=== PATIENT | female | born 1950 | race Caucasian/White ===

== ENCOUNTER 2019-10-14 01:35 | Day surgery (SDC) | payer MEDICARE, OTHER, SELFPAY ==
[2019-10-05 15:39] VITALS: BMI 33.8
[2019-10-14 06:58] VITALS: BP 158/75; PULSE 72; RESP 18; TEMP 36.3; O2SAT 99
[2019-10-14] MEDS: LACTATED RINGERS 1,000 ML 150 ML IV CONT (06:59)
--- NOTE | 2019-10-14 07:34 | WPDANESEPPF ---
Anes - Initial Pre Proc Eval Procedure: Operation Date: 10/14/19 08:00 Proposed Procedures p Screening Colonoscopy - Wilmer Fletcher MD Date/Time: 10/14/19 07:34 Surgeon: Wilmer Fletcher MD Pre Op Diagnosis: Personal Hx Colon Polyps Patient Data Age: 69 Gender: F Height: 1.57 m Weight: 82.9 kg Last Vital Signs Temp 36.3 C L 10/14/19 06:58 Pulse 72 10/14/19 06:58 Resp 18 10/14/19 06:58 BP 158/75 H 10/14/19 06:58 Pulse Ox 99 10/14/19 06:58 Allergies Allergy/AdvReac Type Severity Reaction Status Date / Time No Known Allergies Allergy Verified 10/14/19 06:37 Home Medications Medication Instructions Recorded Confirmed Type aripiprazole 5 mg PO HS 10/05/19 10/05/19 History atorvastatin 10 mg PO 3XW 10/05/19 10/05/19 History clonazepam 0.5 mg PO QID 10/05/19 10/05/19 History escitalopram oxalate 10 mg PO HS 10/05/19 10/05/19 History losartan 10 mg PO HS 10/05/19 10/05/19 History Patient hx anesthesia problems: none Family hx anesthesia problems: none PMFSH Past Medical History Medical History (Updated 10/14/19 @ 07:35 by Dima Gibson MD) HTN (hypertension) Hypercholesterolemia Melanoma Obesity Family History Family History (Updated 04/11/16 @ 23:19 by DOCTOR UNKNOWN) Father Family history of malignant neoplasm Mother Family history of diabetes mellitus in first degree relative Family history of coronary artery disease Social History Social History Smoking status: Smoker, status unknown Alcohol intake: current Anes - Eval Final PreProcedure Day of Procedure 10/14/19 07:34 Patient weight: obese Heart: regular rate and rhythm Lungs: clear to auscultation and normal air movement Airway: Mallampati scale class II Neurological: alert and oriented Last oral intake: >/= 8 hours ASA classification: III Emergent: no Anesthetic plan: proceed Anesthesia type and monitoring: general GIVS Informed Consent: The patient's anesthetic plan and its attendant risks and benefits were discussed with the patient/family/POA. Questions were solicited and answers provided to the satisfaction of the patient/family/POA.
--- NOTE | 2019-10-14 07:48 | P.HP_ITS ---
History of Present Illness History of Present Illness Consent: Risks, benefits, and alternatives have been discussed and questions answered. Patient agrees to proceed with procedure. Chief complaint: Personal Hx Colon Polyps Narrative: Albania Silva is a 69 year old female for screening colonoscopy. She has history of adenomatous polyps for which she had a partial colectomy several years ago [facility] Past Medical History Medical History HTN (hypertension) Hypercholesterolemia Melanoma Obesity Family History Family History Father Family history of malignant neoplasm Mother Family history of diabetes mellitus in first degree relative Family history of coronary artery disease Social History Social History Smoking status: Smoker, status unknown Alcohol intake: current Meds Home Medications and Allergies Home Medications Medication Instructions Recorded Confirmed Type aripiprazole 5 mg PO HS 10/05/19 10/05/19 History atorvastatin 10 mg PO 3XW 10/05/19 10/05/19 History clonazepam 0.5 mg PO QID 10/05/19 10/05/19 History escitalopram oxalate 10 mg PO HS 10/05/19 10/05/19 History losartan 10 mg PO HS 10/05/19 10/05/19 History Allergies Allergy/AdvReac Type Severity Reaction Status Date / Time No Known Allergies Allergy Verified 10/14/19 06:37 Vital Signs Vital Signs - 24 hr 10/14/19 06:58 Temperature 36.3 C L Pulse Rate 72 Respiratory Rate 18 Blood Pressure 158/75 H Pulse Oximetry 99 Exam Resp: Auscultation: clear to auscultation bilaterally Cardio: Rate: regular rate Rhythm: regular rhythm GI: GI Palp: Yes Soft to palpation and No Tenderness to palpation present (GI) Assessment and Plan Assessment and plan (1) Family history of colonic polyps: Code(s): Z83.71 - Family history of colonic polyps Status: Acute Assessment and Plan: Colonoscopy with possible biopsy or polypectomy or cautery or injection of substances.
[2019-10-14] MEDS: SIMETHICONE ORAL SUSPENSION 20 MG/0.3 ML 30 ML BOTTLE 0.6 ML IRRIGATION (08:04)
[2019-10-14 08:12] VITALS: BP 119/66; PULSE 73; RESP 19; O2SAT 98
[2019-10-14 08:22] VITALS: BP 125/70; PULSE 74; RESP 19; O2SAT 98
[2019-10-14 08:32] VITALS: BP 147/71; PULSE 78; RESP 19; O2SAT 98
== END 2019-10-14 08:47 | disposition home or self-care (01) ==
PROVIDERS: Visit Provider Internal Medicine Gastroenterology
PROC: 0DJD8ZZ Inspection of Lower Intestinal Tract, Via Natural or Artificial Opening Endoscopic (ICD-10-PCS; CPT 45378; principal; 2019-10-14 08:00)
DX: Z12.11 Encounter for screening for malignant neoplasm of colon (principal); Z86.010 Personal history of colon polyps; Z98.0 Intestinal bypass and anastomosis status; Z90.49 Acquired absence of other specified parts of digestive tract; I10 Essential (primary) hypertension; E78.00 Pure hypercholesterolemia, unspecified; E66.9 Obesity, unspecified; Z68.33 Body mass index [BMI] 33.0-33.9, adult
CPT/HCPCS: G0121; J7120

== ENCOUNTER 2021-12-20 09:01 | Outpatient (CLI) | payer MEDICARE, OTHER, SELFPAY ==
--- NOTE | ~2021-12-20 | MR_ITS ---
EXAMINATION: MR IAC wo/w con DATE: 12/20/2021 10:03 INDICATION: Dizziness. TECHNIQUE: Magnetic resonance imaging (MRI) of the brain, brainstem, and internal auditory canals was performed without and with 13 mL MultiHance intravenous contrast. Sequences included sagittal and ax ial T1-weighted FSE, axial diffusion-weighted FS EPI, axial T2*-weighted GRE, axial T2-weighted FLAIR Propeller, axial T2-weighted Propeller, small hvrql-sk-dvae coronal FIESTA, small wbeuc-kw-bbwc lizz nal T1-weighted FSE, and small ljkab-nh-rpxj axial T1-weighted SPGR. Postcontrast sequences included axial T1-weighted FSE, small cktoz-pn-vtal coronal T1-weighted FSE, and small zznjw-qs-atpw axial T1- weighted SPGR. Apparent diffusion coefficient (ADC) maps were created. COMPARISON: Brain MRI 06/12/2016 FINDINGS: There are scattered areas of nonspecific increased T2-weighted signal intensity in the cere bral white matter and robert. There is no intracranial hemorrhage, acute infarction, or abnormal intrac ranial mass lesion. The ventricles are normal in size. Again seen are small bilateral mastoid effusio ns. The orbits are normal. The paranasal sinuses are clear. IMPRESSION: 1. Worsened moderate nonspecific cerebral white matter disease and pontine disease which likely repr esents chronic small vessel ischemic disease. Reviewed, dictated and finalized at location A. IMPRESSION: 1. Worsened moderate nonspecific cerebral white matter disease and pontine dise ase which likely represents chronic small vessel ischemic disease.
[2021-12-20 09:26] LABS: Estimated Glomerular Filt Rate > 60
== END 2021-12-20 09:02 | disposition home or self-care (01) ==
LOC: ANHIMG 09:04
DX: R42 Dizziness and giddiness (principal); R93.0 Abnormal findings on diagnostic imaging of skull and head, not elsewhere classified
CPT/HCPCS: 70553; A9577

== ENCOUNTER 2025-01-29 13:51 | Inpatient (IN) | payer MEDICARE, OTHER, SELFPAY ==
[2025-01-29] VITALS (20 sets, daily range): BP systolic 145–184; BP diastolic 71–84; PULSE 87–106; RESP 14–22; TEMP 36.5–36.6; O2SAT 94–100; BMI 26.7
--- NOTE | ~2025-01-29 | CT_ITS ---
History: Fall PROCEDURE: CT cervical spine without intravenous contrast. COMPARISON: None TECHNIQUE: Multiple contiguous axial images of the cervical spine were performed without the administration of i ntravenous contrast. DLP: 283 mGy-cm FINDINGS: Straightening and slight reversal of the normal curvature of the cervical spine is identified, likely muscular in origin. No acute fractures are present. The bilateral lung apices are unremarkable. No soft tissue abnormality is present. The airway is patent. Impression: Straightening and slight reversal of the normal curvature of the cervical spine, likely muscular in o rigin. No acute fracture. Reviewed, dictated and finalized at location A. Impression: Straightening and slight reversal of the normal curvature of the cervical spine , likely muscular in origin. No acute fracture.
--- NOTE | ~2025-01-29 | XR_ITS ---
HISTORY: Fall COMPARISON: None TECHNIQUE: 2 views of the left foot were performed FINDINGS: Comminuted fracture of the distal margin of the proximal phalanx of the fifth toe. No additional fracture deformities are appreciated. Ossification of the insertion of the Achilles tendon is present. The base of the fifth metatarsal is intact. No calcaneal spur is noted. Mild soft tissue swelling of the forefoot is present. IMPRESSION: Comminuted fracture of the distal margin of the proximal phalanx, as detailed above. Reviewed, dictated and finalized at location A.
--- NOTE | ~2025-01-29 | CT_ITS ---
History: Fall PROCEDURE: CT head without contrast. COMPARISON: Reference is made to MRI examinations of the brain dated 06/12/2016 and dating back to TECHNIQUE: Axial imaging of the head performed from the skull base to the vertex without IV contrast. Sagittal a nd coronal reformations obtained. DLP: 605 mGy-cm FINDINGS: The ventricles are normal in size, shape and position. There is no mass, mass effect or midline shift. There is no abnormal extra-axial fluid collection or intracranial hemorrhage. Visualized paranasal sinuses are clear. The mastoid air cells are well aerated. No acute displaced fractures within the overlying cranium. Impression: No acute intracranial hemorrhage or suspicious mass effect. Reviewed, dictated and finalized at location A. Impression: No acute intracranial hemorrhage or suspicious mass effect.
--- NOTE | ~2025-01-29 | XR_ITS ---
CHEST RADIOGRAPH CLINICAL HISTORY: generalized weakness . COMPARISON: 06/23/2016 TECHNIQUE: Single portable view of the chest. FINDINGS The cardiomediastinal silhouette is unremarkable. Low lung volumes detected bilaterally secondary to incomplete inhalation. The lungs are otherwise clear. IMPRESSION: No focal infiltrate or effusion. Reviewed, dictated and finalized at location A.
--- NOTE | ~2025-01-29 | XR_ITS ---
Exam: Abdomen 1V HISTORY: Nausea, vomiting, abdominal pain COMPARISON: reference is made to a CT examination of the chest abdomen and pelvis dated 01/29/2025 TECHNIQUE: Supine images of the abdomen FINDINGS: Air is now identified within the rectum, an interval change from the recent CT examination. Multiple loops of distended small bowel are identified within the mid abdomen with mural thickening. Air opacified colon is also identified. There is no free air or deep sulci. No pathologic calcifications are seen. Lung bases are unremarkable. IMPRESSION: Distended small bowel within the mid abdomen with mural thickening. Air within the rectum, an interval change from recent CT examination. Reviewed, dictated and finalized at location A.
--- NOTE | ~2025-01-29 | CT_ITS ---
EXAMINATION: CTA chest PE abdomen pel DATE: 01/29/2025 17:24 CDT INDICATION: Weakness with positive d-dimer, leukocytosis and diarrhea. COMPARISON: 05/22/2016 TECHNIQUE: Computed tomographic angiography (CTA) of the chest was performed, along with multiple con tiguous axial images of the abdomen and pelvis with 100 mL Omnipaque-350 intravenous contrast. The do se-length product was 882.16 mGy-cm. Maximum intensity projection 3D-reconstructions of the aorta and other arteries were constructed by the technologist on a separate workstation. FINDINGS/OBSERVATIONS: PULMONARY ARTERIES: No filling defect is identified within the main or proximal pulmonary artery. The main pulmonary artery is not enlarged. THORACIC AORTA: No aneurysmal dilatation or dissection is present. The great vessels are intact LUNGS: The lungs are clear. MEDIASTINUM: No morphologically suspicious or pathologically enlarged lymph nodes are identified with in the mediastinum or bilateral axilla. Calcified lymph nodes are present consistent with prior granu lomatous disease. BONES OF THE CHEST: No acute fracture. No significant degenerative disease. No lytic or blastic lesions. HEART: The heart is of normal size, without pericardial effusion. LIVER: The liver enhances homogeneously and is of decreased attenuation consistent with fatty infiltration. The liver is not enlarged. GALLBLADDER AND BILIARY SYSTEM: The gallbladder is surgically absent. PANCREAS: The pancreas enhances homogeneously without ductal dilatation. SPLEEN: The spleen enhances homogeneously and is not enlarged. KIDNEYS: Rounded focus of fluid attenuation within the upper pole of the right kidney, likely a simpl e cyst. The remainder of the bilateral kidneys enhance symmetrically without hydronephrosis or renal calculi. ADRENAL GLANDS: Unremarkable. GASTROINTESTINAL TRACT: Colonic diverticulosis without surrounding inflammatory change. Postoperative change within the right mid abdomen. Fecal stasis distending the rectum. APPENDIX: The appendix is not definitively visualized. However, no pericecal inflammatory change is identified suggest the presence of acute appendicitis. VASCULATURE: Calcified atherosclerotic disease. LYMPH NODES: No pathologically enlarged or morphologically suspicious lymph nodes within the retroperitoneum or at the root of the mesentery. PELVIC STRUCTURES: The bladder is only minimally distended, and otherwise unremarkable. The uterus is either surgically absent or markedly atrophic. BODY WALL AND MUSCULOSKELETAL: Small fat-containing umbilical hernia. Age-appropriate degenerative disease within the thoracic and lumbosacral spine. IMPRESSION: No pulmonary embolus. No aortic dissection. The lungs are clear. Fecal stasis distending the rectum. Reviewed, dictated and finalized at location A.
--- OUTSIDE RECORDS SUMMARY | 2025-01-29 13:53 | XMS_ITS | Encounter Summary ---
Author Organization [facility] Address 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
--- OUTSIDE RECORDS SUMMARY | 2025-01-29 13:53 | XMS_ITS | Encounter Summary ---
Author Organization [facility] Address 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 Gender Identity Not on file Sexual Orientation Not on file documented as of this encounter Plan of Treatment Not on file documented as of this encounter Procedures Procedure Name Priority Date/Time Associated Diagnosis Comments MAMMO SCREENING BILAT Routine 06/30/2008 5:15 PM CDT documented in this encounter Results * MAMMO SCREENING BILAT (06/30/2008 5:15 PM CDT) Anatomical Region Laterality Modality Breast Bilateral Other 06/30/2008 5:15 PM CDT Narrative 07/03/2008 2:51 PM CDT [facility] [address], [place] [address] Admit Date: 06/30/2008 BEVERLEY ARGUELLO Sex: F Admit Prov: DOCTOR, NOT O Date: 1950 Primary Care Prov: CMRN: [id number] Room: [facility] SSN: [address] [place] [address] IMAGING SERVICES Ordering Prov: DOCTOR, NOT O Accession Number: [id number] Interpretation BILATERAL SCREENING MAMMOGRAM 06/30/08 Reason for this examination: Annual screening study. Findings: The parenchyma is predominantly fatty bilaterally. There is no mass, malignant calcification, lymphadenopathy or other sign of malignancy. No change since 06/2006. Summary: No mammographic evidence of malignancy. Overall assessment: BIRADS category 1 - Negative Assessment BIRADS: 1-Negative Recommendation: Normal interval follow-up Dictated by: WILBUR MEADE Electronically signed by: WILBUR MEADE 07/03/2008 14:50 Transcribed: 07/03/2008 14:41 AMK Procedure Note Wilbur Meade MD - 07/03/2008 [facility] [address], [place] [address] Admit Date: 06/30/2008 BEVERLEY ARGUELLO Sex: F Admit Prov: DOCTOR, NOT O Date: 1950 Primary Care Prov: CMRN: [id number] Room: [facility]: [address] [place] [address] IMAGING SERVICES Ordering Prov: DOCTOR, NOT O Interpretation BILATERAL SCREENING MAMMOGRAM 06/30/08 Reason for this examination: Annual screening study. Findings: The parenchyma is predominantly fatty bilaterally. Thereis no mass, malignant calcification, lymphadenopathy or other sign ofmalignancy. No change since 06/2006. Summary: No mammographic evidence of malignancy. Overall assessment: BIRADS category 1 - Negative Assessment BIRADS: 1-Negative Recommendation: Normal interval follow-up Dictated by: WILBUR MEADE Electronically signed by: WILBUR MEADE 07/03/2008 14:50 Transcribed: 07/03/2008 14:41 AMK us History Conversion MAMMO ORDERABLES Final Result documented in this encounter Visit Diagnoses Diagnosis Other screening mammogram documented in this encounter
--- OUTSIDE RECORDS SUMMARY | 2025-01-29 13:53 | XMS_ITS | Encounter Summary ---
Author Organization [facility] Address 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
--- OUTSIDE RECORDS SUMMARY | 2025-01-29 13:53 | XMS_ITS | Patient Health Record ---
Author Organization [employer] Address [address] [facility] [address] [place] [address] Care Team Providers Care Lasting Floorworker Name Role Phone Jud Londono MD Primary Care Provider Joe Gonzalez Unavailable [phone] Reason For Referral No Information Medications Medication SIG (Take, Route, Fr equency, Duration) Notes Start Date End Date Status Loperamide HCl 2 MG TAKE 1 CAPSULE BY [facility] TWICE DAILY NEEDED for 10 Active Suflave 178.7 GM ML Orally twice a da y for 1 days 11/12/2023 Active clonazePAM Active Atorvastatin Calcium Active Immunizations Vaccine Route Administration Date Status Comme nts Influenza Vaccination Unknown 06/14/2018 Administered Social History Tobacco Use: Social History Observation Description Date Details (start date - stop date) Current Smoker NA - NA Tobacco Use/Smoking Question Answer Notes Are you a current smoker Problems Problem Type SNOMED Code ICD Code Onset Dates Problem Status W/U Status Risk Notes Problem 292984114 Gastro-esophag eal reflux disease with esophagitis (K21.0) Active confirmed Problem 966264547 Esophageal obstruction (K22.2) Active confirmed Problem 344893398 Chronic diarrhea (K52.9) Active confirmed She has chronic diarrhea. She typically has up to 15 bowel movements per day that are semi-formed or watery. Her stools come on urgently and she sometimes will have nocturnal symptoms. She denies having any blood in the stool. It is of note that she has had previous hemicolectomy and cholecystectomy . She also notes that certain fruits such as apples and pears worsen her symptoms. Suspect symptoms are related to a combination of previous surgeries and food intolerance. Problem 215869222 History of colon polyps (Z86.010) Active confirmed Her last colonoscopy was in 2014. She has a history of polyps and was instructed to follow up in 5 years. Problem 59326148 Dysphagia (R13.10) Active confirmed Problem 142820063 S/P neno (Z90.49) Active confirmed Plan Of Treatment Pending Test Test Name Order Date Initiate Fructose 12/09/2018 Initiate Lactose 12/09/2018 Insurance Providers Payer Name Payer Address Payer Phone Subscriber Number Group Number Insured Name Patient Relationship to Insured Coverage Start Date Coverage End Date Medicare E2 [address] [address] [place] [address] [id number] Albania Silva Self - patient is the insured [employer] E2 [address] [place] [address] [phone] [id number] Albania Silva Self - patient is the insured 7 Medical (General) History Medical History History ICD Code GERD Hypertension Bipolar disorder Melanoma in-situ Depression/anxiety Colon polyps IBS Surgical History Surgery Date(Month/Year) EGD 04/2017 Hemicolectomy Cholecystectomy Hysterectomy Melanoma excision Tonsillectomy Colon / Bowel Surgery
--- OUTSIDE RECORDS SUMMARY | 2025-01-29 13:53 | XMS_ITS | Encounter Summary ---
Author Organization [facility] Address [address] [place] [address] Care Team Providers Care Supervisor Leaf Spring Repair Name Role Phone Marlen Frazier MD Primary Care Provider [phone] Encounter Details Date Type Department Care Team (Late st Contact Info) Description 08/13/2023 Lab Requisition [facility] - DermPath Lab [address] [place] [id number] Floridalma Caban MD [address] [place] [id number] Neoplasm of uncertain behavior of skin Social History Tobacco Use Types Packs/Day Years Used Date Smoking Tobacco: Every Day Cigarettes Smokeless Tobacco: Never Alcohol Use Standard Drinks/Week Comments No 0 (1 standard drink = 0.6 oz pur e alcohol) Comments Unknown Sex and Gender Information Value Date Recorded Sex Assigned at Not on file Legal Sex Female 5:45 PM HEAD OF CONSERVATION Gender Identity Not on file Sexual Orientation Not on file documented as of this encounter Plan of Treatment Not on file documented as of this encounter Procedures Procedure Name Priority Date/Time Associated Diagnosis Comments DERMATOPATHOLOGY Routine 08/13/2023 3:33 AM HEAD OF CONSERVATION Neoplasm of uncertain behavior of skin documented in this encounter Results * DERMATOPATHOLOGY (08/13/2023 3:33 AM HEAD OF CONSERVATION) Case Report Dermatopathology Report Case: [id number] Authorizing Provider: Floridalma Caban MD Collected: 08/13/2023 03:33 AM Ordering Location: [facility] DermPath Lab Received: 08/14/2023 08:36 AM Pathologist: Hannah Quiroz MD Specimen: Skin, superior thoracic spine 3 12:58 PM [facility] DERMATOPATHOLOGY LABORATORY Final Diagnosis Specimen A. SKIN, superior thoracic spine: BASAL CELL CARCINOMA, FIBROEPITHELIOMA TYPE (C44.519) 3 12:58 PM [facility] DERMATOPATHOLOGY LABORATORY Clinical History Rule-Out Basal Cell Carcinoma 3 12:58 PM [facility] DERMATOPATHOLOGY LABORATORY Gross Description Specimen A: Received is one formalin filled container labeled with the patient's name and designated superior thoracic spine. The specimen consists of a shave biopsy measuring 8x5x2 mm. Jar 0. 3 12:58 PM [facility] DERMATOPATHOLOGY LABORATORY Microscopic Description Specimen A. SKIN, superior thoracic spine: Embedded in a fibrous cellular stroma there are numerous anastomosing narrow strands of basaloid cells. In areas, the collections of basaloid cells show peripheral palisading. 3 12:58 PM [facility] DERMATOPATHOLOGY LABORATORY Disclaimer An external and internal positive and negative controls are appropriate for the histochemical, immunohistochemical and immunofluorescence stain(s) in this case (if any), except where stated explicitly. The performance characteristics of the stain(s) cited in this report were developed and its performance characteristic determined by the Dermatopathology Laboratory at [facility], directed by Dr. Melecio Zambrano. These tests need not be, and therefore are not, approved by the [place] Food and Drug Administration. The tests are used for clinical purposes. Billing Codes Specimen Charges Stain Charges 63081 1 3 12:58 PM [facility] DERMATOPATHOLOGY LABORATORY Embedded Images 3 12:58 PM [facility] DERMATOPATHOLOGY LABORATORY Pathology/Cytolo gy TISSUE SPECIMEN FROM SKIN / Unknown 08/13/2023 3:33 AM HEAD OF CONSERVATION 08/14/2023 8:36 AM HEAD OF CONSERVATION Floridalma Caban MD LAB - PATHOLOGY/CYTOLOGY ORDERAB LES Final Result DERMATOPATHOLOGY LABORATORY [facility] - Department of Dermatology [address], [address] [phone] documented in this encounter Visit Diagnoses Diagnosis Neoplasm of uncertain behavior of skin documented in this encounter Care Teams Supervisor Leaf Spring Repair Relationship Specialty Start Date End Date Marlen Frazier MD PCP - General 07/25/16 documented as of this encounter
--- OUTSIDE RECORDS SUMMARY | 2025-01-29 13:53 | XMS_ITS | Continuity of Care Document ---
Author Organization [facility] Address [address] [place] [address] Phone Care Team Providers Care Resident Medical Officer Name Role Phone Freda Thapa Unavailable Unavailable Advance Directives Directive Yes / No Effective Date File Name No Information Encounters Encounter Description Practice Location Reason(s) For Visit Diagnoses Date Provider Providers Copied on Encounter [facility], [address], [place], [place], [id number], [place] tel:[phone] [facility] No Information 0-200 6 Alanis Barba. [address] , [address], [place], [address], [place]. tel:[phone] Family History Family Member Type Diagnosis Age At Onset No Information Payers Payer name Insurance type Covered alliance party ID Authoriza tipanda(s) [facility] CI [id number] Social History Type Description Quantity Date Captured Comments Sex Female Smoking Status No Information Chief Complaint And Reason For Visit No Information Reason For Referral Reason For Referral No Information History Of Present Illness Encounter Date Complaint History Of Prese nt Illness No Information Functional Status Date Functional Assessmen t No Information Instructions Date Instruction Additional Infor mation No Information Assessments Type Assessment Date No Information Patient Care Teams Name Effective Dates (start - stop) Status Members No Information
--- OUTSIDE RECORDS SUMMARY | 2025-01-29 13:53 | XMS_ITS | Encounter Summary ---
Author Organization [facility] Address 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
--- OUTSIDE RECORDS SUMMARY | 2025-01-29 13:53 | XMS_ITS | Clinical Summary ---
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 [place] Gender Identity Not on file Sexual Orientation Not on file Plan of Treatment Health Maintenance Due Date Last Done Comments DTAP/TDAP/TD VACCINES (1 - Tdap) 1971 COLORECTAL SCREENING 1997 Colorectal Cancer Screening 1997 FIT-DNA Q 3 years 1997 FIT/FOBT Q 1 year 1997 Flex Sig/CT Colonography Q 5 years 1997 PNEUMOCOCCAL VACCINE 50+ YEARS (1 of 1 - PCV) 05/24/20 02 ZOSTER VACCINE (1 of 2) 2002 BREAST CANCER SCREENING 06/30/2009 06/30/2008 OSTEOPOROSIS SCREENING 2017 INFLUENZA VACCINE (#1) 2024 RSV VACCINE (60+ or ) (1 - 1-dose 75+ series) 2027 Procedures Procedure Name Priority Date/Time Associated Diagnosis Comments MAMMO SCREENING BILAT Routine 06/30/2008 5:15 PM CDT from Last 3 Months or Most Recently Relevant to Health Maintenance Results * MAMMO SCREENING BILAT (06/30/2008 5:15 PM CDT) Anatomical Region Laterality Modality Breast Bilateral Other 06/30/2008 5:15 PM CDT Narrative 07/03/2008 2:51 PM CDT [address] [address] Admit Date: 06/30/2008 BEVERLEY ARGUELLO Sex: F Admit Prov: DOCTOR, NOT O Date: 1950 [id number] [address] [place] [address] IMAGING SERVICES Ordering Prov: DOCTOR, NOT O Accession Number: [id number] Interpretation BILATERAL SCREENING MAMMOGRAM 06/30/08 Reason for [...] Procedure Note Wilbur Meade MD - 07/03/[address] [address] Admit Date: 06/30/2008 BEVERLEY ARGUELLO Sex: F Admit Prov: DOCTOR, NOT O Date: 1950 [facility] [id number] [facility] [id number] IM[facility] SERVICES Ordering Prov: DOCTOR, NOT O [...] us History Conversion MAMMO ORDERABLES Final Result from Last 3 Months or Most Recently Relevant to Health Maintenance
--- OUTSIDE RECORDS SUMMARY | 2025-01-29 13:53 | XMS_ITS | Clinical Summary ---
Author Organization [facility] Address [address], [place] [address] Phone Care Team Providers Care Marble Carver Name Role Phone Unavailable Primary Care Provider Unavailabl e Medications metoprolol tartrate (LOPRESSOR) 50 MG tablet 1 bid 0 07/11/2016 Active fluticasone (FLONASE ALLERGY RELIEF) 50 MCG/ACT nasal spray as needed 0 07/11/2016 Active clonazePAM (KlonoPIN) 0.5 MG tablet prn 0 07/11/2016 Active ARIPiprazole (ABILIFY) 5 MG tablet 1 tablet (5 mg) orally daily 0 07/14/2016 Active losartan (COZAAR) 100 MG tablet 1 daily 0 07/11/2016 Active Active Problems Problem Noted Date Diagnosed Date Hypo-osmolality and hyponatremia 07/14/2016 Essential (primary) hypertension 07/14/2016 Melanoma in situ 07/14/2016 Nonscarring hair loss 07/14/2016 Abnormal weight loss 07/14/2016 Parageusia 07/14/2016 Family History Medical History Relation Comments Hypertensive disorder Father Malignant neoplastic disease Father Hypertensive disorder Mother Hypertensive disorder Sibling Kidney disease Neg Hx Kidney stone Neg Hx Relation Status Comments Father Mother Sibling Social History Tobacco Use Types Packs/Day Years Used Date Smoking Tobacco: Light Smoker Alcohol Use Standard Drinks/Week Comments No 0 (1 standard drink = 0.6 oz pur e alcohol) Comments Unknown Sex and Gender Information Value Date Recorded Sex Assigned at Not on file Legal Sex Female 9:31 AM MST Gender Identity Not on file Sexual Orientation Not on file Last Filed Vital Signs Vital Sign Reading Time Taken Comments Blood Pressure 128/70 10/06/2016 12:01 AM COMMUNITY AMBASSADOR Pulse 72 07/14/2016 12:01 AM CDT Temperature 37.3 C (99.1 F) 07/14/2016 12:01 AM CDT Respiratory Rate - - Oxygen Saturation - - Inhaled Oxygen Concentration - - Weight 79.4 kg (175 lb) 10/06/2016 12:01 AM COMMUNITY AMBASSADOR Height 157.5 cm (5' 2) 10/06/2016 12:01 AM COMMUNITY AMBASSADOR Body Mass Index 32.01 10/06/2016 12:01 AM COMMUNITY AMBASSADOR Plan of Treatment Not on file
--- OUTSIDE RECORDS SUMMARY | 2025-01-29 13:53 | XMS_ITS ---
Author Organization [facility], [facility] Address [address] [place] [address] [address] [place] [address] Care Team Providers Care Attendance Officer Name Role Phone Jud Londono MD Primary Care Provider Joe Gonzalez [facility] [phone] REASON FOR VISIT Path results Encounters Encounter Location Date Provider Diagnosis [facility], [facility] [address] [facility] [address] [place] [address] 01/06/2024 Joe Carvajal Plan Of Treatment No Information Progress Notes * [place] ARGUELLO KDOB:1950 ( 73 yo F)Acc No.[id number]:01/06/2024 Patient: Albania Mcclendon :1950 A ge:73 Y S ex:Female Address:[address] [place] [address], [address] * true * Date: Generated for Printi ng/Falolisg/eTransmitting on: 0 01/29/2025 01:53 PM CDT
--- OUTSIDE RECORDS SUMMARY | 2025-01-29 13:53 | XMS_ITS | Encounter Summary ---
Author Organization [facility] Address [address] [place] [address] Care Team Providers Care Secure Software Assessor Name Role Phone Marlen Frazier MD Primary Care Provider [phone]- [phone] Encounter Details Date Type Department Care Team (Late st Contact Info) Description 05/22/2022 Lab Requisition [facility] [address] [place] [id number] Floridalma Caban MD [address] [place] [address] Social History Tobacco Use Types Packs/Day Years Used Date Smoking Tobacco: Every Day Cigarettes Smokeless Tobacco: Never Alcohol Use Standard Drinks/Week Comments No 0 (1 standard drink = 0.6 oz pur e alcohol) Comments Unknown Sex and Gender Information Value Date Recorded Sex Assigned at Not on file 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 Gender Identity Not on file Sexual Orientation Not on file documented as of this encounter Plan of Treatment Not on file documented as of this encounter Procedures Procedure Name Priority Date/Time Associated Diagnosis Comments DERMATOPATHOLOGY Routine 05/20/2022 12:0 0 AM CDT documented in this encounter Results * DERMATOPATHOLOGY (05/20/2022 12:00 AM CDT) Case Report Dermatopathology Report Case: [id number] Authorizing Provider: Floridalma Caban MD Collected: 05/20/2022 12:00 AM Ordering Location: [facility] Received: 05/22/2022 08:47 AM Pathologist: Kaleigh Alfred MD Specimen: Skin, middle sternum 2 5:31 PM CDT DERMATOPATHOLOGY LABORATORY Final Diagnosis Specimen A. SKIN, middle sternum: BENIGN VERRUCOUS KERATOSIS, INFLAMED (L82.1) 2 5:31 PM CDT DERMATOPATHOLOGY LABORATORY Clinical History R/O squamous cell carcinoma 2 5:31 PM CDT DERMATOPATHOLOGY LABORATORY Gross Description Specimen A: Received is one formalin filled container labeled with the patient's name and designated middle sternum. The specimen consists of a shave biopsy measuring 7x5x2 mm. Jar 0. 2 5:31 PM T DERMATOPATHOLOGY LABORATORY Microscopic Description Specimen A. SKIN, middle sternum: Sections show hyperkeratosis, papillomatosis, hypergranulosis, and acanthosis. Inflammatory cells are present within the dermis. These histological findings can be seen in a verruca vulgaris or a seborrheic keratosis. 2 5:31 PM CDT DERMATOPATHOLOGY LABORATORY Disclaimer An external and internal positive and negative controls are appropriate for the histochemical, immunohistochemical and immunofluorescence stain(s) in this case (if any), except where stated explicitly. The performance characteristics of the stain(s) cited in this report were developed and its performance characteristic determined by the Dermatopathology Laboratory at [facility], directed by Dr. Melecio Zambrano. These tests need not be, and therefore are not, approved by the [place] Food and Drug Administration. The tests are used for clinical purposes. Billing Codes Specimen Charges Stain Charges 10305 1 2 5:31 PM CDT DERMATOPATHOLOGY LABORATORY Embedded Images 2 5:31 PM CDT DERMATOPATHOLOGY LABORATORY Pathology/Cytolog y TISSUE SPECIMEN FROM SKIN / Unknown 05/20/2022 05/22/2022 8:47 AM CDT Floridalma Caban MD LAB - PATHOLOGY/CYTOLOGY ORDERAB LES Final Result DERMATOPATHOLOGY LABORATORY [facility] - Department of Dermatology [address], [address] [phone] documented in this encounter Visit Diagnoses Not on filedocumented in this encounter Care Teams Secure Software Assessor Relationship Specialty Start Date End Date Marlen Frazier MD PCP - General 07/25/16 documented as of this encounter
--- OUTSIDE RECORDS SUMMARY | 2025-01-29 13:53 | XMS_ITS ---
Author Organization [facility] Address [address] [place] [address] [address] [place] [address] Care Team Providers Care Candle Making Supervisor Name Role Phone Jud Londono MD Primary Care Provider Joe Gonzalez [phone] REASON FOR VISIT Loperamide refill Encounters Encounter Location Date Provider Diagnosis [facility] [address] [place] [address] 01/06/2024 Joe Carvajal Plan Of Treatment No Information Progress Notes * Albania ARGUELLO KDOB:1950 ( 73 yo F)Acc No.[id number]:01/06/2024 Patient: [place]ia Mcclendon :1950 A ge:73 Y S ex:Female Address:[address] [place] [address], [address] * true * Date: Generated for Printi ng/Faxing/eTransmitting on: 0 01/29/2025 01:53 PM CDT
--- OUTSIDE RECORDS SUMMARY | 2025-01-29 13:53 | XMS_ITS | Clinical Summary ---
Author Organization [facility] Address [address] [address] Care Team Providers Care Imaging Manager Name Role Phone Marlen Frazier MD Primary Care Provider +1- [phone] Source Comments [facility],non-owned Affiliates and Associated Physician Practices is amultiple site organization consisting of ambulatory clinics and hospital sitesin [place], [place], [place] and [place]. This disclosure is being madepursuant to the Care Everywhere program and may not contain all information available regarding this patient. Last updated 18.[facility] Medications * Be aware that medications may not be up to date on this document. Alwaysverify current medications with the patient. ARIPiprazole (ABILIFY) 2 MG tablet Take by mouth. 08/11/2016 Active clonazePAM (KLONOPIN) 0.5 MG tablet Take 0.25 mg by mouth. 01/10/2016 Active losartan (COZAAR) 100 MG tablet 01/28/2016 Active metoprolol succinate XL 24hr (TOPROL XL) 50 MG tablet Take 25 mg by mouth DAILY. 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 Family History Medical History Relation Name Comments Alcohol abuse Father Anxiety Disorder Father Cancer Father Heart Disease Father Hypertension Father Alcohol abuse Mother Diabetes Mother Hearing Loss Mother Heart Disease Mother Hypertension Mother CVA Neg Hx Glaucoma Neg Hx Macular Degeneration Neg Hx Relation Name Status Comments Father Mother Social History Tobacco Use Types Packs/Day Years Used Date Smoking Tobacco: Every Day Cigarettes Smokeless Tobacco: Never Alcohol Use Standard Drinks/Week Comments No 0 (1 standard drink = 0.6 oz pur e alcohol) Comments Unknown Sex and Gender Information Value Date Recorded Sex Assigned at Not on file 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 Gender Identity Not on file Sexual Orientation Not on file Last Filed Vital Signs Vital Sign Reading Time Taken Comments Blood Pressure - - Pulse - - Temperature - - Respiratory Rate 14 08/11/2016 1:57 PM SHEET METAL SUPERINTENDENT Oxygen Saturation - - Inhaled Oxygen Concentration - - Weight 74.8 kg (165 lb) 08/11/2016 1:57 PM SHEET METAL SUPERINTENDENT Height 157.5 cm (5' 2) 08/11/2016 1:57 PM SHEET METAL SUPERINTENDENT Body Mass Index 30.18 08/11/2016 1:57 PM SHEET METAL SUPERINTENDENT Plan of Treatment Health Maintenance Due Date Last Done Comments BONE DENSITY TESTING 1950 COLOGUARD (AGES 45-75) - COL ON CA SCREENING 1950 COLON MONITORING 1950 COLONOSCOPY - COLON CA SCREENING 1950 CT COLONOGRAPHY - COLON CA SCREENING 1950 Colorectal Cancer Screening 1950 FIT - COLON CA SCREENING 1950 FLEX SIG - COLON CA SCREENING 1950 LIPID TESTING 1950 MAMMOGRAM 1950 MEDICARE AWV 12 MONTHS 1950 HEPATITIS C SCREENING 05/20/1970 DTAP/TDAP/TD VACCINES (1 - Tdap) 1971 PNEUMOCOCCAL VACCINE 50+ (1 of 2 - PCV) 1971 ZOSTER VACCINE (1 of 2) 2002 COVID-19 VACCINE ( - 2023-2 5 season) 2024 DEPRESSION SCREENING 09/14/2024 INFLUENZA VACCINE (Season Ended) 2025 Respiratory Syncytial Virus (RSV) Vaccine Pt: or over 60 yrs (1 - 1-dose 75+ series) 2027 HEPATITIS B VACCINE Aged Out No longe r eligible based on patient's age to complete this topic HIB VACCINE Aged Out No longer eligi ble based on patient's age to complete this topic HPV VACCINE Aged Out No longer eligi ble based on patient's age to complete this topic MENINGOCOCCAL (Group B) VACC INE SHARED DECISION-MAKING Aged Out No longer eligibl e based on patient's age to complete this topic MENINGOCOCCAL GROUPS A/C/Y/W VACCINE Aged Out No longer eligible b ased on patient's age to complete this topic [address] MED[address]ARE [facility] Care Teams Imaging Manager Relationship Specialty Start Date End Date Marlen Frazier MD PCP - General 07/25/16
--- OUTSIDE RECORDS SUMMARY | 2025-01-29 13:54 | XMS_ITS ---
Author Organization [facility] Address [address] [place] [address] [address] [place] [address] Care Team Providers Care Enterprise Software Engineer Name Role Phone Jud Londono MD Primary Care Provider Joe Gonzalez [phone] REASON FOR VISIT VM: pathology results Encounters Encounter Location Date Provider Diagnosis [facility] [address] [place] [address] 01/08/2024 Joe Carvajal Plan Of Treatment No Information Progress Notes * Albania ARGUELLO KDOB:1950 ( 73 yo F)Acc No.[id number]:01/08/2024 Patient: lAbania Mcclendon :1950 A ge:73 Y S ex:Female Address:[address] [place] [address], [address] * true * Date: Generated for Printi ng/Faxing/eTransmitting on: 0 01/29/2025 01:53 PM CDT
--- NOTE | 2025-01-29 15:13 | ED.FALL ---
HPI - Fall General Chief Complaint: Fall Stated Complaint: WEAKNESS,FELL OUT OF BED Time Seen by Provider: 01/29/25 15:11 Source: RN notes reviewed Mode of arrival: EMS History of Present Illness HPI Narrative: Patient presents after a fall from bed approximately 1 hour CHURN OPERATOR MARGARINE. She has been weak. No myalgias. Decreased PO intake. Decreased appetite. Knees reportedly gave out. No sick contacts. Did not hit head. Denies pain. Initially denied paresthesias but then states occasional tingling. No sick contacts. No loss of conciousness. Not on anticoagulation. No nausea or vomiting. No chest pain or abdominal pain. No shortness of breath. Uses walker. No cough. No travel or antibiotics. Has had frequent falls. Chronic diarrhea according to her due to issues related to prolapsed polyp with Dr Fletcher. Patient couldn't get off the ground. concerned her bilateral legs have atrophied. No weight loss. Had previously had bilateral lower extremity edema and been on furosemide, since discontinued. PCP Nancy Fan Denies history of DM. Related Data Home Medications ?Medication ?Instructions ?Recorded ?Confirmed ?Last Taken ?Type atorvastatin 10 mg tablet 10 mg PO 3XW 10/05/19 01/29/25 10/13/19 History clonazepam 0.5 mg tablet 0.5 mg PO QID 10/05/19 01/29/25 10/13/19 History citalopram 40 mg tablet 40 mg PO DAILY 01/29/25 01/29/25 Unknown History meclizine 25 mg tablet 25 mg PO TID PRN dizziness 01/29/25 01/29/25 Unknown History memantine 10 mg tablet 10 mg PO BID 01/29/25 01/29/25 Unknown History trazodone 100 mg tablet 100 mg PO HS 01/29/25 01/29/25 Unknown History potassium chloride 20 mEq 20 meq PO BID 01/30/25 01/30/25 Unknown History tablet,extended release Allergies Allergy/AdvReac Type Severity Reaction Status Date / Time No Known Allergies Allergy Verified 01/29/25 13:52 [facility] Past Medical History Medical History (Updated 02/01/25 @ 17:14 by Татьяна Hancock MD) Melanoma of upper limb Fracture of toe of left foot Obesity Melanoma HTN (hypertension) Hypercholesterolemia Family History Family History Father Family history of malignant neoplasm Mother Family history of diabetes mellitus in first degree relative Family history of coronary artery disease Social History Social History Smoking packs per day: 1 Smoking cigarettes per day: 20.0 Smoking status: Current every day smoker Tobacco type: cigarettes Alcohol intake: never Substance use: never Do You Feel Safe in your Home?: No Lack of Transportation: No Lack of Food: Sometimes True Current Housing: I Have Housing Concerned About Future Housing: No Difficulty Paying Gas/Electric Bills: No Difficulty Paying for Meds: No Currently Unemployed: No Education: Associate Degree Difficulty w/ Childcare or Family Care: No Spiritual care concerns: No Exam Narrative: GENERAL: Chronically illl-appearing, but in no acute distress. HEAD: Normocephalic, atraumatic. EYES: Non injected, non icteric ENT: Nares clear, no rhinorrhea or epistaxis. Dry/tacky mucous membranes. NECK: Supple. CHEST: Speaking in full sentences. No respiratory distress. Lungs clear to auscultation bilaterally without appreciable crackles wheezes. HEART: Tachycardic rate and rhythm. . ABDOMEN: Soft, nondistended. EXTREMITIES: Normal range of motion. No bilateral lower extremity edema. Compartments soft. Patient is able to demonstrate nearly full bilateral movements in the arms without motor drift. Patient able to bend her legs at the bilateral knees. SKIN: Warm, dry. Ecchymosis bilateral feet. NEURO: No focal deficits. Alert and oriented x3. PSYCH: Normal mood and affect. Course Vital Signs Vital signs: Vital Signs Temperature 98 F 01/29/25 13:58 Pulse Rate 104 H 01/29/25 13:58 Respiratory Rate 16 01/29/25 13:58 Blood Pressure 145/71 H 01/29/25 13:58 Pulse Oximetry 100 01/29/25 13:58 Oxygen Delivery Room Air 01/29/25 13:58 Temperature 98.4 F 02/01/25 16:00 Pulse Rate 95 02/01/25 16:00 Respiratory Rate 20 02/01/25 16:00 Blood Pressure 149/77 H 02/01/25 16:00 Pulse Oximetry 100 02/01/25 16:00 Oxygen Delivery Room Air 02/01/25 08:00 MDM - Fall MDM Narrative Medical decision making narrative: Patient presents after a fall out of bed. Has had frequent falls and generally been weak, couldn't get off the ground. In the emergency department she is afebrile with vital signs notable for mild tachycardia as well as acceptable blood pressure although technically mild hypertension. Patient has an unexplained leukocytosis. Will proceed with CT imaging but exact protocol to be determined based on rest of work up. She has hyponatremia with No prior for comparison; not marked to a degree to suspect this is the primary cause of her symptoms. Hypo magnesemia. Repletion ordered. Potassium normal as is renal function. Mildly elevated AST and alkaline phosphatase. Surprisingly, patient has a normal albumin. BNP only mildly elevated. Not to a degree to suggest acute heart failure based on reference range of the assay for patient's age patient does not appear volume overloaded on physical exam or chest x-ray. In fact, she appears quite dry. Urinalysis with mild ketones and elevated bilirubin but otherwise without signs of infection. Nurse attempted to road test patient but patient failed immediately. She was too weak to even transfer off of the bed, essentially weight and unable to significantly help/participate. Patient therefore remains a very big fall risk. Patient is reassessed at approximately 6:20 p.m.. She states she is feeling much better. She has to use the bathroom. However even when attempting this she remains a high fall risk as she can not participate in transferring herself. Discussed the need for admission for PT/OT evaluation/assessment and that patient may require physical therapy he both in the hospital, potentially at home, potentially home health services, but also potentially short-term placement at assisted/rehabilitation facility. Patient her verifies understanding and are in agreement. We discussed code status patient does confirm full code (attempt chest compressions and intubation/mechanical ventilation) in the event of cardiopulmonary arrest. Lab Data Attestation: I reviewed the patient's lab results. Lab results narrative: Normal troponin. TSH normal 02/01/25 06:02 02/01/25 09:40 Labs: Lab Results 01/29/25 01/29/25 01/30/25 Range/Units 16:09 16:19 05:03 WBC 15.2 H (4.5-10.0) K/mm3 RBC 3.78 L (4.2-5.4) M/mm3 Hgb 12.9 (12.0-15.0) g/dL Hct 36.5 L (37.0-47.0) % MCV 96.6 (80-100) fl MCH 34.1 H (26-34) pg MCHC 35.3 (32-36) g/dl RDW 13.2 (11.5-14.5) % Plt Count 316 (150-375) k/mm3 MPV 8.8 (7.4-10.4) fl Immature Gran % (Auto) 0.7 H (0-0.5) % Neut % (Auto) 82.1 H (45.5-73.1) % Lymph % (Auto) 10.8 L (18.3-44.2) % Rowan % (Auto) 6.0 (2.6-8.5) % Eos % (Auto) 0.1 (0-4.4) % Baso % (Auto) 0.3 (0.2-1.2) % Lymph # (Auto) 1.64 (0.9-3.2) K/mm3 Rowan # (Auto) 0.9 H (0.1-0.6) K/mm3 Eos # (Auto) 0.0 (0-0.3) K/mm3 Baso # (Auto) 0.0 (0.0-0.1) K/mm3 Abs Immat Gran (auto) 0.11 H (0.00-0.031) K/mm3 Absolute Neuts (auto) 12.5 H (1.3-6.7) K/mm3 Absolute Nucleated RBC 0.000 (0.0-0.012) K/mm3 Nucleated RBC % 0.0 (0.0-0.2) % D-Dimer 2.79 H (<0.48) ug/mL Sodium 130 L (137-145) mmol/L Potassium 3.6 (3.4-5.0) mmol/L Chloride 100 (98-107) mmol/L Carbon Dioxide 24 (22-30) mmol/L Anion Gap 6 (4-12) mmol/L BUN 14 (7-17) mg/dL Creatinine 0.48 L (0.7-1.0) mg/dL Estim Creat Clear Calc Not Reportable Estimated GFR > 60 (59 - ) Glucose 127 H (65-110) mg/dL Calcium 8.8 (8.4-10.2) mg/dL Magnesium 1.3 L 1.7 (1.6-2.3) mg/dL Total Bilirubin 1.3 (0.2-1.3) mg/dL AST 43 H (14-36) U/L ALT 35 (6-35) U/L Alkaline Phosphatase 133 H (38-126) U/L Total Creatine Kinase 134 (30-135) U/L Troponin I < 0.012 (0.000-0.034) ng/mL NT-Pro-B Natriuret Pep 523 H (19.9-100) pg/mL Total Protein 7.0 (6.3-8.2) g/dL Albumin 3.7 (3.5-5.1) g/dL TSH 1.300 (0.465-4.680) uIU/mL Urine Color Dark yellow (Yellow) Urine Appearance Clear (Clear) Urine pH 5.5 (5.0-9.0) Ur Specific [place] 1.023 (1.001-1.035) Urine Protein Trace (Negative) mg/dL Urine Glucose (UA) Trace H (Negative) mg/dL Urine Ketones 1+ H (Negative) mg/dL Ur Blood (Man) Negative (Negative) Urine Nitrate Negative (Negative) Urine Bilirubin 2+ H (Negative) Urine Urobilinogen 1.0 (<2.0) mg/dL Add Ur Microanalysis Reviewed Leukocyte Esterase Rfl Negative (Negative) STEPHIE/UL Urine RBC 0-2 (0-2) /hpf Urine WBC 0-5 (0-3) /hpf Ur Squamous Epith Cells None seen (Few) /hpf Urine Bacteria None seen /hpf Urine Casts 0-2 Influenza A (RT-PCR) Negative (Negative) Influenza B (RT-PCR) Negative (Negative) RSV (RT-PCR) Negative (Negative) SARS-CoV-2 RNA (RT-PCR) Negative (Negative) Imaging Data Radiologist's impression: IMPRESSION: No focal infiltrate or effusion. Impression: No acute intracranial hemorrhage or suspicious mass effect Impression: Straightening and slight reversal of the normal curvature of the cervical spine, likely muscular in origin. No acute fracture. IMPRESSION: No pulmonary embolus. No aortic dissection. The lungs are clear. Fecal stasis distending the rectum. ECG Data EKG #1: Attestation: I personally reviewed and interpreted this ECG as follows: ECG completion date: 01/29/25 ECG completion time: 16:46 Interpretation: Normal sinus rhythm at a rate of 93 beats per minute. DC interval 128. QRS 88. QT/QTC 368/419. T-wave inversion versus flattening in lead 3. Flat in AVF but otherwise upright in contiguous inferior lead 2. No other T-wave inversions. Discharge Plan Discharge Clinical Impression: Generalized weakness, Hyponatremia, Hypomagnesemia, Elevated AST (SGOT), Alkaline phosphatase raised Fall from bed Qualifiers: Encounter type: initial encounter Qualified Code(s): W06.XXXA - Fall from bed, initial encounter Patient Disposition: Still a Patient Condition: Stable
--- NOTE | 2025-01-29 15:27 | ECG_ITS ---
Test Date: 2025-01-29 16:46:35 Measurements Intervals [place] Rate: 93 P: 54 NV: 128 QRS: -12 QRSD: 88 T: 11 QT: 368 QTc: 459 Interpretive Statements SINUS RHYTHM WITH OCCASIONAL SUPRAVENTRICULAR PREMATURE COMPLEXES NONSPECIFIC T-WAVE ABNORMALITY No previous ECG available for comparison Electronically Signed On 01-30-2025 10:42:21 CDT by Dean Zamudio M.D.
--- OUTSIDE RECORDS SUMMARY | 2025-01-29 15:32 | XMS_ITS | Encounter Summary ---
Author Organization [facility] Address 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
--- OUTSIDE RECORDS SUMMARY | 2025-01-29 15:32 | XMS_ITS | Encounter Summary ---
Author Organization [facility] Address 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
--- OUTSIDE RECORDS SUMMARY | 2025-01-29 15:32 | XMS_ITS | Encounter Summary ---
Author Organization [facility] Address 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
--- OUTSIDE RECORDS SUMMARY | 2025-01-29 15:32 | XMS_ITS | Encounter Summary ---
Author Organization [facility] Address 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, [place] [address] Admit Date: 06/30/2008 BEVERLEY ARGUELLO Sex: F Admit Prov: DOCTOR, NOT O Date: 1950 Primary Care Prov: CMRN: [id number] Room: [facility]: [address] [place] [address] IMAGING SERVICES Ordering Prov: DOCTOR, NOT O [...]
--- OUTSIDE RECORDS SUMMARY | 2025-01-29 15:32 | XMS_ITS | Encounter Summary ---
Author Organization [facility] Address [address] [place] [address] Care Team Providers Care Cupola Operator Insulation Name Role Phone Marlen Frazier MD Primary Care Provider [phone]- [phone] Encounter Details Date Type Department Care Team (Late st Contact Info) Description 05/22/2022 Lab Requisition [facility] [address] [facility] [address] [place] [id number] Floridalma Caban MD [address] [place] [address] Social History Tobacco Use Types Packs/Day Years Used Date Smoking Tobacco: Every Day Cigarettes Smokeless Tobacco: Never Alcohol Use Standard Drinks/Week Comments No 0 (1 standard drink = 0.6 oz pur e alcohol) Comments Unknown Sex and Gender Information Value Date Recorded Sex Assigned at Not on file Legal Sex Female 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 Gender Identity Not on file Sexual Orientation Not on file documented as of this encounter Plan of Treatment Not on file documented as of this encounter Procedures Procedure Name Priority Date/Time Associated Diagnosis Comments DERMATOPATHOLOGY Routine 05/20/2022 12:0 0 AM CDT documented in this encounter Results * DERMATOPATHOLOGY (05/20/2022 12:00 AM CDT) Case Report Dermatopathology Report Case: [id number] Authorizing Provider: Floridalma Caban MD Collected: 05/20/2022 12:00 AM Ordering Location: [facility] Received: 05/22/2022 08:47 AM Pathologist: [...] characteristic determined by the Dermatopathology Laboratory at [facility], directed by Dr. Melecio Zambrano. These tests need not be, and therefore are not, approved by the [place] Food and Drug Administration. The tests are used for clinical purposes. Billing Codes Specimen Charges Stain Charges 99944 1 2 5:31 PM CDT DERMATOPATHOLOGY LABORATORY Embedded Images 2 5:31 PM CDT DERMATOPATHOLOGY LABORATORY Pathology/Cytolog y TISSUE SPECIMEN FROM SKIN / Unknown 05/20/2022 05/22/2022 8:47 AM CDT Floridalma Caban MD LAB - PATHOLOGY/CYTOLOGY ORDERAB LES Final Result DERMATOPATHOLOGY LABORATORY [facility] - Department of Dermatology [address], [address] [phone] documented in this encounter Visit Diagnoses Not on filedocumented in this encounter Care Teams Cupola Operator Insulation Relationship Specialty Start Date End Date Marlen Frazier MD PCP - General 07/25/16 documented as of this encounter
--- OUTSIDE RECORDS SUMMARY | 2025-01-29 15:32 | XMS_ITS | Clinical Summary ---
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 Gender Identity Not on file Sexual Orientation [...] PM CDT Narrative 07/03/2008 2:51 PM CDT [address] [address] Admit Date: 06/30/2008 BEVERLEY ARGUELLO Sex: F Admit Prov: DOCTOR, NOT O Date: 1950 Primary Care Prov: [id number] [facility] [address] [place] [address] IMAGING SERVICES Ordering Prov: DOCTOR, NOT O Accession Number: [id number] Interpretation BILATERAL SCREENING MAMMOGRAM 06/30/08 Reason for [...] Procedure Note Wilbur Meade MD - 07/03/[address] [address] Admit Date: 06/30/2008 BEVERLEY ARGUELLO Sex: F Admit Prov: DOCTOR, NOT O Date: 1950 Primary Care Prov: [facility] [id number] [id number] Ordering Prov: DOCTOR, NOT O [...]
--- OUTSIDE RECORDS SUMMARY | 2025-01-29 15:32 | XMS_ITS | Continuity of Care Document ---
Author Organization [facility] Address [address] [place] [address] Phone Care Team Providers Care Multifocal Button Grinder Name Role Phone Freda Thapa Unavailable Unavailable Advance Directives Directive Yes / No Effective Date File Name No Information Encounters Encounter Description Practice Location Reason(s) For Visit Diagnoses Date Provider Providers Copied on Encounter [facility], [address], [place], [place], [id number], [place] tel:[phone] [facility] No Information 0-200 6 Alanis Barba. [address] , [address], [place], [address], [place]. tel:[phone] Family History Family Member Type Diagnosis Age At Onset No Information Payers Payer name Insurance type Covered republican ID Authoriza tipanda(s) [facility] CI [id number] Social History Type Description Quantity Date Captured [...]
--- OUTSIDE RECORDS SUMMARY | 2025-01-29 15:32 | XMS_ITS | Encounter Summary ---
Author Organization [facility] Address [address] [address] Care Team Providers Care Spanish Professor Name Role Phone Marlen Frazier MD Primary Care Provider [phone]- [phone] Encounter Details Date Type Department Care Team (Late st Contact Info) Description 08/13/2023 Lab Requisition [facility] [address] [facility] [place] [phone] Floridalma Caban MD [address] [place] [address] Neoplasm of uncertain behavior of skin Social History Tobacco Use Types Packs/Day Years Used Date Smoking Tobacco: Every Day Cigarettes Smokeless Tobacco: Never Alcohol Use Standard Drinks/Week Comments No 0 (1 standard drink = 0.6 oz pur e alcohol) Comments Unknown Sex and Gender Information Value Date Recorded Sex Assigned at Not on file 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 Gender Identity Not on file Sexual Orientation Not on file documented as of this encounter Plan of Treatment Not on file documented as of this encounter Procedures Procedure Name Priority Date/Time Associated Diagnosis Comments DERMATOPATHOLOGY Routine 08/13/2023 3:33 AM FOREIGN LANGUAGE INSTRUCTOR Neoplasm of uncertain behavior of skin documented in this encounter Results * DERMATOPATHOLOGY (08/13/2023 3:33 AM FOREIGN LANGUAGE INSTRUCTOR) Case Report Dermatopathology Report Case: [id number] Authorizing Provider: Floridalma Caban MD Collected: 08/13/2023 03:33 AM Ordering Location: [facility] Received: 08/14/2023 08:36 AM Pathologist: Hannah Quiroz MD Specimen: Skin, superior thoracic spine 3 12:58 PM [facility] DERMATOPATHOLOGY LABORATORY Final Diagnosis Specimen A. SKIN, superior thoracic spine: BASAL CELL CARCINOMA, FIBROEPITHELIOMA TYPE (C44.519) 3 12:58 PM [facility] DERMATOPATHOLOGY LABORATORY Clinical History Rule-Out Basal Cell Carcinoma 3 12:58 PM [facility] DERMATOPATHOLOGY LABORATORY Gross Description Specimen A: Received is one formalin filled container labeled with the patient's name and designated superior thoracic spine. The specimen consists of a shave biopsy measuring 8x5x2 mm. Jar 0. 3 12:58 PM [facility] DERMATOPATHOLOGY LABORATORY Microscopic Description Specimen A. SKIN, superior thoracic spine: Embedded in a fibrous cellular stroma there are numerous anastomosing narrow strands of basaloid cells. In areas, the collections of basaloid cells show peripheral palisading. 3 12:58 PM [facility] DERMATOPATHOLOGY LABORATORY Disclaimer An external and internal positive and negative controls are appropriate for the histochemical, immunohistochemical and immunofluorescence stain(s) in this case (if any), except where stated explicitly. The performance characteristics of the stain(s) cited in this report were developed and its performance characteristic determined by the Dermatopathology Laboratory at [facility], directed by Dr. Melecio Zambrano. These tests need not be, and therefore are not, approved by the [place] Food and Drug Administration. The tests are used for clinical purposes. Billing Codes Specimen Charges Stain Charges 69613 1 3 12:58 PM [facility] DERMATOPATHOLOGY LABORATORY Embedded Images 3 12:58 PM [facility] DERMATOPATHOLOGY LABORATORY Pathology/Cytolo gy TISSUE SPECIMEN FROM SKIN / Unknown 08/13/2023 3:33 AM FOREIGN LANGUAGE INSTRUCTOR 08/14/2023 8:36 AM FOREIGN LANGUAGE INSTRUCTOR Floridalma Caban MD LAB - PATHOLOGY/CYTOLOGY ORDERAB LES Final Result DERMATOPATHOLOGY LABORATORY [facility] - Department of Dermatology [address] [phone] documented in this encounter Visit Diagnoses Diagnosis Neoplasm of uncertain behavior of skin documented in this encounter Care Teams Spanish Professor Relationship Specialty Start Date End Date Marlen Frazier MD PCP - General 07/25/16 documented as of this encounter
--- OUTSIDE RECORDS SUMMARY | 2025-01-29 15:32 | XMS_ITS | Clinical Summary ---
Author Organization [facility] Address [address] [address] Phone Care Team Providers Care News Camera Person Name Role Phone Unavailable Primary Care Provider [...] Comments Blood Pressure 128/70 10/06/2016 12:01 AM DISTRIBUTION SPEC Pulse 72 07/14/2016 12:01 AM CDT Temperature 37.3 C (99.1 F) 07/14/2016 12:01 AM CDT Respiratory Rate - - Oxygen Saturation - - Inhaled Oxygen Concentration - - Weight 79.4 kg (175 lb) 10/06/2016 12:01 AM DISTRIBUTION SPEC Height 157.5 cm (5' 2) 10/06/2016 12:01 AM DISTRIBUTION SPEC Body Mass Index 32.01 10/06/2016 12:01 AM DISTRIBUTION SPEC Plan of Treatment Not on file
--- OUTSIDE RECORDS SUMMARY | 2025-01-29 15:32 | XMS_ITS | Clinical Summary ---
Author Organization [facility] Address [address] [place] [address] Care Team Providers Care Facing Cutting Machine Operator Name Role Phone Marlen Frazier MD Primary Care Provider [phone] Source Comments [facility],non-owned Affiliates and Associated Physician Practices is amultiple site organization consisting of ambulatory clinics and hospital sitesin [place], [place], [place] and [place]. This disclosure is being madepursuant to the Care Everywhere program and may not contain all information available regarding this patient. Last updated 18.[facility] Medications * Be aware that medications may [...] on file Legal Sex Female 5:45 PM HABITAT MANAGEMENT COORDINATOR Gender Identity Not on file Sexual Orientation Not on file Last Filed Vital Signs Vital Sign Reading Time Taken Comments Blood Pressure - - Pulse - - Temperature - - Respiratory Rate 14 08/11/2016 1:57 PM HABITAT MANAGEMENT COORDINATOR Oxygen Saturation - - Inhaled Oxygen Concentration - - Weight 74.8 kg (165 lb) 08/11/2016 1:57 PM HABITAT MANAGEMENT COORDINATOR Height 157.5 cm (5' 2) 08/11/2016 1:57 PM HABITAT MANAGEMENT COORDINATOR Body Mass Index 30.18 08/11/2016 1:57 PM HABITAT MANAGEMENT COORDINATOR Plan of Treatment Health Maintenance Due Date [...] age to complete this topic [id number] MED[address]ARE MEDICARE [facility] Care Teams Facing Cutting Machine Operator Relationship Specialty Start Date End Date Marlen Frazier MD PCP - General 07/25/16
[2025-01-29 16:15] LABS: Basophils Percent Auto 0.3 % (0.2-1.2); Eosinophils Percent Auto 0.1 % (0-4.4); Hematocrit 36.5 % (37.0-47.0); Hemoglobin 12.9 g/dL (12.0-15.0); Immature Granulocyte Absolute 0.11 K/mm3 (0.00-0.031); Immature Granulocyte Percent A 0.7 % (0-0.5); Lymphocytes Absolute Auto 1.64 K/mm3 (0.9-3.2); Lymphocytes Percent Auto 10.8 % (18.3-44.2); Mean Corpuscular HGB Conc 35.3 g/dl (32-36); Mean Corpuscular Hemoglobin 34.1 pg (26-34); Mean Corpuscular Volume 96.6 fl (80-100); Mean Platelet Volume 8.8 fl (7.4-10.4); Monocytes Absolute Auto 0.9 K/mm3 (0.1-0.6); Neutrophils Absolute Auto 12.5 K/mm3 (1.3-6.7); Neutrophils Percent Auto 82.1 % (45.5-73.1); Platelet Count Result 316 k/mm3 (150-375); Red Blood Count 3.78 M/mm3 (4.2-5.4); Red Cell Distribution Width 13.2 % (11.5-14.5); White Blood Count 15.2 K/mm3 (4.5-10.0)
[2025-01-29 16:25] LABS: Alanine Aminotransferase 35 U/L (6-35); Albumin Level 3.7 g/dL (3.5-5.1); Alkaline Phosphatase 133 U/L (38-126); Anion Gap 6 mmol/L (4-12); Aspartate Amino Transferase 43 U/L (14-36); Bilirubin,Total 1.3 mg/dL (0.2-1.3); Blood Urea Nitrogen 14 mg/dL (7-17); Calcium 8.8 mg/dL (8.4-10.2); Carbon Dioxide 24 mmol/L (22-30); Chloride 100 mmol/L (98-107); Creatine Kinase 134 U/L (30-135); Estimated Glomerular Filt Rate > 60; Glucose 127 mg/dL (65-110); Magnesium 1.3 mg/dL (1.6-2.3); Potassium 3.6 mmol/L (3.4-5.0); Sodium 130 mmol/L (137-145)
[2025-01-29 16:33] LABS: D Dimer 2.79 ug/mL (<0.48)
[2025-01-29 16:37] LABS: NT Pro B Type Natriuretic Pept 523 pg/mL (19.9-100); Troponin I < 0.012 ng/mL (0.000-0.034)
[2025-01-29 16:49] LABS: Add Urine Microscopic? YES; Appearance Urine Clear (Clear); Bacteria Urine None Seen /hpf; Bilirubin Urine 2+ (Negative); Blood Urine Negative (Negative); Color Urine Dark Yellow (Yellow); Glucose Urine UA Trace mg/dL (Negative); Ketones Urine 1+ mg/dL (Negative); Leukocyte Esterase Ur Negative LEU/UL (Negative); Need Manual Microscopic Reviewed; Nitrate Urine Negative (Negative); Non Pathogenic Casts 0-2; Protein Urine Trace mg/dL (Negative); RBC Urine 0-2 /hpf (0-2); Specific Grav Ur 1.023 (1.001-1.035); Squamous Epithelial Cell Urine None Seen /hpf (Few); WBC Urine 0-5 /hpf (0-3); pH Urine 5.5 (5.0-9.0)
[2025-01-29 16:51] LABS: Influenza A QL RT-PCR Negative (Negative); Influenza B QL RT-PCR Negative (Negative); RSV RNA, RT-PCR Negative (Negative); SARS-CoV-2 RNA PCR Negative (Negative)
[2025-01-29] MEDS: MAGNESIUM SULF 1 GM/D5W 100 ML 1 GM/100 ML BAG IVPB (17:12)
[2025-01-29] MEDS: SODIUM CHLORIDE 0.9% IV 1,000 ML 999 ML IV CONT (17:12)
--- NOTE | 2025-01-29 19:22 | P.HP_ITS ---
H&P: HPI History of Present Illness Date/Time: 01/29/25 19:22 Chief Complaint: Fall Narrative: 74-year-old female history of hypertension, high cholesterol and obesity presents the hospital with severe weakness after a fall. Patient states that she has had diarrhea for the last 3 or 4 weeks. She states that is due to having part of her colon removed. She states that she is extremely weak and unable to walk. She states that she had a fall today and could not get up. No cannot lift her. Patient denies nausea or vomiting. Lab work shows leukocytosis at 15.2, D-dimer of 2.79, sodium of 130, glucose of 127, magnesium of 1.3, alkaline phos of 133, BNP of 523, UA negative for infection. Influenza A/B RSV and COVID negative. Head CT negative for acute process, C-spine negative for acute process, CTA chest abdomen pelvis shows no acute process, fecal stasis distending the rectum. Review of Systems Review of Systems: 12 systems were reviewed and are negativ e except for as per HPI. [facility] Past Medical History Medical History (Updated 01/29/25 @ 21:28 by Isabel Gutierrez, PHOTO TUBE ASSEMBLER) Obesity Melanoma HTN (hypertension) Hypercholesterolemia Family History Family History Father Family history of malignant neoplasm Mother Family history of diabetes mellitus in first degree relative Family history of coronary artery disease Social History Social History Smoking packs per day: 1 Smoking cigarettes per day: 20.0 Smoking status: Current every day smoker Tobacco type: cigarettes Alcohol intake: never Substance use: never Do You Feel Safe in your Home?: No Lack of Transportation: No Lack of Food: Sometimes True Current Housing: I Have Housing Concerned About Future Housing: No Difficulty Paying Gas/Electric Bills: No Difficulty Paying for Meds: No Currently Unemployed: No Education: Associate Degree Difficulty w/ Childcare or Family Care: No Spiritual care concerns: No Meds Home Medications and Allergies Home Medications ?Medication ?Instructions ?Recorded ?Confirmed ?Type aripiprazole 5 mg tablet 5 mg PO HS 10/05/19 01/29/25 History atorvastatin 10 mg tablet 10 mg PO 3XW 10/05/19 01/29/25 History clonazepam 0.5 mg tablet 0.5 mg PO QID 10/05/19 01/29/25 History escitalopram oxalate 10 mg tablet 10 mg PO HS 10/05/19 01/29/25 History losartan 100 mg tablet 10 mg PO HS 10/05/19 01/29/25 History citalopram 40 mg tablet 40 mg PO DAILY 01/29/25 01/29/25 History furosemide 20 mg tablet 20 mg PO DAILY 01/29/25 01/29/25 History meclizine 25 mg tablet 25 mg PO TID PRN dizziness 01/29/25 01/29/25 History memantine 10 mg tablet 10 mg PO BID 01/29/25 01/29/25 History trazodone 100 mg tablet 100 mg PO HS 01/29/25 01/29/25 History Allergies Allergy/AdvReac Type Severity Reaction Status Date / Time No Known Allergies Allergy Verified 01/29/25 13:52 Vital Signs Vital Signs - 24 hr 01/29/25 13:58 01/29/25 15:17 01/29/25 15:32 Temperature 98 F Pulse Rate 104 H 100 101 H Respiratory Rate 16 19 15 Blood Pressure 145/71 H 184/84 H Pulse Oximetry 100 99 97 Oxygen Delivery Room Air 01/29/25 15:59 01/29/25 16:00 01/29/25 16:15 Temperature Pulse Rate 103 H 104 H 97 Respiratory Rate 18 20 19 Blood Pressure Pulse Oximetry 97 97 Oxygen Delivery 01/29/25 16:45 01/29/25 17:12 01/29/25 17:15 Temperature Pulse Rate 91 97 96 Respiratory Rate 22 H 17 14 Blood Pressure Pulse Oximetry 97 100 97 Oxygen Delivery 01/29/25 17:34 01/29/25 17:46 01/29/25 18:00 Temperature Pulse Rate 96 95 94 Respiratory Rate 22 H 20 15 Blood Pressure Pulse Oximetry 94 99 96 Oxygen Delivery 01/29/25 18:15 01/29/25 18:29 01/29/25 18:30 Temperature Pulse Rate 96 106 H 102 H Respiratory Rate 17 19 19 Blood Pressure 156/77 H Pulse Oximetry 97 97 96 Oxygen Delivery 01/29/25 18:31 01/29/25 18:45 01/29/25 18:46 Temperature Pulse Rate 99 90 93 Respiratory Rate 20 21 H 16 Blood Pressure 146/78 H 149/79 H Pulse Oximetry 100 98 99 Oxygen Delivery 01/29/25 19:00 Temperature Pulse Rate 90 Respiratory Rate 16 Blood Pressure Pulse Oximetry 100 Oxygen Delivery Exam Narrative: General: well appearing, appears stated age. HEENT: normocephalic, atraumatic. Mucous membranes moist. EOMI, PERRLA, bilateral sclera anicteric, no conjunctival injection. Neck supple without JVD, lymphadenopathy, or bruit. Respiratory: clear to ascultation bilaterally. No rales/rhonic/wheezes. Cardiovascular: Regular rate and rhythm, normal S1-S2 upon ascultation. No murmurs, rubs, or clicks. PMI is nondisplaced, capillary refill less than 3 second. Abdomen: Soft, round, no pulsatile masses, nondistended and nontender. No rebound, no guarding. No CVA tenderness, no hepatosplenomegaly. Bowel sounds present to all four quadrants. No high pitch or tinkling sounds, resonant to percussion. Extremities: No cyanosis, clubbing, or edema present. Pulses are palpable 2/2. Left great toe swollen with ecchymosis Neuro: Alert and orientated x 4. PERRLA. Cranial nerves 2-12 intact without focal deficit. Skin: Warm, dry, and intact, without rash, erythema, or lesion. Psych: pleasant, cooperative, normal speech, normal affect, no hallucinations, no dysarthia H&P: Results Labs Labs: Short CBC 01/29/25 Range/Units 16:09 WBC 15.2 H (4.5-10.0) K/mm3 Hgb 12.9 (12.0-15.0) g/dL Hct 36.5 L (37.0-47.0) % Plt Count 316 (150-375) k/mm3 BMP 01/29/25 16:09 Sodium 130 L Potassium 3.6 Chloride 100 Carbon Dioxide 24 BUN 14 Creatinine 0.48 L Glucose 127 H Calcium 8.8 Cardiac Enzymes 01/29/25 Range/Units 16:09 Total Creatine Kinase 134 (30-135) U/L Troponin I < 0.012 (0.000-0.034) ng/mL Liver Function 01/29/25 Range/Units 16:09 Total Bilirubin 1.3 (0.2-1.3) mg/dL AST 43 H (14-36) U/L ALT 35 (6-35) U/L Alkaline Phosphatase 133 H (38-126) U/L Albumin 3.7 (3.5-5.1) g/dL Urine 01/29/25 Range/Units 16:19 Urine Color Dark yellow (Yellow) Urine Appearance Clear (Clear) Urine pH 5.5 (5.0-9.0) Ur Specific [place] 1.023 (1.001-1.035) Urine Protein Trace (Negative) mg/dL Urine Glucose (UA) Trace H (Negative) mg/dL Assessment and Plan Assessment and plan (1) Fall: Code(s): W19.XXXA - Unspecified fall, initial encounter Status: Acute Assessment and Plan: PT OT evaluate and treat CT head, C-spine, chest abdomen pelvis without acute injury X-ray left foot pending Fall precautions (2) Generalized weakness: Code(s): R53.1 - Weakness Status: Acute Assessment and Plan: To be multifactorial diarrhea, deconditioning, infective, electrolyte imbalance PT OT Replace stewart as stated C shyanne pending (3) Hypomagnesemia: Code(s): E83.42 - Hypomagnesemia Status: Acute Assessment and Plan: Replete as needed Repeat lab in a.m. (4) Hyponatremia: Code(s): E87.1 - Hypo-osmolality and hyponatremia Status: Acute Assessment and Plan: IVF for hydration Repeat BMP in the morning (5) Diarrhea: Code(s): R19.7 - Diarrhea, unspecified Status: Acute Assessment and Plan: Likely cause of electrolyte imbalance and weakness C diff pending (6) Hypercholesterolemia: Code(s): E78.00 - Pure hypercholesterolemia, unspecified Status: Acute Assessment and Plan: Continue statin (7) HTN (hypertension): Code(s): I10 - Essential (primary) hypertension Status: Acute Assessment and Plan: Continue losartan Plan Patient is on Lasix currently holding due to acute dehydration Quality VTE Prophylaxis VTE prophylaxis: mechanical ordered and pharmacologic ordered Hospitalist [facility] Advance Care Plan I have confirmed that the patient's Advanced Care Plan is present, code status is documented, or surrogate decision maker is listed in patient medical record.: Yes Medication Reconciliation I have utilized all available resources to obtain, update and review the patients current medications (includes all prescriptions, OTC, herbals, cannabis, and nutritional supplements).: Yes
--- NOTE | 2025-01-29 21:00 | PC.NURSE ---
This RN changed and cleaned x2 before going to room.
--- NOTE | 2025-01-29 21:00 | PC.NURSE ---
Pt started to get confused on the way upstairs. Pt stated, where am I.
--- NOTE | 2025-01-29 21:27 | ADMGEN ---
This patient, Albania Silva, was admitted to 2 Medical Room 244-. Patient/family oriented to hospital policies and general routines including ID bracelet, bed and alarms, visiting hours, pain management, procedures, bathroom and other care routines, personal items, smoking policy, room service/diet, and visiting hours. Information on how to activate the Rapid Response Team has been discussed. Patient/Family are encouraged to report perceived risks to care and to ask questions if they do not understand what they are told or what they should do.
[2025-01-30] MEDS: ARIPiprazole 5 MG TABLET PO (00:42)
[2025-01-30] MEDS: SODIUM CHLORIDE 0.9% IV 1,000 ML 999 ML IV CONT (00:42)
[2025-01-30] MEDS: MEMANTINE 10 MG TABLET PO ×3 (00:42→20:28)
[2025-01-30] MEDS: SODIUM CHLORIDE 0.9% IV 1,000 ML 100 ML IV CONT ×2 (01:13→14:48)
[2025-01-30] MEDS: LOSARTAN POTASSIUM 50 MG TABLET PO (01:13)
[2025-01-30 04:19] VITALS: BP 156/60; PULSE 84; RESP 18; TEMP 36.4; O2SAT 98
[2025-01-30 05:28] LABS: Magnesium 1.7 mg/dL (1.6-2.3)
[2025-01-30 08:00] VITALS: O2SAT 98
[2025-01-30] MEDS: ENOXAPARIN 40 MG/0.4 ML SYRINGE SUB-Q (08:33)
[2025-01-30] MEDS: CITALOPRAM HYDROBROMIDE 20 MG TABLET 40 MG PO (08:33)
[2025-01-30] MEDS: ATORVASTATIN 10 MG TABLET PO (08:34)
--- NOTE | 2025-01-30 11:08 | P.PNIM_ITS ---
Progress Note: A&P Assessment and Plan (1) Fall: Code(s): W19.XXXA - Unspecified fall, initial encounter Status: Acute Assessment and Plan: PT OT evaluate and treat CT head, C-spine, chest abdomen pelvis without acute injury X-ray left foot pending Fall precautions (2) Generalized weakness: Code(s): R53.1 - Weakness Status: Acute Assessment and Plan: To be multifactorial diarrhea, deconditioning, infective, electrolyte imbalance PT OT Replace lytes as stated C diff pending (3) Hypomagnesemia: Code(s): E83.42 - Hypomagnesemia Status: Acute Assessment and Plan: Replete as needed Repeat lab in a.m. (4) Hyponatremia: Code(s): E87.1 - Hypo-osmolality and hyponatremia Status: Acute Assessment and Plan: IVF for hydration Repeat BMP in the morning Patient is on Lasix currently holding due to acute dehydration (5) Diarrhea: Code(s): R19.7 - Diarrhea, unspecified Status: Acute Assessment and Plan: Likely cause of electrolyte imbalance and weakness C diff pending (6) Hypercholesterolemia: Code(s): E78.00 - Pure hypercholesterolemia, unspecified Status: Acute Assessment and Plan: Continue statin (7) HTN (hypertension): Code(s): I10 - Essential (primary) hypertension Status: Acute Assessment and Plan: Continue losartan Plan DVT prophylaxis on Sq Lovenox PT/OT for dsicharge planning Subjective Date/time seen: 01/30/25 11:08 Interval history: Comfortable at bedside Review of Systems Review of Systems: 12 systems were reviewed and are negativ e except for as per HPI. Exam Narrative: General: well appearing, appears stated age. HEENT: normocephalic, atraumatic. Mucous membranes moist. EOMI, PERRLA, bilateral sclera anicteric, no conjunctival injection. Neck supple without JVD, lymphadenopathy, or bruit. Respiratory: clear to ascultation bilaterally. No rales/rhonic/wheezes. Cardiovascular: Regular rate and rhythm, normal S1-S2 upon ascultation. No murmurs, rubs, or clicks. PMI is nondisplaced, capillary refill less than 3 second. Abdomen: Soft, round, no pulsatile masses, nondistended and nontender. No rebound, no guarding. No CVA tenderness, no hepatosplenomegaly. Bowel sounds present to all four quadrants. No high pitch or tinkling sounds, resonant to percussion. Extremities: No cyanosis, clubbing, or edema present. Pulses are palpable 2/2. Left great toe swollen with ecchymosis Neuro: Alert and orientated x 4. PERRLA. Cranial nerves 2-12 intact without focal deficit. Skin: Warm, dry, and intact, without rash, erythema, or lesion. Psych: pleasant, cooperative, normal speech, normal affect, no hallucinations, no dysarthia Objective Data Vital Signs Vital Signs: Vital Signs - 24 hr 01/29/25 13:58 01/29/25 15:17 01/29/25 15:32 Temperature 98 F Pulse Rate 104 H 100 101 H Respiratory Rate 16 19 15 Blood Pressure 145/71 H 184/84 H Pulse Oximetry 100 99 97 Oxygen Delivery Room Air 01/29/25 15:59 01/29/25 16:00 01/29/25 16:15 Temperature Pulse Rate 103 H 104 H 97 Respiratory Rate 18 20 19 Blood Pressure Pulse Oximetry 97 97 Oxygen Delivery 01/29/25 16:45 01/29/25 17:12 01/29/25 17:15 Temperature Pulse Rate 91 97 96 Respiratory Rate 22 H 17 14 Blood Pressure Pulse Oximetry 97 100 97 Oxygen Delivery 01/29/25 17:34 01/29/25 17:46 01/29/25 18:00 Temperature Pulse Rate 96 95 94 Respiratory Rate 22 H 20 15 Blood Pressure Pulse Oximetry 94 99 96 Oxygen Delivery 01/29/25 18:15 01/29/25 18:29 01/29/25 18:30 Temperature Pulse Rate 96 106 H 102 H Respiratory Rate 17 19 19 Blood Pressure 156/77 H Pulse Oximetry 97 97 96 Oxygen Delivery 01/29/25 18:31 01/29/25 18:45 01/29/25 18:46 Temperature Pulse Rate 99 90 93 Respiratory Rate 20 21 H 16 Blood Pressure 146/78 H 149/79 H Pulse Oximetry 100 98 99 Oxygen Delivery 01/29/25 19:00 01/29/25 21:29 01/29/25 21:38 Temperature 97.7 F Pulse Rate 90 87 Respiratory Rate 16 18 Blood Pressure 156/76 H Pulse Oximetry 100 99 Oxygen Delivery Room Air 01/30/25 04:19 01/30/25 08:00 Temperature 97.6 F Pulse Rate 84 Respiratory Rate 18 Blood Pressure 156/60 H Pulse Oximetry 98 98 Oxygen Delivery Room Air Intake/Output Intake/Output: Intake & Output 01/27/25 01/28/25 01/29/25 01/30/25 23:59 23:59 23:59 23:59 Intake Total 1100 450 Balance 1100 450 Meds/Results Medications: Active Medications Generic Name Dose Route Start Last Admin Trade Name Freq PRN Reason Stop Dose Admin Acetaminophen 650 mg 01/29/25 18:37 Acetaminophen 325 Mg Tablet PO Q4H PRN Mild Pain (1-3) or Fever Atorvastatin Calcium 10 mg 01/30/25 09:00 01/30/25 08:34 Atorvastatin 10 Mg Tablet PO 10 mg [id number] THEE Administration Citalopram Hydrobromide 40 mg 01/30/25 09:00 01/30/25 08:33 Citalopram Hydrobromide 20 Mg Tablet PO 40 mg DAILY THEE Administration Enoxaparin Sodium 40 mg 01/30/25 09:00 01/30/25 08:33 Enoxaparin 40 Mg/0.4 Ml Syringe SUB-Q 40 mg DAILY THEE Administration Sodium Chloride 1,000 mls @ 100 mls/hr 01/29/25 21:30 01/30/25 01:13 Normal Saline Iv IV CONT 100 mls/hr .Q10H THEE Administration Meclizine HCl 25 mg 01/29/25 22:55 Meclizine Hcl 25 Mg Tablet PO TID PRN dizziness Memantine 10 mg 01/29/25 23:20 01/30/25 08:33 Memantine 10 Mg Tablet PO 10 mg Q12HR THEE Administration Ondansetron HCl 4 mg 01/29/25 18:37 Ondansetron Inj 4 Mg/2 Ml Vial IV PUSH Q4H PRN Nausea Radiology Results: ITS Impressions Chest X-Ray 01/29/25 15:37 IMPRESSION: No focal infiltrate or effusion. Head CT 01/29/25 15:57 Impression: No acute intracranial hemorrhage or suspicious mass effect. Cervical Spine CT 01/29/25 16:07 Impression: Straightening and slight reversal of the normal curvature of the cervical spine, likely muscular in origin. No acute fracture. Chest/Abdomen/Pelvis CTA 01/29/25 17:24 IMPRESSION: No pulmonary embolus. No aortic dissection. The lungs are clear. Fecal stasis distending the rectum. Foot X-Ray 01/30/25 08:38 IMPRESSION: Comminuted fracture of the distal margin of the proximal phalanx, as detailed above. Labs Labs: Laboratory Results - last 24 hr 01/29/25 01/29/25 01/30/25 16:09 16:19 05:03 WBC 15.2 H RBC 3.78 L Hgb 12.9 Hct 36.5 L MCV 96.6 MCH 34.1 H MCHC 35.3 RDW 13.2 Plt Count 316 MPV 8.8 Immature Gran % (Auto) 0.7 H Neut % (Auto) 82.1 H Lymph % (Auto) 10.8 L [place] % (Auto) 6.0 Eos % (Auto) 0.1 Baso % (Auto) 0.3 Lymph # (Auto) 1.64 [place] # (Auto) 0.9 H Eos # (Auto) 0.0 Baso # (Auto) 0.0 Abs Immat Gran (auto) 0.11 H Absolute Neuts (auto) 12.5 H Absolute Nucleated RBC 0.000 Nucleated RBC % 0.0 D-Dimer 2.79 H Sodium 130 L Potassium 3.6 Chloride 100 Carbon Dioxide 24 Anion Gap 6 BUN 14 Creatinine 0.48 L Estim Creat Clear Calc Not Reportable Estimated GFR > 60 Glucose 127 H Calcium 8.8 Magnesium 1.3 L 1.7 Total Bilirubin 1.3 AST 43 H ALT 35 Alkaline Phosphatase 133 H Total Creatine Kinase 134 Troponin I < 0.012 NT-Pro-B Natriuret Pep 523 H Total Protein 7.0 Albumin 3.7 TSH 1.300 Urine Color Dark yellow Urine Appearance Clear Urine pH 5.5 Ur Specific [place] 1.023 Urine Protein Trace Urine Glucose (UA) Trace H Urine Ketones 1+ H Ur Blood (Man) Negative Urine Nitrate Negative Urine Bilirubin 2+ H Urine Urobilinogen 1.0 Add Ur Microanalysis Reviewed Leukocyte Esterase Rfl Negative Urine RBC 0-2 Urine WBC 0-5 Ur Squamous Epith Cells None seen Urine Bacteria None seen Urine Casts 0-2 Influenza A (RT-PCR) Negative Influenza B (RT-PCR) Negative RSV (RT-PCR) Negative SARS-CoV-2 RNA (RT-PCR) Negative Quality VTE Prophylaxis VTE prophylaxis: mechanical ordered and pharmacologic ordered
[2025-01-30 13:40] VITALS: BP 149/71; PULSE 85; RESP 18; TEMP 36.5; O2SAT 100
[2025-01-30 20:32] VITALS: BP 137/69; PULSE 98; RESP 18; TEMP 36.5; O2SAT 98
[2025-01-30 23:33] VITALS: O2SAT 98
[2025-01-31] VITALS (10 sets, daily range): BP systolic 136–168; BP diastolic 68–82; PULSE 87–97; RESP 16–18; TEMP 36.4–37.2; O2SAT 97–100
[2025-01-31] MEDS: SODIUM CHLORIDE 0.9% IV 1,000 ML 100 ML IV CONT ×2 (01:28→16:22)
[2025-01-31 06:50] LABS: Basophils Percent Auto 0.3 % (0.2-1.2); Eosinophils Absolute Auto 0.1 K/mm3 (0-0.3); Eosinophils Percent Auto 0.9 % (0-4.4); Hematocrit 35.5 % (37.0-47.0); Hemoglobin 11.9 g/dL (12.0-15.0); Immature Granulocyte Absolute 0.16 K/mm3 (0.00-0.031); Immature Granulocyte Percent A 1.6 % (0-0.5); Lymphocytes Absolute Auto 1.39 K/mm3 (0.9-3.2); Mean Corpuscular HGB Conc 33.5 g/dl (32-36); Mean Corpuscular Volume 98.3 fl (80-100); Mean Platelet Volume 9.1 fl (7.4-10.4); Monocytes Absolute Auto 0.7 K/mm3 (0.1-0.6); Monocytes Percent Auto 6.8 % (2.6-8.5); Neutrophils Absolute Auto 7.6 K/mm3 (1.3-6.7); Neutrophils Percent Auto 76.4 % (45.5-73.1); Platelet Count Result 260 k/mm3 (150-375); Red Blood Count 3.61 M/mm3 (4.2-5.4)
[2025-01-31 07:06] LABS: Alanine Aminotransferase 28 U/L (6-35); Albumin Level 3.1 g/dL (3.5-5.1); Alkaline Phosphatase 121 U/L (38-126); Anion Gap 6 mmol/L (4-12); Aspartate Amino Transferase 33 U/L (14-36); Blood Urea Nitrogen 3 mg/dL (7-17); Calcium 7.3 mg/dL (8.4-10.2); Carbon Dioxide 24 mmol/L (22-30); Chloride 95 mmol/L (98-107); Estimated CRCL calculation 119 ml/min; Estimated Glomerular Filt Rate > 60; Glucose 114 mg/dL (65-110); Magnesium 1.2 mg/dL (1.6-2.3); Potassium 2.3 mmol/L (3.4-5.0); Sodium 125 mmol/L (137-145)
--- NOTE | 2025-01-31 07:17 | P.PNIM_ITS ---
Progress Note: A&P Assessment and Plan (1) Fall: Code(s): W19.XXXA - Unspecified fall, initial encounter Status: Acute Assessment and Plan: PT OT evaluate and treat CT head, C-spine, chest abdomen pelvis without acute injury X-ray left foot pending, showed Comminuted fracture of the distal margin of the proximal phalanx, consult ortho Fall precautions (2) Generalized weakness: Code(s): R53.1 - Weakness Status: Acute Assessment and Plan: To be multifactorial diarrhea, deconditioning, infective, electrolyte imbalance PT OT Replace lytes as stated C diff pending (3) Hypomagnesemia: Code(s): E83.42 - Hypomagnesemia Status: Acute Assessment and Plan: Mag 1.2, replete 4G IV Today --repeat in AM (4) Hyponatremia: Code(s): E87.1 - Hypo-osmolality and hyponatremia Status: Acute Assessment and Plan: IVF for hydration Potassium 2.3, 40 PO & IV Repeat potassium this afternoon and additional potassium if needed Patient is on Lasix currently holding due to acute dehydration Monitor on tele (5) Diarrhea: Code(s): R19.7 - Diarrhea, unspecified Status: Acute Assessment and Plan: Likely cause of electrolyte imbalance and weakness. Now seems resolved CT abd/pelvis showed fecal stasis distending the rectum, could have overflow diarrhea. Patient declined enema, will need to monitor C diff pending (6) Hypercholesterolemia: Code(s): E78.00 - Pure hypercholesterolemia, unspecified Status: Acute Assessment and Plan: Continue statin (7) HTN (hypertension): Code(s): I10 - Essential (primary) hypertension Status: Acute Assessment and Plan: Continue losartan (8) Cognitive and behavioral changes: Code(s): R41.89 - Other symptoms and signs involving cognitive functions and awareness; R46.89 - Other symptoms and signs involving appearance and behavior Status: Acute Assessment and Plan: TSH normal Check B12 Plan DVT prophylaxis on Sq Lovenox PT/OT for dsicharge planning Time Spent With Patient Time: 58 minutes Subjective Date/time seen: 01/31/25 07:17 Interval history: More forgetful recently per family at bedside Needing a lot of assistance, and has had multiple falls at home per family at bedside, over 14. Interested in short term SNF or rehab Potassium 2.3, repleting with IV and PO. Mag also low, 1.2. Sodium 125 Review of Systems Review of Systems: 12 systems were reviewed and are negativ e except for as per HPI. Exam Narrative: General: well appearing, appears stated age. HEENT: normocephalic, atraumatic. Mucous membranes moist. EOMI, PERRLA, b ilateral sclera anicteric, no conjunctival injection. Neck supple without JVD, lymphadenopathy, or bruit. Respiratory: clear to ascultation bilaterally. No rales/rhonic/wheezes. Cardiovascular: Regular rate and rhythm, normal S1-S2 upon ascultation. No murmurs, rubs, or clicks. PMI is nondisplaced, capillary refill less than 3 second. Abdomen: Soft, round, no pulsatile masses, nondistended and nontender. No rebound, no guarding. No CVA tenderness, no hepatosplenomegaly. Bowel sounds present to all four quadrants. No high pitch or tinkling sounds, resonant to percussion. Extremities: No cyanosis, clubbing, or edema present. Pulses are palpable 2/2. Left great toe swollen with ecchymosis Neuro: Alert and orientated x 2 (December 2024), slightly tangential and slow to respond. PERRLA. Cranial nerves 2-12 intact without focal deficit. Skin: Warm, dry, and intact, without rash, erythema, or lesion. Psych: pleasant, cooperative, normal speech, normal affect, no hallucinations, no dysarthia Objective Data Vital Signs Vital Signs: Vital Signs - 24 hr 01/30/25 08:00 01/30/25 13:40 01/30/25 13:59 Temperature 97.7 F Pulse Rate 85 Respiratory Rate 18 Blood Pressure 149/71 H Pulse Oximetry 98 100 Oxygen Delivery Room Air Room Air 01/30/25 15:30 01/30/25 20:00 01/30/25 20:32 Temperature 97.7 F Pulse Rate 98 Respiratory Rate 18 Blood Pressure 137/69 Pulse Oximetry 98 Oxygen Delivery Room Air Room Air 01/30/25 23:33 01/31/25 04:46 Temperature 97.6 F Pulse Rate 95 Respiratory Rate 18 Blood Pressure 165/76 H Pulse Oximetry 98 97 Oxygen Delivery Room Air Intake/Output Intake/Output: Intake & Output 01/28/25 01/29/25 01/30/25 01/31/25 23:59 23:59 23:59 23:59 Intake Total 1100 1790 1120 Output Total 500 Balance 1100 1790 620 Meds/Results Medications: Active Medications Generic Name Dose Route Start Last Admin Trade Name Freq PRN Reason Stop Dose Admin Acetaminophen 650 mg 01/29/25 18:37 Acetaminophen 325 Mg Tablet PO Q4H PRN Mild Pain (1-3) or Fever Atorvastatin Calcium 10 mg 01/30/25 09:00 01/30/25 08:34 Atorvastatin 10 Mg Tablet PO 10 mg [id number] THEE Administration Citalopram Hydrobromide 40 mg 01/30/25 09:00 01/30/25 08:33 Citalopram Hydrobromide 20 Mg Tablet PO 40 mg DAILY THEE Administration Enoxaparin Sodium 40 mg 01/30/25 09:00 01/30/25 08:33 Enoxaparin 40 Mg/0.4 Ml Syringe SUB-Q 40 mg DAILY THEE Administration Sodium Chloride 1,000 mls @ 100 mls/hr 01/29/25 21:30 01/31/25 01:28 Normal Saline Iv IV CONT 100 mls/hr .Q10H THEE Administration Potassium Chloride 40 meq/ 520 mls @ 130 mls/hr 01/31/25 07:30 Sodium Chloride IVPB 01/31/25 11:29 ONCE ONE Magnesium Sulfate 4 gm in 100 mls @ 200 mls/hr 01/31/25 07:30 Magnesium Sulf 4 Gm/[id number] IVPB 01/31/25 07:59 ONCE ONE Meclizine HCl 25 mg 01/29/25 22:55 Meclizine Hcl 25 Mg Tablet PO TID PRN dizziness Memantine 10 mg 01/29/25 23:20 01/30/25 20:28 Memantine 10 Mg Tablet PO 10 mg Q12HR THEE Administration Ondansetron HCl 4 mg 01/29/25 18:37 Ondansetron Inj 4 Mg/2 Ml Vial IV PUSH Q4H PRN Nausea Potassium Chloride 40 meq 01/31/25 07:15 Potassium Chloride 20 Meq Er Tablet PO 01/31/25 07:16 ONCE ONE Radiology Results: ITS Impressions Chest X-Ray 01/29/25 15:37 IMPRESSION: No focal infiltrate or effusion. Head CT 01/29/25 15:57 Impression: No acute intracranial hemorrhage or suspicious mass effect. Cervical Spine CT 01/29/25 16:07 Impression: Straightening and slight reversal of the normal curvature of the cervical spine, likely muscular in origin. No acute fracture. Chest/Abdomen/Pelvis CTA 01/29/25 17:24 IMPRESSION: No pulmonary embolus. No aortic dissection. The lungs are clear. Fecal stasis distending the rectum. Foot X-Ray 01/30/25 08:38 IMPRESSION: Comminuted fracture of the distal margin of the proximal phalanx, as detailed above. Labs Labs: Laboratory Results - last 24 hr 01/31/25 06:39 WBC 10.0 RBC 3.61 L Hgb 11.9 L Hct 35.5 L MCV 98.3 MCH 33.0 MCHC 33.5 RDW 13.0 Plt Count 260 MPV 9.1 Immature Gran % (Auto) 1.6 H Neut % (Auto) 76.4 H Lymph % (Auto) 14.0 L [place] % (Auto) 6.8 Eos % (Auto) 0.9 Baso % (Auto) 0.3 Lymph # (Auto) 1.39 [place] # (Auto) 0.7 H Eos # (Auto) 0.1 Baso # (Auto) 0.0 Abs Immat Gran (auto) 0.16 H Absolute Neuts (auto) 7.6 H Absolute Nucleated RBC 0.000 Nucleated RBC % 0.0 Sodium 125 L Potassium 2.3 L* Chloride 95 L Carbon Dioxide 24 Anion Gap 6 BUN 3 L D Creatinine 0.31 L Estim Creat Clear Calc 119 Estimated GFR > 60 Glucose 114 H Calcium 7.3 L Magnesium 1.2 L Total Bilirubin 1.0 AST 33 ALT 28 Alkaline Phosphatase 121 Total Protein 6.0 L Albumin 3.1 L Quality VTE Prophylaxis VTE prophylaxis: mechanical ordered and pharmacologic ordered Hospitalist MIPS Advance Care Plan I have confirmed that the patient's Advanced Care Plan is present, code status is documented, or surrogate decision maker is listed in patient medical record.: Yes Medication Reconciliation I have utilized all available resources to obtain, update and review the patients current medications (includes all prescriptions, OTC, herbals, cannabis, and nutritional supplements).: Yes
[2025-01-31] MEDS: MAGNESIUM SULF 4 GM/WATER100ML 4 GM/100 ML BAG IVPB (07:28)
[2025-01-31] MEDS: POTASSIUM CHLORIDE 20 MEQ ER TABLET 40 MEQ PO (07:31)
[2025-01-31] MEDS: POTASSIUM CHLORIDE INJ 40 MEQ in SODIUM CHLORIDE 0.9% IV 500 ML 130 MEQ IVPB ×2 (07:41→18:08)
[2025-01-31] MEDS: ENOXAPARIN 40 MG/0.4 ML SYRINGE SUB-Q (08:13)
[2025-01-31] MEDS: CITALOPRAM HYDROBROMIDE 20 MG TABLET 40 MG PO (08:13)
[2025-01-31] MEDS: MEMANTINE 10 MG TABLET PO ×2 (08:13→20:02)
[2025-01-31 08:35] LABS: Sodium Urine Random 160 meq/L
--- NOTE | 2025-01-31 13:21 | P.CONOP_ITS ---
Assessment and Plan Assessment and plan (1) Fracture of toe of left foot: Qualifiers: Encounter type: initial encounter Toe: lesser toe Fracture type: closed Phalanx: proximal Fracture alignment: displaced Qualified Code(s): S92.512A - Displaced fracture of proximal phalanx of left lesser toe(s), initial encounter for closed fracture <FAIZAN Ham - Last Filed: 01/31/25 15:55> Code(s): S92.912A - Unspecified fracture of left toe(s), initial encounter for closed fracture <FAIZAN Ham - Last Filed: 01/31/25 15:55> Status: Acute <FAIZAN Ham - Last Filed: 01/31/25 15:55> Assessment and Plan: History, exam and radiographs reviewed. Radiographs of the left foot reveal comminuted fracture of the distal margin of the proximal phalanx. The fracture type and injury as well as radiographs discussed with the patient and family. Operative and nonoperative treatment options reviewed. Recommended non operative treatment. Risk of nonunion, malunion or late displacement discussed. Stiffness, pain and possible dysfunction of the joint discussed. Fracture precautions and activity restrictions reviewed. The patient verbalizes understanding. Post op shoe. WBAT. Ice/Elevate. Pain control. Follow up as an outpatient as needed. <Elvis Keen MD - Last Filed: 01/31/25 16:15> Assessment and Plan: Reviewed history, exam, radiographs and current labs with attending MD and covering surgeon, Dr. Keen, who agrees with current plan as indicated above. No further recommendations from Dr. Keen at this time. <FAIZAN Ham - Last Filed: 01/31/25 15:55> Reviewed history, exam, radiographs and current labs with attending MD and covering surgeon, Dr. Keen, who agrees with current plan as indicated above. No further recommendations from Dr. Keen at this time. [place]: patient seen and examined. Radiographs show left small toe proximal phalanx fracture with displacement. Reviewed with the patient and her . Should do well with non operative treatment. Postoperative shoe for weight- bearing as tolerated. Follow-up as outpatient if having any problems. <Elvis Keen MD - Last Filed: 01/31/25 16:15> History of Present Illness HPI Consult date: 01/31/25 <FAIZAN Ham - Last Filed: 01/31/25 15:55> 01/31/25 <Elvis Keen MD - Last Filed: 01/31/25 16:15> Chief complaint: PT/OT eval, recurrent fall;generalized/LE weakness <FAIZAN Ham - Last Filed: 01/31/25 15:55> Narrative: 74-year-old female admitted status post fall at home with severe weakness. Admitted from the emergency room for further workup of medical condition. Radiographs of the left foot obtained due to the significant ecchymosis. Radiographs revealed a comminuted fracture of the distal margin of the proximal phalanx. Orthopedic consult requested by hospitalist. <FAIZAN Ham - Last Filed: 01/31/25 15:55> Review of Systems 2 Review of Systems: All systems reviewed & are unremarkable except as noted in HPI and below <FAIZAN Ham - Last Filed: 01/31/25 15:55> PMF Past Medical History Medical History: Medical History (Updated 01/31/25 @ 16:12 by Elvis Keen MD) Fracture of toe of left foot Obesity Melanoma HTN (hypertension) Hypercholesterolemia <FAIZAN Ham - Last Filed: 01/31/25 15:55> Family History Family History: Family History Father Family history of malignant neoplasm Mother Family history of diabetes mellitus in first degree relative Family history of coronary artery disease <FAIZAN Ham - Last Filed: 01/31/25 15:55> Social History Social History: Social History Smoking packs per day: 1 Smoking cigarettes per day: 20.0 Smoking status: Current every day smoker Tobacco type: cigarettes Alcohol intake: never Substance use: never Do You Feel Safe in your Home?: No Lack of Transportation: No Lack of Food: Sometimes True Current Housing: I Have Housing Concerned About Future Housing: No Difficulty Paying Gas/Electric Bills: No Difficulty Paying for Meds: No Currently Unemployed: No Education: Associate Degree Difficulty w/ Childcare or Family Care: No Spiritual care concerns: No <FAIZAN Ham - Last Filed: 01/31/25 15:55> Meds Home Medications and Allergies Home medications: Home Medications ?Medication ?Instructions ?Recorded ?Confirmed ?Type atorvastatin 10 mg tablet 10 mg PO 3XW 10/05/19 01/29/25 History clonazepam 0.5 mg tablet 0.5 mg PO QID 10/05/19 01/29/25 History citalopram 40 mg tablet 40 mg PO DAILY 01/29/25 01/29/25 History meclizine 25 mg tablet 25 mg PO TID PRN dizziness 01/29/25 01/29/25 History memantine 10 mg tablet 10 mg PO BID 01/29/25 01/29/25 History trazodone 100 mg tablet 100 mg PO HS 01/29/25 01/29/25 History potassium chloride 20 mEq 20 meq PO BID 01/30/25 01/30/25 History tablet,extended release <JUDY HamP - Last Filed: 01/31/25 15:55> Allergies/Adverse reactions: Allergies Allergy/AdvReac Type Severity Reaction Status Date / Time No Known Allergies Allergy Verified 01/29/25 13:52 <FAIZAN Ham - Last Filed: 01/31/25 15:55> Vital Signs Vital Signs - 24 hr 01/30/25 13:40 01/30/25 13:59 01/30/25 15:30 Temperature 36.5 C Pulse Rate 85 Respiratory Rate 18 Blood Pressure 149/71 H Pulse Oximetry 100 Oxygen Delivery Room Air Room Air 01/30/25 20:00 01/30/25 20:32 01/30/25 23:33 Temperature 36.5 C Pulse Rate 98 Respiratory Rate 18 Blood Pressure 137/69 Pulse Oximetry 98 98 Oxygen Delivery Room Air Room Air 01/31/25 04:46 01/31/25 08:00 01/31/25 12:00 Temperature 36.4 C Pulse Rate 95 95 Respiratory Rate 18 Blood Pressure 165/76 H Pulse Oximetry 97 97 Oxygen Delivery Room Air <JUDY HamP - Last Filed: 01/31/25 15:55> Exam 2 Const: General: comfortable and no acute distress <Pilar Jessica Liam, NEUROSURGERY PHYSICIAN - Last Filed: 01/31/25 15:55> HENMT: Mouth: Yes moist mucous membranes <Pilar Dicksonketty [facility] - Last Filed: 01/31/25 15:55> Eyes: General: appearance normal, both eyes and all related structures < Pilarsa Jessica Wheeler [facility] - Last Filed: 01/31/25 15:55> Neck: Neck: supple and no JVD <Pilar PhillipsYeimy Wheeler [facility] - Last Filed: 01/31/25 15:55> Resp: Effort & Inspection: normal respiratory effort <Pilarsa Jessica Wheeler NEUROSURGERY PHYSICIAN - Last Filed: 01/31/25 15:55> Cardio: Rate: regular rate <Pilarsa Jessica Wheeler [facility] - Last Filed: 01/31/25 15:55> Rhythm: regular rhythm <Pilarsa Jessica Wheeler [facility] - Last Filed: 01/31/25 15:55> GI: Inspection: non-distended <Pilar Jessica Wheeler [facility] - Last Filed: 01/31/25 15:55> GI Palp: Yes Soft to palpation and No Tenderness to palpation present (GI) < Pilar R. Liam, [facility] - Last Filed: 01/31/25 15:55> Neuro: General: gait normal <Pilarsa Jessica Wheeler [facility] - Last Filed: 01/31/25 15:55> Cognition (Neuro): normal cognition <Pilarsa Jessica Wheeler [facility] - Last Filed: 01/31/25 15:55> Speech: normal speech <Pilarsa Jessica Wheeler [facility] - Last Filed: 01/31/25 15:55> Extrem: Left lower extremity: foot Details: tenderness (mild, forefoot ), abnormal ROM of toe Details: pain with active ROM Location: of the 5th digit, vascular exam Details: dorsalis pedis pulse present and motor-sensory exam light-touch normal; no unusual warmth <PilarJUDY ArrietaP - Last Filed: 01/31/25 15:55> Psych: Mental Status: mental status grossly normal <Pilar WheelerFAIZAN - Last Filed: 01/31/25 15:55> Affect: normal affect <Pilar PhillipsYeimy LiamFAIZAN hdez - Last Filed: 01/31/25 15:55> Results Labs Result Diagrams: 01/31/25 06:39 01/31/25 06:39 <Pilar PhillipsYeimy LiamFAIZAN hdez - Last Filed: 01/31/25 15:55> Labs: Abnormal lab results 01/31/25 Range/Units 06:39 RBC 3.61 L (4.2-5.4) M/mm3 Hgb 11.9 L (12.0-15.0) g/dL Hct 35.5 L (37.0-47.0) % Immature Gran % (Auto) 1.6 H (0-0.5) % Neut % (Auto) 76.4 H (45.5-73.1) % Lymph % (Auto) 14.0 L (18.3-44.2) % [place] # (Auto) 0.7 H (0.1-0.6) K/mm3 Abs Immat Gran (auto) 0.16 H (0.00-0.031) K/mm3 Absolute Neuts (auto) 7.6 H (1.3-6.7) K/mm3 Sodium 125 L (137-145) mmol/L Potassium 2.3 L* (3.4-5.0) mmol/L Chloride 95 L (98-107) mmol/L BUN 3 L D (7-17) mg/dL Creatinine 0.31 L (0.7-1.0) mg/dL Glucose 114 H (65-110) mg/dL Calcium 7.3 L (8.4-10.2) mg/dL Magnesium 1.2 L (1.6-2.3) mg/dL Total Protein 6.0 L (6.3-8.2) g/dL Albumin 3.1 L (3.5-5.1) g/dL H & H 01/29/25 01/31/25 Range/Units 16:09 06:39 Hgb 12.9 11.9 L (12.0-15.0) g/dL Hct 36.5 L 35.5 L (37.0-47.0) % All other labs normal. <FAIZAN Ham - Last Filed: 01/31/25 15:55> Fracture/Casting/Strapping Pre Procedure Consent was obtained, Procedures/risks were explained, Questions were answered, Correct patient identified and Correct side and site confirmed <FAIZAN Ham - Last Filed: 01/31/25 15:55> Episode of Care New episode (Left 5th toe ) <FAIZAN Ham - Last Filed: 01/31/25 15:55> Fracture Care Calcaneal/talus/tarsal/phalanx Calcaneal, Talus, Tarsal, Phalanx: CLOSED TX FX PHALANGES W/O MANIP EACH <FAIZAN Ham - Last Filed: 01/31/25 15:55> Calcaneal/talus/tarsal/phalanx Calcaneal, Talus, Tarsal, Phalanx: CLOSED TX FX PHALANGES W/O MANIP EACH (left 5th proximal) <Elvis Keen MD - Last Filed: 01/31/25 16:15> Application Exam of Affected Area: Color: Abnormal (ecchymosis ), Temp: Normal, Pulse: Normal, Blanching: Normal, Capillary Refill: Normal and Sensory Exam: Normal <FAIZAN Ham - Last Filed: 01/31/25 15:55> Swelling: Yes and Tenderness: Yes <FAIZAN Ham - Last Filed: 01/31/25 15:55> Skin: Apperance: Intact <FAIZAN Ham - Last Filed: 01/31/25 15:55> Care: Alcohol Wipes <FAIZAN Ham - Last Filed: 01/31/25 15:55> Patient Tolerated Procedure Well: No <FAIZAN Ham - Last Filed: 01/31/25 15:55> Post Procedure Patient tolerated the procedure well?: Tolerated procedure well <FAIZAN Ham - Last Filed: 01/31/25 15:55>
[2025-01-31 17:47] LABS: Anion Gap 6 mmol/L (4-12); Blood Urea Nitrogen 4 mg/dL (7-17); Calcium 7.5 mg/dL (8.4-10.2); Carbon Dioxide 25 mmol/L (22-30); Chloride 93 mmol/L (98-107); Estimated CRCL calculation 94 ml/min; Estimated Glomerular Filt Rate > 60; Glucose 113 mg/dL (65-110); Potassium 2.9 mmol/L (3.4-5.0); Sodium 124 mmol/L (137-145)
[2025-01-31] MEDS: POTASSIUM CHLORIDE 20 MEQ PACKET (FOR LIQUID) 40 MEQ PO (18:04)
--- NOTE | 2025-01-31 20:05 | PC.NURSE ---
RN contacted Bertram Silva, patient's spouse, to notify of transfer to IMU room 214.
--- NOTE | 2025-01-31 21:54 | PC.NURSE ---
Patient transferred to IMU via bed. Report to POLY Zarco.
[2025-01-31] MEDS: SODIUM CHLORIDE 3% 120 ML 30 ML IV CONT (22:01)
[2025-02-01] VITALS (11 sets, daily range): BP systolic 149–176; BP diastolic 77–103; PULSE 83–117; RESP 16–20; TEMP 36.6–37.1; O2SAT 98–100
[2025-02-01 00:27] LABS: Anion Gap 4 mmol/L (4-12); Calcium 7.2 mg/dL (8.4-10.2); Carbon Dioxide 21 mmol/L (22-30); Chloride 98 mmol/L (98-107); Estimated CRCL calculation 122 ml/min; Estimated Glomerular Filt Rate > 60; Glucose 125 mg/dL (65-110); Potassium 3.9 mmol/L (3.4-5.0); Sodium 123 mmol/L (137-145)
[2025-02-01 00:37] LABS: Blood Urea Nitrogen < 2 mg/dL (7-17)
[2025-02-01 06:14] LABS: Basophils Percent Auto 0.4 % (0.2-1.2); Eosinophils Absolute Auto 0.1 K/mm3 (0-0.3); Eosinophils Percent Auto 0.8 % (0-4.4); Hematocrit 33.4 % (37.0-47.0); Hemoglobin 11.4 g/dL (12.0-15.0); Lymphocytes Percent Auto 15.9 % (18.3-44.2); Mean Corpuscular HGB Conc 34.1 g/dl (32-36); Mean Corpuscular Volume 96.8 fl (80-100); Mean Platelet Volume 9.1 fl (7.4-10.4); Monocytes Absolute Auto 0.7 K/mm3 (0.1-0.6); Monocytes Percent Auto 6.4 % (2.6-8.5); Neutrophils Absolute Auto 7.5 K/mm3 (1.3-6.7); Neutrophils Percent Auto 74.5 % (45.5-73.1); Platelet Count Result 271 k/mm3 (150-375); Red Blood Count 3.45 M/mm3 (4.2-5.4); White Blood Count 10.1 K/mm3 (4.5-10.0)
[2025-02-01 06:25] LABS: Anion Gap 5 mmol/L (4-12); Calcium 7.2 mg/dL (8.4-10.2); Carbon Dioxide 23 mmol/L (22-30); Chloride 96 mmol/L (98-107); Estimated CRCL calculation 126 ml/min; Estimated Glomerular Filt Rate > 60; Glucose 123 mg/dL (65-110); Magnesium 1.7 mg/dL (1.6-2.3); Phosphorus 1.5 mg/dL (2.5-4.5); Potassium 3.7 mmol/L (3.4-5.0); Sodium 124 mmol/L (137-145)
[2025-02-01 07:05] LABS: HIV 1/2 Ab P24 Ag Result Negative (Negative)
[2025-02-01 07:06] LABS: Blood Urea Nitrogen < 2 mg/dL (7-17)
[2025-02-01 07:16] LABS: Partial Thromboplastin Time 28.1 Seconds (22.3-36.8)
[2025-02-01] MEDS: POTASSIUM CHLORIDE 20 MEQ ER TABLET PO ×2 (09:14→18:25)
[2025-02-01] MEDS: ATORVASTATIN 10 MG TABLET PO (09:14)
[2025-02-01] MEDS: MEMANTINE 10 MG TABLET PO ×2 (09:14→20:37)
[2025-02-01] MEDS: ENOXAPARIN 40 MG/0.4 ML SYRINGE SUB-Q (09:15)
[2025-02-01 10:02] LABS: Anion Gap 7 mmol/L (4-12); Calcium 7.4 mg/dL (8.4-10.2); Carbon Dioxide 21 mmol/L (22-30); Chloride 94 mmol/L (98-107); Estimated CRCL calculation 146 ml/min; Estimated Glomerular Filt Rate > 60; Glucose 119 mg/dL (65-110); Potassium 3.6 mmol/L (3.4-5.0); Sodium 122 mmol/L (137-145)
[2025-02-01 10:49] LABS: Blood Urea Nitrogen < 2 mg/dL (7-17)
--- NOTE | 2025-02-01 13:35 | P.CONNP_ITS ---
Assessment and Plan Assessment and plan (1) Hyponatremia: Code(s): E87.1 - Hypo-osmolality and hyponatremia Status: Acute Assessment and Plan: * has had issues with this in the past * on and off low sodium levels since 2016... * previous evaluation (done in 2016) was negative and sodium normalized with apparently just fluid restriction * risk factors for low sodium: * SSRI use * excessive free water intake(?) * smoking history * other(?) * evaluation to date noted * urine sodium elevated (but was on lasix prior to admission) * urine and serum osmolality pending * CT of head negative * CT of chest without lung pathology * check TSH, cortisol, SPEP, UPEP, and kappa/lambda ratio * start fluid restriction * follow trend of sodium levels (2) Frequent falls: Code(s): R29.6 - Repeated falls Status: Acute Assessment and Plan: * as noted by history * CT imaging noted * PT/OT * fall precautions (3) Generalized weakness: Code(s): R53.1 - Weakness Status: Acute Assessment and Plan: * suspect multifactorial: * deconditioning * diarrhea * anemia(?) * hyponatremia(?) * other(?) * electrolyte optimization * PT/OT as tolerated (4) Fracture of toe of left foot: Qualifiers: Encounter type: initial encounter Fracture alignment: displaced F racture type: closed Phalanx: proximal Toe: lesser toe Qualified Code(s): S 92.512A - Displaced fracture of proximal phalanx of left lesser toe(s), initial encounter for closed fracture Code(s): S92.912A - Unspecified fracture of left toe(s), initial encounter for closed fracture Status: Acute Assessment and Plan: * as noted by admission imaging * Orthopedic Surgery recommendations noted: * weight bearing as tolerated * elevation and ice pack * pain control * continue supportive therapy (5) HTN (hypertension): Code(s): I10 - Essential (primary) hypertension Status: Chronic Assessment and Plan: * elevated at this time * recommend restarting losartan * follow trend of hemodynamics (6) Anemia: Code(s): D64.9 - Anemia, unspecified Status: Acute Assessment and Plan: * dilutional for previous IVFs * possibly hemoconcentrated on admission * follow trend of H/H I will continue to follow the patient with you while she remains hospitalized and make further recommendations as deemed necessary. Thank you for allowing me to participate in the care of this patient. L History of Present Illness Reason for Consult Consult date: 02/01/25 Reason for consult: hyponatremia Chief Complaint Chief complaint: PT/OT eval, recurrent fall;generalized/LE weakness History of Present Illness Narrative: The patient is a 74-year-old female with a past medical history as outlined below who presented to [facility] Emergency Room after sustaining a fall. The patient apparently sustained a fall about an hour prior to her presentation to the emergency room. She stated that her knees gave out which resulted in the fall. She denies losing consciousness or having any symptoms prior to or after the fall with regard to chest pain, shortness of breath, dizziness, lightheadedness, or palpitations. Following the fall, EMS was called and she was subsequently transported to the emergency room. According to the patient's , she has been having more frequent falls at home in general and it is getting difficult for him to keep picking her up off the floor/ground when this occurs. When this last fall occurred, He was unable to get her up off the floor and the patient was unable to assist herself up either and this resulted in calling EMS for assistance. On further questioning, the patient states that she thinks she is falling due to generalized weakness which she attributes to having on and off diarrhea for the past several weeks. Despite the fact that she uses a walker at home, she states that she has had increasing difficulty walking in general. Aside from the diarrhea, she gave no other subjective symptoms with regard to fevers, chills, nausea, or vomiting. She was subsequently transported to the emergency room via EMS for further assessment. Workup and evaluation emergency room demonstrated the patient be mildly tachycardic but otherwise hemodynamically stable and afebrile. Routine blood test demonstrated elevated white blood cell count of 15.2, normal kidney function/ creatinine, a sodium of 130, a magnesium of 1.3, and a urinalysis that was negative for infection. Viral testing for influenza, RSV, and COVID-19 were negative. Subsequent imaging including a head CT scan of her head was negative as well as a CT scan of her C-spine as well. Given her elevated D-dimer a CTA of the chest abdomen pelvis was done which showed no acute pathology in her lungs but did demonstrate fecal stasis distending the rectum. She was given a trial of IV fluids and nursing in the emergency room attempted to walk the patient's assess her stability but this only demonstrated how unstable she was with regard to ambulation. It was felt that she would benefit from inpatient therapy and further evaluation given her severe weakness and inability to walk. Since her admission to the hospital, it has been noted that her sodium has been down trending despite conservative therapy in the form of IV fluids and supportive therapy. Renal consultation was requested due to her acute on chronic hyponatremia. As already mentioned, her sodium level was 130 millimoles per L on admission and has progressively dropped to her most current reading of 122 millimoles per L. is difficult to say if her hyponatremia is causing any symptoms although nursing reports that she reports on and off confusion and sometimes make statements that do not not make sense. On further questioning of the patient as well as her at bedside, she has had issues and problems with hyponatremia that goes back as far as 2016 although it seems to transiently occur and then corrected self without any specific intervention. The last time she had issues and problems with her sodium level was a previous hospitalization at [facility] but the and the patient are unclear what exactly was done to improve this electrolyte abnormality Although he reports that medications she was taking was to blame for this problem, specifically antidepressants. She had issues with low sodium level back in 2016 was actually referred to Dr. Bravo for further assessment at that time-- she had a fairly extensive workup and evaluation which was negative and her sodium level seem to stabilize if not improve with just a mild fluid restriction that was instituted. She does admit that she does drink a lot a water and currently does not do any type of fluid restriction. Currently, at the time my evaluation, she appears to be in no acute distress. Review of Systems 2 Review of Systems: As per HPI. [facility] Past Medical History Medical History (Updated 02/01/25 @ 18:34 by Jewell Villar MD) Melanoma of upper limb Fracture of toe of left foot Obesity Melanoma HTN (hypertension) Hypercholesterolemia Family History Family History Father Family history of malignant neoplasm Mother Family history of diabetes mellitus in first degree relative Family history of coronary artery disease Social History Social History Smoking packs per day: 1 Smoking cigarettes per day: 20.0 Smoking status: Current every day smoker Tobacco type: cigarettes Alcohol intake: never Substance use: never Do You Feel Safe in your Home?: No Lack of Transportation: No Lack of Food: Sometimes True Current Housing: I Have Housing Concerned About Future Housing: No Difficulty Paying Gas/Electric Bills: No Difficulty Paying for Meds: No Currently Unemployed: No Education: Associate Degree Difficulty w/ Childcare or Family Care: No Spiritual care concerns: No Meds Home Medications and Allergies Home Medications ?Medication ?Instructions ?Recorded ?Confirmed ?Type atorvastatin 10 mg tablet 10 mg PO 3XW 10/05/19 01/29/25 History clonazepam 0.5 mg tablet 0.5 mg PO QID 10/05/19 01/29/25 History citalopram 40 mg tablet 40 mg PO DAILY 01/29/25 01/29/25 History meclizine 25 mg tablet 25 mg PO TID PRN dizziness 01/29/25 01/29/25 History memantine 10 mg tablet 10 mg PO BID 01/29/25 01/29/25 History trazodone 100 mg tablet 100 mg PO HS 01/29/25 01/29/25 History potassium chloride 20 mEq 20 meq PO BID 01/30/25 01/30/25 History tablet,extended release Allergies Allergy/AdvReac Type Severity Reaction Status Date / Time No Known Allergies Allergy Verified 01/29/25 13:52 Vital Signs Vital Signs Temp Pulse Resp BP Pulse Ox O2 Del Method 02/01/25 12:00 98.1 F 104 H 18 174/98 H 100 02/01/25 08:00 Room Air 02/01/25 08:00 97.9 F 91 18 165/103 H 100 02/01/25 04:00 102 H 02/01/25 03:16 Room Air 02/01/25 03:15 98.4 F 89 16 169/77 H 100 02/01/25 00:00 83 01/31/25 23:22 99 F 91 16 148/82 H 98 01/31/25 23:03 Room Air 01/31/25 22:19 98.3 F 97 16 168/79 H 97 01/31/25 21:08 97 Room Air 01/31/25 20:00 87 01/31/25 19:52 97.7 F 88 18 153/78 H 98 01/31/25 19:51 Room Air Results Lab Results 02/01/25 06:02 02/01/25 09:40 Lab results: Most recent lab results Calcium 7.4 mg/dL (8.4-10.2) L 02/01/25 09:40 Phosphorus 1.5 mg/dL (2.5-4.5) L 02/01/25 06:02 Magnesium 1.7 mg/dL (1.6-2.3) 02/01/25 06:02
--- NOTE | 2025-02-01 14:25 | PC.NURSE ---
Addendum entered by Flaquita Rea RN 02/01/25 14:43: notified. Sitter to remain at bedside. Addendum entered by Flaquita Rea RN 02/01/25 14:31: Patient alert to self. Intermittently to place. Original Note: Patient told sitalexandra that she wanted to kill herself. While doing suicide assessment patient denied everything and said it was something stupid she said. Called charge nurse to see how to proceed. Sitter already at bedside due to confusion. Patient on alert to s
[2025-02-01] MEDS: POTASSIUM PHOS,M-BASIC-D-BASIC 15 MMOL in SODIUM CHLORIDE 0.9% IV 250 ML 63.75 MMOL IVPB ×2 (14:31→18:13)
[2025-02-01 15:39] LABS: Osmolality, Urine 354 mOsm/kg (50-1200)
--- NOTE | 2025-02-01 18:30 | P.PNIM_ITS ---
Progress Note: A&P Assessment and Plan (1) Fall: Code(s): W19.XXXA - Unspecified fall, initial encounter Status: Acute Assessment and Plan: PT OT evaluate and treat CT head, C-spine, chest abdomen pelvis without acute injury X-ray left foot pending, showed Comminuted fracture of the distal margin of the proximal phalanx, consult ortho Fall precautions (2) Generalized weakness: Code(s): R53.1 - Weakness Status: Acute Assessment and Plan: To be multifactorial diarrhea, deconditioning, infective, electrolyte imbalance PT OT Replace lytes as stated C diff pending (3) Hypomagnesemia: Code(s): E83.42 - Hypomagnesemia Status: Acute Assessment and Plan: Mag 1.2, replete 4G IV Today --repeat in AM (4) Hyponatremia: Code(s): E87.1 - Hypo-osmolality and hyponatremia Status: Acute Assessment and Plan: IVF for hydration Potassium 2.3, 40 PO & IV Repeat potassium this afternoon and additional potassium if needed Patient is on Lasix currently holding due to acute dehydration Monitor on tele (5) Diarrhea: Code(s): R19.7 - Diarrhea, unspecified Status: Acute Assessment and Plan: Likely cause of electrolyte imbalance and weakness. Now seems resolved CT abd/pelvis showed fecal stasis distending the rectum, could have overflow diarrhea. Patient declined enema, will need to monitor C diff pending (6) Hypercholesterolemia: Code(s): E78.00 - Pure hypercholesterolemia, unspecified Status: Acute Assessment and Plan: Continue statin (7) HTN (hypertension): Code(s): I10 - Essential (primary) hypertension Status: Chronic Assessment and Plan: Continue losartan (8) Cognitive and behavioral changes: Code(s): R41.89 - Other symptoms and signs involving cognitive functions and awareness; R46.89 - Other symptoms and signs involving appearance and behavior Status: Acute Assessment and Plan: TSH normal Check B12 Plan Patient presented with generalized weakness status post fall and fracture of the left foot patient was seen by orthopedic and recommended conservative management, patient also has hyponatremia hypomagnesemia hypercalcemia patient has history of alcohol not forthcoming home seen drinks the scan lead to derangement of electrolytes, patient is gently hydrate and been monitor and supplement will consult bar staff for further recommendation, patient will benefit with rehab DVT prophylaxis on Sq Lovenox PT/OT for dsicharge planning Subjective Date/time seen: 02/01/25 18:30 Interval history: More forgetful recently per family at bedside Needing a lot of assistance, and has had multiple falls at home per family at bedside, over 12. Interested in short term SNF or rehab Potassium 2.3, repleting with IV and PO. Mag also low, 1.2. Sodium 125 Patient presented with generalized weakness status post fall and fracture of the left foot patient was seen by orthopedic and recommended conservative management, patient also has hyponatremia hypomagnesemia hypercalcemia patient has history of alcohol not forthcoming home seen drinks the scan lead to derangement of electrolytes, patient is gently hydrate and been monitor and supplement will consult bar staff for further recommendation, patient will benefit with rehab Review of Systems Review of Systems: 12 systems were reviewed and are negativ e except for as per HPI. Exam Narrative: Patient is comfortable, NAD HEENT: eyes are clear and none icteric LUNGS:CTA HEART: RR S1S2 ABD: BS+, Soft and nontender Lower extremities: no edema SKIN: nonjaundiced Neuro: grossly intact. Objective Data Vital Signs Vital Signs: Vital Signs - 24 hr 01/31/25 19:51 01/31/25 19:52 01/31/25 20:00 Temperature 36.5 C Pulse Rate 88 87 Respiratory Rate 18 Blood Pressure 153/78 H Pulse Oximetry 98 Oxygen Delivery Room Air 01/31/25 21:08 01/31/25 22:19 01/31/25 23:03 Temperature 36.8 C Pulse Rate 97 Respiratory Rate 16 Blood Pressure 168/79 H Pulse Oximetry 97 97 Oxygen Delivery Room Air Room Air 01/31/25 23:22 02/01/25 00:00 02/01/25 03:15 Temperature 37.2 C 36.9 C Pulse Rate 91 83 89 Respiratory Rate 16 16 Blood Pressure 148/82 H 169/77 H Pulse Oximetry 98 100 Oxygen Delivery 02/01/25 03:16 02/01/25 04:00 02/01/25 08:00 Temperature 36.6 C Pulse Rate 102 H 91 Respiratory Rate 18 Blood Pressure 165/103 H Pulse Oximetry 100 Oxygen Delivery Room Air 02/01/25 08:00 02/01/25 08:00 02/01/25 12:00 Temperature 36.7 C Pulse Rate 88 104 H Respiratory Rate 18 Blood Pressure 174/98 H Pulse Oximetry 100 Oxygen Delivery Room Air 02/01/25 12:00 02/01/25 16:00 02/01/25 16:00 Temperature 36.9 C Pulse Rate 90 95 117 H Respiratory Rate 20 Blood Pressure 149/77 H Pulse Oximetry 100 Oxygen Delivery 02/01/25 16:00 Temperature Pulse Rate Respiratory Rate Blood Pressure Pulse Oximetry Oxygen Delivery Room Air Intake/Output Intake/Output: Intake & Output 01/29/25 01/30/25 01/31/25 02/01/25 23:59 23:59 23:59 23:59 Intake Total 1100 1790 2360 1260 Output Total 2650 3600 Balance 1100 1790 -290 -2340 Meds/Results Medications: Active Medications Generic Name Dose Route Start Last Admin Trade Name Freq PRN Reason Stop Dose Admin Acetaminophen 650 mg 01/29/25 18:37 Acetaminophen 325 Mg Tablet PO Q4H PRN Mild Pain (1-3) or Fever Atorvastatin Calcium 10 mg 01/30/25 09:00 02/01/25 09:14 Atorvastatin 10 Mg Tablet PO 10 mg [email or web address] THEE Administration Citalopram Hydrobromide 40 mg 01/30/25 09:00 01/31/25 08:13 Citalopram Hydrobromide 20 Mg Tablet PO 40 mg DAILY THEE Administration Clonazepam 0.5 mg 01/31/25 22:35 Clonazepam (*Crx) 0.5 Mg Tablet PO QID PRN anxiety/agitation Enoxaparin Sodium 40 mg 01/30/25 09:00 02/01/25 09:15 Enoxaparin 40 Mg/0.4 Ml Syringe SUB-Q 40 mg DAILY THEE Administration Potassium Phosphate 15 mmol/ 255 mls @ 63.75 mls/hr 02/01/25 18:00 02/01/25 18:13 Sodium Chloride IVPB 02/01/25 21:59 63.75 mls/hr ONCE ONE Administration Meclizine HCl 25 mg 01/29/25 22:55 Meclizine Hcl 25 Mg Tablet PO TID PRN dizziness Memantine 10 mg 01/29/25 23:20 02/01/25 09:14 Memantine 10 Mg Tablet PO 10 mg Q12HR THEE Administration Ondansetron HCl 4 mg 01/29/25 18:37 Ondansetron Inj 4 Mg/2 Ml Vial IV PUSH Q4H PRN Nausea Potassium Chloride 20 meq 02/01/25 09:00 02/01/25 18:25 Potassium Chloride 20 Meq Er Tablet PO 20 meq BID THEE Administration Radiology Results: ITS Impressions Chest X-Ray 01/29/25 15:37 IMPRESSION: No focal infiltrate or effusion. Head CT 01/29/25 15:57 Impression: No acute intracranial hemorrhage or suspicious mass effect. Cervical Spine CT 01/29/25 16:07 Impression: Straightening and slight reversal of the normal curvature of the cervical spine, likely muscular in origin. No acute fracture. Chest/Abdomen/Pelvis CTA 01/29/25 17:24 IMPRESSION: No pulmonary embolus. No aortic dissection. The lungs are clear. Fecal stasis distending the rectum. Foot X-Ray 01/30/25 08:38 IMPRESSION: Comminuted fracture of the distal margin of the proximal phalanx, as detailed above. Labs Labs: Laboratory Results - last 24 hr 01/31/25 02/01/25 02/01/25 08:20 00:01 06:02 WBC 10.1 H RBC 3.45 L Hgb 11.4 L Hct 33.4 L MCV 96.8 MCH 33.0 MCHC 34.1 RDW 13.0 Plt Count 271 MPV 9.1 Immature Gran % (Auto) 2.0 H Neut % (Auto) 74.5 H Lymph % (Auto) 15.9 L Fleming % (Auto) 6.4 Eos % (Auto) 0.8 Baso % (Auto) 0.4 Lymph # (Auto) 1.60 Fleming # (Auto) 0.7 H Eos # (Auto) 0.1 Baso # (Auto) 0.0 Abs Immat Gran (auto) 0.20 H Absolute Neuts (auto) 7.5 H Absolute Nucleated RBC 0.000 Nucleated RBC % 0.0 APTT Sodium 123 L 124 L Potassium 3.9 3.7 Chloride 98 96 L Carbon Dioxide 21 L 23 Anion Gap 4 5 BUN < 2 L < 2 L Creatinine 0.30 L 0.29 L Estim Creat Clear Calc 122 126 Estimated GFR > 60 > 60 Glucose 125 H 123 H Calcium 7.2 L 7.2 L Phosphorus 1.5 L Magnesium 1.7 Vitamin B12 662.0 Urine Osmolality 354 HIV 1&2 Ab/P24 Ag 4thGn Negative 02/01/25 02/01/25 06:51 09:40 WBC RBC Hgb Hct MCV MCH MCHC RDW Plt Count MPV Immature Gran % (Auto) Neut % (Auto) Lymph % (Auto) Fleming % (Auto) Eos % (Auto) Baso % (Auto) Lymph # (Auto) Fleming # (Auto) Eos # (Auto) Baso # (Auto) Abs Immat Gran (auto) Absolute Neuts (auto) Absolute Nucleated RBC Nucleated RBC % APTT 28.1 Sodium 122 L Potassium 3.6 Chloride 94 L Carbon Dioxide 21 L Anion Gap 7 BUN < 2 L Creatinine 0.24 L Estim Creat Clear Calc 146 Estimated GFR > 60 Glucose 119 H Calcium 7.4 L Phosphorus Magnesium Vitamin B12 Urine Osmolality HIV 1&2 Ab/P24 Ag 4thGn Quality VTE Prophylaxis VTE prophylaxis: mechanical ordered and pharmacologic ordered
[2025-02-01 20:26] LABS: Anion Gap 6 mmol/L (4-12); Blood Urea Nitrogen 3 mg/dL (7-17); Calcium 7.7 mg/dL (8.4-10.2); Carbon Dioxide 23 mmol/L (22-30); Chloride 89 mmol/L (98-107); Estimated CRCL calculation 116 ml/min; Estimated Glomerular Filt Rate > 60; Glucose 120 mg/dL (65-110); Potassium 3.8 mmol/L (3.4-5.0); Sodium 118 mmol/L (137-145)
[2025-02-01 22:12] LABS: Creatinine Urine 5.2 mg/dL
[2025-02-01] MEDS: SODIUM CHLORIDE 3% 65 ML IV CONT (22:14)
[2025-02-01 22:19] LABS: Sodium Urine Random 100 meq/L
[2025-02-01 22:28] LABS: Urea Random Urine < 67 MG/DL
[2025-02-01 22:58] LABS: Total Protein Urine Random < 16 mg/dL
[2025-02-01 22:59] LABS: Creatinine Urine 5.2 mg/dL; Total Protein Urine Random < 16 mg/dL; Ur Ttl Prot Creatinine Ratio 3.08 mg/mg (0-0.20)
[2025-02-02] VITALS (7 sets, daily range): BP systolic 128–177; BP diastolic 68–92; PULSE 84–99; RESP 16–22; TEMP 36.5–36.8; O2SAT 98–100
[2025-02-02 04:14] LABS: Hemoglobin 11.8 g/dL (12.0-15.0); Mean Corpuscular HGB Conc 35.8 g/dl (32-36); Mean Corpuscular Hemoglobin 33.1 pg (26-34); Mean Corpuscular Volume 92.7 fl (80-100); Mean Platelet Volume 8.9 fl (7.4-10.4); Platelet Count Result 284 k/mm3 (150-375); Red Blood Count 3.56 M/mm3 (4.2-5.4); Red Cell Distribution Width 12.9 % (11.5-14.5); White Blood Count 9.3 K/mm3 (4.5-10.0)
[2025-02-02 04:30] LABS: Alanine Aminotransferase 29 U/L (6-35); Alkaline Phosphatase 129 U/L (38-126); Anion Gap 5 mmol/L (4-12); Aspartate Amino Transferase 33 U/L (14-36); Bilirubin,Total 0.8 mg/dL (0.2-1.3); Blood Urea Nitrogen 3 mg/dL (7-17); Calcium 7.6 mg/dL (8.4-10.2); Carbon Dioxide 22 mmol/L (22-30); Chloride 94 mmol/L (98-107); Estimated CRCL calculation 119 ml/min; Estimated Glomerular Filt Rate > 60; Glucose 119 mg/dL (65-110); Magnesium 1.4 mg/dL (1.6-2.3); Phosphorus 2.5 mg/dL (2.5-4.5); Potassium 3.7 mmol/L (3.4-5.0); Sodium 121 mmol/L (137-145)
[2025-02-02] MEDS: MAGNESIUM SULF 2 GM/WATER 50ML 2 GM/50 ML BAG IVPB (05:58)
[2025-02-02 07:25] LABS: Free T4 Free Thyroxine Reflex 1.31 ng/dL (0.78-2.19)
[2025-02-02 08:07] LABS: Sodium 120 mmol/L (137-145)
[2025-02-02 09:04] LABS: Total Triiodothyronine (T3) 1.04 NG/ML (0.97-1.69)
[2025-02-02] MEDS: MEMANTINE 10 MG TABLET PO ×2 (10:03→21:19)
[2025-02-02] MEDS: SODIUM CHLORIDE 1 GM TABLET PO ×2 (10:03→16:55)
[2025-02-02] MEDS: POTASSIUM CHLORIDE 20 MEQ ER TABLET PO ×2 (10:03→16:55)
[2025-02-02] MEDS: ENOXAPARIN 40 MG/0.4 ML SYRINGE SUB-Q (10:12)
--- NOTE | 2025-02-02 12:37 | P.PNNP_ITS ---
Progress Note: A&P Assessment and Plan (1) Hyponatremia: Code(s): E87.1 - Hypo-osmolality and hyponatremia Status: Acute Assessment and Plan: * worsening noted in the last 24 hours * has had issues with this in the past * on and off low sodium levels since 2016... * previous evaluation (done in 2016) was negative and sodium normalized with apparently just fluid restriction * risk factors for low sodium: * SSRI use * excessive free water intake(?) * smoking history * other(?) * evaluation to date noted * urine sodium elevated (but was on lasix prior to admission) * urine osmolality (354) > serum osmolality (262) * urine electrolytes non-prerenal * TSH okay * cortisol reasonable * CT of head negative * CT of chest without lung pathology * SPE/UPE pending * on fluid restriction * holding SSRI * start salt tablets and may need low dose lasix as well * s/p 3% saline on 02/01 evening * follow trend of repeat sodium levels (2) Frequent falls: Code(s): R29.6 - Repeated falls Status: Acute Assessment and Plan: * as noted by history * CT imaging noted * PT/OT * fall precautions (3) Generalized weakness: Code(s): R53.1 - Weakness Status: Acute Assessment and Plan: * suspect multifactorial: * deconditioning * diarrhea * anemia(?) * hyponatremia(?) * other(?) * electrolyte optimization * PT/OT as tolerated (4) Fracture of toe of left foot: Qualifiers: Encounter type: initial encounter Toe: lesser toe Fracture type: c losed Phalanx: proximal Fracture alignment: displaced Qualified Code(s): S 92.512A - Displaced fracture of proximal phalanx of left lesser toe(s), initial encounter for closed fracture Code(s): S92.912A - Unspecified fracture of left toe(s), initial encounter for closed fracture Status: Acute Assessment and Plan: * as noted by admission imaging * Orthopedic Surgery recommendations noted: * weight bearing as tolerated * elevation and ice pack * pain control * continue supportive therapy (5) HTN (hypertension): Code(s): I10 - Essential (primary) hypertension Status: Chronic Assessment and Plan: * elevated at times * follow trend of hemodynamics (6) Anemia: Code(s): D64.9 - Anemia, unspecified Status: Acute Assessment and Plan: * dilutional for previous IVFs * possibly hemoconcentrated on admission * follow trend of H/H Will continue to follow. L Subjective Date/time seen: 02/02/25 12:37 Interval history: Follow-up on acute on chronic hyponatremia. Eating lunch with the assistance of family at the time of my visit; sodium dropped to 118mmol/L in the evening so received a run of 3% saline in an effort to compensate with repeat sodium up 121mmol/L; initiated on salt tablets as well as fluid restriction; still with intermittent confusion as well (sitter at bedside) but possible underlying dementia present (since on namenda); no apparent distress noted. Exam 2 Narrative: General: elderly but WD/WN female in NAD Heart: normal S1 and S2; no rub Lungs: clear to auscultation Abdomen: soft, nontender, nondistended, positive bowel sounds Extremities: no cyanosis or clubbing; no edema Skin: warm and dry Objective Data Vital Signs Vital Signs: Vital Signs Temp Pulse Resp BP Pulse Ox O2 Del Method FiO2 02/02/25 08:00 97.9 F 95 22 H 167/82 H 99 02/02/25 04:00 92 02/02/25 04:00 20 98 Room Air 02/02/25 04:00 98.3 F 92 16 177/92 H 98 02/02/25 00:00 84 02/01/25 23:48 98.3 F 96 16 176/96 H 100 02/01/25 23:47 85 20 98 Room Air 21 02/01/25 21:22 100 16 99 Room Air 02/01/25 20:00 97 02/01/25 19:35 98.7 F 100 16 160/89 H 99 02/01/25 16:00 Room Air 02/01/25 16:00 117 H 02/01/25 16:00 98.4 F 95 20 149/77 H 100 Intake/Output Intake/Output: Intake & Output 01/30/25 01/31/25 02/01/25 02/02/25 23:59 23:59 23:59 23:59 Intake Total 1790 2360 1515 290 Output Total 2650 4800 940 Balance 0355 -391 -1773 -612 Meds/Results Medications: Active Medications Generic Name Dose Route Start Last Admin Trade Name Freq PRN Reason Stop Dose Admin Acetaminophen 650 mg 01/29/25 18:37 Acetaminophen 325 Mg Tablet PO Q4H PRN Mild Pain (1-3) or Fever Atorvastatin Calcium 10 mg 01/30/25 09:00 02/01/25 09:14 Atorvastatin 10 Mg Tablet PO 10 mg [email or web address] THEE Administration Citalopram Hydrobromide 40 mg 01/30/25 09:00 01/31/25 08:13 Citalopram Hydrobromide 20 Mg Tablet PO 40 mg DAILY THEE Administration Clonazepam 0.5 mg 01/31/25 22:35 Clonazepam (*Crx) 0.5 Mg Tablet PO QID PRN anxiety/agitation Enoxaparin Sodium 40 mg 01/30/25 09:00 02/02/25 10:12 Enoxaparin 40 Mg/0.4 Ml Syringe SUB-Q 40 mg DAILY THEE Administration Meclizine HCl 25 mg 01/29/25 22:55 Meclizine Hcl 25 Mg Tablet PO TID PRN dizziness Memantine 10 mg 01/29/25 23:20 02/02/25 10:03 Memantine 10 Mg Tablet PO 10 mg Q12HR THEE Administration Ondansetron HCl 4 mg 01/29/25 18:37 Ondansetron Inj 4 Mg/2 Ml Vial IV PUSH Q4H PRN Nausea Potassium Chloride 20 meq 02/01/25 09:00 02/02/25 10:03 Potassium Chloride 20 Meq Er Tablet PO 20 meq BID THEE Administration Sodium Chloride 1 gm 02/02/25 09:00 02/02/25 10:03 Sodium Chloride 1 Gm Tablet PO 1 gm BID THEE Administration Radiology Results: ITS Impressions Chest X-Ray 01/29/25 15:37 IMPRESSION: No focal infiltrate or effusion. Head CT 01/29/25 15:57 Impression: No acute intracranial hemorrhage or suspicious mass effect. Cervical Spine CT 01/29/25 16:07 Impression: Straightening and slight reversal of the normal curvature of the cervical spine, likely muscular in origin. No acute fracture. Chest/Abdomen/Pelvis CTA 01/29/25 17:24 IMPRESSION: No pulmonary embolus. No aortic dissection. The lungs are clear. Fecal stasis distending the rectum. Foot X-Ray 01/30/25 08:38 IMPRESSION: Comminuted fracture of the distal margin of the proximal phalanx, as detailed above. Labs Labs: Laboratory Tests 02/02/25 03:45 02/02/25 07:50 02/02/25 03:45 Sodium 121 L Potassium 3.7 Chloride 94 L Carbon Dioxide 22 Anion Gap 5 BUN 3 L Creatinine 0.31 L Estim Creat Clear Calc 119 Estimated GFR > 60 Glucose 119 H Calcium 7.6 L Phosphorus 2.5 Magnesium 1.4 L Total Bilirubin 0.8 AST 33 ALT 29 Alkaline Phosphatase 129 H
[2025-02-02 13:29] LABS: Albumin Level 3.5 g/dL (3.5-5.1); Anion Gap 10 mmol/L (4-12); Blood Urea Nitrogen 4 mg/dL (7-17); Calcium 8.2 mg/dL (8.4-10.2); Carbon Dioxide 18 mmol/L (22-30); Chloride 91 mmol/L (98-107); Estimated CRCL calculation 116 ml/min; Estimated Glomerular Filt Rate > 60; Glucose 163 mg/dL (65-110); Magnesium 1.9 mg/dL (1.6-2.3); Phosphorus 2.3 mg/dL (2.5-4.5); Potassium 3.9 mmol/L (3.4-5.0); Sodium 119 mmol/L (137-145)
[2025-02-02] MEDS: clonazePAM (*CRX) 0.5 MG TABLET PO ×2 (13:57→23:41)
--- NOTE | 2025-02-02 14:21 | P.PNIM_ITS ---
Progress Note: A&P Assessment and Plan (1) Fall: Code(s): W19.XXXA - Unspecified fall, initial encounter Status: Acute Assessment and Plan: PT OT evaluate and treat CT head, C-spine, chest abdomen pelvis without acute injury X-ray left foot pending, showed Comminuted fracture of the distal margin of the proximal phalanx, consult ortho Fall precautions (2) Generalized weakness: Code(s): R53.1 - Weakness Status: Acute Assessment and Plan: To be multifactorial diarrhea, deconditioning, infective, electrolyte imbalance PT OT Replace lytes as stated C diff pending (3) Hypomagnesemia: Code(s): E83.42 - Hypomagnesemia Status: Acute Assessment and Plan: Mag 1.2, replete 4G IV Today --repeat in AM (4) Hyponatremia: Code(s): E87.1 - Hypo-osmolality and hyponatremia Status: Acute Assessment and Plan: IVF for hydration Potassium 2.3, 40 PO & IV Repeat potassium this afternoon and additional potassium if needed Patient is on Lasix currently holding due to acute dehydration Monitor on tele (5) Diarrhea: Code(s): R19.7 - Diarrhea, unspecified Status: Acute Assessment and Plan: Likely cause of electrolyte imbalance and weakness. Now seems resolved CT abd/pelvis showed fecal stasis distending the rectum, could have overflow diarrhea. Patient declined enema, will need to monitor C diff pending (6) Hypercholesterolemia: Code(s): E78.00 - Pure hypercholesterolemia, unspecified Status: Acute Assessment and Plan: Continue statin (7) HTN (hypertension): Code(s): I10 - Essential (primary) hypertension Status: Chronic Assessment and Plan: Continue losartan (8) Cognitive and behavioral changes: Code(s): R41.89 - Other symptoms and signs involving cognitive functions and awareness; R46.89 - Other symptoms and signs involving appearance and behavior Status: Acute Assessment and Plan: TSH normal Check B12 Plan Patient presented with generalized weakness status post fall and fracture of the left foot patient was seen by orthopedic and recommended conservative management, patient also has hyponatremia hypomagnesemia hypercalcemia patient has history of alcohol not forthcoming home seen drinks the scan lead to derangement of electrolytes, patient is gently hydrate and been monitor and supplement, patient is seen by the neuroscience director na and sodium and electrolytes are being corrected, patient clinical symptoms are improving, patient will work with PT/OT, discuss with patient and her would like to go to rehab before going home with left foot fracture. DVT prophylaxis on Sq Lovenox PT/OT for dsicharge planning Subjective Date/time seen: 02/02/25 14:21 Interval history: More forgetful recently per family at bedside Needing a lot of assistance, and has had multiple falls at home per family at bedside, over 12. Interested in short term SNF or rehab Potassium 2.3, repleting with IV and PO. Mag also low, 1.2. Sodium 125 Patient presented with generalized weakness status post fall and fracture of the left foot patient was seen by orthopedic and recommended conservative management, patient also has hyponatremia hypomagnesemia hypercalcemia patient has history of alcohol not forthcoming home seen drinks the scan lead to derangement of electrolytes, patient is gently hydrate and been monitor and supplement, patient is seen by the neuroscience director na and sodium and electrolytes are being corrected, patient clinical symptoms are improving, patient will work with PT/OT, discuss with patient and her would like to go to rehab before going home with left foot fracture. Review of Systems Review of Systems: 12 systems were reviewed and are negativ e except for as per HPI. Exam Narrative: Patient is comfortable, NAD HEENT: eyes are clear and none icteric LUNGS:CTA HEART: RR S1S2 ABD: BS+, Soft and nontender Lower extremities: no edema SKIN: nonjaundiced Neuro: grossly intact. Objective Data Vital Signs Vital Signs: Vital Signs - 24 hr 02/01/25 16:00 02/01/25 16:00 02/01/25 16:00 Temperature 36.9 C Pulse Rate 95 117 H Respiratory Rate 20 Blood Pressure 149/77 H Pulse Oximetry 100 Oxygen Delivery Room Air Fraction of Inspired Oxygen 02/01/25 19:35 02/01/25 20:00 02/01/25 21:22 Temperature 37.1 C Pulse Rate 100 97 100 Respiratory Rate 16 16 Blood Pressure 160/89 H Pulse Oximetry 99 99 Oxygen Delivery Room Air Fraction of Inspired Oxygen 02/01/25 23:47 02/01/25 23:48 02/02/25 00:00 Temperature 36.8 C Pulse Rate 85 96 84 Respiratory Rate 20 16 Blood Pressure 176/96 H Pulse Oximetry 98 100 Oxygen Delivery Room Air Fraction of Inspired Oxygen 21 02/02/25 04:00 02/02/25 04:00 02/02/25 04:00 Temperature 36.8 C Pulse Rate 92 92 Respiratory Rate 16 20 Blood Pressure 177/92 H Pulse Oximetry 98 98 Oxygen Delivery Room Air Fraction of Inspired Oxygen 02/02/25 08:00 02/02/25 08:30 02/02/25 12:00 Temperature 36.6 C 36.6 C Pulse Rate 95 95 93 Respiratory Rate 22 H 18 Blood Pressure 167/82 H 128/68 Pulse Oximetry 99 100 Oxygen Delivery Fraction of Inspired Oxygen Intake/Output Intake/Output: Intake & Output 01/30/25 01/31/25 02/01/25 02/02/25 23:59 23:59 23:59 23:59 Intake Total 1790 2360 1515 410 Output Total 2650 4800 940 Balance 1790 -290 -3285 -530 Meds/Results Medications: Active Medications Generic Name Dose Route Start Last Admin Trade Name Freq PRN Reason Stop Dose Admin Acetaminophen 650 mg 01/29/25 18:37 Acetaminophen 325 Mg Tablet PO Q4H PRN Mild Pain (1-3) or Fever Atorvastatin Calcium 10 mg 01/30/25 09:00 02/01/25 09:14 Atorvastatin 10 Mg Tablet PO 10 mg [email or web address]@0900 THEE Administration Citalopram Hydrobromide 40 mg 01/30/25 09:00 01/31/25 08:13 Citalopram Hydrobromide 20 Mg Tablet PO 40 mg DAILY THEE Administration Clonazepam 0.5 mg 01/31/25 22:35 02/02/25 13:57 Clonazepam (*Crx) 0.5 Mg Tablet PO 0.5 mg QID PRN Administration anxiety/agitation Enoxaparin Sodium 40 mg 01/30/25 09:00 02/02/25 10:12 Enoxaparin 40 Mg/0.4 Ml Syringe SUB-Q 40 mg DAILY THEE Administration Meclizine HCl 25 mg 01/29/25 22:55 Meclizine Hcl 25 Mg Tablet PO TID PRN dizziness Memantine 10 mg 01/29/25 23:20 02/02/25 10:03 Memantine 10 Mg Tablet PO 10 mg Q12HR THEE Administration Ondansetron HCl 4 mg 01/29/25 18:37 Ondansetron Inj 4 Mg/2 Ml Vial IV PUSH Q4H PRN Nausea Potassium Chloride 20 meq 02/01/25 09:00 02/02/25 10:03 Potassium Chloride 20 Meq Er Tablet PO 20 meq BID THEE Administration Sodium Chloride 1 gm 02/02/25 09:00 02/02/25 10:03 Sodium Chloride 1 Gm Tablet PO 1 gm BID THEE Administration Radiology Results: ITS Impressions Chest X-Ray 01/29/25 15:37 IMPRESSION: No focal infiltrate or effusion. Head CT 01/29/25 15:57 Impression: No acute intracranial hemorrhage or suspicious mass effect. Cervical Spine CT 01/29/25 16:07 Impression: Straightening and slight reversal of the normal curvature of the cervical spine, likely muscular in origin. No acute fracture. Chest/Abdomen/Pelvis CTA 01/29/25 17:24 IMPRESSION: No pulmonary embolus. No aortic dissection. The lungs are clear. Fecal stasis distending the rectum. Foot X-Ray 01/30/25 08:38 IMPRESSION: Comminuted fracture of the distal margin of the proximal phalanx, as detailed above. Labs Labs: Laboratory Results - last 24 hr 01/31/25 02/01/25 02/01/25 08:20 20:08 21:27 WBC RBC Hgb Hct MCV MCH MCHC RDW Plt Count MPV Sodium 118 L* Potassium 3.8 Chloride 89 L Carbon Dioxide 23 Anion Gap 6 BUN 3 L Creatinine 0.32 L Estim Creat Clear Calc 116 Estimated GFR > 60 Glucose 120 H Calcium 7.7 L Phosphorus Magnesium Total Bilirubin AST ALT Alkaline Phosphatase Total Protein Albumin TSH (Reflex) Free T4 Total T3 Random Cortisol Urine Osmolality 354 U Random Total Protein < 16 Ur Random Sodium Ur Random Urea Urine Creatinine Protein/Creat Ratio 2 02/01/25 02/01/25 02/02/25 21:27 21:27 03:45 WBC 9.3 RBC 3.56 L Hgb 11.8 L Hct 33.0 L MCV 92.7 MCH 33.1 MCHC 35.8 RDW 12.9 Plt Count 284 MPV 8.9 Sodium 121 L Potassium 3.7 Chloride 94 L Carbon Dioxide 22 Anion Gap 5 BUN 3 L Creatinine 0.31 L Estim Creat Clear Calc 119 Estimated GFR > 60 Glucose 119 H Calcium 7.6 L Phosphorus 2.5 Magnesium 1.4 L Total Bilirubin 0.8 AST 33 ALT 29 Alkaline Phosphatase 129 H Total Protein 6.0 L Albumin 3.0 L TSH (Reflex) 4.530 Free T4 1.31 Total T3 1.04 Random Cortisol 15.90 Urine Osmolality U Random Total Protein < 16 Ur Random Sodium 100 Ur Random Urea < 67 Urine Creatinine 5.2 5.2 Protein/Creat Ratio 2 3.08 H 02/02/25 02/02/25 07:50 12:42 WBC RBC Hgb Hct MCV MCH MCHC RDW Plt Count MPV Sodium 120 L 119 L* Potassium 3.9 Chloride 91 L Carbon Dioxide 18 L Anion Gap 10 BUN 4 L Creatinine 0.32 L Estim Creat Clear Calc 116 Estimated GFR > 60 Glucose 163 H Calcium 8.2 L Phosphorus 2.3 L Magnesium 1.9 Total Bilirubin AST ALT Alkaline Phosphatase Total Protein Albumin 3.5 TSH (Reflex) Free T4 Total T3 Random Cortisol Urine Osmolality U Random Total Protein Ur Random Sodium Ur Random Urea Urine Creatinine Protein/Creat Ratio 2 Quality VTE Prophylaxis VTE prophylaxis: mechanical ordered and pharmacologic ordered
--- NOTE | 2025-02-02 15:33 | PC.NURSE ---
1520 -pt med/ surg status- report called to Jud PANG- pt moved to room 330-1 via bed accompanied by staff and family
[2025-02-02] MEDS: FUROSEMIDE INJ 40 MG/4 ML VIAL 10 MG IV PUSH (16:55)
[2025-02-02 21:06] LABS: Albumin Level 2.9 g/dL (3.5-5.1); Anion Gap 5 mmol/L (4-12); Blood Urea Nitrogen 6 mg/dL (7-17); Calcium 7.8 mg/dL (8.4-10.2); Carbon Dioxide 23 mmol/L (22-30); Chloride 91 mmol/L (98-107); Estimated CRCL calculation 100 ml/min; Estimated Glomerular Filt Rate > 60; Glucose 122 mg/dL (65-110); Phosphorus 2.5 mg/dL (2.5-4.5); Potassium 3.9 mmol/L (3.4-5.0); Sodium 119 mmol/L (137-145)
[2025-02-03 02:34] LABS: Creatinine, Random Urine 8 mg/dL (20-275); Total Prot/Creat ratio mg/mg 0.875 (0.024-0.184); Total Protein/Creatinine Ratio 875 mg/g creat (24-184)
[2025-02-03 03:53] VITALS: BP 160/75; PULSE 92; RESP 16; TEMP 36.4; O2SAT 100
[2025-02-03 06:34] LABS: Hematocrit 34.2 % (37.0-47.0); Hemoglobin 11.8 g/dL (12.0-15.0); Mean Corpuscular HGB Conc 34.5 g/dl (32-36); Mean Corpuscular Hemoglobin 33.1 pg (26-34); Mean Corpuscular Volume 96.1 fl (80-100); Mean Platelet Volume 8.8 fl (7.4-10.4); Platelet Count Result 274 k/mm3 (150-375); Red Blood Count 3.56 M/mm3 (4.2-5.4); Red Cell Distribution Width 13.2 % (11.5-14.5); White Blood Count 10.7 K/mm3 (4.5-10.0)
[2025-02-03 06:50] LABS: Magnesium 1.7 mg/dL (1.6-2.3)
[2025-02-03 08:00] VITALS: O2SAT 100
[2025-02-03] MEDS: ENOXAPARIN 40 MG/0.4 ML SYRINGE SUB-Q (09:40)
[2025-02-03] MEDS: FUROSEMIDE 10 MG TABLET PO ×3 (09:41→16:47)
[2025-02-03] MEDS: MEMANTINE 10 MG TABLET PO ×2 (09:41→20:30)
[2025-02-03] MEDS: SODIUM CHLORIDE 1 GM TABLET PO ×3 (09:41→16:47)
[2025-02-03] MEDS: POTASSIUM CHLORIDE 20 MEQ ER TABLET PO ×2 (09:41→16:47)
[2025-02-03] MEDS: ATORVASTATIN 10 MG TABLET PO (09:43)
[2025-02-03 10:11] LABS: Albumin Level 2.7 g/dL (3.5-5.1); Anion Gap 5 mmol/L (4-12); Blood Urea Nitrogen 7 mg/dL (7-17); Calcium 8.1 mg/dL (8.4-10.2); Carbon Dioxide 23 mmol/L (22-30); Chloride 92 mmol/L (98-107); Estimated CRCL calculation 102 ml/min; Estimated Glomerular Filt Rate > 60; Glucose 105 mg/dL (65-110); Potassium 4.2 mmol/L (3.4-5.0); Sodium 120 mmol/L (137-145)
--- NOTE | 2025-02-03 11:42 | P.PNNP_ITS ---
Progress Note: A&P Assessment and Plan (1) Hyponatremia: Code(s): E87.1 - Hypo-osmolality and hyponatremia Status: Acute Assessment and Plan: * relatively stable * has had issues with this in the past * on and off low sodium levels since 2016... * previous evaluation (done in 2016) was negative and sodium normalized with apparently just fluid restriction * risk factors for low sodium: * SSRI use * excessive free water intake(?) * smoking history * other(?) * evaluation to date noted * urine sodium elevated (but was on lasix prior to admission) * urine osmolality (354) > serum osmolality (262) * urine electrolytes non-prerenal * TSH okay * cortisol reasonable * CT of head negative * CT of chest without lung pathology * SPE/UPE pending * on fluid restriction - change to 1200cc/day * holding SSRI * on salt tablets and low dose lasix * s/p 3% saline on 02/01 evening * follow trend of repeat sodium levels (2) Frequent falls: Code(s): R29.6 - Repeated falls Status: Acute Assessment and Plan: * as noted by history * CT imaging noted * PT/OT * fall precautions (3) Generalized weakness: Code(s): R53.1 - Weakness Status: Acute Assessment and Plan: * suspect multifactorial: * deconditioning * diarrhea * anemia(?) * hyponatremia(?) * other(?) * electrolyte optimization * PT/OT as tolerated (4) Fracture of toe of left foot: Qualifiers: Encounter type: initial encounter Fracture alignment: displaced Fracture type: closed Phalanx: proximal Toe: lesser toe Qualified Code(s): S92.512A - Displaced fracture of proximal phalanx of left lesser toe(s), initial encounter for closed fracture Code(s): S92.912A - Unspecified fracture of left toe(s), initial encounter for closed fracture Status: Acute Assessment and Plan: * as noted by admission imaging * Orthopedic Surgery recommendations noted: * weight bearing as tolerated * elevation and ice pack * pain control * continue supportive therapy (5) HTN (hypertension): Code(s): I10 - Essential (primary) hypertension Status: Chronic Assessment and Plan: * elevated at times * not currently on any medications * follow trend of hemodynamics (6) Anemia: Code(s): D64.9 - Anemia, unspecified Status: Acute Assessment and Plan: * dilutional from previous IVFs * possibly hemoconcentrated on admission * follow trend of H/H Will continue to follow. Subjective Date/time seen: 02/03/25 11:42 Interval history: Follow-up on acute on chronic hyponatremia. Sodium relatively stable in the last 24 hours but has not significantly improved despite current therapy/interventions to date; no acute distress noted at the time of my visit; family requesting transfer to [facility] (as that is where her PCP is located/based). Exam Narrative: General: elderly but WD/WN female in NAD Heart: normal S1 and S2; no rub Lungs: clear to auscultation Abdomen: soft, nontender, nondistended, positive bowel sounds Extremities: no cyanosis or clubbing; no edema Skin: warm and intact Objective Data Vital Signs Vital Signs: Vital Signs Temp Pulse Resp BP Pulse Ox O2 Del Method FiO2 02/03/25 11:02 97.8 F 105 H 16 131/85 100 02/03/25 08:00 100 Room Air 02/03/25 03:53 97.6 F 92 16 160/75 H 100 02/02/25 21:40 97.7 F 99 16 161/91 H 99 02/02/25 20:00 99 16 99 Room Air 21 Intake/Output Intake/Output: Intake & Output 01/31/25 02/01/25 02/02/25 02/03/25 23:59 23:59 23:59 23:59 Intake Total 2360 1515 510 660 Output Total 2650 4800 1140 400 Balance -802 -7639 -699 260 Meds/Results Medications: Active Medications Generic Name Dose Route Start Last Admin Trade Name Freq PRN Reason Stop Dose Admin Acetaminophen 650 mg 01/29/25 18:37 Acetaminophen 325 Mg Tablet PO Q4H PRN Mild Pain (1-3) or Fever Atorvastatin Calcium 10 mg 01/30/25 09:00 02/03/25 09:43 Atorvastatin 10 Mg Tablet PO 10 mg [email or web address] THEE Administration Citalopram Hydrobromide 40 mg 01/30/25 09:00 01/31/25 08:13 Citalopram Hydrobromide 20 Mg Tablet PO 40 mg DAILY THEE Administration Clonazepam 0.5 mg 01/31/25 22:35 02/02/25 23:41 Clonazepam (*Crx) 0.5 Mg Tablet PO 0.5 mg QID PRN Administration anxiety/agitation Enoxaparin Sodium 40 mg 01/30/25 09:00 02/03/25 09:40 Enoxaparin 40 Mg/0.4 Ml Syringe SUB-Q 40 mg DAILY THEE Administration Furosemide 10 mg 02/03/25 09:00 02/03/25 16:47 Furosemide 10 Mg Tablet PO 10 mg BID THEE Administration Meclizine HCl 25 mg 01/29/25 22:55 Meclizine Hcl 25 Mg Tablet PO TID PRN dizziness Memantine 10 mg 01/29/25 23:20 02/03/25 09:41 Memantine 10 Mg Tablet PO 10 mg Q12HR THEE Administration Ondansetron HCl 4 mg 01/29/25 18:37 Ondansetron Inj 4 Mg/2 Ml Vial IV PUSH Q4H PRN Nausea Potassium Chloride 20 meq 02/01/25 09:00 02/03/25 16:47 Potassium Chloride 20 Meq Er Tablet PO 20 meq BID THEE Administration Sodium Chloride 1 gm 02/02/25 09:00 02/03/25 16:47 Sodium Chloride 1 Gm Tablet PO 1 gm BID THEE Administration Radiology Results: ITS Impressions Chest X-Ray 01/29/25 15:37 IMPRESSION: No focal infiltrate or effusion. Head CT 01/29/25 15:57 Impression: No acute intracranial hemorrhage or suspicious mass effect. Cervical Spine CT 01/29/25 16:07 Impression: Straightening and slight reversal of the normal curvature of the cervical spine, likely muscular in origin. No acute fracture. Chest/Abdomen/Pelvis CTA 01/29/25 17:24 IMPRESSION: No pulmonary embolus. No aortic dissection. The lungs are clear. Fecal stasis distending the rectum. Foot X-Ray 01/30/25 08:38 IMPRESSION: Comminuted fracture of the distal margin of the proximal phalanx, as detailed above. Labs Labs: Laboratory Tests 02/03/25 06:27 WBC 10.7 H Hgb 11.8 L Hct 34.2 L Plt Count 274 Sodium 120 L Potassium 4.2 Chloride 92 L Carbon Dioxide 23 Anion Gap 5 BUN 7 Creatinine 0.37 L Estim Creat Clear Calc 102 Estimated GFR > 60 Glucose 105 Calcium 8.1 L Phosphorus 3.0 Magnesium 1.7 Albumin 2.7 L
[2025-02-03 14:02] VITALS: BP 131/85; PULSE 105; RESP 16; TEMP 36.6; O2SAT 100
[2025-02-03 14:09] LABS: Sodium 120 mmol/L (137-145)
--- NOTE | 2025-02-03 15:02 | P.PNIM_ITS ---
Progress Note: A&P Assessment and Plan (1) Fall: Code(s): W19.XXXA - Unspecified fall, initial encounter Status: Acute Assessment and Plan: PT OT evaluate and treat CT head, C-spine, chest abdomen pelvis without acute injury X-ray left foot pending, showed Comminuted fracture of the distal margin of the proximal phalanx, consult ortho Fall precautions (2) Generalized weakness: Code(s): R53.1 - Weakness Status: Acute Assessment and Plan: To be multifactorial diarrhea, deconditioning, infective, electrolyte imbalance PT OT Replace lytes as stated C diff pending (3) Hypomagnesemia: Code(s): E83.42 - Hypomagnesemia Status: Acute Assessment and Plan: Mag 1.2, replete 4G IV Today --repeat in AM (4) Hyponatremia: Code(s): E87.1 - Hypo-osmolality and hyponatremia Status: Acute Assessment and Plan: IVF for hydration Potassium 2.3, 40 PO & IV Repeat potassium this afternoon and additional potassium if needed Patient is on Lasix currently holding due to acute dehydration Monitor on tele (5) Diarrhea: Code(s): R19.7 - Diarrhea, unspecified Status: Acute Assessment and Plan: Likely cause of electrolyte imbalance and weakness. Now seems resolved CT abd/pelvis showed fecal stasis distending the rectum, could have overflow diarrhea. Patient declined enema, will need to monitor C diff pending (6) Hypercholesterolemia: Code(s): E78.00 - Pure hypercholesterolemia, unspecified Status: Acute Assessment and Plan: Continue statin (7) HTN (hypertension): Code(s): I10 - Essential (primary) hypertension Status: Chronic Assessment and Plan: Continue losartan (8) Cognitive and behavioral changes: Code(s): R41.89 - Other symptoms and signs involving cognitive functions and awareness; R46.89 - Other symptoms and signs involving appearance and behavior Status: Acute Assessment and Plan: TSH normal Check B12 Plan Patient presented with generalized weakness status post fall and fracture of the left foot patient was seen by orthopedic and recommended conservative management, patient also has hyponatremia hypomagnesemia hypercalcemia patient has history of alcohol not forthcoming alcohol drinks can lead to derangement of electrolytes, also patient is on SSRI which can also lower her sodium, she was taking furesomide prior to coming which can lower the sodium, discuss with Dr. Johnson so far the workup in normal, patient is gently hydrate and been monitor and supplement, patient is seen by the plastic tile setter and sodium and electrolytes are being corrected, patient clinical symptoms are improving, patient will work with PT/OT, discuss with patient and her , would like to go to rehab before going home with left foot fracture. Today patient requested to be transferred to [facility] in [place] because her primary care provider is at the hospital, I called Dr. Nancy Stauffer [phone] front end drupal developer did respond and transfer the call to the doctor, but the doctor did not respond, held the phone which automatically transferred to the hospital, the substation operator automatic transferred the call to the doctor but the did not respond DVT prophylaxis on Sq Lovenox PT/OT for dsicharge planning Subjective Date/time seen: 02/03/25 15:02 Interval history: More forgetful recently per family at bedside Needing a lot of assistance, and has had multiple falls at home per family at bedside, over 12. Interested in short term SNF or rehab Sodium 120 Patient presented with generalized weakness status post fall and fracture of the left foot patient was seen by orthopedic and recommended conservative management, patient also has hyponatremia hypomagnesemia hypercalcemia patient has history of alcohol not forthcoming alcohol drinks can lead to derangement of electrolytes, also patient is on SSRI which can also lower her sodium, she was taking furesomide prior to coming which can lower the sodium, discuss with Dr. Johnson so far the workup in normal, patient is gently hydrate and been monitor and supplement, patient is seen by the plastic tile setter and sodium and electrolytes are being corrected, patient clinical symptoms are improving, patient will work with PT/OT, discuss with patient and her , would like to go to rehab before going home with left foot fracture. Today patient requested to be transferred to [facility] in [place] because her primary care provider is at the hospital, I called Dr. Nancy Stauffer [phone] front end drupal developer did respond and transfer the call to the doctor, but the doctor did not respond, held the phone which automatically transferred to the hospital, the substation operator automatic transferred the call to the doctor but the did not respond Review of Systems Review of Systems: 12 systems were reviewed and are negativ e except for as per HPI. Exam Narrative: Patient is comfortable, NAD HEENT: eyes are clear and none icteric LUNGS:CTA HEART: RR S1S2 ABD: BS+, Soft and nontender Lower extremities: no edema SKIN: nonjaundiced Neuro: grossly intact. Objective Data Vital Signs Vital Signs: Vital Signs - 24 hr 02/02/25 20:00 02/02/25 21:40 02/03/25 03:53 Temperature 36.5 C 36.4 C Pulse Rate 99 99 92 Respiratory Rate 16 16 16 Blood Pressure 161/91 H 160/75 H Pulse Oximetry 99 99 100 Oxygen Delivery Room Air Fraction of Inspired Oxygen 21 02/03/25 08:00 02/03/25 14:02 Temperature 36.6 C Pulse Rate 105 H Respiratory Rate 16 Blood Pressure 131/85 Pulse Oximetry 100 100 Oxygen Delivery Room Air Fraction of Inspired Oxygen Intake/Output Intake/Output: Intake & Output 01/31/25 02/01/25 02/02/25 02/03/25 23:59 23:59 23:59 23:59 Intake Total 2360 1515 510 660 Output Total 2650 4800 1140 400 Balance 290 -9525 -630 260 Meds/Results Medications: Active Medications Generic Name Dose Route Start Last Admin Trade Name Freq PRN Reason Stop Dose Admin Acetaminophen 650 mg 01/29/25 18:37 Acetaminophen 325 Mg Tablet PO Q4H PRN Mild Pain (1-3) or Fever Atorvastatin Calcium 10 mg 01/30/25 09:00 02/03/25 09:43 Atorvastatin 10 Mg Tablet PO 10 mg [email or web address] THEE Administration Citalopram Hydrobromide 40 mg 01/30/25 09:00 01/31/25 08:13 Citalopram Hydrobromide 20 Mg Tablet PO 40 mg DAILY THEE Administration Clonazepam 0.5 mg 01/31/25 22:35 02/02/25 23:41 Clonazepam (*Crx) 0.5 Mg Tablet PO 0.5 mg QID PRN Administration anxiety/agitation Enoxaparin Sodium 40 mg 01/30/25 09:00 02/03/25 09:40 Enoxaparin 40 Mg/0.4 Ml Syringe SUB-Q 40 mg DAILY THEE Administration Furosemide 10 mg 02/03/25 09:00 02/03/25 09:41 Furosemide 10 Mg Tablet PO 10 mg BID THEE Administration Meclizine HCl 25 mg 01/29/25 22:55 Meclizine Hcl 25 Mg Tablet PO TID PRN dizziness Memantine 10 mg 01/29/25 23:20 02/03/25 09:41 Memantine 10 Mg Tablet PO 10 mg Q12HR THEE Administration Ondansetron HCl 4 mg 01/29/25 18:37 Ondansetron Inj 4 Mg/2 Ml Vial IV PUSH Q4H PRN Nausea Potassium Chloride 20 meq 02/01/25 09:00 02/03/25 09:41 Potassium Chloride 20 Meq Er Tablet PO 20 meq BID THEE Administration Sodium Chloride 1 gm 02/02/25 09:00 02/03/25 09:41 Sodium Chloride 1 Gm Tablet PO 1 gm BID THEE Administration Radiology Results: ITS Impressions Chest X-Ray 01/29/25 15:37 IMPRESSION: No focal infiltrate or effusion. Head CT 01/29/25 15:57 Impression: No acute intracranial hemorrhage or suspicious mass effect. Cervical Spine CT 01/29/25 16:07 Impression: Straightening and slight reversal of the normal curvature of the cervical spine, likely muscular in origin. No acute fracture. Chest/Abdomen/Pelvis CTA 01/29/25 17:24 IMPRESSION: No pulmonary embolus. No aortic dissection. The lungs are clear. Fecal stasis distending the rectum. Foot X-Ray 01/30/25 08:38 IMPRESSION: Comminuted fracture of the distal margin of the proximal phalanx, as detailed above. Labs Labs: Laboratory Results - last 24 hr 02/01/25 02/02/25 02/03/25 21:27 20:46 06:27 WBC 10.7 H RBC 3.56 L Hgb 11.8 L Hct 34.2 L MCV 96.1 MCH 33.1 MCHC 34.5 RDW 13.2 Plt Count 274 MPV 8.8 Sodium 119 L* 120 L Potassium 3.9 4.2 Chloride 91 L 92 L Carbon Dioxide 23 23 Anion Gap 5 5 BUN 6 L 7 Creatinine 0.38 L 0.37 L Estim Creat Clear Calc 100 102 Estimated GFR > 60 > 60 Glucose 122 H 105 Calcium 7.8 L 8.1 L Phosphorus 2.5 3.0 Magnesium 1.7 Albumin 2.9 L 2.7 L Ur Random Creatinine 8 L U Random Total Protein 7 Protein/Creatinin Ratio 875 H 02/03/25 13:51 WBC RBC Hgb Hct MCV MCH MCHC RDW Plt Count MPV Sodium 120 L Potassium Chloride Carbon Dioxide Anion Gap BUN Creatinine Estim Creat Clear Calc Estimated GFR Glucose Calcium Phosphorus Magnesium Albumin Ur Random Creatinine U Random Total Protein Protein/Creatinin Ratio Quality VTE Prophylaxis VTE prophylaxis: mechanical ordered and pharmacologic ordered
[2025-02-03 15:47] LABS: Osmolality, Urine 250 mOsm/kg (50-1200)
[2025-02-03 20:10] VITALS: BP 154/85; PULSE 106; RESP 20; TEMP 36.7; O2SAT 100
[2025-02-03 20:39] LABS: Sodium 121 mmol/L (137-145)
[2025-02-04] MEDS: clonazePAM (*CRX) 0.5 MG TABLET PO ×2 (04:00→20:26)
[2025-02-04 05:15] VITALS: BP 160/83; PULSE 95; RESP 20; TEMP 36.2; O2SAT 99
[2025-02-04 05:50] LABS: Hematocrit 34.3 % (37.0-47.0); Hemoglobin 11.8 g/dL (12.0-15.0); Mean Corpuscular HGB Conc 34.4 g/dl (32-36); Mean Corpuscular Hemoglobin 33.1 pg (26-34); Mean Corpuscular Volume 96.3 fl (80-100); Mean Platelet Volume 8.8 fl (7.4-10.4); Platelet Count Result 288 k/mm3 (150-375); Red Blood Count 3.56 M/mm3 (4.2-5.4); Red Cell Distribution Width 13.1 % (11.5-14.5); White Blood Count 10.7 K/mm3 (4.5-10.0)
[2025-02-04 06:01] LABS: Albumin Level 3.2 g/dL (3.5-5.1); Anion Gap 7 mmol/L (4-12); Blood Urea Nitrogen 8 mg/dL (7-17); Calcium 8.5 mg/dL (8.4-10.2); Carbon Dioxide 22 mmol/L (22-30); Chloride 92 mmol/L (98-107); Estimated CRCL calculation 98 ml/min; Estimated Glomerular Filt Rate > 60; Glucose 107 mg/dL (65-110); Magnesium 1.6 mg/dL (1.6-2.3); Phosphorus 3.1 mg/dL (2.5-4.5); Potassium 4.1 mmol/L (3.4-5.0); Sodium 121 mmol/L (137-145)
[2025-02-04] MEDS: MEMANTINE 10 MG TABLET PO ×2 (09:28→20:26)
[2025-02-04] MEDS: FUROSEMIDE 10 MG TABLET PO ×3 (09:28→16:15)
[2025-02-04] MEDS: POTASSIUM CHLORIDE 20 MEQ ER TABLET PO ×2 (09:28→16:15)
[2025-02-04] MEDS: SODIUM CHLORIDE 1 GM TABLET PO ×3 (09:28→16:15)
[2025-02-04] MEDS: ENOXAPARIN 40 MG/0.4 ML SYRINGE SUB-Q (09:28)
[2025-02-04 11:17] VITALS: BMI 26.7
[2025-02-04 11:48] LABS: Anion Gap 6 mmol/L (4-12); Blood Urea Nitrogen 9 mg/dL (7-17); Carbon Dioxide 22 mmol/L (22-30); Chloride 93 mmol/L (98-107); Estimated CRCL calculation 94 ml/min; Estimated Glomerular Filt Rate > 60; Glucose 122 mg/dL (65-110); Potassium 4.2 mmol/L (3.4-5.0); Sodium 121 mmol/L (137-145)
--- NOTE | 2025-02-04 12:17 | P.PNNP_ITS ---
Progress Note: A&P Assessment and Plan (1) Hyponatremia: Code(s): E87.1 - Hypo-osmolality and hyponatremia Status: Acute Assessment and Plan: * relatively stable if not slow improvement * has had issues with this in the past * on and off low sodium levels since 2016... * previous evaluation (done in 2016) was negative and sodium normalized with apparently just fluid restriction * risk factors for low sodium: * SSRI use * excessive free water intake(?) * smoking history * other(?) * evaluation to date noted * urine sodium elevated (but was on lasix prior to admission) * urine osmolality (354) > serum osmolality (262) * urine electrolytes non-prerenal * TSH okay * cortisol reasonable * CT of head negative * CT of chest without lung pathology * SPE/UPE pending * on fluid restriction - on 1200cc/day * holding SSRI * on salt tablets and low dose lasix * will increase to TID dosing * s/p 3% saline on 02/01 evening * may consider use again later today * follow trend of repeat sodium levels (2) Frequent falls: Code(s): R29.6 - Repeated falls Status: Acute Assessment and Plan: * as noted by history * CT imaging noted * PT/OT * fall precautions (3) Generalized weakness: Code(s): R53.1 - Weakness Status: Acute Assessment and Plan: * suspect multifactorial: * deconditioning * diarrhea * anemia(?) * hyponatremia(?) * other(?) * electrolyte optimization * PT/OT as tolerated (4) Fracture of toe of left foot: Qualifiers: Encounter type: initial encounter Fracture alignment: displaced F racture type: closed Phalanx: proximal Toe: lesser toe Qualified Code(s): S 92.512A - Displaced fracture of proximal phalanx of left lesser toe(s), initial encounter for closed fracture Code(s): S92.912A - Unspecified fracture of left toe(s), initial encounter for closed fracture Status: Acute Assessment and Plan: * as noted by admission imaging * Orthopedic Surgery recommendations noted: * weight bearing as tolerated * elevation and ice pack * pain control * continue supportive therapy (5) HTN (hypertension): Code(s): I10 - Essential (primary) hypertension Status: Chronic Assessment and Plan: * elevated at times * not currently on any medications * consider adding metoprolol * follow trend of hemodynamics (6) Anemia: Code(s): D64.9 - Anemia, unspecified Status: Acute Assessment and Plan: * dilutional from previous IVFs * possibly hemoconcentrated on admission * follow trend of H/H Will continue to follow. L Subjective Date/time seen: 02/04/25 12:17 Interval history: Follow-up on acute on chronic hyponatremia. No real significant change at the time of my visit; sodium level stable in the last 24 - 48 hours but not significantly better despite therapy to date; no apparent distress noted at the time of my visit; no other issues/events overnight or earlier this morning. Exam 2 Narrative: General: elderly but WD/WN female in NAD Heart: normal S1 and S2; no rub Lungs: clear to auscultation Abdomen: soft, nontender, nondistended, positive bowel sounds Extremities: no cyanosis or clubbing; no edema Skin: no rash Objective Data Vital Signs Vital Signs: Vital Signs Temp Pulse Resp BP Pulse Ox O2 Del Method 02/04/25 11:56 97.4 F L 98 20 178/92 H 100 02/04/25 08:00 Room Air 02/04/25 05:15 97.1 F L 95 20 160/83 H 99 02/03/25 20:10 98.1 F 106 H 20 154/85 H 100 Intake/Output Intake/Output: Intake & Output 02/01/25 02/02/25 02/03/25 02/04/25 23:59 23:59 23:59 23:59 Intake Total 1515 510 900 410 Output Total 4800 1140 400 Balance -3285 -630 500 410 Meds/Results Medications: Active Medications Generic Name Dose Route Start Last Admin Trade Name Freq PRN Reason Stop Dose Admin Acetaminophen 650 mg 01/29/25 18:37 Acetaminophen 325 Mg Tablet PO Q4H PRN Mild Pain (1-3) or Fever Atorvastatin Calcium 10 mg 01/30/25 09:00 02/03/25 09:43 Atorvastatin 10 Mg Tablet PO 10 mg [email or web address] THEE Administration Citalopram Hydrobromide 40 mg 01/30/25 09:00 01/31/25 08:13 Citalopram Hydrobromide 20 Mg Tablet PO 40 mg DAILY THEE Administration Clonazepam 0.5 mg 01/31/25 22:35 02/04/25 04:00 Clonazepam (*Crx) 0.5 Mg Tablet PO 0.5 mg QID PRN Administration anxiety/agitation Enoxaparin Sodium 40 mg 01/30/25 09:00 02/04/25 09:28 Enoxaparin 40 Mg/0.4 Ml Syringe SUB-Q 40 mg DAILY THEE Administration Furosemide 10 mg 02/04/25 17:00 Furosemide 10 Mg Tablet PO TID THEE Meclizine HCl 25 mg 01/29/25 22:55 Meclizine Hcl 25 Mg Tablet PO TID PRN dizziness Memantine 10 mg 01/29/25 23:20 02/04/25 09:28 Memantine 10 Mg Tablet PO 10 mg Q12HR THEE Administration Ondansetron HCl 4 mg 01/29/25 18:37 Ondansetron Inj 4 Mg/2 Ml Vial IV PUSH Q4H PRN Nausea Potassium Chloride 20 meq 02/01/25 09:00 02/04/25 09:28 Potassium Chloride 20 Meq Er Tablet PO 20 meq BID THEE Administration Sodium Chloride 1 gm 02/04/25 17:00 Sodium Chloride 1 Gm Tablet PO TID [facility] Radiology Results: ITS Impressions Chest X-Ray 01/29/25 15:37 IMPRESSION: No focal infiltrate or effusion. Head CT 01/29/25 15:57 Impression: No acute intracranial hemorrhage or suspicious mass effect. Cervical Spine CT 01/29/25 16:07 Impression: Straightening and slight reversal of the normal curvature of the cervical spine, likely muscular in origin. No acute fracture. Chest/Abdomen/Pelvis CTA 01/29/25 17:24 IMPRESSION: No pulmonary embolus. No aortic dissection. The lungs are clear. Fecal stasis distending the rectum. Foot X-Ray 01/30/25 08:38 IMPRESSION: Comminuted fracture of the distal margin of the proximal phalanx, as detailed above. Labs Labs: Laboratory Tests 02/04/25 05:39 02/04/25 11:34 02/04/25 05:39 Sodium 121 L Potassium 4.1 Chloride 92 L Carbon Dioxide 22 Anion Gap 7 BUN 8 Creatinine 0.39 L Estim Creat Clear Calc 98 Estimated GFR > 60 Glucose 107 Calcium 8.5 Phosphorus 3.1 Magnesium 1.6 Albumin 3.2 L 02/02/25 02/02/25 02/02/25 02/03/25 02/03/2523/25 07:50 12:42 20:46 06:27 13:51 20:24 Sodium 120 L 119 L* 119 L* 120 L 120 L 121 L
--- NOTE | 2025-02-04 13:34 | P.PNIM_ITS ---
Progress Note: A&P Assessment and Plan (1) Fall: Code(s): W19.XXXA - Unspecified fall, initial encounter Status: Acute Assessment and Plan: PT OT evaluate and treat CT head, C-spine, chest abdomen pelvis without acute injury X-ray left foot pending, showed Comminuted fracture of the distal margin of the proximal phalanx, consult ortho Fall precautions (2) Generalized weakness: Code(s): R53.1 - Weakness Status: Acute Assessment and Plan: To be multifactorial diarrhea, deconditioning, infective, electrolyte imbalance PT OT Replace lytes as stated C diff pending (3) Hypomagnesemia: Code(s): E83.42 - Hypomagnesemia Status: Acute Assessment and Plan: Mag 1.2, replete 4G IV Today --repeat in AM (4) Hyponatremia: Code(s): E87.1 - Hypo-osmolality and hyponatremia Status: Acute Assessment and Plan: IVF for hydration Potassium 2.3, 40 PO & IV Repeat potassium this afternoon and additional potassium if needed Patient is on Lasix currently holding due to acute dehydration Monitor on tele (5) Diarrhea: Code(s): R19.7 - Diarrhea, unspecified Status: Acute Assessment and Plan: Likely cause of electrolyte imbalance and weakness. Now seems resolved CT abd/pelvis showed fecal stasis distending the rectum, could have overflow diarrhea. Patient declined enema, will need to monitor C diff pending (6) Hypercholesterolemia: Code(s): E78.00 - Pure hypercholesterolemia, unspecified Status: Acute Assessment and Plan: Continue statin (7) HTN (hypertension): Code(s): I10 - Essential (primary) hypertension Status: Chronic Assessment and Plan: Continue losartan (8) Cognitive and behavioral changes: Code(s): R41.89 - Other symptoms and signs involving cognitive functions and awareness; R46.89 - Other symptoms and signs involving appearance and behavior Status: Acute Assessment and Plan: TSH normal Check B12 Plan Patient presented with generalized weakness status post fall and fracture of the left foot patient was seen by orthopedic and recommended conservative management, patient also has hyponatremia hypomagnesemia hypercalcemia patient has history of alcohol not forthcoming alcohol drinks can lead to derangement of electrolytes, also patient is on SSRI which can also lower her sodium, she was taking furesomide prior to coming which can lower the sodium, discuss with Dr. Johnson so far the workup in normal, patient is gently hydrate and been monitor and supplement, patient is seen by the ultimate hoops trainer and sodium and electrolytes are being corrected, patient clinical symptoms are improving, patient will work with PT/OT, discuss with patient and her , would like to go to rehab before going home with left foot fracture. on 02/03 patient requested to be transferred to [facility] in [place] because her primary care provider is at the hospital, I called Dr. Nancy Stauffer [phone] vest front presser did respond and transfer the call to the doctor, but the doctor did not respond, held the phone which automatically transferred to the hospital, the pre press operator transferred the call to the doctor but the did not respond DVT prophylaxis on Sq Lovenox PT/OT for dsicharge planning Subjective Date/time seen: 02/04/25 13:34 Interval history: More forgetful recently per family at bedside Needing a lot of assistance, and has had multiple falls at home per family at bedside, over 12. Interested in short term SNF or rehab Sodium 121 on 02/03 120 Patient presented with generalized weakness status post fall and fracture of the left foot patient was seen by orthopedic and recommended conservative manageme nt, patient also has hyponatremia hypomagnesemia hypercalcemia patient has history of alcohol not forthcoming alcohol drinks can lead to derangement of electrolytes, also patient is on SSRI which can also lower her sodium, she was taking furesomide prior to coming which can lower the sodium, discuss with Dr. Johnson so far the workup in normal, patient is gently hydrate and been monitor and supplement, patient is seen by the ultimate hoops trainer and sodium and electrolytes are being corrected, patient clinical symptoms are improving, patient will work with PT/OT, discuss with patient and her , would like to go to rehab before going home with left foot fracture. on 02/03 patient requested to be transferred to [facility] in [place] because her primary care provider is at the hospital, I called Dr. Nancy Stauffer [phone] vest front presser did respond and transfer the call to the doctor, but the doctor did not respond, held the phone which automatically transferred to the hospital, the pre press operator transferred the call to the doctor but the did not respond Review of Systems Review of Systems: 12 systems were reviewed and are negativ e except for as per HPI. Exam Narrative: Patient is comfortable, NAD HEENT: eyes are clear and none icteric LUNGS:CTA HEART: RR S1S2 ABD: BS+, Soft and nontender Lower extremities: no edema SKIN: nonjaundiced Neuro: grossly intact. Objective Data Vital Signs Vital Signs: Vital Signs - 24 hr 02/03/25 14:02 02/03/25 20:10 02/04/25 05:15 Temperature 36.6 C 36.7 C 36.2 C L Pulse Rate 105 H 106 H 95 Respiratory Rate 16 20 20 Blood Pressure 131/85 154/85 H 160/83 H Pulse Oximetry 100 100 99 Oxygen Delivery 02/04/25 08:00 Temperature Pulse Rate Respiratory Rate Blood Pressure Pulse Oximetry Oxygen Delivery Room Air Intake/Output Intake/Output: Intake & Output 02/01/25 02/02/25 02/03/25 02/04/25 23:59 23:59 23:59 23:59 Intake Total 1515 510 900 410 Output Total 4800 1140 400 Balance -3285 -630 500 410 Meds/Results Medications: Active Medications Generic Name Dose Route Start Last Admin Trade Name Freq PRN Reason Stop Dose Admin Acetaminophen 650 mg 01/29/25 18:37 Acetaminophen 325 Mg Tablet PO Q4H PRN Mild Pain (1-3) or Fever Atorvastatin Calcium 10 mg 01/30/25 09:00 02/03/25 09:43 Atorvastatin 10 Mg Tablet PO 10 mg [email or web address] THEE Administration Citalopram Hydrobromide 40 mg 01/30/25 09:00 01/31/25 08:13 Citalopram Hydrobromide 20 Mg Tablet PO 40 mg DAILY THEE Administration Clonazepam 0.5 mg 01/31/25 22:35 02/04/25 04:00 Clonazepam (*Crx) 0.5 Mg Tablet PO 0.5 mg QID PRN Administration anxiety/agitation Enoxaparin Sodium 40 mg 01/30/25 09:00 02/04/25 09:28 Enoxaparin 40 Mg/0.4 Ml Syringe SUB-Q 40 mg DAILY THEE Administration Furosemide 10 mg 02/04/25 17:00 Furosemide 10 Mg Tablet PO TID THEE Meclizine HCl 25 mg 01/29/25 22:55 Meclizine Hcl 25 Mg Tablet PO TID PRN dizziness Memantine 10 mg 01/29/25 23:20 02/04/25 09:28 Memantine 10 Mg Tablet PO 10 mg Q12HR THEE Administration Ondansetron HCl 4 mg 01/29/25 18:37 Ondansetron Inj 4 Mg/2 Ml Vial IV PUSH Q4H PRN Nausea Potassium Chloride 20 meq 02/01/25 09:00 02/04/25 09:28 Potassium Chloride 20 Meq Er Tablet PO 20 meq BID THEE Administration Sodium Chloride 1 gm 02/04/25 17:00 Sodium Chloride 1 Gm Tablet PO TID [facility] Radiology Results: ITS Impressions Chest X-Ray 01/29/25 15:37 IMPRESSION: No focal infiltrate or effusion. Head CT 01/29/25 15:57 Impression: No acute intracranial hemorrhage or suspicious mass effect. Cervical Spine CT 01/29/25 16:07 Impression: Straightening and slight reversal of the normal curvature of the cervical spine, likely muscular in origin. No acute fracture. Chest/Abdomen/Pelvis CTA 01/29/25 17:24 IMPRESSION: No pulmonary embolus. No aortic dissection. The lungs are clear. Fecal stasis distending the rectum. Foot X-Ray 01/30/25 08:38 IMPRESSION: Comminuted fracture of the distal margin of the proximal phalanx, as detailed above. Labs Labs: Laboratory Results - last 24 hr 02/01/25 02/02/25 02/03/25 21:27 03:45 13:51 WBC RBC Hgb Hct MCV MCH MCHC RDW Plt Count MPV Sodium 120 L Potassium Chloride Carbon Dioxide Anion Gap BUN Creatinine Estim Creat Clear Calc Estimated GFR Glucose Calcium Phosphorus Magnesium Total Protein 5.0 L Albumin Urine Osmolality 250 Urine Immunofixation 02/03/25 02/04/25 02/04/25 20:24 05:39 11:34 WBC 10.7 H RBC 3.56 L Hgb 11.8 L Hct 34.3 L MCV 96.3 MCH 33.1 MCHC 34.4 RDW 13.1 Plt Count 288 MPV 8.8 Sodium 121 L 121 L 121 L Potassium 4.1 4.2 Chloride 92 L 93 L Carbon Dioxide 22 22 Anion Gap 7 6 BUN 8 9 Creatinine 0.39 L 0.41 L Estim Creat Clear Calc 98 94 Estimated GFR > 60 > 60 Glucose 107 122 H Calcium 8.5 8.0 L Phosphorus 3.1 Magnesium 1.6 Total Protein Albumin 3.2 L Urine Osmolality Urine Immunofixation Quality VTE Prophylaxis VTE prophylaxis: mechanical ordered and pharmacologic ordered
[2025-02-04 13:56] VITALS: BP 178/92; PULSE 98; RESP 20; TEMP 36.3; O2SAT 100
[2025-02-04 15:50] VITALS: PULSE 98
[2025-02-04] MEDS: METOPROLOL TARTRATE 25 MG TABLET PO ×2 (15:50→20:26)
[2025-02-04 20:25] VITALS: BP 175/82; PULSE 72; RESP 16; TEMP 36.6; O2SAT 99
[2025-02-04 20:36] LABS: Sodium 120 mmol/L (137-145)
[2025-02-04 20:40] VITALS: PULSE 71; O2SAT 97
[2025-02-04] MEDS: SODIUM CHLORIDE 3% 68 ML IV CONT (21:34)
--- NOTE | 2025-02-04 23:43 | PC.NURSE ---
[address] Villar at this time r/t sodium level 120. New orders received for 3% Sodium chloride at 68 ml/hr x 3 hrs, then redraw a sodium level 1 hour after completed.
[2025-02-05 02:16] LABS: Sodium 120 mmol/L (137-145)
[2025-02-05 05:40] VITALS: BP 151/72; PULSE 65; RESP 16; TEMP 36.6; O2SAT 100
[2025-02-05 05:48] LABS: Hematocrit 37.1 % (37.0-47.0); Hemoglobin 12.5 g/dL (12.0-15.0); Mean Corpuscular HGB Conc 33.7 g/dl (32-36); Mean Corpuscular Hemoglobin 33.1 pg (26-34); Mean Corpuscular Volume 98.1 fl (80-100); Mean Platelet Volume 8.8 fl (7.4-10.4); Platelet Count Result 323 k/mm3 (150-375); Red Blood Count 3.78 M/mm3 (4.2-5.4); Red Cell Distribution Width 13.2 % (11.5-14.5); White Blood Count 13.6 K/mm3 (4.5-10.0)
[2025-02-05 06:06] LABS: Alanine Aminotransferase 33 U/L (6-35); Albumin Level 3.3 g/dL (3.5-5.1); Alkaline Phosphatase 148 U/L (38-126); Anion Gap 8 mmol/L (4-12); Aspartate Amino Transferase 39 U/L (14-36); Bilirubin,Total 0.8 mg/dL (0.2-1.3); Blood Urea Nitrogen 6 mg/dL (7-17); Calcium 8.4 mg/dL (8.4-10.2); Carbon Dioxide 20 mmol/L (22-30); Chloride 92 mmol/L (98-107); Estimated CRCL calculation 107 ml/min; Estimated Glomerular Filt Rate > 60; Glucose 102 mg/dL (65-110); Sodium 120 mmol/L (137-145)
[2025-02-05 08:11] VITALS: O2SAT 96
[2025-02-05] MEDS: ONDANSETRON INJ 4 MG/2 ML VIAL IV PUSH (08:30)
[2025-02-05 08:32] VITALS: PULSE 65
[2025-02-05] MEDS: POTASSIUM CHLORIDE 20 MEQ ER TABLET PO ×2 (08:32→17:38)
[2025-02-05] MEDS: MEMANTINE 10 MG TABLET PO (08:32)
[2025-02-05] MEDS: FUROSEMIDE 20 MG TABLET PO ×3 (08:32→17:38)
[2025-02-05] MEDS: METOPROLOL TARTRATE 25 MG TABLET PO ×2 (08:32→20:23)
[2025-02-05] MEDS: SODIUM CHLORIDE 1 GM TABLET 2 GM PO ×3 (08:33→17:38)
[2025-02-05 12:05] LABS: Sodium 120 mmol/L (137-145)
--- NOTE | 2025-02-05 12:15 | P.PNNP_ITS ---
Progress Note: A&P Assessment and Plan (1) Hyponatremia: Code(s): E87.1 - Hypo-osmolality and hyponatremia Status: Acute Assessment and Plan: * relatively stable in the 120 - 121mmol/L range * however, quite resistant to improvement... * has had issues with this in the past * on and off low sodium levels since 2016... * previous evaluation (done in 2016) was negative and sodium normalized with apparently just fluid restriction * risk factors for low sodium: * SSRI use (citalopram) * namenda and clonazepam could be contributing * excessive free water intake(?) * smoking history * other(?) * evaluation to date noted * urine sodium elevated (but was on lasix prior to admission) * urine osmolality (354) > serum osmolality (262) * urine electrolytes non-prerenal * TSH okay * cortisol reasonable * CT of head negative * CT of chest without lung pathology * no evidence of malignancy by CT chest/abdomen/pelvis * SPE/UPE pending * on fluid restriction - on 1200cc/day * holding potential medication that could be contributing: * SSRI * namenda * consider holding clonazepam as well.... * on salt tablets and low dose lasix * increased to TID dosing * s/p 3% saline on 02/01 evening * plan use again later today * benefit from Endocrinology referral?? * follow trend of repeat sodium levels (2) Frequent falls: Code(s): R29.6 - Repeated falls Status: Acute Assessment and Plan: * as noted by history * CT imaging noted * PT/OT * fall precautions (3) Generalized weakness: Code(s): R53.1 - Weakness Status: Acute Assessment and Plan: * suspect multifactorial: * deconditioning * diarrhea * anemia(?) * hyponatremia(?) * other(?) * electrolyte optimization * PT/OT as tolerated (4) Fracture of toe of left foot: Qualifiers: Encounter type: initial encounter Fracture alignment: displaced F racture type: closed Phalanx: proximal Toe: lesser toe Qualified Code(s): S 92.512A - Displaced fracture of proximal phalanx of left lesser toe(s), initial encounter for closed fracture Code(s): S92.912A - Unspecified fracture of left toe(s), initial encounter for closed fracture Status: Acute Assessment and Plan: * as noted by admission imaging * Orthopedic Surgery recommendations noted: * weight bearing as tolerated * elevation and ice pack * pain control * continue supportive therapy (5) HTN (hypertension): Code(s): I10 - Essential (primary) hypertension Status: Chronic Assessment and Plan: * elevated at times * not currently on any medications * metoprolol recently added * titrate as needed * follow trend of hemodynamics (6) Anemia: Code(s): D64.9 - Anemia, unspecified Status: Acute Assessment and Plan: * dilutional from previous IVFs * possibly hemoconcentrated on admission * follow trend of H/H Will continue to follow. L Subjective Date/time seen: 02/05/25 12:15 Interval history: Follow-up on acute on chronic hyponatremia. Sodium remains relatively stable but quite resistant to change/optimization despite all interventions to date (fluid restriction, salt tabs, lasix, 3% saline, discontinuation of potentially offending agents/medications...etc); no apparent distress noted otherwise; attempting another infusion of 3% saline this afternoon. Exam 2 Narrative: General: elderly but WD/WN female in NAD Heart: normal S1 and S2; no rub Lungs: clear to auscultation Abdomen: soft, nontender, nondistended, positive bowel sounds Extremities: no cyanosis or clubbing; no edema Skin: no nodules Objective Data Vital Signs Vital Signs: Vital Signs Temp Pulse Resp BP Pulse Ox O2 Del Method FiO2 02/05/25 12:00 97.3 F L 67 16 167/68 H 100 02/05/25 08:32 65 02/05/25 08:11 96 Room Air 21 02/05/25 05:40 97.8 F 65 16 151/72 H 100 02/04/25 20:40 71 97 Room Air 21 02/04/25 20:25 98 F 72 16 175/82 H 99 02/04/25 20:00 Room Air Intake/Output Intake/Output: Intake & Output 02/02/25 02/03/25 02/04/25 02/05/25 23:59 23:59 23:59 23:59 Intake Total 510 900 410 404 Output Total 1140 400 Balance -630 500 410 404 Meds/Results Medications: Active Medications Generic Name Dose Route Start Last Admin Trade Name Freq PRN Reason Stop Dose Admin Acetaminophen 650 mg 01/29/25 18:37 Acetaminophen 325 Mg Tablet PO Q4H PRN Mild Pain (1-3) or Fever Atorvastatin Calcium 10 mg 01/30/25 09:00 02/03/25 09:43 Atorvastatin 10 Mg Tablet PO 10 mg [email or web address] THEE Administration Citalopram Hydrobromide 40 mg 01/30/25 09:00 01/31/25 08:13 Citalopram Hydrobromide 20 Mg Tablet PO 40 mg DAILY THEE Administration Clonazepam 0.5 mg 01/31/25 22:35 02/04/25 20:26 Clonazepam (*Crx) 0.5 Mg Tablet PO 0.5 mg QID PRN Administration anxiety/agitation Enoxaparin Sodium 40 mg 01/30/25 09:00 02/05/25 08:30 Enoxaparin 40 Mg/0.4 Ml Syringe SUB-Q Not Given DAILY [facility] Furosemide 20 mg 02/05/25 09:00 02/05/25 17:38 Furosemide 20 Mg Tablet PO 20 mg TID THEE Administration Meclizine HCl 25 mg 01/29/25 22:55 Meclizine Hcl 25 Mg Tablet PO TID PRN dizziness Memantine 10 mg 02/06/25 09:00 Memantine 10 Mg Tablet PO QAM [facility] Metoprolol Tartrate 25 mg 02/04/25 15:20 02/05/25 08:32 Metoprolol Tartrate 25 Mg Tablet PO 25 mg Q12HR THEE Administration Ondansetron HCl 4 mg 01/29/25 18:37 02/05/25 08:30 Ondansetron Inj 4 Mg/2 Ml Vial IV PUSH 4 mg Q4H PRN Administration Nausea Potassium Chloride 20 meq 02/01/25 09:00 02/05/25 17:38 Potassium Chloride 20 Meq Er Tablet PO 20 meq BID THEE Administration Sodium Chloride 2 gm 02/05/25 09:00 02/05/25 17:38 Sodium Chloride 1 Gm Tablet PO 2 gm TID THEE Administration Radiology Results: ITS Impressions Chest X-Ray 01/29/25 15:37 IMPRESSION: No focal infiltrate or effusion. Head CT 01/29/25 15:57 Impression: No acute intracranial hemorrhage or suspicious mass effect. Cervical Spine CT 01/29/25 16:07 Impression: Straightening and slight reversal of the normal curvature of the cervical spine, likely muscular in origin. No acute fracture. Chest/Abdomen/Pelvis CTA 01/29/25 17:24 IMPRESSION: No pulmonary embolus. No aortic dissection. The lungs are clear. Fecal stasis distending the rectum. Foot X-Ray 01/30/25 08:38 IMPRESSION: Comminuted fracture of the distal margin of the proximal phalanx, as detailed above. Labs Labs: Laboratory Tests 02/05/25 05:25 02/05/25 11:51 02/05/25 05:25 Sodium 120 L Potassium 4.0 Chloride 92 L Carbon Dioxide 20 BUN 6 Creatinine 0.35 Estim Creat Clear Calc 107 Estimated GFR > 60 Glucose 102 Calcium 8.4 Total Bilirubin 0.8 AST 39 H ALT 33 Alkaline Phosphatase 148 H Total Protein 6.0 L Albumin 3.3 L
--- NOTE | 2025-02-05 12:15 | PM.PNNEP ---
Progress Note: A&P Assessment and Plan (1) Hyponatremia: Code(s): E87.1 - Hypo-osmolality and hyponatremia Status: Acute Assessment and Plan: relatively stable in the 120 - 121mmol/L range however, quite resistant to improvement... has had issues with this in the past on and off low sodium levels since 2016... previous evaluation (done in 2016) was negative and sodium normalized with apparently just fluid restriction risk factors for low sodium: SSRI use (citalopram) namenda and clonazepam could be contributing excessive free water intake(?) smoking history other(?) evaluation to date noted urine sodium elevated (but was on lasix prior to admission) urine osmolality (354) > serum osmolality (262) urine electrolytes non-prerenal TSH okay cortisol reasonable CT of head negative CT of chest without lung pathology no evidence of malignancy by CT chest/abdomen/pelvis SPE/UPE pending on fluid restriction - on 1200cc/day holding potential medication that could be contributing: SSRI namenda consider holding clonazepam as well.... on salt tablets and low dose lasix increased to TID dosing s/p 3% saline on 02/01 evening plan use again later today benefit from Endocrinology referral?? follow trend of repeat sodium levels (2) Frequent falls: Code(s): R29.6 - Repeated falls Status: Acute Assessment and Plan: as noted by history CT imaging noted PT/OT fall precautions (3) Generalized weakness: Code(s): R53.1 - Weakness Status: Acute Assessment and Plan: suspect multifactorial: deconditioning diarrhea anemia(?) hyponatremia(?) other(?) electrolyte optimization PT/OT as tolerated (4) Fracture of toe of left foot: Qualifiers: Encounter type: initial encounter Fracture alignment: displaced Fracture type: closed Phalanx: proximal Toe: lesser toe Qualified Code(s): S92.512A - Displaced fracture of proximal phalanx of left lesser toe(s), initial encounter for closed fracture Code(s): S92.912A - Unspecified fracture of left toe(s), initial encounter for closed fracture Status: Acute Assessment and Plan: as noted by admission imaging Orthopedic Surgery recommendations noted: weight bearing as tolerated elevation and ice pack pain control continue supportive therapy (5) HTN (hypertension): Code(s): I10 - Essential (primary) hypertension Status: Chronic Assessment and Plan: elevated at times not currently on any medications metoprolol recently added titrate as needed follow trend of hemodynamics (6) Anemia: Code(s): D64.9 - Anemia, unspecified Status: Acute Assessment and Plan: dilutional from previous IVFs possibly hemoconcentrated on admission follow trend of H/H Will continue to follow. Subjective Date/time seen: 02/05/25 12:15 Interval history: Follow-up on acute on chronic hyponatremia. Sodium remains relatively stable but quite resistant to change/optimization despite all interventions to date (fluid restriction, salt tabs, lasix, 3% saline, discontinuation of potentially offending agents/medications...etc); no apparent distress noted otherwise; attempting another infusion of 3% saline this afternoon. Exam Narrative: General: elderly but WD/WN female in NAD Heart: normal S1 and S2; no rub Lungs: clear to auscultation Abdomen: soft, nontender, nondistended, positive bowel sounds Extremities: no cyanosis or clubbing; no edema Skin: no nodules Objective Data Vital Signs Vital Signs: Vital Signs Temp Pulse Resp BP Pulse Ox O2 Del Method FiO2 02/05/25 12:00 97.3 F L 67 16 167/68 H 100 02/05/25 08:32 65 02/05/25 08:11 96 Room Air 21 02/05/25 05:40 97.8 F 65 16 151/72 H 100 02/04/25 20:40 71 97 Room Air 21 02/04/25 20:25 98 F 72 16 175/82 H 99 02/04/25 20:00 Room Air Intake/Output Intake/Output: Intake & Output 02/02/25 02/03/25 02/04/25 02/05/25 23:59 23:59 23:59 23:59 Intake Total 510 900 410 404 Output Total 1140 400 Balance -630 500 410 404 Meds/Results Medications: Active Medications Generic Name Dose Route Start Last Admin Trade Name Freq PRN Reason Stop Dose Admin Acetaminophen 650 mg 01/29/25 18:37 Acetaminophen 325 Mg Tablet PO Q4H PRN Mild Pain (1-3) or Fever Atorvastatin Calcium 10 mg 01/30/25 09:00 02/03/25 09:43 Atorvastatin 10 Mg Tablet PO 10 mg [email or web address] THEE Administration Citalopram Hydrobromide 40 mg 01/30/25 09:00 01/31/25 08:13 Citalopram Hydrobromide 20 Mg Tablet PO 40 mg DAILY THEE Administration Clonazepam 0.5 mg 01/31/25 22:35 02/04/25 20:26 Clonazepam (*Crx) 0.5 Mg Tablet PO 0.5 mg QID PRN Administration anxiety/agitation Enoxaparin Sodium 40 mg 01/30/25 09:00 02/05/25 08:30 Enoxaparin 40 Mg/0.4 Ml Syringe SUB-Q Not Given DAILY [facility] Furosemide 20 mg 02/05/25 09:00 02/05/25 17:38 Furosemide 20 Mg Tablet PO 20 mg TID THEE Administration Meclizine HCl 25 mg 01/29/25 22:55 Meclizine Hcl 25 Mg Tablet PO TID PRN dizziness Memantine 10 mg 02/06/25 09:00 Memantine 10 Mg Tablet PO QAM THEE Metoprolol Tartrate 25 mg 02/04/25 15:20 02/05/25 08:32 Metoprolol Tartrate 25 Mg Tablet PO 25 mg Q12HR THEE Administration Ondansetron HCl 4 mg 01/29/25 18:37 02/05/25 08:30 Ondansetron Inj 4 Mg/2 Ml Vial IV PUSH 4 mg Q4H PRN Administration Nausea Potassium Chloride 20 meq 02/01/25 09:00 02/05/25 17:38 Potassium Chloride 20 Meq Er Tablet PO 20 meq BID THEE Administration Sodium Chloride 2 gm 02/05/25 09:00 02/05/25 17:38 Sodium Chloride 1 Gm Tablet PO 2 gm TID THEE Administration Radiology Results: ITS Impressions Chest X-Ray 01/29/25 15:37 IMPRESSION: No focal infiltrate or effusion. Head CT 01/29/25 15:57 Impression: No acute intracranial hemorrhage or suspicious mass effect. Cervical Spine CT 01/29/25 16:07 Impression: Straightening and slight reversal of the normal curvature of the cervical spine, likely muscular in origin. No acute fracture. Chest/Abdomen/Pelvis CTA 01/29/25 17:24 IMPRESSION: No pulmonary embolus. No aortic dissection. The lungs are clear. Fecal stasis distending the rectum. Foot X-Ray 01/30/25 08:38 IMPRESSION: Comminuted fracture of the distal margin of the proximal phalanx, as detailed above. Labs Labs: Laboratory Tests 02/05/25 05:25 02/05/25 11:51 02/05/25 05:25 Sodium 120 L Potassium 4.0 Chloride 92 L Carbon Dioxide 20 BUN 6 Creatinine 0.35 Estim Creat Clear Calc 107 Estimated GFR > 60 Glucose 102 Calcium 8.4 Total Bilirubin 0.8 AST 39 H ALT 33 Alkaline Phosphatase 148 H Total Protein 6.0 L Albumin 3.3 L
[2025-02-05 14:00] VITALS: BP 167/68; PULSE 67; RESP 16; TEMP 36.3; O2SAT 100
--- NOTE | 2025-02-05 14:52 | P.PNIM_ITS ---
Progress Note: A&P Assessment and Plan (1) Fall: Code(s): W19.XXXA - Unspecified fall, initial encounter Status: Acute Assessment and Plan: PT OT evaluate and treat CT head, C-spine, chest abdomen pelvis without acute injury X-ray left foot pending, showed Comminuted fracture of the distal margin of the proximal phalanx, consult ortho Fall precautions (2) Generalized weakness: Code(s): R53.1 - Weakness Status: Acute Assessment and Plan: To be multifactorial diarrhea, deconditioning, infective, electrolyte imbalance PT OT Replace lytes as stated C diff pending (3) Hypomagnesemia: Code(s): E83.42 - Hypomagnesemia Status: Acute Assessment and Plan: Mag 1.2, replete 4G IV Today --repeat in AM (4) Hyponatremia: Code(s): E87.1 - Hypo-osmolality and hyponatremia Status: Acute Assessment and Plan: IVF for hydration Potassium 2.3, 40 PO & IV Repeat potassium this afternoon and additional potassium if needed Patient is on Lasix currently holding due to acute dehydration Monitor on tele (5) Diarrhea: Code(s): R19.7 - Diarrhea, unspecified Status: Acute Assessment and Plan: Likely cause of electrolyte imbalance and weakness. Now seems resolved CT abd/pelvis showed fecal stasis distending the rectum, could have overflow diarrhea. Patient declined enema, will need to monitor C diff pending (6) Hypercholesterolemia: Code(s): E78.00 - Pure hypercholesterolemia, unspecified Status: Acute Assessment and Plan: Continue statin (7) HTN (hypertension): Code(s): I10 - Essential (primary) hypertension Status: Chronic Assessment and Plan: Continue losartan (8) Cognitive and behavioral changes: Code(s): R41.89 - Other symptoms and signs involving cognitive functions and awareness; R46.89 - Other symptoms and signs involving appearance and behavior Status: Acute Assessment and Plan: TSH normal Check B12 Plan Patient presented with generalized weakness status post fall and fracture of the left foot patient was seen by orthopedic and recommended conservative management, patient also has hyponatremia hypomagnesemia hypercalcemia patient has history of alcohol not forthcoming alcohol drinks can lead to derangement of electrolytes, also patient is on SSRI which can also lower her sodium, she was taking furesomide prior to coming which can lower the sodium, discuss with Dr. Johnson so far the workup in normal, patient is gently hydrate and been monitor and supplement, patient is seen by the supervisor billposting and sodium and electrolytes are being corrected, patient is being treated with salt tabs, also patient is taking Namenda this will reduce sodium levels, will discuss with the supervisor billposting, patient clinical symptoms are improving, patient will work with PT/OT, discussed with patient and her , would like to go to rehab before going home with left foot fracture. on 02/03 patient requested to be transferred to [facility] in [place] because her primary care provider is at the hospital, I called Dr. Nancy Stauffer [phone] commercial front load operator did respond and transfer the call to the doctor, but the doctor did not respond, held the phone which automatically transferred to the hospital, the binding machine operator transferred the call to the doctor but the did not respond on 02/03 patient requested to be transferred to [facility] in [place] because her primary care provider is at the hospital, I called Dr. Nancy Stauffer [phone] commercial front load operator did respond and transfer the call to the doctor, but the doctor did not respond, held the phone which automatically transferred to the hospital, the binding machine operator transferred the call to the doctor but the did not respond DVT prophylaxis on Sq Lovenox PT/OT for dsicharge planning Subjective Date/time seen: 02/05/25 14:52 Interval history: More forgetful recently per family at bedside Needing a lot of assistance, and has had multiple falls at home per family at bedside, over 12. Interested in short term SNF or rehab Sodium 121 on 02/03 120 Patient presented with generalized weakness status post fall and fracture of the left foot patient was seen by orthopedic and recommended conservative management, patient also has hyponatremia hypomagnesemia hypercalcemia patient has history of alcohol not forthcoming alcohol drinks can lead to derangement of electrolytes, also patient is on SSRI which can also lower her sodium, she was taking furesomide prior to coming which can lower the sodium, discuss with Dr. Johnson so far the workup in normal, patient is gently hydrate and been monitor and supplement, patient is seen by the supervisor billposting and sodium and electrolytes are being corrected, patient is being treated with salt tabs, also patient is taking Namenda this will reduce sodium levels, will discuss with the supervisor billposting, patient clinical symptoms are improving, patient will work with PT/OT, discussed with patient and her , would like to go to rehab before going home with left foot fracture. on 02/03 patient requested to be transferred to [facility] in [place] because her primary care provider is at the hospital, I called Dr. Nancy Stauffer [phone] commercial front load operator did respond and transfer the call to the doctor, but the doctor did not respond, held the phone which automatically transferred to the hospital, the binding machine operator transferred the call to the doctor but the did not respond Review of Systems Review of Systems: 12 systems were reviewed and are negativ e except for as per HPI. Exam Narrative: Patient is comfortable, NAD HEENT: eyes are clear and none icteric LUNGS:CTA HEART: RR S1S2 ABD: BS+, Soft and nontender Lower extremities: no edema SKIN: nonjaundiced Neuro: grossly intact. Objective Data Vital Signs Vital Signs: Vital Signs - 24 hr 02/04/25 15:50 02/04/25 20:00 02/04/25 20:25 Temperature 36.6 C Pulse Rate 98 72 Respiratory Rate 16 Blood Pressure 175/82 H Pulse Oximetry 99 Oxygen Delivery Room Air Fraction of Inspired Oxygen 02/04/25 20:40 02/05/25 05:40 02/05/25 08:11 Temperature 36.6 C Pulse Rate 71 65 Respiratory Rate 16 Blood Pressure 151/72 H Pulse Oximetry 97 100 96 Oxygen Delivery Room Air Room Air Fraction of Inspired Oxygen 21 21 02/05/25 08:32 02/05/25 14:00 Temperature 36.3 C L Pulse Rate 65 67 Respiratory Rate 16 Blood Pressure 167/68 H Pulse Oximetry 100 Oxygen Delivery Fraction of Inspired Oxygen Intake/Output Intake/Output: Intake & Output 02/02/25 02/03/25 02/04/25 02/05/25 23:59 23:59 23:59 23:59 Intake Total 510 900 410 404 Output Total 1140 400 Balance -630 500 410 404 Meds/Results Medications: Active Medications Generic Name Dose Route Start Last Admin Trade Name Freq PRN Reason Stop Dose Admin Acetaminophen 650 mg 01/29/25 18:37 Acetaminophen 325 Mg Tablet PO Q4H PRN Mild Pain (1-3) or Fever Atorvastatin Calcium 10 mg 01/30/25 09:00 02/03/25 09:43 Atorvastatin 10 Mg Tablet PO 10 mg [id number] THEE Administration Citalopram Hydrobromide 40 mg 01/30/25 09:00 01/31/25 08:13 Citalopram Hydrobromide 20 Mg Tablet PO 40 mg DAILY THEE Administration Clonazepam 0.5 mg 01/31/25 22:35 02/04/25 20:26 Clonazepam (*Crx) 0.5 Mg Tablet PO 0.5 mg QID PRN Administration anxiety/agitation Enoxaparin Sodium 40 mg 01/30/25 09:00 02/05/25 08:30 Enoxaparin 40 Mg/0.4 Ml Syringe SUB-Q Not Given DAILY THEE Furosemide 20 mg 02/05/25 09:00 02/05/25 08:32 Furosemide 20 Mg Tablet PO 20 mg TID THEE Administration Sodium Chloride 250 mls @ 71.429 mls/hr 02/05/25 14:00 Sodium Chloride 3% IV CONT 02/05/25 17:29 .Q3H30M THEE Meclizine HCl 25 mg 01/29/25 22:55 Meclizine Hcl 25 Mg Tablet PO TID PRN dizziness Memantine 10 mg 01/29/25 23:20 02/05/25 08:32 Memantine 10 Mg Tablet PO 10 mg Q12HR THEE Administration Metoprolol Tartrate 25 mg 02/04/25 15:20 02/05/25 08:32 Metoprolol Tartrate 25 Mg Tablet PO 25 mg Q12HR THEE Administration Ondansetron HCl 4 mg 01/29/25 18:37 02/05/25 08:30 Ondansetron Inj 4 Mg/2 Ml Vial IV PUSH 4 mg Q4H PRN Administration Nausea Potassium Chloride 20 meq 02/01/25 09:00 02/05/25 08:32 Potassium Chloride 20 Meq Er Tablet PO 20 meq BID THEE Administration Sodium Chloride 2 gm 02/05/25 09:00 02/05/25 08:33 Sodium Chloride 1 Gm Tablet PO 2 gm TID THEE Administration Radiology Results: ITS Impressions Chest X-Ray 01/29/25 15:37 IMPRESSION: No focal infiltrate or effusion. Head CT 01/29/25 15:57 Impression: No acute intracranial hemorrhage or suspicious mass effect. Cervical Spine CT 01/29/25 16:07 Impression: Straightening and slight reversal of the normal curvature of the cervical spine, likely muscular in origin. No acute fracture. Chest/Abdomen/Pelvis CTA 01/29/25 17:24 IMPRESSION: No pulmonary embolus. No aortic dissection. The lungs are clear. Fecal stasis distending the rectum. Foot X-Ray 01/30/25 08:38 IMPRESSION: Comminuted fracture of the distal margin of the proximal phalanx, as detailed above. Labs Labs: Laboratory Results - last 24 hr 02/04/25 02/05/25 02/05/25 20:22 01:46 05:25 WBC 13.6 H RBC 3.78 L Hgb 12.5 Hct 37.1 MCV 98.1 MCH 33.1 MCHC 33.7 RDW 13.2 Plt Count 323 MPV 8.8 Sodium 120 L 120 L Cancelled Potassium Chloride Carbon Dioxide Anion Gap BUN Creatinine Estim Creat Clear Calc Estimated GFR Glucose Calcium Phosphorus Magnesium Total Bilirubin AST ALT Alkaline Phosphatase Total Protein Albumin 02/05/25 02/05/25 02/05/25 05: 05:25 05:25 WBC RBC Hgb Hct MCV MCH MCHC RDW Plt Count MPV Sodium 120 L Potassium Cancelled 4.0 Chloride Cancelled 92 L Carbon Dioxide Cancelled Anion Gap BUN Creatinine Estim Creat Clear Calc Estimated GFR Glucose Calcium Phosphorus Magnesium Total Bilirubin AST ALT Alkaline Phosphatase Total Protein Albumin 02/05/25 02/05/25 02/05/25 05:25 05:25 05:25 WBC RBC Hgb Hct MCV MCH MCHC RDW Plt Count MPV Sodium Potassium Chloride Carbon Dioxide 20 L Anion Gap Cancelled 8 BUN Cancelled 6 L Creatinine Cancelled Estim Creat Clear Calc Estimated GFR Glucose Calcium Phosphorus Magnesium Total Bilirubin AST ALT Alkaline Phosphatase Total Protein Albumin 02/05/25 02/05/25 02/05/25 05: 05: 05:25 WBC RBC Hgb Hct MCV MCH MCHC RDW Plt Count MPV Sodium Potassium Chloride Carbon Dioxide Anion Gap BUN Creatinine 0.35 L Estim Creat Clear Calc Cancelled 107 Estimated GFR Cancelled > 60 Glucose Cancelled Calcium Phosphorus Magnesium Total Bilirubin AST ALT Alkaline Phosphatase Total Protein Albumin 02/05/25 02/05/25 02/05/25 05:25 05:25 05:25 WBC RBC Hgb Hct MCV MCH MCHC RDW Plt Count MPV Sodium Potassium Chloride Carbon Dioxide Anion Gap BUN Creatinine Estim Creat Clear Calc Estimated GFR Glucose 102 Calcium Cancelled 8.4 Phosphorus Cancelled Magnesium Cancelled Total Bilirubin 0.8 AST 39 H ALT 33 Alkaline Phosphatase 148 H Total Protein 6.0 L Albumin Cancelled 3.3 L 02/05/25 11:51 WBC RBC Hgb Hct MCV MCH MCHC RDW Plt Count MPV Sodium 120 L Potassium Chloride Carbon Dioxide Anion Gap BUN Creatinine Estim Creat Clear Calc Estimated GFR Glucose Calcium Phosphorus Magnesium Total Bilirubin AST ALT Alkaline Phosphatase Total Protein Albumin Quality VTE Prophylaxis VTE prophylaxis: mechanical ordered and pharmacologic ordered
[2025-02-05] MEDS: SODIUM CHLORIDE 3% 250 ML 70 ML IV CONT (15:02)
[2025-02-05 19:56] LABS: Sodium 121 mmol/L (137-145)
[2025-02-05 20:15] VITALS: BP 161/73; PULSE 69; RESP 20; TEMP 36.4; O2SAT 99
[2025-02-05 20:23] VITALS: PULSE 69
[2025-02-05] MEDS: clonazePAM (*CRX) 0.5 MG TABLET PO (21:22)
[2025-02-06 04:30] VITALS: BP 154/73; PULSE 61; RESP 18; TEMP 35.6; O2SAT 99
[2025-02-06 06:05] LABS: Hematocrit 38.4 % (37.0-47.0); Hemoglobin 13.2 g/dL (12.0-15.0); Mean Corpuscular HGB Conc 34.4 g/dl (32-36); Mean Corpuscular Hemoglobin 33.1 pg (26-34); Mean Corpuscular Volume 96.2 fl (80-100); Mean Platelet Volume 8.7 fl (7.4-10.4); Platelet Count Result 308 k/mm3 (150-375); Red Blood Count 3.99 M/mm3 (4.2-5.4); Red Cell Distribution Width 13.2 % (11.5-14.5); White Blood Count 14.7 K/mm3 (4.5-10.0)
[2025-02-06 06:23] LABS: Albumin Level 3.4 g/dL (3.5-5.1); Anion Gap 5 mmol/L (4-12); Blood Urea Nitrogen 6 mg/dL (7-17); Calcium 8.6 mg/dL (8.4-10.2); Carbon Dioxide 23 mmol/L (22-30); Chloride 92 mmol/L (98-107); Estimated CRCL calculation 93 ml/min; Estimated Glomerular Filt Rate > 60; Glucose 106 mg/dL (65-110); Magnesium 1.6 mg/dL (1.6-2.3); Phosphorus 3.3 mg/dL (2.5-4.5); Potassium 3.5 mmol/L (3.4-5.0); Sodium 120 mmol/L (137-145)
[2025-02-06 08:11] VITALS: PULSE 61
[2025-02-06] MEDS: METOPROLOL TARTRATE 25 MG TABLET PO ×2 (08:11→21:00)
[2025-02-06] MEDS: MEMANTINE 10 MG TABLET PO (08:12)
[2025-02-06] MEDS: POTASSIUM CHLORIDE 20 MEQ ER TABLET PO ×2 (08:13→16:17)
[2025-02-06] MEDS: ENOXAPARIN 40 MG/0.4 ML SYRINGE SUB-Q (08:13)
[2025-02-06] MEDS: FUROSEMIDE 20 MG TABLET PO ×3 (08:13→16:18)
[2025-02-06] MEDS: SODIUM CHLORIDE 1 GM TABLET 2 GM PO ×3 (08:14→16:18)
[2025-02-06] MEDS: ATORVASTATIN 10 MG TABLET PO (08:16)
[2025-02-06] MEDS: ONDANSETRON INJ 4 MG/2 ML VIAL IV PUSH (08:34)
[2025-02-06] MEDS: BISACODYL 10 MG SUPPOSITORY RECTAL (09:48)
[2025-02-06] MEDS: ACETAMINOPHEN 325 MG TABLET 650 MG PO (11:28)
[2025-02-06 12:15] LABS: Sodium 122 mmol/L (137-145)
--- NOTE | 2025-02-06 12:26 | P.PNNP_ITS ---
Progress Note: A&P Assessment and Plan (1) Hyponatremia: Code(s): E87.1 - Hypo-osmolality and hyponatremia Status: Acute Assessment and Plan: * relatively stable in the 120 - 121mmol/L range - up a bit to 122mmol/L * however, quite resistant to improvement... * has had issues with this in the past * on and off low sodium levels since 2016... * previous evaluation (done in 2016) was negative and sodium normalized with apparently just fluid restriction * risk factors for low sodium: * SSRI use (citalopram) * namenda and clonazepam could be contributing * excessive free water intake(?) * smoking history * other(?) * evaluation to date noted * urine sodium elevated (but was on lasix prior to admission) * urine osmolality (354) > serum osmolality (262) * urine electrolytes non-prerenal * TSH okay * cortisol reasonable * CT of head negative * CT of chest without lung pathology * no evidence of malignancy by CT chest/abdomen/pelvis * SPE/UPE pending * on fluid restriction - on 1200cc/day * holding potential medication that could be contributing: * SSRI * namenda * consider holding clonazepam as well.... * on salt tablets and low dose lasix * increased to TID dosing * s/p 3% saline x 3 * benefit from Endocrinology referral?? * should we consider tolvaptan?? * follow trend of repeat sodium levels (2) Frequent falls: Code(s): R29.6 - Repeated falls Status: Acute Assessment and Plan: * as noted by history * CT imaging noted * PT/OT * fall precautions (3) Generalized weakness: Code(s): R53.1 - Weakness Status: Acute Assessment and Plan: * suspect multifactorial: * deconditioning * diarrhea * anemia(?) * hyponatremia(?) * other(?) * electrolyte optimization * PT/OT as tolerated (4) Fracture of toe of left foot: Qualifiers: Encounter type: initial encounter Toe: lesser toe Fracture type: c losed Phalanx: proximal Fracture alignment: displaced Qualified Code(s): S 92.512A - Displaced fracture of proximal phalanx of left lesser toe(s), initial encounter for closed fracture Code(s): S92.912A - Unspecified fracture of left toe(s), initial encounter for closed fracture Status: Acute Assessment and Plan: * as noted by admission imaging * Orthopedic Surgery recommendations noted: * weight bearing as tolerated * elevation and ice pack * pain control * continue supportive therapy (5) HTN (hypertension): Code(s): I10 - Essential (primary) hypertension Status: Chronic Assessment and Plan: * elevated at times * not currently on any medications * metoprolol recently added * titrate as needed * follow trend of hemodynamics (6) Anemia: Code(s): D64.9 - Anemia, unspecified Status: Acute Assessment and Plan: * dilutional from previous IVFs * possibly hemoconcentrated on admission * follow trend of H/H Will continue to follow. L Subjective Date/time seen: 02/06/25 12:26 Interval history: Follow-up on acute on chronic hyponatremia. Sodium had flat-lined around 120 - 121mmol/L for the past few days but sodium up to 122mmol/L by most recent lab; no other acute issues or complaints voiced; at bedside and we discussed the situation. Exam 2 Narrative: General: elderly but WD/WN female in NAD Heart: normal S1 and S2; no rub Lungs: clear to auscultation Abdomen: soft, nontender, nondistended, positive bowel sounds Extremities: no cyanosis or clubbing; no edema Skin: warm and dry Objective Data Vital Signs Vital Signs: Vital Signs Temp Pulse Resp BP Pulse Ox O2 Del Method 02/06/25 12:24 97.9 F 55 L 16 145/58 H 100 02/06/25 08:11 61 02/06/25 08:00 Room Air 02/06/25 04:30 96.1 F L 61 18 154/73 H 99 02/05/25 20:23 69 02/05/25 20:15 97.6 F 69 20 161/73 H 99 02/05/25 20:00 Room Air Intake/Output Intake/Output: Intake & Output 02/03/25 02/04/25 02/05/25 02/06/25 23:59 23:59 23:59 23:59 Intake Total 900 410 654 436 Output Total 400 Balance 500 410 654 436 Meds/Results Medications: Active Medications Generic Name Dose Route Start Last Admin Trade Name Freq PRN Reason Stop Dose Admin Acetaminophen 650 mg 01/29/25 18:37 02/06/25 11:28 Acetaminophen 325 Mg Tablet PO 650 mg Q4H PRN Administration Mild Pain (1-3) or Fever Atorvastatin Calcium 10 mg 01/30/25 09:00 02/06/25 08:16 Atorvastatin 10 Mg Tablet PO 10 mg [id number] THEE Administration Citalopram Hydrobromide 40 mg 01/30/25 09:00 01/31/25 08:13 Citalopram Hydrobromide 20 Mg Tablet PO 40 mg DAILY THEE Administration Clonazepam 0.5 mg 01/31/25 22:35 02/05/25 21:22 Clonazepam (*Crx) 0.5 Mg Tablet PO 0.5 mg QID PRN Administration anxiety/agitation Enoxaparin Sodium 40 mg 01/30/25 09:00 02/06/25 08:13 Enoxaparin 40 Mg/0.4 Ml Syringe SUB-Q 40 mg DAILY THEE Administration Furosemide 20 mg 02/05/25 09:00 02/06/25 16:18 Furosemide 20 Mg Tablet PO 20 mg TID THEE Administration Meclizine HCl 25 mg 01/29/25 22:55 Meclizine Hcl 25 Mg Tablet PO TID PRN dizziness Memantine 10 mg 02/06/25 09:00 02/06/25 08:12 Memantine 10 Mg Tablet PO 10 mg QAM THEE Administration Metoprolol Tartrate 25 mg 02/04/25 15:20 02/06/25 08:11 Metoprolol Tartrate 25 Mg Tablet PO 25 mg Q12HR THEE Administration Ondansetron HCl 4 mg 01/29/25 18:37 02/06/25 08:34 Ondansetron Inj 4 Mg/2 Ml Vial IV PUSH 4 mg Q4H PRN Administration Nausea Potassium Chloride 20 meq 02/01/25 09:00 02/06/25 16:17 Potassium Chloride 20 Meq Er Tablet PO 20 meq BID THEE Administration Sodium Chloride 2 gm 02/05/25 09:00 02/06/25 16:18 Sodium Chloride 1 Gm Tablet PO 2 gm TID THEE Administration Radiology Results: ITS Impressions Chest X-Ray 01/29/25 15:37 IMPRESSION: No focal infiltrate or effusion. Head CT 01/29/25 15:57 Impression: No acute intracranial hemorrhage or suspicious mass effect. Cervical Spine CT 01/29/25 16:07 Impression: Straightening and slight reversal of the normal curvature of the cervical spine, likely muscular in origin. No acute fracture. Chest/Abdomen/Pelvis CTA 01/29/25 17:24 IMPRESSION: No pulmonary embolus. No aortic dissection. The lungs are clear. Fecal stasis distending the rectum. Foot X-Ray 01/30/25 08:38 IMPRESSION: Comminuted fracture of the distal margin of the proximal phalanx, as detailed above. Abdomen X-Ray 02/06/25 08:56 IMPRESSION: Distended small bowel within the mid abdomen with mural thickening. Air within the rectum, an interval change from recent CT examination. Labs Labs: Laboratory Tests 02/06/25 05:49 02/06/25 12:00 02/05/25 02/06/25 19:45 05:49 Sodium 121 L 120 L Potassium 3.5 Chloride 92 L Carbon Dioxide 23 Anion Gap 5 BUN 6 L Creatinine 0.42 L Estim Creat Clear Calc 93 Estimated GFR > 60 Glucose 106 Calcium 8.6 Phosphorus 3.3 Magnesium 1.6 Albumin 3.4 L
[2025-02-06 14:24] VITALS: BP 145/58; PULSE 55; RESP 16; TEMP 36.6; O2SAT 100
--- NOTE | 2025-02-06 14:44 | P.PNIM_ITS ---
Progress Note: A&P Assessment and Plan (1) Fall: Code(s): W19.XXXA - Unspecified fall, initial encounter Status: Acute Assessment and Plan: PT OT evaluate and treat CT head, C-spine, chest abdomen pelvis without acute injury X-ray left foot pending, showed Comminuted fracture of the distal margin of the proximal phalanx, consult ortho Fall precautions (2) Generalized weakness: Code(s): R53.1 - Weakness Status: Acute Assessment and Plan: To be multifactorial diarrhea, deconditioning, infective, electrolyte imbalance PT OT Replace lytes as stated C diff pending (3) Hypomagnesemia: Code(s): E83.42 - Hypomagnesemia Status: Acute Assessment and Plan: Mag 1.2, replete 4G IV Today --repeat in AM (4) Hyponatremia: Code(s): E87.1 - Hypo-osmolality and hyponatremia Status: Acute Assessment and Plan: IVF for hydration Potassium 2.3, 40 PO & IV Repeat potassium this afternoon and additional potassium if needed Patient is on Lasix currently holding due to acute dehydration Monitor on tele (5) Diarrhea: Code(s): R19.7 - Diarrhea, unspecified Status: Acute Assessment and Plan: Likely cause of electrolyte imbalance and weakness. Now seems resolved CT abd/pelvis showed fecal stasis distending the rectum, could have overflow diarrhea. Patient declined enema, will need to monitor C diff pending (6) Hypercholesterolemia: Code(s): E78.00 - Pure hypercholesterolemia, unspecified Status: Acute Assessment and Plan: Continue statin (7) HTN (hypertension): Code(s): I10 - Essential (primary) hypertension Status: Chronic Assessment and Plan: Continue losartan (8) Cognitive and behavioral changes: Code(s): R41.89 - Other symptoms and signs involving cognitive functions and awareness; R46.89 - Other symptoms and signs involving appearance and behavior Status: Acute Assessment and Plan: TSH normal Check B12 Plan Patient presented with generalized weakness status post fall and fracture of the left foot patient was seen by orthopedic and recommended conservative management, patient also has hyponatremia hypomagnesemia hypercalcemia patient has history of alcohol not forthcoming alcohol drinks can lead to derangement of electrolytes, also patient is on SSRI which can also lower her sodium, she was taking furesomide prior to coming which can lower the sodium, discuss with Dr. Johnson so far the workup in normal, patient is gently hydrate and been monitor and supplement, patient is seen by the echo technician and sodium and electrolytes are being corrected, patient is being treated with salt tabs, also patient is taking Namenda this will reduce sodium levels, discuss with the echo technician, will reduce Namenda 10mg bid to qd, today patient is complaining constipation and bloating KUB showed lot of intestinal gas, will give Dulcolax supp. patient clinical symptoms are improving, patient will work with PT/OT, discussed with patient and her , would like to go to rehab before going home with left foot fracture. on 02/03 patient requested to be transferred to [facility] in [place] because her primary care provider is at the hospital, I called Dr. Nancy Stauffer [phone] front end mechanic did respond and transfer the call to the doctor, but the doctor did not respond, held the phone which automatically transferred to the hospital, the press operator carbon blocks transferred the call to the doctor but the did not respond DVT prophylaxis on Sq Lovenox PT/OT for dsicharge planning Subjective Date/time seen: 02/06/25 14:44 Interval history: More forgetful recently per family at bedside Needing a lot of assistance, and has had multiple falls at home per family at bedside, over 12. Interested in short term SNF or rehab Sodium 121 on 02/06 120 Patient presented with generalized weakness status post fall and fracture of the left foot patient was seen by orthopedic and recommended conservative management, patient also has hyponatremia hypomagnesemia hypercalcemia patient has history of alcohol not forthcoming alcohol drinks can lead to derangement of electrolytes, also patient is on SSRI which can also lower her sodium, she was taking furesomide prior to coming which can lower the sodium, discuss with Dr. Johnson so far the workup in normal, patient is gently hydrate and been monitor and supplement, patient is seen by the echo technician and sodium and electrolytes are being corrected, patient is being treated with salt tabs, also patient is taking Namenda this will reduce sodium levels, discuss with the echo technician, will reduce Namenda 10mg bid to qd, today patient is complaining constipation and bloating KUB showed lot of intestinal gas, will give Dulcolax supp. patient clinical symptoms are improving, patient will work with PT/OT, discussed with patient and her , would like to go to rehab before going home with left foot fracture. on 02/03 patient requested to be transferred to [facility] in [place] because her primary care provider is at the hospital, I called Dr. Nancy Stauffer [phone] front end mechanic did respond and transfer the call to the doctor, but the doctor did not respond, held the phone which automatically transferred to the hospital, the press operator carbon blocks transferred the call to the doctor but the did not respond Review of Systems Review of Systems: 12 systems were reviewed and are negativ e except for as per HPI. Exam Narrative: Patient is comfortable, NAD HEENT: eyes are clear and none icteric LUNGS:CTA HEART: RR S1S2 ABD: BS+, Soft and nontender Lower extremities: no edema SKIN: nonjaundiced Neuro: grossly intact. Objective Data Vital Signs Vital Signs: Vital Signs - 24 hr 02/05/25 20:00 02/05/25 20:15 02/05/25 20:23 Temperature 36.4 C Pulse Rate 69 69 Respiratory Rate 20 Blood Pressure 161/73 H Pulse Oximetry 99 Oxygen Delivery Room Air 02/06/25 04:30 02/06/25 08:00 02/06/25 08:11 Temperature 35.6 C L Pulse Rate 61 61 Respiratory Rate 18 Blood Pressure 154/73 H Pulse Oximetry 99 Oxygen Delivery Room Air 02/06/25 14:24 Temperature 36.6 C Pulse Rate 55 L Respiratory Rate 16 Blood Pressure 145/58 H Pulse Oximetry 100 Oxygen Delivery Intake/Output Intake/Output: Intake & Output 0502/04/25 02/05/25 02/06/25 23:59 23:59 23:59 23:59 Intake Total 900 410 654 436 Output Total 400 Balance 500 410 654 436 Meds/Results Medications: Active Medications Generic Name Dose Route Start Last Admin Trade Name Freq PRN Reason Stop Dose Admin Acetaminophen 650 mg 01/29/25 18:37 02/06/25 11:28 Acetaminophen 325 Mg Tablet PO 650 mg Q4H PRN Administration Mild Pain (1-3) or Fever Atorvastatin Calcium 10 mg 01/30/25 09:00 02/06/25 08:16 Atorvastatin 10 Mg Tablet PO 10 mg [id number] THEE Administration Citalopram Hydrobromide 40 mg 01/30/25 09:00 01/31/25 08:13 Citalopram Hydrobromide 20 Mg Tablet PO 40 mg DAILY THEE Administration Clonazepam 0.5 mg 01/31/25 22:35 02/05/25 21:22 Clonazepam (*Crx) 0.5 Mg Tablet PO 0.5 mg QID PRN Administration anxiety/agitation Enoxaparin Sodium 40 mg 01/30/25 09:00 02/06/25 08:13 Enoxaparin 40 Mg/0.4 Ml Syringe SUB-Q 40 mg DAILY THEE Administration Furosemide 20 mg 02/05/25 09:00 02/06/25 13:05 Furosemide 20 Mg Tablet PO 20 mg TID THEE Administration Meclizine HCl 25 mg 01/29/25 22:55 Meclizine Hcl 25 Mg Tablet PO TID PRN dizziness Memantine 10 mg 02/06/25 09:00 02/06/25 08:12 Memantine 10 Mg Tablet PO 10 mg QAM THEE Administration Metoprolol Tartrate 25 mg 02/04/25 15:20 02/06/25 08:11 Metoprolol Tartrate 25 Mg Tablet PO 25 mg Q12HR THEE Administration Ondansetron HCl 4 mg 01/29/25 18:37 02/06/25 08:34 Ondansetron Inj 4 Mg/2 Ml Vial IV PUSH 4 mg Q4H PRN Administration Nausea Potassium Chloride 20 meq 02/01/25 09:00 02/06/25 08:13 Potassium Chloride 20 Meq Er Tablet PO 20 meq BID THEE Administration Sodium Chloride 2 gm 02/05/25 09:00 02/06/25 13:05 Sodium Chloride 1 Gm Tablet PO 2 gm TID THEE Administration Radiology Results: ITS Impressions Chest X-Ray 01/29/25 15:37 IMPRESSION: No focal infiltrate or effusion. Head CT 01/29/25 15:57 Impression: No acute intracranial hemorrhage or suspicious mass effect. Cervical Spine CT 01/29/25 16:07 Impression: Straightening and slight reversal of the normal curvature of the cervical spine, likely muscular in origin. No acute fracture. Chest/Abdomen/Pelvis CTA 01/29/25 17:24 IMPRESSION: No pulmonary embolus. No aortic dissection. The lungs are clear. Fecal stasis distending the rectum. Foot X-Ray 01/30/25 08:38 IMPRESSION: Comminuted fracture of the distal margin of the proximal phalanx, as detailed above. Abdomen X-Ray 02/06/25 08:56 IMPRESSION: Distended small bowel within the mid abdomen with mural thickening. Air within the rectum, an interval change from recent CT examination. Labs Labs: Laboratory Results - last 24 hr 02/05/25 02/06/25 02/06/25 19:45 05:49 12:00 WBC 14.7 H RBC 3.99 L Hgb 13.2 Hct 38.4 MCV 96.2 MCH 33.1 MCHC 34.4 RDW 13.2 Plt Count 308 MPV 8.7 Sodium 121 L 120 L 122 L Potassium 3.5 Chloride 92 L Carbon Dioxide 23 Anion Gap 5 BUN 6 L Creatinine 0.42 L Estim Creat Clear Calc 93 Estimated GFR > 60 Glucose 106 Calcium 8.6 Phosphorus 3.3 Magnesium 1.6 Albumin 3.4 L Quality VTE Prophylaxis VTE prophylaxis: mechanical ordered and pharmacologic ordered
[2025-02-06 15:43] LABS: Immunofixation, Serum Normal pattern.
[2025-02-06 20:00] VITALS: BP 144/69; PULSE 63; RESP 16; TEMP 36.7; O2SAT 100
[2025-02-06 20:29] LABS: Sodium 121 mmol/L (137-145)
[2025-02-06 21:00] VITALS: PULSE 65
[2025-02-06] MEDS: SODIUM CHLORIDE 3% 72 ML IV CONT (22:41)
[2025-02-07] MEDS: clonazePAM (*CRX) 0.5 MG TABLET PO ×3 (00:56→12:49)
[2025-02-07 05:43] VITALS: BP 136/60; PULSE 61; RESP 16; TEMP 36.7; O2SAT 99
[2025-02-07 06:18] LABS: Hemoglobin 11.9 g/dL (12.0-15.0); Mean Corpuscular Hemoglobin 32.9 pg (26-34); Mean Corpuscular Volume 96.7 fl (80-100); Platelet Count Result 315 k/mm3 (150-375); Red Blood Count 3.62 M/mm3 (4.2-5.4); Red Cell Distribution Width 13.2 % (11.5-14.5); White Blood Count 13.1 K/mm3 (4.5-10.0)
[2025-02-07 06:36] LABS: Anion Gap 4 mmol/L (4-12); Blood Urea Nitrogen 9 mg/dL (7-17); Calcium 8.3 mg/dL (8.4-10.2); Carbon Dioxide 23 mmol/L (22-30); Chloride 99 mmol/L (98-107); Estimated CRCL calculation 95 ml/min; Estimated Glomerular Filt Rate > 60; Glucose 99 mg/dL (65-110); Magnesium 1.7 mg/dL (1.6-2.3); Phosphorus 3.3 mg/dL (2.5-4.5); Potassium 3.3 mmol/L (3.4-5.0); Sodium 126 mmol/L (137-145)
[2025-02-07] MEDS: ENOXAPARIN 40 MG/0.4 ML SYRINGE SUB-Q (08:32)
[2025-02-07] MEDS: MECLIZINE HCL 25 MG TABLET PO ×2 (08:32→12:49)
[2025-02-07] MEDS: SODIUM CHLORIDE 1 GM TABLET 2 GM PO ×2 (08:32→12:49)
[2025-02-07 08:33] VITALS: PULSE 61
[2025-02-07] MEDS: FUROSEMIDE 20 MG TABLET PO ×2 (08:33→12:49)
[2025-02-07] MEDS: POTASSIUM CHLORIDE 20 MEQ ER TABLET PO ×2 (08:33→17:38)
[2025-02-07] MEDS: MEMANTINE 10 MG TABLET PO (08:33)
[2025-02-07] MEDS: METOPROLOL TARTRATE 25 MG TABLET PO ×2 (08:33→20:43)
[2025-02-07] MEDS: POTASSIUM CHLORIDE 20 MEQ PACKET (FOR LIQUID) 40 MEQ PO (08:39)
[2025-02-07] MEDS: ONDANSETRON INJ 4 MG/2 ML VIAL IV PUSH (08:57)
[2025-02-07 10:52] LABS: Lambda Light Chain 9.6 mg/L (5.7-26.3)
--- NOTE | 2025-02-07 11:03 | P.PNNP_ITS ---
Progress Note: A&P Assessment and Plan (1) Hyponatremia: Code(s): E87.1 - Hypo-osmolality and hyponatremia Status: Acute Assessment and Plan: * improvement noted in the last 24 hours * has had issues with this in the past * on and off low sodium levels since 2016... * previous evaluation (done in 2016) was negative and sodium normalized with apparently just fluid restriction * risk factors for low sodium: * SSRI use (citalopram) * namenda and clonazepam could be contributing * excessive free water intake(?) * smoking history * other(?) * evaluation to date noted * urine sodium elevated (but was on lasix prior to admission) * urine osmolality (354) > serum osmolality (262) * urine electrolytes non-prerenal * TSH okay * cortisol reasonable * CT of head negative * CT of chest without lung pathology * no evidence of malignancy by CT chest/abdomen/pelvis * SPE/UPE pending * on fluid restriction - on 1200cc/day * holding potential medication that could be contributing: * SSRI * namenda * consider holding clonazepam as well.... * on salt tablets and low dose lasix * increased to TID dosing * s/p 3% saline x 4 (last infusion on evening of 02/06) * follow trend of repeat sodium levels (2) Frequent falls: Code(s): R29.6 - Repeated falls Status: Acute Assessment and Plan: * as noted by history * CT imaging noted * PT/OT * fall precautions (3) Generalized weakness: Code(s): R53.1 - Weakness Status: Acute Assessment and Plan: * suspect multifactorial: * deconditioning * diarrhea * anemia(?) * hyponatremia(?) * other(?) * electrolyte optimization * PT/OT as tolerated (4) Fracture of toe of left foot: Qualifiers: Encounter type: initial encounter Toe: lesser toe Fracture type: closed Phalanx: proximal Fracture alignment: displaced Qualified Code(s): S92.512A - Displaced fracture of proximal phalanx of left lesser toe(s), initial encounter for closed fracture Code(s): S92.912A - Unspecified fracture of left toe(s), initial encounter for closed fracture Status: Acute Assessment and Plan: * as noted by admission imaging * Orthopedic Surgery recommendations noted: * weight bearing as tolerated * elevation and ice pack * pain control * continue supportive therapy (5) HTN (hypertension): Code(s): I10 - Essential (primary) hypertension Status: Chronic Assessment and Plan: * elevated at times * not currently on any medications * metoprolol recently added * titrate as needed * follow trend of hemodynamics (6) Anemia: Code(s): D64.9 - Anemia, unspecified Status: Acute Assessment and Plan: * dilutional from previous IVFs * possibly hemoconcentrated on admission * follow trend of H/H Will continue to follow. Subjective Date/time seen: 02/07/25 11:03 Interval history: Follow-up on acute on chronic hyponatremia. Received another infusion of 3% saline yesterday evening due to ongoing lack of improvement in serum sodium level; sodium level this morning has improved with this intervention; no other issues or events overnight or earlier this morning. Exam Narrative: General: elderly but WD/WN female in NAD Heart: normal S1 and S2; no rub Lungs: clear to auscultation Abdomen: soft, nontender, nondistended, positive bowel sounds Extremities: no cyanosis or clubbing; no edema Skin: warm and intact Objective Data Vital Signs Vital Signs: Vital Signs Temp Pulse Resp BP Pulse Ox O2 Del Method 02/07/25 10:17 97.2 F L 56 L 16 151/62 H 100 02/07/25 08:33 61 02/07/25 08:00 Room Air 02/07/25 05:43 98.0 F 61 16 136/60 99 02/06/25 21:00 Room Air 02/06/25 21:00 65 02/06/25 20:00 98.1 F 63 16 144/69 H 100 Intake/Output Intake/Output: Intake & Output 02/04/25 02/05/25 02/06/25 02/07/25 23:59 23:59 23:59 23:59 Intake Total 410 654 556 170 Balance 410 654 556 170 Meds/Results Medications: Active Medications Generic Name Dose Route Start Last Admin Trade Name Freq PRN Reason Stop Dose Admin Acetaminophen 650 mg 01/29/25 18:37 02/06/25 11:28 Acetaminophen 325 Mg Tablet PO 650 mg Q4H PRN Administration Mild Pain (1-3) or Fever Atorvastatin Calcium 10 mg 01/30/25 09:00 02/06/25 08:16 Atorvastatin 10 Mg Tablet PO 10 mg [id number] THEE Administration Citalopram Hydrobromide 40 mg 01/30/25 09:00 01/31/25 08:13 Citalopram Hydrobromide 20 Mg Tablet PO 40 mg DAILY THEE Administration Clonazepam 0.5 mg 01/31/25 22:35 02/07/25 12:49 Clonazepam (*Crx) 0.5 Mg Tablet PO 0.5 mg QID PRN Administration anxiety/agitation Enoxaparin Sodium 40 mg 01/30/25 09:00 02/07/25 08:32 Enoxaparin 40 Mg/0.4 Ml Syringe SUB-Q 40 mg DAILY THEE Administration Furosemide 10 mg 02/07/25 17:00 02/07/25 17:38 Furosemide 10 Mg Tablet PO 10 mg TID THEE Administration Meclizine HCl 25 mg 01/29/25 22:55 02/07/25 12:49 Meclizine Hcl 25 Mg Tablet PO 25 mg TID PRN Administration dizziness Memantine 10 mg 02/06/25 09:00 02/07/25 08:33 Memantine 10 Mg Tablet PO 10 mg QAM THEE Administration Metoprolol Tartrate 25 mg 02/04/25 15:20 02/07/25 08:33 Metoprolol Tartrate 25 Mg Tablet PO 25 mg Q12HR THEE Administration Ondansetron HCl 4 mg 01/29/25 18:37 02/07/25 08:57 Ondansetron Inj 4 Mg/2 Ml Vial IV PUSH 4 mg Q4H PRN Administration Nausea Potassium Chloride 20 meq 02/01/25 09:00 02/07/25 17:38 Potassium Chloride 20 Meq Er Tablet PO 20 meq BID THEE Administration Sodium Chloride 1 gm 02/07/25 17:00 02/07/25 17:38 Sodium Chloride 1 Gm Tablet PO 1 gm TID THEE Administration Radiology Results: ITS Impressions Chest X-Ray 01/29/25 15:37 IMPRESSION: No focal infiltrate or effusion. Head CT 01/29/25 15:57 Impression: No acute intracranial hemorrhage or suspicious mass effect. Cervical Spine CT 01/29/25 16:07 Impression: Straightening and slight reversal of the normal curvature of the cervical spine, likely muscular in origin. No acute fracture. Chest/Abdomen/Pelvis CTA 01/29/25 17:24 IMPRESSION: No pulmonary embolus. No aortic dissection. The lungs are clear. Fecal stasis distending the rectum. Foot X-Ray 01/30/25 08:38 IMPRESSION: Comminuted fracture of the distal margin of the proximal phalanx, as detailed above. Abdomen X-Ray 02/06/25 08:56 IMPRESSION: Distended small bowel within the mid abdomen with mural thickening. Air within the rectum, an interval change from recent CT examination. Labs Labs: Laboratory Results - last 24 hr 02/07/25 05:57 WBC 13.1 H Hgb 11.9 L Hct 35.0 L Plt Count 315 Sodium 126 L Potassium 3.3 L Chloride 99 Carbon Dioxide 23 Anion Gap 4 BUN 9 Creatinine 0.41 L Estim Creat Clear Calc 95 Estimated GFR > 60 Glucose 99 Calcium 8.3 L Phosphorus 3.3 Magnesium 1.7 Albumin 3.0 L
[2025-02-07 13:09] LABS: Sodium 128 mmol/L (137-145)
[2025-02-07 14:17] VITALS: BP 151/62; PULSE 56; RESP 16; TEMP 36.2; O2SAT 100
[2025-02-07 14:25] VITALS: BP 114/54
--- NOTE | 2025-02-07 17:20 | P.PNIM_ITS ---
Progress Note: A&P Assessment and Plan (1) Fall: Code(s): W19.XXXA - Unspecified fall, initial encounter Status: Acute Assessment and Plan: PT OT evaluate and treat CT head, C-spine, chest abdomen pelvis without acute injury X-ray left foot pending, showed Comminuted fracture of the distal margin of the proximal phalanx, consult ortho Fall precautions (2) Generalized weakness: Code(s): R53.1 - Weakness Status: Acute Assessment and Plan: To be multifactorial diarrhea, deconditioning, infective, electrolyte imbalance PT OT Replace lytes as stated C diff pending (3) Hypomagnesemia: Code(s): E83.42 - Hypomagnesemia Status: Acute Assessment and Plan: Mag 1.2, replete 4G IV Today --repeat in AM (4) Hyponatremia: Code(s): E87.1 - Hypo-osmolality and hyponatremia Status: Acute Assessment and Plan: IVF for hydration Potassium 2.3, 40 PO & IV Repeat potassium this afternoon and additional potassium if needed Patient is on Lasix currently holding due to acute dehydration Monitor on tele (5) Diarrhea: Code(s): R19.7 - Diarrhea, unspecified Status: Acute Assessment and Plan: Likely cause of electrolyte imbalance and weakness. Now seems resolved CT abd/pelvis showed fecal stasis distending the rectum, could have overflow diarrhea. Patient declined enema, will need to monitor C diff pending (6) Hypercholesterolemia: Code(s): E78.00 - Pure hypercholesterolemia, unspecified Status: Acute Assessment and Plan: Continue statin (7) HTN (hypertension): Code(s): I10 - Essential (primary) hypertension Status: Chronic Assessment and Plan: Continue losartan (8) Cognitive and behavioral changes: Code(s): R41.89 - Other symptoms and signs involving cognitive functions and awareness; R46.89 - Other symptoms and signs involving appearance and behavior Status: Acute Assessment and Plan: TSH normal Check B12 Plan Patient presented with generalized weakness status post fall and fracture of the left foot patient was seen by orthopedic and recommended conservative management, patient also has hyponatremia hypomagnesemia hypercalcemia patient has history of alcohol not forthcoming alcohol drinks can lead to derangement of electrolytes, also patient is on SSRI which can also lower her sodium, she was taking furesomide prior to coming which can lower the sodium, discuss with Dr. Johnson so far the workup in normal, patient is gently hydrate and been monitor and supplement, patient is seen by the deckhand crab boat and sodium and electrolytes are being corrected, patient is being treated with salt tabs, also patient is taking Namenda this will reduce sodium levels, discuss with the deckhand crab boat, will reduce Namenda 10mg bid to qd, today patient is complaining constipation and bloating KUB showed lot of intestinal gas, will give Dulcolax supp. today patient sodium is 126 did communicated with the deckhand crab boat, will monitor. patient daughter is present in the room and gave updates. will continue to monitor. on 02/03 patient requested to be transferred to [facility] in [place] because her primary care provider is at the hospital, I called Dr. Nancy Stauffer [phone] front office spec did respond and transfer the call to the doctor, but the doctor did not respond, held the phone which automatically transferred to the hospital, the matcher operator transferred the call to the doctor but the did not respond DVT prophylaxis on Sq Lovenox PT/OT for dsicharge planning Subjective Date/time seen: 02/07/25 17:20 Interval history: More forgetful recently per family at bedside Needing a lot of assistance, and has had multiple falls at home per family at bedside, over 12. Interested in short term SNF or rehab Sodium 121 on 02/07 126 Patient presented with generalized weakness status post fall and fracture of the left foot patient was seen by orthopedic and recommended conservative management, patient also has hyponatremia hypomagnesemia hypercalcemia patient has history of alcohol not forthcoming alcohol drinks can lead to derangement of electrolytes, also patient is on SSRI which can also lower her sodium, she was taking furesomide prior to coming which can lower the sodium, discuss with Dr. Johnson so far the workup in normal, patient is gently hydrate and been monitor and supplement, patient is seen by the deckhand crab boat and sodium and electrolytes are being corrected, patient is being treated with salt tabs, also patient is taking Namenda this will reduce sodium levels, discuss with the deckhand crab boat, will reduce Namenda 10mg bid to qd, today patient is complaining constipation and bloating KUB showed lot of intestinal gas, will give Dulcolax supp. today patient sodium is 126 did communicated with the deckhand crab boat, will monitor. patient daughter is present in the room and gave updates. will continue to monitor. on 02/03 patient requested to be transferred to [facility] in [place] because her primary care provider is at the hospital, I called Dr. Nancy Stauffer [phone] front office spec did respond and transfer the call to the doctor, but the doctor did not respond, held the phone which automatically transferred to the hospital, the matcher operator transferred the call to the doctor but the did not respond Review of Systems Review of Systems: 12 systems were reviewed and are negativ e except for as per HPI. Exam Narrative: Patient is comfortable, NAD HEENT: eyes are clear and none icteric LUNGS:CTA HEART: RR S1S2 ABD: BS+, Soft and nontender Lower extremities: no edema SKIN: nonjaundiced Neuro: grossly intact. Objective Data Vital Signs Vital Signs: Vital Signs - 24 hr 02/06/25 20:00 02/06/25 21:00 02/06/25 21:00 Temperature 36.7 C Pulse Rate 63 65 Respiratory Rate 16 Blood Pressure 144/69 H Pulse Oximetry 100 Oxygen Delivery Room Air 02/07/25 05:43 02/07/25 08:00 02/07/25 08:33 Temperature 36.7 C Pulse Rate 61 61 Respiratory Rate 16 Blood Pressure 136/60 Pulse Oximetry 99 Oxygen Delivery Room Air 02/07/25 14:17 02/07/25 14:25 Temperature 36.2 C L Pulse Rate 56 L Respiratory Rate 16 Blood Pressure 151/62 H 114/54 L Pulse Oximetry 100 Oxygen Delivery Intake/Output Intake/Output: Intake & Output 02/04/25 02/05/25 02/06/25 02/07/25 23:59 23:59 23:59 23:59 Intake Total 410 654 556 170 Balance 410 654 556 170 Meds/Results Medications: Active Medications Generic Name Dose Route Start Last Admin Trade Name Freq PRN Reason Stop Dose Admin Acetaminophen 650 mg 01/29/25 18:37 02/06/25 11:28 Acetaminophen 325 Mg Tablet PO 650 mg Q4H PRN Administration Mild Pain (1-3) or Fever Atorvastatin Calcium 10 mg 01/30/25 09:00 02/06/25 08:16 Atorvastatin 10 Mg Tablet PO 10 mg [id number] THEE Administration Citalopram Hydrobromide 40 mg 01/30/25 09:00 01/31/25 08:13 Citalopram Hydrobromide 20 Mg Tablet PO 40 mg DAILY THEE Administration Clonazepam 0.5 mg 01/31/25 22:35 02/07/25 12:49 Clonazepam (*Crx) 0.5 Mg Tablet PO 0.5 mg QID PRN Administration anxiety/agitation Enoxaparin Sodium 40 mg 01/30/25 09:00 02/07/25 08:32 Enoxaparin 40 Mg/0.4 Ml Syringe SUB-Q 40 mg DAILY THEE Administration Furosemide 10 mg 02/07/25 17:00 Furosemide 10 Mg Tablet PO TID THEE Meclizine HCl 25 mg 01/29/25 22:55 02/07/25 12:49 Meclizine Hcl 25 Mg Tablet PO 25 mg TID PRN Administration dizziness Memantine 10 mg 02/06/25 09:00 02/07/25 08:33 Memantine 10 Mg Tablet PO 10 mg QAM THEE Administration Metoprolol Tartrate 25 mg 02/04/25 15:20 02/07/25 08:33 Metoprolol Tartrate 25 Mg Tablet PO 25 mg Q12HR THEE Administration Ondansetron HCl 4 mg 01/29/25 18:37 02/07/25 08:57 Ondansetron Inj 4 Mg/2 Ml Vial IV PUSH 4 mg Q4H PRN Administration Nausea Potassium Chloride 20 meq 02/01/25 09:00 02/07/25 08:33 Potassium Chloride 20 Meq Er Tablet PO 20 meq BID THEE Administration Sodium Chloride 1 gm 02/07/25 17:00 Sodium Chloride 1 Gm Tablet PO TID [facility] Radiology Results: ITS Impressions Chest X-Ray 01/29/25 15:37 IMPRESSION: No focal infiltrate or effusion. Head CT 01/29/25 15:57 Impression: No acute intracranial hemorrhage or suspicious mass effect. Cervical Spine CT 01/29/25 16:07 Impression: Straightening and slight reversal of the normal curvature of the cervical spine, likely muscular in origin. No acute fracture. Chest/Abdomen/Pelvis CTA 01/29/25 17:24 IMPRESSION: No pulmonary embolus. No aortic dissection. The lungs are clear. Fecal stasis distending the rectum. Foot X-Ray 01/30/25 08:38 IMPRESSION: Comminuted fracture of the distal margin of the proximal phalanx, as detailed above. Abdomen X-Ray 02/06/25 08:56 IMPRESSION: Distended small bowel within the mid abdomen with mural thickening. Air within the rectum, an interval change from recent CT examination. Labs Labs: Laboratory Results - last 24 hr 02/02/25 02/06/25 02/07/25 03:45 20:18 05:57 WBC 13.1 H RBC 3.62 L Hgb 11.9 L Hct 35.0 L MCV 96.7 MCH 32.9 MCHC 34.0 RDW 13.2 Plt Count 315 MPV 9.0 Sodium 121 L 126 L Potassium 3.3 L Chloride 99 Carbon Dioxide 23 Anion Gap 4 BUN 9 Creatinine 0.41 L Estim Creat Clear Calc 95 Estimated GFR > 60 Glucose 99 Calcium 8.3 L Phosphorus 3.3 Magnesium 1.7 Albumin 3.0 L [place]/Lambda Ratio 1.20 Free [place] Light Chains 11.5 Free Lambda Light Chain 9.6 02/07/25 12:56 WBC RBC Hgb Hct MCV MCH MCHC RDW Plt Count MPV Sodium 128 L Potassium Chloride Carbon Dioxide Anion Gap BUN Creatinine Estim Creat Clear Calc Estimated GFR Glucose Calcium Phosphorus Magnesium Albumin [place]/Lambda Ratio Free [place] Light Chains Free Lambda Light Chain Quality VTE Prophylaxis VTE prophylaxis: mechanical ordered and pharmacologic ordered
[2025-02-07] MEDS: SODIUM CHLORIDE 1 GM TABLET PO (17:38)
[2025-02-07] MEDS: FUROSEMIDE 10 MG TABLET PO (17:38)
[2025-02-07 20:03] LABS: Abnormal Protein Band 1 0.1 g/dL (NONE DETECTED); Albumin 2.7 g/dL (3.8-4.8); Alpha 1 Globulin 0.4 g/dL (0.2-0.3); Alpha 2 Globulin 0.7 g/dL (0.5-0.9); Beta 1 Globulin 0.4 g/dL (0.4-0.6); Gamma Globulin 0.6 g/dL (0.8-1.7)
[2025-02-07 20:43] VITALS: PULSE 68
[2025-02-07 20:55] VITALS: BP 119/59; PULSE 63; RESP 18; TEMP 36.3; O2SAT 99
[2025-02-08 05:47] VITALS: BP 148/60; PULSE 98; RESP 18; TEMP 36.4; O2SAT 98
[2025-02-08 06:49] LABS: Hematocrit 37.6 % (37.0-47.0); Hemoglobin 12.5 g/dL (12.0-15.0); Mean Corpuscular HGB Conc 33.2 g/dl (32-36); Mean Corpuscular Hemoglobin 32.6 pg (26-34); Mean Corpuscular Volume 98.2 fl (80-100); Mean Platelet Volume 8.9 fl (7.4-10.4); Platelet Count Result 327 k/mm3 (150-375); Red Blood Count 3.83 M/mm3 (4.2-5.4); Red Cell Distribution Width 13.5 % (11.5-14.5); White Blood Count 13.6 K/mm3 (4.5-10.0)
[2025-02-08 07:01] LABS: Albumin Level 3.1 g/dL (3.5-5.1); Anion Gap 7 mmol/L (4-12); Blood Urea Nitrogen 8 mg/dL (7-17); Calcium 8.7 mg/dL (8.4-10.2); Carbon Dioxide 25 mmol/L (22-30); Chloride 95 mmol/L (98-107); Estimated CRCL calculation 91 ml/min; Estimated Glomerular Filt Rate > 60; Glucose 93 mg/dL (65-110); Magnesium 1.7 mg/dL (1.6-2.3); Phosphorus 3.2 mg/dL (2.5-4.5); Potassium 3.4 mmol/L (3.4-5.0); Sodium 127 mmol/L (137-145)
[2025-02-08 09:02] VITALS: PULSE 98
[2025-02-08] MEDS: MEMANTINE 10 MG TABLET PO (09:02)
[2025-02-08] MEDS: FUROSEMIDE 10 MG TABLET PO (09:02)
[2025-02-08] MEDS: SODIUM CHLORIDE 1 GM TABLET PO (09:02)
[2025-02-08] MEDS: METOPROLOL TARTRATE 25 MG TABLET PO ×2 (09:02→21:48)
[2025-02-08] MEDS: clonazePAM (*CRX) 0.5 MG TABLET PO ×3 (09:03→23:45)
[2025-02-08] MEDS: POTASSIUM CHLORIDE 20 MEQ ER TABLET PO ×2 (09:03→16:14)
[2025-02-08] MEDS: ENOXAPARIN 40 MG/0.4 ML SYRINGE SUB-Q (09:03)
[2025-02-08] MEDS: ATORVASTATIN 10 MG TABLET PO (09:06)
[2025-02-08] MEDS: SODIUM CHLORIDE 1 GM TABLET 2 GM PO ×2 (12:12→16:14)
[2025-02-08] MEDS: FUROSEMIDE 20 MG TABLET PO ×2 (12:12→16:15)
[2025-02-08] MEDS: PANTOPRAZOLE SODIUM IV 40 MG VIAL IV PUSH (12:12)
[2025-02-08 14:00] VITALS: BP 123/57; PULSE 53; RESP 18; TEMP 35.8; O2SAT 100
--- NOTE | 2025-02-08 14:13 | P.PNNP_ITS ---
Progress Note: A&P Assessment and Plan (1) Hyponatremia: Code(s): E87.1 - Hypo-osmolality and hyponatremia Status: Acute Assessment and Plan: * improvement noted in the last 24 - 48 hours * has had issues with this in the past * on and off low sodium levels since 2016... * previous evaluation (done in 2016) was negative and sodium normalized with apparently just fluid restriction * risk factors for low sodium: * SSRI use (citalopram) * namenda and clonazepam could be contributing * excessive free water intake(?) * smoking history * other(?) * evaluation to date noted * urine sodium elevated (but was on lasix prior to admission) * urine osmolality (354) > serum osmolality (262) * urine electrolytes non-prerenal * TSH okay * cortisol reasonable * CT of head negative * CT of chest without lung pathology * no evidence of malignancy by CT chest/abdomen/pelvis * SPE/UPE pending * on fluid restriction - on 1200cc/day * holding potential medication that could be contributing: * SSRI * namenda * consider holding clonazepam as well.... * on salt tablets and low dose lasix * on TID dosing * s/p 3% saline x 4 (last infusion on evening of 02/06) * follow trend of repeat sodium levels (2) Frequent falls: Code(s): R29.6 - Repeated falls Status: Acute Assessment and Plan: * as noted by history * CT imaging noted * PT/OT * fall precautions (3) Generalized weakness: Code(s): R53.1 - Weakness Status: Acute Assessment and Plan: * suspect multifactorial: * deconditioning * diarrhea * anemia(?) * hyponatremia(?) * other(?) * electrolyte optimization * PT/OT as tolerated (4) Fracture of toe of left foot: Qualifiers: Encounter type: initial encounter Fracture alignment: displaced F racture type: closed Phalanx: proximal Toe: lesser toe Qualified Code(s): S 92.512A - Displaced fracture of proximal phalanx of left lesser toe(s), initial encounter for closed fracture Code(s): S92.912A - Unspecified fracture of left toe(s), initial encounter for closed fracture Status: Acute Assessment and Plan: * as noted by admission imaging * Orthopedic Surgery recommendations noted: * weight bearing as tolerated * elevation and ice pack * pain control * continue supportive therapy (5) HTN (hypertension): Code(s): I10 - Essential (primary) hypertension Status: Chronic Assessment and Plan: * elevated at times * not currently on any medications * metoprolol recently added * titrate as needed * follow trend of hemodynamics (6) Anemia: Code(s): D64.9 - Anemia, unspecified Status: Acute Assessment and Plan: * dilutional from previous IVFs * possibly hemoconcentrated on admission * follow trend of H/H Will continue to follow. L Subjective Date/time seen: 02/08/25 14:13 Interval history: Follow-up on acute on chronic hyponatremia. Sodium remains relatively stable if not improved at this time; no apparent distress voiced at the time of my visit; no other issues/events overnight or earlier this morning; no other acute complaints noted when seen. Exam 2 Narrative: General: elderly but WD/WN female in NAD Heart: normal S1 and S2; no rub Lungs: clear to auscultation Abdomen: soft, nontender, nondistended, positive bowel sounds Extremities: no cyanosis or clubbing; no edema Skin: no rash Objective Data Vital Signs Vital Signs: Vital Signs Temp Pulse Resp BP Pulse Ox O2 Del Method 02/08/25 14:00 96.5 F L 53 L 18 123/57 L 100 02/08/25 09:02 98 02/08/25 08:00 Room Air 02/08/25 05:47 97.6 F 98 18 148/60 H 98 02/07/25 20:55 97.4 F L 63 18 119/59 L 99 02/07/25 20:43 68 Intake/Output Intake/Output: Intake & Output 02/05/25 02/06/25 02/07/25 02/08/25 23:59 23:59 23:59 23:59 Intake Total 654 556 390 480 Balance 654 556 390 480 Meds/Results Medications: Active Medications Generic Name Dose Route Start Last Admin Trade Name Freq PRN Reason Stop Dose Admin Acetaminophen 650 mg 01/29/25 18:37 02/06/25 11:28 Acetaminophen 325 Mg Tablet PO 650 mg Q4H PRN Administration Mild Pain (1-3) or Fever Atorvastatin Calcium 10 mg 01/30/25 09:00 02/08/25 09:06 Atorvastatin 10 Mg Tablet PO 10 mg [id number] THEE Administration Citalopram Hydrobromide 40 mg 01/30/25 09:00 01/31/25 08:13 Citalopram Hydrobromide 20 Mg Tablet PO 40 mg DAILY THEE Administration Clonazepam 0.5 mg 01/31/25 22:35 02/08/25 12:16 Clonazepam (*Crx) 0.5 Mg Tablet PO 0.5 mg QID PRN Administration anxiety/agitation Enoxaparin Sodium 40 mg 01/30/25 09:00 02/08/25 09:03 Enoxaparin 40 Mg/0.4 Ml Syringe SUB-Q 40 mg DAILY THEE Administration Furosemide 20 mg 02/08/25 13:00 02/08/25 16:15 Furosemide 20 Mg Tablet PO 20 mg TID THEE Administration Meclizine HCl 25 mg 01/29/25 22:55 02/07/25 12:49 Meclizine Hcl 25 Mg Tablet PO 25 mg TID PRN Administration dizziness Memantine 10 mg 02/06/25 09:00 02/08/25 09:02 Memantine 10 Mg Tablet PO 10 mg QAM THEE Administration Metoprolol Tartrate 25 mg 02/04/25 15:20 02/08/25 09:02 Metoprolol Tartrate 25 Mg Tablet PO 25 mg Q12HR THEE Administration Ondansetron HCl 4 mg 01/29/25 18:37 02/07/25 08:57 Ondansetron Inj 4 Mg/2 Ml Vial IV PUSH 4 mg Q4H PRN Administration Nausea Pantoprazole Sodium 40 mg 02/08/25 11:50 02/08/25 12:12 Pantoprazole Sodium Iv 40 Mg Vial IV PUSH 40 mg QAM THEE Administration Potassium Chloride 20 meq 02/01/25 09:00 02/08/25 16:14 Potassium Chloride 20 Meq Er Tablet PO 20 meq BID THEE Administration Sodium Chloride 2 gm 02/08/25 13:00 02/08/25 16:14 Sodium Chloride 1 Gm Tablet PO 2 gm TID THEE Administration Radiology Results: ITS Impressions Chest X-Ray 01/29/25 15:37 IMPRESSION: No focal infiltrate or effusion. Head CT 01/29/25 15:57 Impression: No acute intracranial hemorrhage or suspicious mass effect. Cervical Spine CT 01/29/25 16:07 Impression: Straightening and slight reversal of the normal curvature of the cervical spine, likely muscular in origin. No acute fracture. Chest/Abdomen/Pelvis CTA 01/29/25 17:24 IMPRESSION: No pulmonary embolus. No aortic dissection. The lungs are clear. Fecal stasis distending the rectum. Foot X-Ray 01/30/25 08:38 IMPRESSION: Comminuted fracture of the distal margin of the proximal phalanx, as detailed above. Abdomen X-Ray 02/06/25 08:56 IMPRESSION: Distended small bowel within the mid abdomen with mural thickening. Air within the rectum, an interval change from recent CT examination. Labs Labs: Laboratory Tests 02/08/25 06:23 02/08/25 06:23 Calcium 8.7 Phosphorus 3.2 Magnesium 1.7 Albumin 3.1 L
--- NOTE | 2025-02-08 17:21 | P.PNIM_ITS ---
Progress Note: A&P Assessment and Plan (1) Fall: Code(s): W19.XXXA - Unspecified fall, initial encounter Status: Acute Assessment and Plan: PT OT evaluate and treat CT head, C-spine, chest abdomen pelvis without acute injury X-ray left foot pending, showed Comminuted fracture of the distal margin of the proximal phalanx, consult ortho Fall precautions (2) Generalized weakness: Code(s): R53.1 - Weakness Status: Acute Assessment and Plan: To be multifactorial diarrhea, deconditioning, infective, electrolyte imbalance PT OT Replace lytes as stated C diff pending (3) Hypomagnesemia: Code(s): E83.42 - Hypomagnesemia Status: Acute Assessment and Plan: Mag 1.2, replete 4G IV Today --repeat in AM (4) Hyponatremia: Code(s): E87.1 - Hypo-osmolality and hyponatremia Status: Acute Assessment and Plan: IVF for hydration Potassium 2.3, 40 PO & IV Repeat potassium this afternoon and additional potassium if needed Patient is on Lasix currently holding due to acute dehydration Monitor on tele (5) Diarrhea: Code(s): R19.7 - Diarrhea, unspecified Status: Acute Assessment and Plan: Likely cause of electrolyte imbalance and weakness. Now seems resolved CT abd/pelvis showed fecal stasis distending the rectum, could have overflow diarrhea. Patient declined enema, will need to monitor C diff pending (6) Hypercholesterolemia: Code(s): E78.00 - Pure hypercholesterolemia, unspecified Status: Acute Assessment and Plan: Continue statin (7) HTN (hypertension): Code(s): I10 - Essential (primary) hypertension Status: Chronic Assessment and Plan: Continue losartan (8) Cognitive and behavioral changes: Code(s): R41.89 - Other symptoms and signs involving cognitive functions and awareness; R46.89 - Other symptoms and signs involving appearance and behavior Status: Acute Assessment and Plan: TSH normal Check B12 Plan Patient presented with generalized weakness status post fall and fracture of the left foot patient was seen by orthopedic and recommended conservative management, patient also has hyponatremia hypomagnesemia hypercalcemia patient has history of alcohol not forthcoming alcohol drinks can lead to derangement of electrolytes, also patient is on SSRI which can also lower her sodium, she was taking furesomide prior to coming which can lower the sodium, discuss with Dr. Johnson so far the workup in normal, patient is gently hydrate and been monitor and supplement, patient is seen by the counting machine operator and sodium and electrolytes are being corrected, patient is being treated with salt tabs, also patient is taking Namenda this will reduce sodium levels, discuss with the counting machine operator, will reduce Namenda 10mg bid to qd, today patient is complaining constipation and bloating KUB showed lot of intestinal gas, will give Dulcolax supp. today patient sodium is 127 did communicated with the counting machine operator, will monitor. no family member is present. patient is clinically stable will monitor. on 02/03 patient requested to be transferred to [facility] in [place] because her primary care provider is at the hospital, I called Dr. Nancy Stauffer [phone] front office medical assistant did respond and transfer the call to the doctor, but the doctor did not respond, held the phone which automatically transferred to the hospital, the optical lathe operator transferred the call to the doctor but the did not respond DVT prophylaxis on Sq Lovenox PT/OT for dsicharge planning Subjective Date/time seen: 02/08/25 17:21 Interval history: More forgetful recently per family at bedside Needing a lot of assistance, and has had multiple falls at home per family at bedside, over 12. Interested in short term SNF or rehab Sodium 121 on 02/07 126 Patient presented with generalized weakness status post fall and fracture of the left foot patient was seen by orthopedic and recommended conservative management, patient also has hyponatremia hypomagnesemia hypercalcemia patient has history of alcohol not forthcoming alcohol drinks can lead to derangement of electrolytes, also patient is on SSRI which can also lower her sodium, she was taking furesomide prior to coming which can lower the sodium, discuss with Dr. Johnson so far the workup in normal, patient is gently hydrate and been monitor and supplement, patient is seen by the counting machine operator and sodium and electrolytes are being corrected, patient is being treated with salt tabs, also patient is taking Namenda this will reduce sodium levels, discuss with the counting machine operator, will reduce Namenda 10mg bid to qd, today patient is complaining constipation and bloating KUB showed lot of intestinal gas, will give Dulcolax supp. today patient sodium is 127 did communicated with the counting machine operator, will monitor. no family member is present. patient is clinically stable will monitor. on 02/03 patient requested to be transferred to [facility] in [place] because her primary care provider is at the hospital, I called Dr. Nancy Stauffer [phone] front office medical assistant did respond and transfer the call to the doctor, but the doctor did not respond, held the phone which automatically transferred to the hospital, the optical lathe operator transferred the call to the doctor but the did not respond Review of Systems Review of Systems: 12 systems were reviewed and are negativ e except for as per HPI. Exam Narrative: Patient is comfortable, NAD HEENT: eyes are clear and none icteric LUNGS:CTA HEART: RR S1S2 ABD: BS+, Soft and nontender Lower extremities: no edema SKIN: nonjaundiced Neuro: grossly intact. Objective Data Vital Signs Vital Signs: Vital Signs - 24 hr 02/07/25 20:43 02/07/25 20:55 02/08/25 05:47 Temperature 36.3 C L 36.4 C Pulse Rate 68 63 98 Respiratory Rate 18 18 Blood Pressure 119/59 L 148/60 H Pulse Oximetry 99 98 Oxygen Delivery 02/08/25 08:00 02/08/25 09:02 02/08/25 14:00 Temperature 35.8 C L Pulse Rate 98 53 L Respiratory Rate 18 Blood Pressure 123/57 L Pulse Oximetry 100 Oxygen Delivery Room Air Intake/Output Intake/Output: Intake & Output 02/05/25 02/06/25 02/07/25 02/08/25 23:59 23:59 23:59 23:59 Intake Total 654 556 390 480 Balance 654 556 390 480 Meds/Results Medications: Active Medications Generic Name Dose Route Start Last Admin Trade Name Freq PRN Reason Stop Dose Admin Acetaminophen 650 mg 01/29/25 18:37 02/06/25 11:28 Acetaminophen 325 Mg Tablet PO 650 mg Q4H PRN Administration Mild Pain (1-3) or Fever Atorvastatin Calcium 10 mg 01/30/25 09:00 02/08/25 09:06 Atorvastatin 10 Mg Tablet PO 10 mg [id number] THEE Administration Citalopram Hydrobromide 40 mg 01/30/25 09:00 01/31/25 08:13 Citalopram Hydrobromide 20 Mg Tablet PO 40 mg DAILY THEE Administration Clonazepam 0.5 mg 01/31/25 22:35 02/08/25 12:16 Clonazepam (*Crx) 0.5 Mg Tablet PO 0.5 mg QID PRN Administration anxiety/agitation Enoxaparin Sodium 40 mg 01/30/25 09:00 02/08/25 09:03 Enoxaparin 40 Mg/0.4 Ml Syringe SUB-Q 40 mg DAILY THEE Administration Furosemide 20 mg 02/08/25 13:00 02/08/25 16:15 Furosemide 20 Mg Tablet PO 20 mg TID THEE Administration Meclizine HCl 25 mg 01/29/25 22:55 02/07/25 12:49 Meclizine Hcl 25 Mg Tablet PO 25 mg TID PRN Administration dizziness Memantine 10 mg 02/06/25 09:00 02/08/25 09:02 Memantine 10 Mg Tablet PO 10 mg QAM THEE Administration Metoprolol Tartrate 25 mg 02/04/25 15:20 02/08/25 09:02 Metoprolol Tartrate 25 Mg Tablet PO 25 mg Q12HR THEE Administration Ondansetron HCl 4 mg 01/29/25 18:37 02/07/25 08:57 Ondansetron Inj 4 Mg/2 Ml Vial IV PUSH 4 mg Q4H PRN Administration Nausea Pantoprazole Sodium 40 mg 02/08/25 11:50 02/08/25 12:12 Pantoprazole Sodium Iv 40 Mg Vial IV PUSH 40 mg QAM THEE Administration Potassium Chloride 20 meq 02/01/25 09:00 02/08/25 16:14 Potassium Chloride 20 Meq Er Tablet PO 20 meq BID THEE Administration Sodium Chloride 2 gm 02/08/25 13:00 02/08/25 16:14 Sodium Chloride 1 Gm Tablet PO 2 gm TID THEE Administration Radiology Results: ITS Impressions Chest X-Ray 01/29/25 15:37 IMPRESSION: No focal infiltrate or effusion. Head CT 01/29/25 15:57 Impression: No acute intracranial hemorrhage or suspicious mass effect. Cervical Spine CT 01/29/25 16:07 Impression: Straightening and slight reversal of the normal curvature of the cervical spine, likely muscular in origin. No acute fracture. Chest/Abdomen/Pelvis CTA 01/29/25 17:24 IMPRESSION: No pulmonary embolus. No aortic dissection. The lungs are clear. Fecal stasis distending the rectum. Foot X-Ray 01/30/25 08:38 IMPRESSION: Comminuted fracture of the distal margin of the proximal phalanx, as detailed above. Abdomen X-Ray 02/06/25 08:56 IMPRESSION: Distended small bowel within the mid abdomen with mural thickening. Air within the rectum, an interval change from recent CT examination. Labs Labs: Laboratory Results - last 24 hr 02/01/25 02/02/25 02/08/25 21:27 03:45 06:23 WBC 13.6 H RBC 3.83 L Hgb 12.5 Hct 37.6 MCV 98.2 MCH 32.6 MCHC 33.2 RDW 13.5 Plt Count 327 MPV 8.9 Sodium 127 L Potassium 3.4 Chloride 95 L Carbon Dioxide 25 Anion Gap 7 BUN 8 Creatinine 0.43 L Estim Creat Clear Calc 91 Estimated GFR > 60 Glucose 93 Calcium 8.7 Phosphorus 3.2 Magnesium 1.7 Albumin 2.7 L 3.1 L Ryzeo-0-Upqxpxltv 0.4 H Beqly-2-Htgyjavtm 0.7 Rhwc-5-Lktagktz 0.4 Pyyh-6-Puozjego 0.3 Gamma Globulins 0.6 L Abnorm Protein Band 1 0.1 H PEP Interpretation See note Urine Albumin 100 U Daqbg-9-Oxhfpfdc 0 U Floij-1-Quaginft 0 U Beta Globulin 0 U Gamma Globulin 0 Urine PEP Interpret See note Quality VTE Prophylaxis VTE prophylaxis: mechanical ordered and pharmacologic ordered
[2025-02-08 18:22] LABS: Sodium 127 mmol/L (137-145)
[2025-02-08 20:00] VITALS: PULSE 122; RESP 18; O2SAT 98
[2025-02-08 21:38] VITALS: BP 115/57; PULSE 122; RESP 18; TEMP 36.3; O2SAT 98
[2025-02-08 21:48] VITALS: PULSE 122
[2025-02-09 05:23] VITALS: BP 143/54; PULSE 60; RESP 16; TEMP 35.9; O2SAT 99
[2025-02-09 06:50] LABS: Hematocrit 37.5 % (37.0-47.0); Hemoglobin 12.8 g/dL (12.0-15.0); Mean Corpuscular HGB Conc 34.1 g/dl (32-36); Mean Corpuscular Volume 96.6 fl (80-100); Mean Platelet Volume 8.7 fl (7.4-10.4); Platelet Count Result 351 k/mm3 (150-375); Red Blood Count 3.88 M/mm3 (4.2-5.4); Red Cell Distribution Width 13.4 % (11.5-14.5); White Blood Count 13.7 K/mm3 (4.5-10.0)
[2025-02-09 07:00] LABS: Albumin Level 3.2 g/dL (3.5-5.1); Anion Gap 6 mmol/L (4-12); Blood Urea Nitrogen 7 mg/dL (7-17); Carbon Dioxide 27 mmol/L (22-30); Chloride 96 mmol/L (98-107); Estimated CRCL calculation 83 ml/min; Estimated Glomerular Filt Rate > 60; Glucose 102 mg/dL (65-110); Phosphorus 3.4 mg/dL (2.5-4.5); Potassium 3.5 mmol/L (3.4-5.0); Sodium 129 mmol/L (137-145)
[2025-02-09 07:04] LABS: Magnesium 1.6 mg/dL (1.6-2.3)
[2025-02-09] MEDS: PANTOPRAZOLE SODIUM IV 40 MG VIAL IV PUSH (09:39)
[2025-02-09] MEDS: ENOXAPARIN 40 MG/0.4 ML SYRINGE SUB-Q (09:39)
[2025-02-09] MEDS: SODIUM CHLORIDE 1 GM TABLET 2 GM PO (09:40)
[2025-02-09] MEDS: POTASSIUM CHLORIDE 20 MEQ ER TABLET PO (09:40)
[2025-02-09] MEDS: MEMANTINE 10 MG TABLET PO (09:40)
[2025-02-09] MEDS: FUROSEMIDE 20 MG TABLET PO (09:40)
--- NOTE | 2025-02-09 10:11 | P.DS_ITS ---
DS: Admitting Diagnosis Discharge Date 02/09/25 Admitting Diagnosis Fall DS: Discharge Diagnosis Discharge Diagnosis (1) Fall: Code(s): W19.XXXA - Unspecified fall, initial encounter Status: Acute Assessment and Plan: PT OT evaluate and treat CT head, C-spine, chest abdomen pelvis without acute injury X-ray left foot pending, showed Comminuted fracture of the distal margin of the proximal phalanx, consult ortho Fall precautions (2) Generalized weakness: Code(s): R53.1 - Weakness Status: Acute Assessment and Plan: To be multifactorial diarrhea, deconditioning, infective, electrolyte imbalance PT OT Replace lytes as stated C diff pending (3) Hypomagnesemia: Code(s): E83.42 - Hypomagnesemia Status: Acute Assessment and Plan: Mag 1.2, replete 4G IV Today --repeat in AM (4) Hyponatremia: Code(s): E87.1 - Hypo-osmolality and hyponatremia Status: Acute Assessment and Plan: IVF for hydration Potassium 2.3, 40 PO & IV Repeat potassium this afternoon and additional potassium if needed Patient is on Lasix currently holding due to acute dehydration Monitor on tele (5) Diarrhea: Code(s): R19.7 - Diarrhea, unspecified Status: Acute Assessment and Plan: Likely cause of electrolyte imbalance and weakness. Now seems resolved CT abd/pelvis showed fecal stasis distending the rectum, could have overflow diarrhea. Patient declined enema, will need to monitor C diff pending (6) Hypercholesterolemia: Code(s): E78.00 - Pure hypercholesterolemia, unspecified Status: Acute Assessment and Plan: Continue statin (7) HTN (hypertension): Code(s): I10 - Essential (primary) hypertension Status: Chronic Assessment and Plan: Continue losartan (8) Cognitive and behavioral changes: Code(s): R41.89 - Other symptoms and signs involving cognitive functions and awareness; R46.89 - Other symptoms and signs involving appearance and behavior Status: Acute Assessment and Plan: TSH normal Check B12 Plan Patient presented with generalized weakness status post fall and fracture of the left foot patient was seen by orthopedic and recommended conservative management, patient also has hyponatremia hypomagnesemia hypercalcemia patient has history of alcohol not forthcoming alcohol drinks can lead to derangement of electrolytes, also patient is on SSRI which can also lower her sodium, she was taking furesomide prior to coming which can lower the sodium, discuss with Dr. Johnson so far the workup in normal, patient is gently hydrate and been monitor and supplement, patient is seen by the scrub technician and sodium and electrolytes are being corrected, patient is being treated with salt tabs, also patient is taking Namenda this will reduce sodium levels, discuss with the scrub technician, will reduce Namenda 10mg bid to qd, today patient is complaining constipation and bloating KUB showed lot of intestinal gas, will give Dulcolax supp. today patient sodium is 127 did communicated with the scrub technician, will monitor. no family member is present. patient is clinically stable will monitor. on 02/03 patient requested to be transferred to [facility] in [place] because her primary care provider is at the hospital, I called Dr. Nancy Stauffer [phone] front end wheel loader operator did respond and transfer the call to the doctor, but the doctor did not respond, held the phone which automatically transferred to the hospital, the monogram operator transferred the call to the doctor but the did not respond DVT prophylaxis on Sq Lovenox PT/OT for dsicharge planning DS: Summary Hospital Course Hospital Course: Patient presented with generalized weakness status post fall and fracture of the left foot patient was seen by orthopedic and recommended conservative management, patient also has hyponatremia hypomagnesemia hypercalcemia patient has history of alcohol not forthcoming alcohol drinks can lead to derangement of electrolytes, also patient is on SSRI which can also lower her sodium, she was taking furesomide prior to coming which can lower the sodium, discuss with Dr. Johnson so far the workup in normal, patient is gently hydrate and been mo nitor and supplement, patient is seen by the scrub technician and sodium and electrolytes are being corrected, patient is being treated with salt tabs, also patient is taking Namenda this will reduce sodium levels, discuss with the scrub technician, will reduce Namenda 10mg bid to qd, today patient is complaining constipation and bloating KUB showed lot of intestinal gas, will give Dulcolax supp. today patient sodium is 127 did communicated with the scrub technician, will monitor. no family member is present. patient is clinically stable will monitor. today patient sodium is 129, patient is clinically stable, will discharge home today. Time Spent with Patient Time attestation: Total time spent providing and/or coordinating discharge services: Exam Narrative: Patient is comfortable, NAD HEENT: eyes are clear and none icteric LUNGS:CTA HEART: RR S1S2 ABD: BS+, Soft and nontender Lower extremities: no edema SKIN: nonjaundiced Neuro: grossly intact. DS: Data Data Completed and Pending Labs on day of discharge: Labs from last 24 hours 02/09/25 02/08/25 02/01/25 06:33 18:07 21:27 WBC 13.7 H RBC 3.88 L Hgb 12.8 Hct 37.5 MCV 96.6 MCH 33.0 MCHC 34.1 RDW 13.4 Plt Count 351 MPV 8.7 Sodium 129 L 127 L Potassium 3.5 Chloride 96 L Carbon Dioxide 27 Anion Gap 6 BUN 7 Creatinine 0.48 L Estim Creat Clear Calc 83 Estimated GFR > 60 Glucose 102 Calcium 9.0 Phosphorus 3.4 Magnesium 1.6 Albumin 3.2 L Urine Albumin 100 U Onrhu-6-Xppxlmrf 0 U Enhek-0-Nzonfods 0 U Beta Globulin 0 U Gamma Globulin 0 Urine PEP Interpret See note Discharge Plan Discharge Attending physician on discharge: Shawna Cruz Consulting providers: Jewell Villar; Isabel Gutierrez; Elvis Keen; Dean Zmaudio; Allan Rowan; Pilar Wheeler; Natalie Saldivar Discharging Clinician: Ariella Peters Patient Disposition: SNF Activity: may shower and follow weight bearing status Diet: heart healthy Wound Care Instructions: follow printed instructions Discharge Instructions: Orthopedic Recommendations Dr. Elvis Keen/Pilar Wheeler NP [phone] * Post op shoe for ambulation. * Okay to remove for ice/elevation, etc. * Pain control. * Follow up in the outpatient ortho clinic in 3 weeks for repeat XR. * Contac our office for questions/concerns about your foot at [phone]. * * Please check patient sodium levels per your protocols. * Patient to follow up with her primary care provider as soon as possible. Patient Instructions: Hyponatremia (DC), Pain Management (DC) Patient Language: Citizen Of [place] Stand Alone Forms: General Discharge Information, Correction Discharge Follow-up/Referrals: Pilar Wheeler FNP [Advanced Practice Nurse] - 02/24/25 10:15 am (Our office will call you with an appt. ) Discharge Medications: New aripiprazole 5 mg tablet 5 mg PO HS Qty: 30 0RF furosemide 20 mg tablet 20 mg PO BID Qty: 60 0RF memantine [Namenda] 10 mg tablet 10 mg PO QPM 7 Days Qty: 30 0RF metoprolol tartrate 25 mg Tablet 25 mg PO Q12HR Qty: 60 0RF sodium chloride 1,000 mg tablet,soluble 2,000 mg PO BID Qty: 60 0RF Continued atorvastatin 10 mg tablet 10 mg PO 3XW Patient Comments: MON, WED, FRI clonazepam 0.5 mg tablet 0.5 mg PO QID trazodone 100 mg tablet 100 mg PO HS meclizine 25 mg tablet 25 mg PO TID PRN (Reason: dizziness) potassium chloride 20 mEq tablet extended release 20 meq PO BID Held citalopram 40 mg tablet 40 mg PO DAILY Hold Instructions: until seen by primary care provider Discontinued memantine 10 mg tablet 10 mg PO BID Date of admission: 01/30/25 07:37 Primary Care Provider: Jud Admitting Provider: Kings Larsen Attending physician on admission: Shawna Cruz Condition: Stable
[2025-02-09 11:03] VITALS: PULSE 58
== END 2025-02-09 10:55 | DRG 641 ==
LOC: ANHED 15:30 → ANH2MED 20:32 → ANHIMU 02-01 10:29 → ANH3MEDSUR 02-03 08:51 → ANH2MED 02-10 12:06 → ANH3MEDSUR 02-10 12:06 → ANHIMU 02-10 12:06
PROVIDERS: Family Medicine; Internal Medicine; Internal Medicine Nephrology; Nurse Practitioner Gerontology; Admitting Provider Internal Medicine; Emergency Provider Student in an Organized Health Care Education/Training Program; Visit Provider Nurse Practitioner Acute Care
DX: E87.1 Hypo-osmolality and hyponatremia (principal); E86.0 Dehydration; E83.42 Hypomagnesemia; E83.52 Hypercalcemia; E78.00 Pure hypercholesterolemia, unspecified; I10 Essential (primary) hypertension; D64.9 Anemia, unspecified; K52.9 Noninfective gastroenteritis and colitis, unspecified; S92.512A Displaced fracture of proximal phalanx of left lesser toe(s), initial encounter for closed fracture; R41.89 Other symptoms and signs involving cognitive functions and awareness; R29.6 Repeated falls; F17.210 Nicotine dependence, cigarettes, uncomplicated; W06.XXXA Fall from bed, initial encounter; Z20.822 Contact with and (suspected) exposure to COVID-19; Z85.820 Personal history of malignant melanoma of skin
CPT/HCPCS: 36415; 70450; 71045; 71275; 72125; 73620; 74018; 74177; 80048; 80053; 80069; 81001; 81050; 82533; 82550; 82570; 82607; 83735; 83880; 83883; 83930; 83935; 84100; 84155; 84156; 84165; 84166; 84295; 84300; 84439; 84443; 84480; 84484; 84540; 85025; 85027; 85380; 85730; 86334; 86335; 86703; 87637; 93005; 96365; 97110; 97116; 97162; 97166; 97530; 97535; 99285; A9270; G0378; G0432; J1650; J1938; J2405; J2470; J3475; J3480; J7030; J7040; J7050; J7131; Q9967

== ENCOUNTER 2025-03-16 04:23 | Inpatient (IN) | payer MEDICARE, OTHER, SELFPAY ==
[2025-03-16] VITALS (18 sets, daily range): BP systolic 101–207; BP diastolic 60–95; PULSE 85–117; RESP 14–23; TEMP 36.5–36.9; O2SAT 92–97; BMI 27.1
--- NOTE | ~2025-03-16 | XR_ITS ---
Clinical Indication: Dizziness, weakness AP and lateral views of the chest: Comparison: 01/29/2025 Findings: Small right pleural effusion present. Probable minimal right basilar atelectatic change. Le ft lung clear. Cardiomediastinal silhouette is within normal limits. Bones and soft tissues are unre markable. Impression: Small right pleural effusion with probable minimal right basilar atelectatic change. Reviewed, dictated and finalized at location . Impression: Small right pleural effusion with probable minimal right basilar atelectatic ch noah.
--- NOTE | ~2025-03-16 | CT_ITS ---
Clinical Indication: Weakness, status post fall CT Scan of the Chest, Abdomen, and Pelvis with Contrast: Technique: Contiguous sections were acquired throughout the chest, abdomen, and pelvis after intraven ous administration of 100 cc of Omnipaque 350. Dose reduction technique was used on this scan by coco panchal automated exposure control and iterative reconstruction technique. The dose-length product (DL P) was 1035.26 mGy-cm. Comparison: 01/29/2025 Findings: There is no evidence of any significant mediastinal, hilar or axillary lymphadenopathy. The mediastin al soft tissues appear normal. No pulmonary embolus seen. No aortic aneurysm or dissection. There is no evidence of pleural or pericardial effusion. Right basilar atelectatic change present. Left lung clear. Probable diffuse hepatic steatosis. Gallbladder absent. The spleen, pancreas, adrenals and kidneys ar e within normal limits. No evidence of aortic aneurysm. No lymphadenopathy. No bowel obstruction or bowel wall thickening. There is no evidence to suggest acute appendicitis. Urinary bladder is unremarkable. No pelvic mass seen. No ascites. Impression: Right basilar atelectatic change. Diffuse hepatic steatosis. Reviewed, dictated and finalized at location . Impression: Right basilar atelectatic change. Diffuse hepatic steatosis.
--- NOTE | ~2025-03-16 | XR_ITS ---
Left Shoulder Technique: AP and scapular Y views were obtained. Clinical History: Pain Findings: No fracture or dislocation is seen. Osseous alignment is anatomic. The glenohumeral and acr omioclavicular joint spaces are preserved. Soft tissues are unremarkable. Impression: Unremarkable left shoulder radiographs. Reviewed, dictated and finalized at [facility]. Impression: Unremarkable left shoulder radiographs.
--- NOTE | ~2025-03-16 | CT_ITS ---
CT ANGIOGRAM NECK AND HEAD History: Chronic vertigo. Technique: Axial noncontrast imaging of brain was performed. Serial spiral axial images through the h ead and neck were then obtained during arterial phase IV injection of 100 cc of Omnipaque 350. 3-D po stprocessing and MIP images were then reconstructed on the remote workstation. Dose reduction techniq ue was used on this scan by utilizing automated exposure control and iterative reconstruction techniq ue. The dose-length product (DLP) was 1738.61 mGy-cm. CTA neck findings: Bilateral vertebral arteries are patent. There is a probable focal moderate steno sis of the distal right internal carotid artery related to calcified plaque. Bilateral common carotid , internal carotid, and external carotid arteries are patent. No stenosis or occlusion. No aneurysm. The proximal right internal carotid artery demonstrates 0% stenosis relative to the normal distal art tal lumen diameter. The proximal left internal carotid artery demonstrates 0% stenosis relative to th e normal distal artery lumen diameter. CTA head findings: Basilar artery and posterior cerebral arteries are patent. Distal internal carotid arteries, middle cerebral arteries, and anterior cerebral arteries are patent. No large vessel occlu neela or stenosis. No aneurysm. Axial noncontrast imaging of the brain demonstrates no evidence for acute infarct, intracranial hemor rhage, or mass lesion. There are mild chronic microvascular ischemic changes in the periventricular w ailyn matter. No mass effect or midline shift. Ventricles and subarachnoid spaces are unremarkable. Pa ranasal sinuses and mastoid air cells are clear. Calvarium intact. Impression: Focal moderate stenosis of the distal right vertebral artery related to calcified plaque. No other significant findings. Reviewed, dictated and finalized at location . Impression: Focal moderate stenosis of the distal right vertebral artery related to calcifi ed plaque. No other significant findings.
--- NOTE | 2025-03-16 04:30 | ED.WEAKNESS ---
HPI - Weakness General Chief complaint: Weakness Stated complaint: fall, weak, dizzy Time Seen by Provider: 03/16/25 04:28 Source: patient, family and EMS Mode of arrival: EMS History of Present Illness HPI Narrative: Patient presents with report of a fall. She has chronic vertigo she describes frequent spinning sensation for this she sees her neurologist Dr Juan Carlos Espinoza through [facility] in [place] and is on meclizine 50mg AM, 25mg noon, 25mg PM. She is also on memantine memory issues 10mg BID. Patient got up and was walking in the [place] she became too weak and fell on her walker. She denies any injuries. Has had some issues with left shoulder pain. Patient had recently been admitted for very similar and discharged to [facility] for rehabilitiation. She had been doing well and was improving was discharged home on 03/10/2025 and has been reports that she seems to regressed. Patient's states that she has not been eating. She does not have an appetite but is not due to nausea or vomiting. She had been on Remeron but this was discontinued due to side effects. She follows psychiatrist. Not on anticoagulation other than 81 mg aspirin. She has had intermittent diarrhea. Denies any cough, fevers, chills, shortness of breath, chest pain, abdominal pain. No ear pain, tinnitus, hearing changes. Denies being lightheaded. Her dizziness is very much vertiginous as she describes rotational spinning sensation. No loss of consciousness. For EMS, VS 126/60, BS 109, HR 110, 14, 98% RA. Related Data Home Medications ?Medication ?Instructions ?Recorded ?Confirmed ?Last Taken ?Type atorvastatin 10 mg tablet 10 mg PO 3XW 10/05/19 01/29/25 10/13/19 History clonazepam 0.5 mg tablet 0.5 mg PO QID 10/05/19 01/29/25 10/13/19 History citalopram 40 mg tablet 40 mg PO DAILY 01/29/25 01/29/25 Unknown History meclizine 25 mg tablet 25 mg PO TID PRN dizziness 01/29/25 01/29/25 Unknown History trazodone 100 mg tablet 100 mg PO HS 01/29/25 01/29/25 Unknown History potassium chloride 20 mEq 20 meq PO BID 01/30/25 01/30/25 Unknown History tablet,extended release Allergies Allergy/AdvReac Type Severity Reaction Status Date / Time No Known Allergies Allergy Verified 02/24/25 10:05 [facility] Past Medical History Medical History (Updated 03/16/25 @ 08:32 by Татьяна Hancock MD) Chronic vertigo Melanoma of upper limb Fracture of toe of left foot Obesity Melanoma HTN (hypertension) Hypercholesterolemia Family History Family History Father Family history of malignant neoplasm Mother Family history of diabetes mellitus in first degree relative Family history of coronary artery disease Social History Social History (Updated 03/16/25 @ 08:27 by Татьяна Hancock MD) Social History: Smoking packs per day: 1 Smoking cigarettes per day: 20.0 Smoking status: Current every day smoker Tobacco type: cigarettes Alcohol intake: never Substance use: never Do You Feel Safe in your Home?: No Lack of Transportation: No Lack of Food: Sometimes True Current Housing: I Have Housing Concerned About Future Housing: No Difficulty Paying Gas/Electric Bills: No Difficulty Paying for Meds: No Currently Unemployed: No Education: Associate Degree Difficulty w/ Childcare or Family Care: No Living arrangements: with family Additional living arrangements comments: recently DC'd from [facility] 03/10 back home with Spiritual care concerns: No Exam Narrative: GENERAL: Chronically ill-appearing, poorly nourished, but in no acute distress. HEAD: Normocephalic, atraumatic. EYES: Non injected, non icteric ENT: Nares clear, no rhinorrhea or epistaxis. Gross auditory acuity intact. Dry mucous membranes NECK: No meningismus. CHEST: Speaking in full sentences. No respiratory distress. HEART: Tachycardic rate and rhythm. ABDOMEN: Soft, nondistended. EXTREMITIES: Not moving any extremities due to extreme weakness SKIN: Warm, dry, no rash. NEURO: Alert and oriented. Answering questions. Following commands. Raspy speech but without aphasia or dysarthria. PSYCH: Normal mood and affect. Course Vital Signs Vital signs: Vital Signs Temperature 98.4 F 03/16/25 04:21 Pulse Rate 117 H 03/16/25 04:21 Respiratory Rate 19 03/16/25 04:21 Blood Pressure 207/95 H 03/16/25 04:21 Pulse Oximetry 96 03/16/25 04:21 Oxygen Delivery Room Air 03/16/25 04:21 Temperature 97.7 F 03/16/25 08:00 Pulse Rate 99 03/16/25 08:00 Respiratory Rate 17 03/16/25 08:00 Blood Pressure 153/70 H 03/16/25 08:00 Pulse Oximetry 97 03/16/25 08:00 Oxygen Delivery Room Air 03/16/25 04:21 MDM - Weakness MDM Narrative Medical decision making narrative: Patient presents with report of a fall due to generalized weakness. At baseline she has chronic vertigo. Patient had been admitted for similar recently and discharged [facility] where she underwent rehabilitation and then was discharged home on 03/10/2025 but has otherwise regressed per . In the emergency department she is afebrile with vital signs notable for tachycardia and hypertension. She appears very dehydrated based on mucous membranes. Patient also has an elevated lactic acid and leukocytosis. For this and tachycardia 500 mL fluids ordered. Deferred a larger bolus due to appearance of CXR concerning for heart failure. Ultimately however, BNP is normal. Additional fluids are ordered. GIven concern for sepsis (although source not yet identified), will obtain blood culture, CRP, and administer 1 time dose of broad spectrum antibiotics, vancomycin and cefepime. Patient appears a bit better after some IV fluids but still very weak. She is able to move her arms now but minimal movements and can not meaningfully engage in movements to demonstrate ability to ambulate safely. Will require admission for PT/OT eval and likely placement. Discussed with incident response consultant hospitalist Dr Gilbert. Admitted. We again discussed code status patient does confirm full code (attempt chest compressions and intubation/mechanical ventilation) in the event of cardiopulmonary arrest. Differential Diagnosis Differential diagnosis: Likely acute myocardial infarction, anemia, hypoglycemia, hypothyroidism, rhabdomyolysis, sepsis and dehydration Lab Data Attestation: I reviewed the patient's lab results. 03/16/25 04:37 03/16/25 04:37 Labs: Lab Results 03/16/25 03/16/25 03/16/25 Range/Units 04:36 04:37 04:37 WBC 14.6 H (4.5-10.0) K/mm3 RBC 4.35 (4.2-5.4) M/mm3 Hgb 13.7 (12.0-15.0) g/dL Hct 41.0 (37.0-47.0) % MCV 94.3 (80-100) fl MCH 31.5 (26-34) pg MCHC 33.4 (32-36) g/dl RDW 12.7 (11.5-14.5) % Plt Count 337 (150-375) k/mm3 MPV 9.2 (7.4-10.4) fl Immature Gran % (Auto) 1.4 H (0-0.5) % Neut % (Auto) 79.8 H (45.5-73.1) % Lymph % (Auto) 13.2 L (18.3-44.2) % Trigg % (Auto) 4.7 (2.6-8.5) % Eos % (Auto) 0.5 (0-4.4) % Baso % (Auto) 0.4 (0.2-1.2) % Lymph # (Auto) 1.93 (0.9-3.2) K/mm3 Trigg # (Auto) 0.7 H (0.1-0.6) K/mm3 Eos # (Auto) 0.1 (0-0.3) K/mm3 Baso # (Auto) 0.1 (0.0-0.1) K/mm3 Abs Immat Gran (auto) 0.21 H (0.00-0.031) K/mm3 Absolute Neuts (auto) 11.6 H (1.3-6.7) K/mm3 Absolute Nucleated RBC 0.000 (0.0-0.012) K/mm3 Nucleated RBC % 0.0 (0.0-0.2) % Sodium 128 L (137-145) mmol/L Potassium 3.8 (3.4-5.0) mmol/L Chloride 95 L (98-107) mmol/L Carbon Dioxide 17 L (22-30) mmol/L Anion Gap 16 H (4-12) mmol/L BUN 8 (7-17) mg/dL Creatinine 0.55 L (0.7-1.0) mg/dL Estim Creat Clear Calc 73 ml/min Estimated GFR > 60 (59 - ) Glucose 142 H (65-110) mg/dL Lactic Acid 2.8 H (0.7-2.0) mmol/L Calcium 9.6 (8.4-10.2) mg/dL Magnesium 1.8 Cancelled (1.6-2.3) mg/dL Total Bilirubin 0.8 (0.2-1.3) mg/dL AST 30 (14-36) U/L ALT 22 (6-35) U/L Alkaline Phosphatase 82 (38-126) U/L C-Reactive Protein (<1.0) mg/dL NT-Pro-B Natriuret Pep 188 H (19.9-100) pg/mL Total Protein 6.6 (6.3-8.2) g/dL Albumin 3.8 (3.5-5.1) g/dL Urine Color (Yellow) Urine Appearance (Clear) Urine pH (5.0-9.0) Ur Specific Ola (1.001-1.035) Urine Protein (Negative) mg/dL Urine Glucose (UA) (Negative) mg/dL Urine Ketones (Negative) mg/dL Ur Blood (Man) (Negative) Urine Nitrate (Negative) Urine Bilirubin (Negative) Urine Urobilinogen (<2.0) mg/dL Add Ur Microanalysis Leukocyte Esterase Rfl (Negative) STEPHIE/UL Urine RBC (0-2) /hpf Urine WBC (0-3) /hpf Ur Squamous Epith Cells (Few) /hpf Urine Bacteria /hpf Urine Casts Nasal MRSA (PCR) Influenza A (RT-PCR) (Negative) Influenza B (RT-PCR) (Negative) RSV (RT-PCR) (Negative) SARS-CoV-2 RNA (RT-PCR) (Negative) 03/16/25 03/16/25 03/16/25 Range/Units 05:49 07:28 07:36 WBC (4.5-10.0) K/mm3 RBC (4.2-5.4) M/mm3 Hgb (12.0-15.0) g/dL Hct (37.0-47.0) % MCV (80-100) fl MCH (26-34) pg MCHC (32-36) g/dl RDW (11.5-14.5) % Plt Count (150-375) k/mm3 MPV (7.4-10.4) fl Immature Gran % (Auto) (0-0.5) % Neut % (Auto) (45.5-73.1) % Lymph % (Auto) (18.3-44.2) % Trigg % (Auto) (2.6-8.5) % Eos % (Auto) (0-4.4) % Baso % (Auto) (0.2-1.2) % Lymph # (Auto) (0.9-3.2) K/mm3 Trigg # (Auto) (0.1-0.6) K/mm3 Eos # (Auto) (0-0.3) K/mm3 Baso # (Auto) (0.0-0.1) K/mm3 Abs Immat Gran (auto) (0.00-0.031) K/mm3 Absolute Neuts (auto) (1.3-6.7) K/mm3 Absolute Nucleated RBC (0.0-0.012) K/mm3 Nucleated RBC % (0.0-0.2) % Sodium (137-145) mmol/L Potassium (3.4-5.0) mmol/L Chloride (98-107) mmol/L Carbon Dioxide (22-30) mmol/L Anion Gap (4-12) mmol/L BUN (7-17) mg/dL Creatinine (0.7-1.0) mg/dL Estim Creat Clear Calc ml/min Estimated GFR (59 - ) Glucose (65-110) mg/dL Lactic Acid 0.9 (0.7-2.0) mmol/L Calcium (8.4-10.2) mg/dL Magnesium (1.6-2.3) mg/dL Total Bilirubin (0.2-1.3) mg/dL AST (14-36) U/L ALT (6-35) U/L Alkaline Phosphatase (38-126) U/L C-Reactive Protein < 0.5 (<1.0) mg/dL NT-Pro-B Natriuret Pep (19.9-100) pg/mL Total Protein (6.3-8.2) g/dL Albumin (3.5-5.1) g/dL Urine Color Yellow (Yellow) Urine Appearance Clear (Clear) Urine pH 5.5 (5.0-9.0) Ur Specific Ola > 1.045 H (1.001-1.035) Urine Protein 1+ H (Negative) mg/dL Urine Glucose (UA) Negative (Negative) mg/dL Urine Ketones 3+ H (Negative) mg/dL Ur Blood (Man) Negative (Negative) Urine Nitrate Negative (Negative) Urine Bilirubin Negative (Negative) Urine Urobilinogen 1.0 (<2.0) mg/dL Add Ur Microanalysis Reviewed Leukocyte Esterase Rfl Negative (Negative) STEPHIE/UL Urine RBC 0-2 (0-2) /hpf Urine WBC 0-5 (0-3) /hpf Ur Squamous Epith Cells Few (Few) /hpf Urine Bacteria None seen /hpf Urine Casts 0-2 Nasal MRSA (PCR) Pending Influenza A (RT-PCR) Negative (Negative) Influenza B (RT-PCR) Negative (Negative) RSV (RT-PCR) Negative (Negative) SARS-CoV-2 RNA (RT-PCR) Negative (Negative) Imaging Data Attestation: I personally reviewed and interpreted this imaging study as follows: My impression: Cardiomegaly with a large pleural effusion in significant loss of costophrenic angle on the right in particular on my independent interpretation Radiologist's impression: Impressions Chest X-Ray 03/16/25 05:34 Impression: Small right pleural effusion with probable minimal right basilar atelectatic change. Shoulder X-Ray 03/16/25 05:34 Impression: Unremarkable left shoulder radiographs. Head/Neck CTA 03/16/25 05:35 Impression: Focal moderate stenosis of the distal right vertebral artery related to calcified plaque. No other significant findings. Chest/Abdomen/Pelvis CTA 03/16/25 07:44 Impression: Right basilar atelectatic change. Diffuse hepatic steatosis. ECG Data EKG #1: Attestation: I personally reviewed and interpreted this ECG as follows: ECG completion date: 03/16/25 ECG completion time: 04:36 Interpretation: Sinus tachycardia at a rate of 109 beats per minute. IL interval 130. QRS 86. QT/QTC 370/434. Poor R-wave progression across the precordial leads. No ST elevations or depressions. No T-wave inversions. Discharge Plan Discharge Clinical Impression: Adult failure to thrive, Fall, Chronic vertigo, Acidosis, lactic, Leukocytosis, Stenosis of right vertebral artery, Generalized weakness, Hepatic steatosis, Chronic hyponatremia Patient Disposition: Still a Patient Condition: Stable Instructions: Antibiotic Form Patient Language: Kuwaiti Prescriptions: No Action atorvastatin 10 mg tablet 10 mg PO 3XW Patient Comments: MON, WED, FRI clonazepam 0.5 mg tablet 0.5 mg PO QID trazodone 100 mg tablet 100 mg PO HS meclizine 25 mg tablet 25 mg PO TID PRN (Reason: dizziness) citalopram 40 mg tablet 40 mg PO DAILY potassium chloride 20 mEq tablet extended release 20 meq PO BID aripiprazole 5 mg tablet 5 mg PO HS Qty: 30 0RF furosemide 20 mg tablet 20 mg PO BID Qty: 60 0RF memantine [Namenda] 10 mg tablet 10 mg PO QPM 7 Days Qty: 30 0RF metoprolol tartrate 25 mg Tablet 25 mg PO Q12HR Qty: 60 0RF sodium chloride 1,000 mg tablet,soluble 2,000 mg PO BID Qty: 60 0RF Follow-up/Referrals: ,Jud [Other] Time of Disposition: 08:32
--- NOTE | 2025-03-16 04:33 | ECG_ITS ---
Test Date: 2025-03-16 04:36:11 Measurements Intervals [place] Rate: 109 P: 62 RI: 130 QRS: 266 QRSD: 86 T: 27 QT: 370 QTc: 499 Interpretive Statements SINUS TACHYCARDIA POSSIBLE LEFT ATRIAL ENLARGEMENT [-0.1mV P-WAVE IN V1/V2] PATTERN CONSISTENT WITH PULMONARY DISEASE POSSIBLE RIGHT VENTRICULAR HYPERTROPHY [SOME/ALL OF: PROMINENT R IN V1, LATE TRANSITION, RAD, DONELL, SSS] Compared to ECG 01/29/2025 16:46:35 Sinus rhythm no longer present T-wave abnormality no longer present Electronically Signed On 03-16-2025 16:41:23 CDT by Davidson Mathew
[2025-03-16 04:42] LABS: Hematocrit 41.0 % (37.0-47.0); Hemoglobin 13.7 g/dL (12.0-15.0); Immature Granulocyte Percent A 1.4 % (0-0.5); Lymphocytes Absolute Auto 1.93 K/mm3 (0.9-3.2); Mean Corpuscular HGB Conc 33.4 g/dl (32-36); Mean Corpuscular Hemoglobin 31.5 pg (26-34); Mean Corpuscular Volume 94.3 fl (80-100); Nucleated Red Blood Cells Absolute Auto 0.000 K/mm3 (0.0-0.012); Nucleated Red Blood Cells Perc 0.0 % (0.0-0.2); Platelet Count Result 337 k/mm3 (150-375); Red Blood Count 4.35 M/mm3 (4.2-5.4); White Blood Count 14.6 K/mm3 (4.5-10.0)
[2025-03-16] MEDS: MECLIZINE HCL 25 MG TABLET PO (04:50)
[2025-03-16 04:53] LABS: Alanine Aminotransferase 22 U/L (6-35); Albumin Level 3.8 g/dL (3.5-5.1); Alkaline Phosphatase 82 U/L (38-126); Anion Gap 16 mmol/L (4-12); Aspartate Amino Transferase 30 U/L (14-36); Bilirubin,Total 0.8 mg/dL (0.2-1.3); Blood Urea Nitrogen 8 mg/dL (7-17); Calcium 9.6 mg/dL (8.4-10.2); Carbon Dioxide 17 mmol/L (22-30); Chloride 95 mmol/L (98-107); Estimated CRCL calculation 73 ml/min; Estimated Glomerular Filt Rate > 60; Glucose 142 mg/dL (65-110); Magnesium 1.8 mg/dL (1.6-2.3); Potassium 3.8 mmol/L (3.4-5.0); Sodium 128 mmol/L (137-145); Total Protein 6.6 g/dL (6.3-8.2)
[2025-03-16] MEDS: SODIUM CHLORIDE 0.9% IV 500 ML 999 ML IV CONT ×2 (05:41→07:05)
[2025-03-16 05:55] LABS: NT Pro B Type Natriuretic Pept 188 pg/mL (19.9-100)
--- OUTSIDE RECORDS SUMMARY | 2025-03-16 06:02 | XMS_ITS | Encounter Summary ---
Author Organization [facility] Address [address] [place] [address] Care Team Providers Care Mussel Farmer Name Role Phone Marlen Frazier MD Primary Care Provider [phone]- [phone] Encounter Details Date Type Department Care Team (Late st Contact Info) Description 08/13/2023 Lab Requisition [facility] - DermPath Lab [address] [place] [phone] Floridalma Caban MD [address] [place] [id number] Neoplasm of uncertain behavior of skin Social History Tobacco Use Types Packs/Day Years Used Date Smoking Tobacco: Every Day Cigarettes Smokeless Tobacco: Never Alcohol Use Standard Drinks/Week Comments No 0 (1 standard drink = 0.6 oz pur e alcohol) Comments Unknown Sex and Gender Information Value Date Recorded Sex Assigned at Not on file Legal Sex Female 5:45 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 LEADER Gender Identity Not on file Sexual Orientation Not on file documented as of this encounter Plan of Treatment Not on file documented as of this encounter Procedures Procedure Name Priority Date/Time Associated Diagnosis Comments DERMATOPATHOLOGY Routine 08/13/2023 3:33 AM SUBSCRIPTION CREW LEADER Neoplasm of uncertain behavior of skin documented in this encounter Results * DERMATOPATHOLOGY (08/13/2023 3:33 AM SUBSCRIPTION CREW LEADER) Case Report Dermatopathology Report Case: [id number] Authorizing Provider: Floridalma Caban MD Collected: 08/13/2023 03:33 AM Ordering Location: [facility] DermPath Lab Received: 08/14/2023 08:36 AM Pathologist: Hannah Quiroz MD Specimen: Skin, superior thoracic spine 3 12:58 PM [facility] DERMATOPATHOLOGY LABORATORY Final Diagnosis Specimen A. SKIN, superior thoracic spine: BASAL CELL CARCINOMA, FIBROEPITHELIOMA TYPE (C44.519) 3 12:58 PM [facility] DERMATOPATHOLOGY LABORATORY at 1258 [employer] LEADER Clinical History Rule-Out Basal Cell Carcinoma 3 12:58 PM [facility] DERMATOPATHOLOGY LABORAT[facility] Gross Description Specimen A: Received is one formalin filled container labeled with the patient's name and designated superior thoracic spine. The specimen consists of a shave biopsy measuring 8x5x2 mm. Jar 0. 3 12:58 PM [facility] DERMATOPATHOLOGY LABORATORY Microscopic Description Specimen A. SKIN, superior thoracic spine: Embedded in a fibrous cellular stroma there are numerous anastomosing narrow strands of basaloid cells. In areas, the collections of basaloid cells show peripheral palisading. 3 12:58 PM [facility] DERMATOPATHOLOGY LABORATORY Disclaimer An external and internal positive and negative controls are appropriate for the histochemical, immunohistochemical and immunofluorescence stain(s) in this case (if any), except where stated explicitly. The performance characteristics of the stain(s) cited in this report were developed and its performance characteristic determined by the Dermatopathology Laboratory at [facility], directed by Dr. Melecio Zambrano. These tests need not be, and therefore are not, approved by the [place] Food and Drug Administration. The tests are used for clinical purposes. Billing Codes Specimen Charges Stain Charges 59267 1 3 12:58 PM [facility] DERMATOPATHOLOGY LABORATORY Embedded Images 3 12:58 PM [facility] DERMATOPATHOLOGY LABORATORY Pathology/Cytolo gy TISSUE SPECIMEN FROM SKIN / Unknown 08/13/2023 3:33 AM SUBSCRIPTION CREW LEADER 08/14/2023 8:36 AM SUBSCRIPTION CREW LEADER Floridalma Caban MD LAB - PATHOLOGY/CYTOLOGY ORDERAB LES Final Result DERMATOPATHOLOGY LABORATORY [facility] - Department of Dermatology [address] [phone] documented in this encounter Visit Diagnoses Diagnosis Neoplasm of uncertain behavior of skin documented in this encounter Care Teams Mussel Farmer Relationship Specialty Start Date End Date Marlen Frazier MD PCP - General 07/25/16 documented as of this encounter
--- OUTSIDE RECORDS SUMMARY | 2025-03-16 06:02 | XMS_ITS | Clinical Summary ---
Author Organization [facility] Address [address], [place] [address] Phone Care Team Providers Care Sugar Sampler Name Role Phone Unavailable Primary Care Provider [...] Comments Blood Pressure 128/70 10/06/2016 12:01 AM MACHINIST HELPER MARINE Pulse 72 07/14/2016 12:01 AM CDT Temperature 37.3 C (99.1 F) 07/14/2016 12:01 AM CDT Respiratory Rate - - Oxygen Saturation - - Inhaled Oxygen Concentration - - Weight 79.4 kg (175 lb) 10/06/2016 12:01 AM MACHINIST HELPER MARINE Height 157.5 cm (5' 2) 10/06/2016 12:01 AM MACHINIST HELPER MARINE Body Mass Index 32.01 10/06/2016 12:01 AM MACHINIST HELPER MARINE Plan of Treatment Not on file
--- OUTSIDE RECORDS SUMMARY | 2025-03-16 06:02 | XMS_ITS | Encounter Summary ---
Author Organization [facility] Address [address] [place] [address] Care Team Providers Care Set Up And Lay Out Inspector Name Role Phone Marlen Frazier MD Primary Care Provider [phone]- [phone] Encounter Details Date Type Department Care Team (Late st Contact Info) Description 05/22/2022 Lab Requisition [facility] DermPath Lab [address] [place] [phone] Floridalma Caban MD [address] [place] [address] Social History Tobacco Use Types Packs/Day Years Used Date Smoking Tobacco: Every Day Cigarettes Smokeless Tobacco: Never Alcohol Use Standard Drinks/Week Comments No 0 (1 standard drink = 0.6 oz pur e alcohol) Comments Unknown Sex and Gender Information Value Date Recorded Sex Assigned at Not on file Legal Sex Female 5:45 PM [employer] 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[employer] 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 Gender Identity Not on file Sexual Orientation Not on file documented as of this encounter Plan of Treatment Not on file documented as of this encounter Procedures Procedure Name Priority Date/Time Associated Diagnosis Comments DERMATOPATHOLOGY Routine 05/20/2022 12:0 0 AM CDT documented in this encounter Results * DERMATOPATHOLOGY (05/20/2022 12:00 AM CDT) Case Report Dermatopathology Report Case: [id number] Authorizing Provider: Floridalma Caban MD Collected: 05/20/2022 12:00 AM Ordering Location: [facility] DermPath Lab Received: 05/22/2022 08:47 AM Pathologist: Kaleigh Alfred MD Specimen: Skin, middle sternum 2 5:31 PM CDT DERMATOPATHOLOGY LABORATORY Final Diagnosis Specimen A. SKIN, middle sternum: BENIGN VERRUCOUS KERATOSIS, INFLAMED (L82.1) 2 5:31 PM CDT DERMATOPATHOLOGY LABORATORY at 1730 CDT Clinical History R/O squamous cell carcinoma 2 5:31 PM CDT DERMATOPATHOLOGY LABORATORY Gross Description Specimen A: Received is one formalin filled container labeled with the patient's name and designated middle sternum. The specimen consists of a shave biopsy measuring 7x5x2 mm. Jar 0. 2 5:31 PM CDT DERMATOPATHOLOGY LABORATORY Microscopic Description Specimen A. SKIN, [...] characteristic determined by the Dermatopathology Laboratory at [facility], directed by Dr. Melecio Zambrano. These tests need not be, and therefore are not, approved by the [place] Food and Drug Administration. The tests are used for clinical purposes. Billing Codes Specimen Charges Stain Charges 60330 1 2 5:31 PM CDT DERMATOPATHOLOGY LABORATORY Embedded Images 2 5:31 PM CDT DERMATOPATHOLOGY LABORATORY Pathology/Cytolog y TISSUE SPECIMEN FROM SKIN / Unknown 05/20/2022 05/22/2022 8:47 AM CDT Floridalma Caban MD LAB - PATHOLOGY/CYTOLOGY ORDERAB LES Final Result DERMATOPATHOLOGY LABORATORY [facility] - Department of Dermatology [address] [phone] documented in this encounter Visit Diagnoses Not on filedocumented in this encounter Care Teams Set Up And Lay Out Inspector Relationship Specialty Start Date End Date Marlen Frazier MD PCP - General 07/25/16 documented as of this encounter
--- OUTSIDE RECORDS SUMMARY | 2025-03-16 06:02 | XMS_ITS | Clinical Summary ---
Author Organization [facility] Address [address] [place] [address] Care Team Providers Care Drag Out Worker Name Role Phone Marlen Frazier MD Primary Care Provider [phone] Source Comments [facility],non-owned Affiliates and Associated Physician Practices is amultiple site organization consisting of ambulatory clinics and hospital sitesin [place], [place] and [place]. This disclosure is being madepursuant to the Care Everywhere program and may not contain all information available regarding this patient. Last updated 18.[facility] Medications * Be aware that medications may [...] on file Legal Sex Female 5:45 PM RECEIVING SPECIALIST Gender Identity Not on file Sexual Orientation Not on file Last Filed Vital Signs Vital Sign Reading Time Taken Comments Blood Pressure - - Pulse - - Temperature - - Respiratory Rate 14 08/11/2016 1:57 PM RECEIVING SPECIALIST Oxygen Saturation - - Inhaled Oxygen Concentration - - Weight 74.8 kg (165 lb) 08/11/2016 1:57 PM RECEIVING SPECIALIST Height 157.5 cm (5' 2) 08/11/2016 1:57 PM RECEIVING SPECIALIST Body Mass Index 30.18 08/11/2016 1:57 PM RECEIVING SPECIALIST Plan of Treatment Health Maintenance Due Date Last Done Comments BONE DENSITY TESTING 1950 COLOGUARD (AGES 45-75) - COLON CA SCREENING 1950 CT COLONOGRAPHY - COLON CA SCREENING 1950 FIT - COLON CA SCREENING 1950 FLEX SIG - COLON CA SCREENING 1950 LIPID TESTING 1950 MEDICARE AWV 12 MONTHS 1950 HEPATITIS C SCREENING 05/20/1970 DTAP/TDAP/TD VACCINES (1 - Tdap) 1971 PNEUMOCOCCAL VACCINE 50+ (1 of 2 - PCV) 1971 ZOSTER VACCINE (1 of 2) 2002 MAMMOGRAM 06/30/2010 06/30/2008 COVID-19 VACCINE (3 - season) 2024 12/05/2020, 11/07/2020 DEPRESSION SCREENING 09/14/2024 INFLUENZA VACCINE (Season Ended) 2025 06/04/2020, 06/13/2019, 08/16/2018, Additional history exists Respiratory Syncytial Virus (RSV) Vaccine Pt: or over 60 yrs (1 - 1-dose 75+ series) 2027 COLON MONITORING 01/01/2031 01/01/2021 COLONOSCOPY - COLON CA SCREENING 01/01/2031 01/01/2021 Colorectal Cancer Screening 01/01/2031 HEPATITIS B VACCINE Aged Out No longe r eligible based on patient's age to complete this topic HIB VACCINE Aged Out No longer eligi ble based on patient's age to complete this topic HPV VACCINE Aged Out No longer eligi ble based on patient's age to complete this topic MENINGOCOCCAL (Group B) VACCINE SHARED DECISION-MAKING Aged Out No longer eligible based on patient's age to complete this topic MENINGOCOCCAL GROUPS A/C/Y/W VACCINE Aged Out No longer eligible based on patient's age to complete this topic Insurance [address] [id number] [facility] [place] [address] MEDICARE [facility] Care Teams Drag Out Worker Relationship Specialty Start Date End Date Marlen Frazier MD PCP - General 07/25/16
--- OUTSIDE RECORDS SUMMARY | 2025-03-16 06:02 | XMS_ITS | Encounter Summary ---
Author Organization [facility] Address [address] [place] [address] Care Team Providers Care Natural Gas Technician Name Role Phone Unavailable Primary Care [...] on file Legal Sex Female 2:42 AM OPTOMETRIC TECH Gender Identity Not on file Sexual Orientation Not on file documented as of this encounter Plan of Treatment Not on file documented as of this encounter Visit Diagnoses Diagnosis Other screening mammogram- Primary documented in this encounter
--- OUTSIDE RECORDS SUMMARY | 2025-03-16 06:02 | XMS_ITS | Continuity of Care Document ---
Author Organization [facility] Address [address] [place] [address] Phone Care Team Providers Care Printed Circuit Boards Stripper Etcher Name Role Phone Freda Thapa Unavailable Unavailable Advance Directives Directive Yes / No Effective Date File Name No Information Encounters Encounter Description Practice Location Reason(s) For Visit Diagnoses Date Provider Providers Copied on Encounter [facility], [address], [place], [place], [id number], [place] tel:[phone] [facility] No Information 0-200 6 Alanis Barba. [address] , [address], [place], [address], [place]. tel:[phone] Family History Family Member Type Diagnosis Age At Onset No Information Payers Payer name Insurance type Covered libertarian ID Authoriza tipanda(s) [facility] CI [id number] Social History Type Description Quantity Date Captured [...]
--- OUTSIDE RECORDS SUMMARY | 2025-03-16 06:02 | XMS_ITS | Clinical Summary ---
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 Gender Identity Not on file Sexual Orientation [...] PM CDT Narrative 07/03/2008 2:51 PM CDT [address] [address] Admit Date: 06/30/2008 BEVERLEY ARGUELLO Sex: F Admit Prov: DOCTOR, NOT O Date: 1950 [id number] [address] [place] [address] IMAGING SERVICES Ordering Prov: DOCTOR, NOT O Accession Number: [id number] Interpretation BILATERAL SCREENING MAMMOGRAM 06/30/08 Reason for [...] Procedure Note Wilbur Meade MD - 07/03/[address] [address] Admit Date: 06/30/2008 BEVERLEY ARGUELLO Sex: F Admit Prov: DOCTOR, NOT O Date: 1950 Primary Care [facility] [id number] [facility] [id number] IMAGING SERVICES Ordering Prov: DOCTOR, NOT O [...]
--- OUTSIDE RECORDS SUMMARY | 2025-03-16 06:02 | XMS_ITS | Encounter Summary ---
Author Organization [facility] Address 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
--- OUTSIDE RECORDS SUMMARY | 2025-03-16 06:02 | XMS_ITS | Patient Health Record ---
Author Organization [facility] Address [address] [place] [address] Care Team Providers Care Ice Guard Skating Rink Name Role Phone Jud Londono MD Primary Care Provider Joe Gonzalez Unavailable [phone] Reason For Referral No Information Medications Medication SIG (Take, Route, Fr equency, Duration) Notes Start Date End Date Status Loperamide HCl 2 MG TAKE 1 CAPSULE BY [facility] TWICE DAILY NEEDED for 10 Active Suflave [...] Problem Status W/U Status Risk Notes Problem 709096221 Gastro-esophag eal reflux disease with esophagitis (K21.0) Active confirmed Problem 186120032 Esophageal obstruction (K22.2) Active confirmed Problem 949431759 Chronic diarrhea (K52.9) Active confirmed She has [...] of previous surgeries and food intolerance. Problem 431823406 History of colon polyps (Z86.010) Active confirmed Her last colonoscopy was in 2014. She has a history of polyps and was instructed to follow up in 5 years. Problem 78937058 Dysphagia (R13.10) Active confirmed Problem 692772272 S/P neno (Z90.49) Active confirmed Plan Of Treatment Pending Test Test Name Order Date Initiate Fructose 12/09/2018 Initiate Lactose 12/09/2018 Insurance Providers Payer Name Payer Address Payer Phone Subscriber Number Group Number Insured Name Patient Relationship to Insured Coverage Start Date Coverage End Date Medicare E2 [address] [address] [place] [address] [id number] Albania Silva Self - patient is the insured [employer] E2 [address] [place] [address] [phone] [id number] Albania Silva Self - patient is the insured 7 Medical (General) History Medical History History ICD Code GERD Hypertension Bipolar disorder Melanoma in-situ Depression/anxiety Colon polyps IBS Surgical History Surgery Date(Month/Year) EGD 04/2017 Hemicolectomy Cholecystectomy Hysterectomy Melanoma excision Tonsillectomy Colon / Bowel Surgery
--- OUTSIDE RECORDS SUMMARY | 2025-03-16 06:02 | XMS_ITS | Encounter Summary ---
Author Organization [facility] Address 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
--- OUTSIDE RECORDS SUMMARY | 2025-03-16 06:02 | XMS_ITS | Encounter Summary ---
Author Organization [facility] Address 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 [place], [place] [address] Admit Date: 06/30/2008 BEVERLEY ARGUELLO Sex: F Admit Prov: DOCTOR, NOT O Date: 1950 Primary Care Prov: CMRN: [id number] Room: [facility]: [address] [place] [address] IMAGING SERVICES Ordering Prov: DOCTOR, NOT O [...]
[2025-03-16 06:15] LABS: Add Urine Microscopic? YES; Appearance Urine Clear (Clear); Glucose Urine UA Negative (Negative); Leukocyte Esterase Ur Negative LEU/UL (Negative); Need Manual Microscopic Reviewed; Nitrate Urine Negative (Negative); Non Pathogenic Casts 0-2; Specific Grav Ur > 1.045 (1.001-1.035)
[2025-03-16 06:36] LABS: Influenza A QL RT-PCR Negative (Negative); Influenza B QL RT-PCR Negative (Negative); RSV RNA, RT-PCR Negative (Negative); SARS-CoV-2 RNA PCR Negative (Negative)
--- NOTE | 2025-03-16 06:55 | PC.NURSE ---
asked to ambulate the pt, pt unable to exit bed due to her being tired EDP aware
[2025-03-16] MEDS: SODIUM CHLORIDE 0.9% IV 1,000 ML 999 ML IV CONT (07:05)
[2025-03-16 07:49] LABS: CRP < 0.5 mg/dL (<1.0)
[2025-03-16] MEDS: CEFEPIME 2 GM/NS 50 ML 2 GM/50 ML BAG IVPB (07:59)
--- NOTE | 2025-03-16 08:07 | ECG_ITS ---
Test Date: 2025-03-16 08:10:57 Measurements Intervals [place] Rate: 99 P: 55 CA: 128 QRS: -20 QRSD: 82 T: 31 QT: 357 QTc: 458 Interpretive Statements SINUS RHYTHM INDETERMINATE AXIS POSSIBLE LEFT ATRIAL ENLARGEMENT Poor R wave progression Compared to ECG 03/16/2025 04:36:11 Indeterminate axis now present Sinus tachycardia no longer present Electronically Signed On 03-16-2025 16:48:36 CDT by Davidson Mathew
[2025-03-16] MEDS: VANCOMYCIN 1,750 MG/NS 500 ML 1,750 MG/500 ML BAG 250 MG IVPB (08:24)
[2025-03-16 08:53] LABS: MRSA (PCR) NOT DETECTED (NOT DETECTE)
--- NOTE | 2025-03-16 09:28 | ADMGEN ---
This patient, Albania Silva, was admitted to Medical Room 247-. Patient/family oriented to hospital policies and general routines including ID bracelet, bed and alarms, visiting hours, pain management, procedures, bathroom and other care routines, personal items, smoking policy, room service/diet, and visiting hours. Information on how to activate the Rapid Response Team has been discussed. Patient/Family are encouraged to report perceived risks to care and to ask questions if they do not understand what they are told or what they should do.
--- NOTE | 2025-03-16 14:10 | PM.IMHP ---
H&P: HPI History of Present Illness Date/Time: 03/16/25 14:10 Chief Complaint: fall, weak, dizzy Narrative: ER-HPI Narrative: Patient presents with report of a fall. She has chronic vertigo she describes frequent spinning sensation for this she sees her neurologist Dr Juan Carlos Espinoza through [facility] in [place] and is on meclizine 50mg AM, 25mg noon, 25mg PM. She is also on memantine memory issues 10mg BID. Patient got up and was walking in the [place] she became too weak and fell on her walker. She denies any injuries. Has had some issues with left shoulder pain. Patient had recently been admitted for very similar and discharged to [facility] for rehabilitiation. She had been doing well and was improving was discharged home on 03/10/2025 and has been reports that she seems to regressed. Patient's states that she has not been eating. She does not have an appetite but is not due to nausea or vomiting. She had been on Remeron but this was discontinued due to side effects. She follows psychiatrist. Not on anticoagulation other than 81 mg aspirin. She has had intermittent diarrhea. Denies any cough, fevers, chills, shortness of breath, chest pain, abdominal pain. No ear pain, tinnitus, hearing changes. Denies being lightheaded. Her dizziness is very much vertiginous as she describes rotational spinning sensation. No loss of consciousness. For EMS, VS 126/60, BS 109, HR 110, 14, 98% RA Patient is a 74 y/o female with history of dementia, hyponatremia and chronic vertigo taking high dose of Meclizine 50mg am, 25mg noon and 25mg PM, with this regiment her dizziness is somewhat controlled, however recently she is having more dizziness and falls. to further evaluate patient had CT scan of the chest which is negative for acute pathology, patient Head/Neck CTA essentially normal except focal moderate stenosis of the distal right vertebral artery related to calcified plaque. this finding is unlikely to cause dizziness, patient is seen her neurologist at [facility] in [place] was refer to ENT but has not seen one yet. patient is familiar to me as I treated her hyponatremia and discharge to rehab where she was weak and falling. will continue Meclizine, have PT/OT evaluate the patient and consult an ENT for her dizziness. Review of Systems Review of Systems: 12 systems were reviewed and are negative except for as per HPI. [facility] Past Medical History Medical History Chronic vertigo Melanoma of upper limb Fracture of toe of left foot Obesity Melanoma HTN (hypertension) Hypercholesterolemia Family History Family History Father Family history of malignant neoplasm Mother Family history of diabetes mellitus in first degree relative Family history of coronary artery disease Social History Social History (Updated 03/16/25 @ 08:27 by Татьяна Hancock MD) Social History: Smoking packs per day: 0.5 Smoking cigarettes per day: 10.0 Years smoked: 20 Smoking pack-years: 10.00 Smoking status: Current every day smoker Tobacco type: cigarettes Alcohol intake: never Substance use: never Do You Feel Safe in your Home?: No Lack of Transportation: No Lack of Food: Never True Current Housing: I Do Not Have Housing Concerned About Future Housing: No Difficulty Paying Gas/Electric Bills: No Difficulty Paying for Meds: No Currently Unemployed: No Education: High School Diploma/GED Difficulty w/ Childcare or Family Care: No Living arrangements: with family Additional living arrangements comments: recently DC'd from [facility] 03/10 back home with Spiritual care concerns: No Meds Home Medications and Allergies Home Medications ?Medication ?Instructions ?Recorded ?Confirmed ?Type atorvastatin 10 mg tablet 10 mg PO 3XW 10/05/19 01/29/25 History clonazepam 0.5 mg tablet 0.5 mg PO QID 10/05/19 01/29/25 History citalopram 40 mg tablet 40 mg PO DAILY 01/29/25 01/29/25 History meclizine 25 mg tablet 25 mg PO TID PRN dizziness 01/29/25 01/29/25 History trazodone 100 mg tablet 100 mg PO HS 01/29/25 01/29/25 History potassium chloride 20 mEq 20 meq PO BID 01/30/25 01/30/25 History tablet,extended release aripiprazole 5 mg tablet 5 mg PO HS #30 tabs 02/09/25 Rx furosemide 20 mg tablet 20 mg PO BID #60 tabs 02/09/25 Rx memantine 10 mg tablet (Namenda) 10 mg PO QPM 7 days #30 tabs 02/09/25 Rx metoprolol tartrate 25 mg tablet 25 mg PO Q12HR #60 tabs 02/09/25 Rx sodium chloride 1,000 mg soluble 2,000 mg (2 x 1,000 mg) PO BID #60 02/09/25 Rx tablet tabs Allergies Allergy/AdvReac Type Severity Reaction Status Date / Time No Known Allergies Allergy Verified 02/24/25 10:05 Vital Signs Vital Signs - 24 hr 03/16/25 04:21 03/16/25 04:46 03/16/25 05:28 Temperature 36.9 C Pulse Rate 117 H 102 H 96 Respiratory Rate 19 22 H 16 Blood Pressure 207/95 H 101/60 131/60 Pulse Oximetry 96 96 92 Oxygen Delivery Room Air 03/16/25 05:30 03/16/25 05:45 03/16/25 06:00 Temperature Pulse Rate 95 96 94 Respiratory Rate 16 18 18 Blood Pressure 129/62 146/67 H 155/71 H Pulse Oximetry 93 95 95 Oxygen Delivery 03/16/25 06:15 03/16/25 06:30 03/16/25 06:45 Temperature Pulse Rate 92 92 95 Respiratory Rate 14 16 20 Blood Pressure 150/71 H 155/65 H 140/77 Pulse Oximetry 93 96 94 Oxygen Delivery 03/16/25 07:00 03/16/25 07:52 03/16/25 08:00 Temperature 36.5 C Pulse Rate 94 101 H 99 Respiratory Rate 16 20 17 Blood Pressure 139/69 157/80 H 153/70 H Pulse Oximetry 95 95 97 Oxygen Delivery 03/16/25 08:30 03/16/25 09:00 Temperature Pulse Rate 101 H 102 H Respiratory Rate 19 23 H Blood Pressure 158/77 H 146/74 H Pulse Oximetry 96 97 Oxygen Delivery Exam Narrative: Patient is comfortable, NAD HEENT: eyes are clear and none icteric, EOMI no nystagmus observe. LUNGS:CTA HEART: RR S1S2 ABD: BS+, Soft and nontender Lower extremities: no edema SKIN: nonjaundiced Neuro: grossly intact. H&P: Results Labs Labs: Short CBC 03/16/25 Range/Units 04:37 WBC 14.6 H (4.5-10.0) K/mm3 Hgb 13.7 (12.0-15.0) g/dL Hct 41.0 (37.0-47.0) % Plt Count 337 (150-375) k/mm3 BMP 03/16/25 04:37 Sodium 128 L Potassium 3.8 Chloride 95 L Carbon Dioxide 17 L BUN 8 Creatinine 0.55 L Glucose 142 H Calcium 9.6 Liver Function 03/16/25 Range/Units 04:37 Total Bilirubin 0.8 (0.2-1.3) mg/dL AST 30 (14-36) U/L ALT 22 (6-35) U/L Alkaline Phosphatase 82 (38-126) U/L Albumin 3.8 (3.5-5.1) g/dL Urine 03/16/25 Range/Units 05:49 Urine Color Yellow (Yellow) Urine Appearance Clear (Clear) Urine pH 5.5 (5.0-9.0) Ur Specific [place] > 1.045 H (1.001-1.035) Urine Protein 1+ H (Negative) mg/dL Urine Glucose (UA) Negative (Negative) mg/dL Assessment and Plan Assessment and plan (1) Chronic vertigo: Code(s): R42 - Dizziness and giddiness Status: Acute (2) Hyponatremia: Code(s): E87.1 - Hypo-osmolality and hyponatremia Status: Acute (3) Hypomagnesemia: Code(s): E83.42 - Hypomagnesemia Status: Acute (4) Fall: Code(s): W19.XXXA - Unspecified fall, initial encounter Status: Acute (5) Stenosis of right vertebral artery: Code(s): I65.01 - Occlusion and stenosis of right vertebral artery Status: Acute Plan Patient is a 74 y/o female with history of dementia, hyponatremia and chronic vertigo taking high dose of Meclizine 50mg am, 25mg noon and 25mg PM, with this regiment her dizziness is somewhat controlled, however recently she is having more dizziness and falls. to further evaluate patient had CT scan of the chest which is negative for acute pathology, patient Head/Neck CTA essentially normal except focal moderate stenosis of the distal right vertebral artery related to calcified plaque. this finding is unlikely to cause dizziness, patient is seen her neurologist at [facility] in [place] was refer to ENT but has not seen one yet. patient is familiar to me as I treated her hyponatremia and discharge to rehab where she was weak and falling. will continue Meclizine, have PT/OT evaluate the patient and consult an ENT for her dizziness.
--- NOTE | 2025-03-16 17:23 | WPDCN ---
Assessment and Plan Assessment and plan (1) Chronic vertigo: Code(s): R42 - Dizziness and giddiness Status: Acute Plan 74 year old female with chronic vertigo most probably not related to inner ear pathology The moderate stenosis of vertebral artery can cause chronic vertigo I have reviewed CT scan angio head and neck and I agree with the report: CT head and neck angio 03/16/25 Focal moderate stenosis of the distal right vertebral artery related to calcified plaque. Assessment and Plan: The patient's subjective report of positional rotational vertigo is inconsistent with objective physical exam findings, specifically a negative [place]-Hallpike test. This suggests that the vertigo may not originate from an inner ear disorder. A vascular surgery consultation is recommended to assess the vertebral artery stenosis and discuss potential interventional strategies. Meclizine, particularly with long-term use, carries risks of exacerbating dizziness and increasing fall risk. If the medication is not effectively controlling her chronic vertigo, a gradual taper and eventual discontinuation should be considered. Vestibular rehabilitation therapy is indicated. HPI Data of Consult Date/Time: 03/16/25 17:23 Requesting Physician: Dimitri Gilbert MD Primary Care Provider: Jud Londono Consult Narrative Reason for consult: evaluation of chronic vertigo Narrative: I was consulted to evaluate [place] Silva, a 74-year-old woman experiencing chronic vertigo since age 12. Her most recent attack occurred a week ago upon quickly getting out of bed, and she also experiences vertigo lasting a few minutes when lying on her left side. She denies hearing loss but has chronic tinnitus and describes her dizziness as a rotational spinning sensation, not lightheadedness, with no loss of consciousness. She takes meclizine 50 mg in the morning, 25 mg at noon, and 25 mg at bedtime. She was recently hospitalized after falling due to weakness while walking with her walker. Review of Systems Constitutional: Constitutional: Reports as per HPI ENT: Reports system reviewed and no additional complaints, except as documented and Reports as per HPI [facility] Past Medical History Medical History Chronic vertigo Melanoma of upper limb Fracture of toe of left foot Obesity Melanoma HTN (hypertension) Hypercholesterolemia Family History Family History Father Family history of malignant neoplasm Mother Family history of diabetes mellitus in first degree relative Family history of coronary artery disease Social History Social History (Updated 03/16/25 @ 08:27 by Татьяна Hancock MD) Social History: Smoking packs per day: 0.5 Smoking cigarettes per day: 10.0 Years smoked: 20 Smoking pack-years: 10.00 Smoking status: Current every day smoker Tobacco type: cigarettes Alcohol intake: never Substance use: never Do You Feel Safe in your Home?: No Lack of Transportation: No Lack of Food: Never True Current Housing: I Do Not Have Housing Concerned About Future Housing: No Difficulty Paying Gas/Electric Bills: No Difficulty Paying for Meds: No Currently Unemployed: No Education: High School Diploma/GED Difficulty w/ Childcare or Family Care: No Living arrangements: with family Additional living arrangements comments: recently DC'd from [facility] 03/10 back home with Spiritual care concerns: No Meds Home Medications and Allergies Home Medications ?Medication ?Instructions ?Recorded ?Confirmed ?Type atorvastatin 10 mg tablet 10 mg PO 3XW 10/05/19 03/16/25 History clonazepam 0.5 mg tablet 0.5 mg PO HS 10/05/19 03/16/25 History citalopram 40 mg tablet 10 mg PO DAILY 01/29/25 03/16/25 History meclizine 25 mg tablet 25 mg PO BID dizziness 01/29/25 03/16/25 History trazodone 100 mg tablet 100 mg PO HS 01/29/25 03/16/25 History cholecalciferol (vitamin D3) 125 5,000 unit PO DAILY 03/16/25 03/16/25 History mcg (5,000 unit) tablet (Vitamin D3) magnesium 500 mg tablet 500 mg PO DAILY 03/16/25 03/16/25 History meclizine 50 mg tablet (Antivert) 50 mg PO DAILY 03/16/25 03/16/25 History memantine 10 mg tablet (Namenda) 10 mg PO Q12H 03/16/25 03/16/25 History Allergies Allergy/AdvReac Type Severity Reaction Status Date / Time No Known Allergies Allergy Verified 02/24/25 10:05 Vital Signs Vital Signs - 24 hr 03/16/25 04:21 03/16/25 04:46 03/16/25 05:28 Temperature 36.9 C Pulse Rate 117 H 102 H 96 Respiratory Rate 19 22 H 16 Blood Pressure 207/95 H 101/60 131/60 Pulse Oximetry 96 96 92 Oxygen Delivery Room Air 03/16/25 05:30 03/16/25 05:45 03/16/25 06:00 Temperature Pulse Rate 95 96 94 Respiratory Rate 16 18 18 Blood Pressure 129/62 146/67 H 155/71 H Pulse Oximetry 93 95 95 Oxygen Delivery 03/16/25 06:15 03/16/25 06:30 03/16/25 06:45 Temperature Pulse Rate 92 92 95 Respiratory Rate 14 16 20 Blood Pressure 150/71 H 155/65 H 140/77 Pulse Oximetry 93 96 94 Oxygen Delivery 03/16/25 07:00 03/16/25 07:52 03/16/25 08:00 Temperature 36.5 C Pulse Rate 94 101 H 99 Respiratory Rate 16 20 17 Blood Pressure 139/69 157/80 H 153/70 H Pulse Oximetry 95 95 97 Oxygen Delivery 03/16/25 08:30 03/16/25 09:00 03/16/25 14:00 Temperature 36.7 C Pulse Rate 101 H 102 H 101 H Respiratory Rate 19 23 H 14 Blood Pressure 158/77 H 146/74 H 154/70 H Pulse Oximetry 96 97 97 Oxygen Delivery 03/16/25 14:42 Temperature Pulse Rate Respiratory Rate Blood Pressure Pulse Oximetry Oxygen Delivery Room Air Exam Const: General: cooperative, comfortable, no acute distress, well developed, alert and awake HENMT: Head: normal to inspection, No palpable skull fracture present, normocephalic and atraumatic Ears: EAC's normal, no periauricular adenopathy and unable to visualize TM on the right (impacted cerumen) Face/Nose/Sinus: Normal external nose present, Normal nares present and No nasal polyps present Face and sinus: normal facial exam, sinuses nontender and face symmetric Mouth: Yes Normal oral and palatal mucosa present, Yes lip normal and Yes tongue normal Throat: posterior oropharynx normal and uvula midline Other: [place]-Halpike was negative for benign paroxysmal positional vertigo Vestibuloocular -reflex was WNL no gaze evoked nystagmus Fukuda test was not possible as the patient could not stand without help and support Gait test was not possible as the patient could not stand without help and support Eyes: General: appearance normal, both eyes and all related structures Neck: Neck: normal visual inspection, full ROM and no lymphadenopathy Thyroid: thyroid normal Neuro: Cranial nerves: Yes CN's II-XII intact bilaterally Speech: normal speech Results Labs 03/16/25 04:37 03/16/25 04:37 Labs: Short CBC 03/16/25 Range/Units 04:37 WBC 14.6 H (4.5-10.0) K/mm3 Hgb 13.7 (12.0-15.0) g/dL Hct 41.0 (37.0-47.0) % Plt Count 337 (150-375) k/mm3 BMP 03/16/25 04:37 Sodium 128 L Potassium 3.8 Chloride 95 L Carbon Dioxide 17 L BUN 8 Creatinine 0.55 L Glucose 142 H Calcium 9.6 Liver Function 03/16/25 Range/Units 04:37 Total Bilirubin 0.8 (0.2-1.3) mg/dL AST 30 (14-36) U/L ALT 22 (6-35) U/L Alkaline Phosphatase 82 (38-126) U/L Albumin 3.8 (3.5-5.1) g/dL Urine 03/16/25 Range/Units 05:49 Urine Color Yellow (Yellow) Urine Appearance Clear (Clear) Urine pH 5.5 (5.0-9.0) Ur Specific [place] > 1.045 H (1.001-1.035) Urine Protein 1+ H (Negative) mg/dL Urine Glucose (UA) Negative (Negative) mg/dL
[2025-03-17 05:26] LABS: Hematocrit 34.3 % (37.0-47.0); Hemoglobin 11.6 g/dL (12.0-15.0); Immature Granulocyte Percent A 0.4 % (0-0.5); Lymphocytes Absolute Auto 1.39 K/mm3 (0.9-3.2); Mean Corpuscular HGB Conc 33.8 g/dl (32-36); Mean Corpuscular Hemoglobin 32.3 pg (26-34); Mean Corpuscular Volume 95.5 fl (80-100); Nucleated Red Blood Cells Absolute Auto 0.000 K/mm3 (0.0-0.012); Nucleated Red Blood Cells Perc 0.0 % (0.0-0.2); Platelet Count Result 271 k/mm3 (150-375); Red Blood Count 3.59 M/mm3 (4.2-5.4); White Blood Count 9.3 K/mm3 (4.5-10.0)
[2025-03-17 05:47] LABS: Magnesium 1.8 mg/dL (1.6-2.3)
[2025-03-17 05:59] VITALS: BP 166/79; PULSE 98; RESP 18; TEMP 36.3; O2SAT 96
[2025-03-17] MEDS: MECLIZINE HCL 25 MG TABLET 50 MG PO (08:25)
[2025-03-17] MEDS: CHOLECALCIFEROL (VITAMIN D3) 125 MCG (5,000 UNITS) TABLET PO (08:25)
[2025-03-17] MEDS: MEMANTINE 10 MG TABLET PO ×2 (08:25→21:34)
[2025-03-17] MEDS: MAGNESIUM OXIDE 400 MG TABLET PO (08:25)
[2025-03-17] MEDS: ATORVASTATIN 10 MG TABLET PO (08:25)
[2025-03-17 10:43] LABS: Alanine Aminotransferase 12 U/L (6-35); Albumin Level 3.1 g/dL (3.5-5.1); Alkaline Phosphatase 68 U/L (38-126); Anion Gap 11 mmol/L (4-12); Aspartate Amino Transferase 25 U/L (14-36); Bilirubin,Total 0.5 mg/dL (0.2-1.3); Blood Urea Nitrogen 3 mg/dL (7-17); Calcium 9.0 mg/dL (8.4-10.2); Carbon Dioxide 19 mmol/L (22-30); Chloride 101 mmol/L (98-107); Estimated CRCL calculation 97 ml/min; Estimated Glomerular Filt Rate > 60; Glucose 129 mg/dL (65-110); Potassium 3.0 mmol/L (3.4-5.0); Sodium 131 mmol/L (137-145); Total Protein 5.6 g/dL (6.3-8.2)
--- NOTE | 2025-03-17 11:25 | P.PNIM_ITS ---
Progress Note: A&P Assessment and Plan (1) Chronic vertigo: Code(s): R42 - Dizziness and giddiness Status: Acute Assessment and Plan: * ENT consultation noted * Wean off meclizine * Will need outpatient vascular consultation for right vertebral stenosis * ASA 81 mg daily * PT/OT * She and her family would like her to go to rehab (2) Stenosis of right vertebral artery: Code(s): I65.01 - Occlusion and stenosis of right vertebral artery Status: Acute Assessment and Plan: * Family will discuss with PCP, Dr. Londono, at [facility] and pursue vascular consultation * ASA 81 mg daily (3) Hyponatremia: Code(s): E87.1 - Hypo-osmolality and hyponatremia Status: Acute Assessment and Plan: * 03/17 131 (4) Hypomagnesemia: Code(s): E83.42 - Hypomagnesemia Status: Acute Assessment and Plan: * Likely due to recent alcohol intake, poor PO intake (5) Fall: Code(s): W19.XXXA - Unspecified fall, initial encounter Status: Acute Assessment and Plan: * Alcohol (cerebellar dysfunction, neuropathy), drug side effects, leg weakness, vertigo are all likely contributing (6) Hypokalemia: Code(s): E87.6 - Hypokalemia Status: Acute Assessment and Plan: * 03/16 3.0, KCL 40 mEq PO x2 (7) Alcohol use disorder: Code(s): F10.90 - Alcohol use, unspecified, uncomplicated Status: Acute Assessment and Plan: * 03/16 Discuss abstaining (8) Cigarette smoker: Code(s): F17.210 - Nicotine dependence, cigarettes, uncomplicated Status: Acute Assessment and Plan: * 03/16 Discussed that smoking cessation is essential (9) Alcoholic fatty liver: Code(s): K70.0 - Alcoholic fatty liver Status: Acute Assessment and Plan: * By CT * 03/16 Discussed possible progression to cirrhosis and if she continues drinking Subjective Date/time seen: 03/17/25 11:25 Interval history: No dizzy spells today. Complains of some aching in the right chest. Mild. No shortness of breath or palpitations syncope or presyncope. Denied GI or issues. Denied abnormal bleeding. Denied focal weakness or numbness. Recently quit drinking when she went to [facility] for rehab. Family states she was drinking excessively and daily. She also was smoking cigarettes. Her with whom she lives still smokes and drinks. Review of Systems Review of Systems: All systems reviewed & are unremarkable except as noted in HPI and below Exam Narrative: HEENT: PERRL, sclerae nonicteric, pharyngeal mucosa pink and intact NECK: No JVD, adenopathy, or thyromegaly CHEST: Clear to auscultation. Normal effort HEART: NL S1/S2, regular, no murmur ABDOMEN: BS+, soft, nontender, no mass, no bruits EXTREMITIES: No cyanosis, edema, or clubbing NEUROLOGIC: CN intact and symmetric to inspection. MUSCULOSKELETAL: Tone and strength symmetric, tender right lower costochondral joints PSYCH: Alert, pleasant, cooperative Objective Data Vital Signs Vital Signs: Vital Signs - 24 hr 03/16/25 14:00 03/16/25 14:42 03/16/25 20:20 Temperature 98.1 F Pulse Rate 101 H 85 Respiratory Rate 14 20 Blood Pressure 154/70 H Pulse Oximetry 97 94 Oxygen Delivery Room Air Room Air Fraction of Inspired Oxygen 21 03/16/25 20:36 03/16/25 22:00 03/17/25 05:59 Temperature 97.8 F 97.4 F L Pulse Rate 85 104 H 98 Respiratory Rate 20 18 18 Blood Pressure 140/90 166/79 H Pulse Oximetry 94 97 96 Oxygen Delivery Room Air Fraction of Inspired Oxygen 03/17/25 08:25 Temperature Pulse Rate Respiratory Rate Blood Pressure Pulse Oximetry Oxygen Delivery Room Air Fraction of Inspired Oxygen Intake/Output Intake/Output: Intake & Output 03/14/25 03/15/25 03/16/25 03/17/25 23:59 23:59 23:59 23:59 Intake Total 2800 236 Output Total 475 495 Balance 2325 -259 Meds/Results Medications: Active Medications Generic Name Dose Route Start Last Admin Trade Name Freq PRN Reason Stop Dose Admin Acetaminophen 650 mg 03/16/25 08:21 Acetaminophen 325 Mg Tablet PO Q4H PRN Mild Pain (1-3) or Fever Atorvastatin Calcium 10 mg 03/17/25 09:00 03/17/25 08:25 Atorvastatin 10 Mg Tablet PO 10 mg [id number] THEE Administration Clonazepam 0.5 mg 03/17/25 21:00 Clonazepam (*Crx) 0.5 Mg Tablet PO HS THEE Magnesium Oxide 400 mg 03/17/25 09:00 03/17/25 08:25 Magnesium Oxide 400 Mg Tablet PO 04/16/25 08:59 400 mg DAILY THEE Administration Meclizine HCl 25 mg 03/17/25 17:00 Meclizine Hcl 25 Mg Tablet PO BID THEE Memantine 10 mg 03/17/25 09:00 03/17/25 08:25 Memantine 10 Mg Tablet PO 10 mg Q12HR THEE Administration Ondansetron HCl 4 mg 03/16/25 08:21 Ondansetron Inj 4 Mg/2 Ml Vial IV PUSH Q4H PRN Nausea Potassium Chloride 40 meq 03/17/25 17:00 Potassium Chloride 20 Meq Er Tablet PO 03/17/25 17:01 ONCE ONE Trazodone HCl 100 mg 03/17/25 21:00 Trazodone Hcl 50 Mg Tablet PO HS [facility] Vitamin D 125 mcg 03/17/25 09:00 03/17/25 08:25 Cholecalciferol (Vitamin D3) 125 Mcg (5,000 Units) Tablet PO 125 mcg DAILY THEE Administration Radiology Results: ITS Impressions Chest X-Ray 03/16/25 05:34 Impression: Small right pleural effusion with probable minimal right basilar atelectatic change. Shoulder X-Ray 03/16/25 05:34 Impression: Unremarkable left shoulder radiographs. Head/Neck CTA 03/16/25 05:35 Impression: Focal moderate stenosis of the distal right vertebral artery related to calcified plaque. No other significant findings. Chest/Abdomen/Pelvis CTA 03/16/25 07:44 Impression: Right basilar atelectatic change. Diffuse hepatic steatosis. Labs Labs: Laboratory Results - last 24 hr 03/17/25 03/17/25 04:48 04:52 WBC 9.3 RBC 3.59 L Hgb 11.6 L Hct 34.3 L MCV 95.5 MCH 32.3 MCHC 33.8 RDW 12.7 Plt Count 271 MPV 9.2 Immature Gran % (Auto) 0.4 Neut % (Auto) 76.1 H Lymph % (Auto) 15.0 L [place] % (Auto) 6.9 Eos % (Auto) 1.2 Baso % (Auto) 0.4 Lymph # (Auto) 1.39 [place] # (Auto) 0.6 Eos # (Auto) 0.1 Baso # (Auto) 0.0 Abs Immat Gran (auto) 0.04 H Absolute Neuts (auto) 7.1 H Absolute Nucleated RBC 0.000 Nucleated RBC % 0.0 Sodium 131 L Potassium 3.0 L Chloride 101 Carbon Dioxide 19 L Anion Gap 11 BUN 3 L D Creatinine 0.40 L Estim Creat Clear Calc 97 Estimated GFR > 60 Glucose 129 H Calcium 9.0 Magnesium 1.8 Total Bilirubin 0.5 AST 25 ALT 12 Alkaline Phosphatase 68 Total Protein 5.6 L Albumin 3.1 L
[2025-03-17] MEDS: POTASSIUM CHLORIDE 20 MEQ ER TABLET 40 MEQ PO ×2 (12:04→17:16)
[2025-03-17] MEDS: ACETAMINOPHEN 325 MG TABLET 650 MG PO (13:12)
[2025-03-17 14:00] VITALS: BP 154/84; PULSE 122; RESP 22; TEMP 36.5; O2SAT 97
[2025-03-17] MEDS: MECLIZINE HCL 25 MG TABLET PO (17:16)
[2025-03-17 17:20] VITALS: PULSE 110; O2SAT 98
[2025-03-17] MEDS: clonazePAM (*CRX) 0.5 MG TABLET PO (21:35)
[2025-03-17 22:06] VITALS: BP 167/88; PULSE 106; RESP 16; TEMP 36.7; O2SAT 97
[2025-03-18 05:07] VITALS: BP 148/67; PULSE 100; RESP 16; TEMP 36.9; O2SAT 95
[2025-03-18 05:18] LABS: Hematocrit 34.7 % (37.0-47.0); Hemoglobin 11.8 g/dL (12.0-15.0); Immature Granulocyte Percent A 0.4 % (0-0.5); Lymphocytes Absolute Auto 1.48 K/mm3 (0.9-3.2); Mean Corpuscular HGB Conc 34.0 g/dl (32-36); Mean Corpuscular Hemoglobin 32.1 pg (26-34); Mean Corpuscular Volume 94.3 fl (80-100); Nucleated Red Blood Cells Absolute Auto 0.000 K/mm3 (0.0-0.012); Nucleated Red Blood Cells Perc 0.0 % (0.0-0.2); Platelet Count Result 266 k/mm3 (150-375); Red Blood Count 3.68 M/mm3 (4.2-5.4); White Blood Count 10.2 K/mm3 (4.5-10.0)
[2025-03-18 05:29] LABS: Magnesium 1.9 mg/dL (1.6-2.3)
[2025-03-18] MEDS: ACETAMINOPHEN 325 MG TABLET 650 MG PO ×2 (09:31→16:31)
[2025-03-18] MEDS: MEMANTINE 10 MG TABLET PO ×2 (09:32→20:23)
[2025-03-18] MEDS: CHOLECALCIFEROL (VITAMIN D3) 125 MCG (5,000 UNITS) TABLET PO (09:32)
[2025-03-18] MEDS: MAGNESIUM OXIDE 400 MG TABLET PO (09:32)
[2025-03-18] MEDS: MECLIZINE HCL 25 MG TABLET PO ×2 (09:32→16:31)
--- NOTE | 2025-03-18 11:16 | PC.NURSE ---
RN updated SO on lab results and tried to answer all of their questions.
--- NOTE | 2025-03-18 11:32 | P.PNIM_ITS ---
Progress Note: A&P Assessment and Plan (1) Chronic vertigo: Code(s): R42 - Dizziness and giddiness Status: Acute Assessment and Plan: * ENT consultation noted * Wean off meclizine * Will need outpatient vascular consultation for right vertebral stenosis * ASA 81 mg daily * PT/OT * She and her family would like her to go to rehab, awaiting insurance authorization (2) Stenosis of right vertebral artery: Code(s): I65.01 - Occlusion and stenosis of right vertebral artery Status: Acute Assessment and Plan: * Family will discuss with PCP, Dr. Londono, at [facility] and pursue vascular consultation * ASA 81 mg daily (3) Hyponatremia: Code(s): E87.1 - Hypo-osmolality and hyponatremia Status: Acute Assessment and Plan: * 03/17 131 (4) Hypomagnesemia: Code(s): E83.42 - Hypomagnesemia Status: Acute Assessment and Plan: * Likely due to recent alcohol intake, poor PO intake * 03/17 1.9 (5) Fall: Code(s): W19.XXXA - Unspecified fall, initial encounter Status: Acute Assessment and Plan: * Alcohol (cerebellar dysfunction, neuropathy), drug side effects, leg weakness, vertigo are all likely contributing (6) Hypokalemia: Code(s): E87.6 - Hypokalemia Status: Acute Assessment and Plan: * 03/16 3.0, KCL 40 mEq PO x2 (7) Alcohol use disorder: Code(s): F10.90 - Alcohol use, unspecified, uncomplicated Status: Acute Assessment and Plan: * 03/16 Discuss abstaining (8) Cigarette smoker: Code(s): F17.210 - Nicotine dependence, cigarettes, uncomplicated Status: Acute Assessment and Plan: * 03/16 Discussed that smoking cessation is essential (9) Alcoholic fatty liver: Code(s): K70.0 - Alcoholic fatty liver Status: Acute Assessment and Plan: * By CT * 03/16 Discussed possible progression to cirrhosis and if she continues drinking Subjective Date/time seen: 03/18/25 11:32 Interval history: Still a bit dizzy but not severe. Not eating well but tolerating nutritional supplements. Review of Systems Review of Systems: All systems reviewed & are unremarkable except as noted in HPI and below Exam Narrative: HEENT: PERRL, sclerae nonicteric, pharyngeal mucosa pink and intact NECK: No JVD, adenopathy, or thyromegaly CHEST: Clear to auscultation. Normal effort HEART: NL S1/S2, regular, no murmur ABDOMEN: BS+, soft, nontender, no mass, no bruits EXTREMITIES: No cyanosis, edema, or clubbing NEUROLOGIC: CN intact and symmetric to inspection, finger-nose intact bilaterally with some difficulty on the left due to poor range of motion in left shoulder MUSCULOSKELETAL: Tone and strength symmetric, tender right lower costochondral joints PSYCH: Alert, pleasant, cooperative Objective Data Vital Signs Vital Signs: Vital Signs - 24 hr 03/17/25 14:00 03/17/25 17:20 03/17/25 20:00 Temperature 97.7 F Pulse Rate 122 H 110 H Respiratory Rate 22 H Blood Pressure 154/84 H Pulse Oximetry 97 98 Oxygen Delivery Room Air 03/17/25 22:06 03/18/25 05:07 03/18/25 09:37 Temperature 98.0 F 98.4 F Pulse Rate 106 H 100 Respiratory Rate 16 16 Blood Pressure 167/88 H 148/67 H Pulse Oximetry 97 95 Oxygen Delivery Room Air Intake/Output Intake/Output: Intake & Output 03/15/25 03/16/25 03/17/25 03/18/25 23:59 23:59 23:59 23:59 Intake Total 2800 1266 358 Output Total 475 1295 Balance 2325 -29 358 Meds/Results Medications: Active Medications Generic Name Dose Route Start Last Admin Trade Name Freq PRN Reason Stop Dose Admin Acetaminophen 650 mg 03/16/25 08:21 03/18/25 09:31 Acetaminophen 325 Mg Tablet PO 650 mg Q4H PRN Administration Mild Pain (1-3) or Fever Atorvastatin Calcium 10 mg 03/17/25 09:00 03/17/25 08:25 Atorvastatin 10 Mg Tablet PO 10 mg [id number] THEE Administration Clonazepam 0.5 mg 03/17/25 21:00 03/17/25 21:35 Clonazepam (*Crx) 0.5 Mg Tablet PO 0.5 mg HS THEE Administration Magnesium Oxide 400 mg 03/17/25 09:00 03/18/25 09:32 Magnesium Oxide 400 Mg Tablet PO 04/16/25 08:59 400 mg DAILY THEE Administration Meclizine HCl 25 mg 03/17/25 17:00 03/18/25 09:32 Meclizine Hcl 25 Mg Tablet PO 25 mg BID THEE Administration Memantine 10 mg 03/17/25 09:00 03/18/25 09:32 Memantine 10 Mg Tablet PO 10 mg Q12HR THEE Administration Ondansetron HCl 4 mg 03/16/25 08:21 Ondansetron Inj 4 Mg/2 Ml Vial IV PUSH Q4H PRN Nausea Trazodone HCl 100 mg 03/17/25 21:00 03/17/25 21:34 Trazodone Hcl 50 Mg Tablet PO 100 mg HS THEE Administration Vitamin D 125 mcg 03/17/25 09:00 03/18/25 09:32 Cholecalciferol (Vitamin D3) 125 Mcg (5,000 Units) Tablet PO 125 mcg DAILY THEE Administration Radiology Results: ITS Impressions Chest X-Ray 03/16/25 05:34 Impression: Small right pleural effusion with probable minimal right basilar atelectatic change. Shoulder X-Ray 03/16/25 05:34 Impression: Unremarkable left shoulder radiographs. Head/Neck CTA 03/16/25 05:35 Impression: Focal moderate stenosis of the distal right vertebral artery related to calci fied plaque. No other significant findings. Chest/Abdomen/Pelvis CTA 03/16/25 07:44 Impression: Right basilar atelectatic change. Diffuse hepatic steatosis. Labs Labs: Laboratory Results - last 24 hr 03/18/25 04:46 WBC 10.2 H RBC 3.68 L Hgb 11.8 L Hct 34.7 L MCV 94.3 MCH 32.1 MCHC 34.0 RDW 12.8 Plt Count 266 MPV 9.1 Immature Gran % (Auto) 0.4 Neut % (Auto) 77.0 H Lymph % (Auto) 14.5 L [place] % (Auto) 6.7 Eos % (Auto) 1.1 Baso % (Auto) 0.3 Lymph # (Auto) 1.48 [place] # (Auto) 0.7 H Eos # (Auto) 0.1 Baso # (Auto) 0.0 Abs Immat Gran (auto) 0.04 H Absolute Neuts (auto) 7.8 H Absolute Nucleated RBC 0.000 Nucleated RBC % 0.0 Magnesium 1.9
[2025-03-18 13:50] VITALS: BP 149/62; PULSE 104; RESP 20; TEMP 36.4; O2SAT 97
[2025-03-18] MEDS: clonazePAM (*CRX) 0.5 MG TABLET PO (20:23)
[2025-03-18 22:00] VITALS: BP 137/70; PULSE 110; RESP 18; TEMP 36.8; O2SAT 95
[2025-03-19] MEDS: ACETAMINOPHEN 325 MG TABLET 650 MG PO ×4 (00:20→20:28)
[2025-03-19 05:20] LABS: Hematocrit 36.4 % (37.0-47.0); Hemoglobin 11.8 g/dL (12.0-15.0); Immature Granulocyte Percent A 0.8 % (0-0.5); Lymphocytes Absolute Auto 2.16 K/mm3 (0.9-3.2); Mean Corpuscular HGB Conc 32.4 g/dl (32-36); Mean Corpuscular Hemoglobin 31.9 pg (26-34); Mean Corpuscular Volume 98.4 fl (80-100); Nucleated Red Blood Cells Absolute Auto 0.000 K/mm3 (0.0-0.012); Nucleated Red Blood Cells Perc 0.0 % (0.0-0.2); Platelet Count Result 258 k/mm3 (150-375); Red Blood Count 3.70 M/mm3 (4.2-5.4); White Blood Count 8.9 K/mm3 (4.5-10.0)
[2025-03-19 05:33] LABS: Anion Gap 6 mmol/L (4-12); Blood Urea Nitrogen 7 mg/dL (7-17); Calcium 8.9 mg/dL (8.4-10.2); Carbon Dioxide 23 mmol/L (22-30); Chloride 99 mmol/L (98-107); Estimated CRCL calculation 94 ml/min; Estimated Glomerular Filt Rate > 60; Glucose 103 mg/dL (65-110); Magnesium 2.0 mg/dL (1.6-2.3); Potassium 3.8 mmol/L (3.4-5.0); Sodium 128 mmol/L (137-145)
[2025-03-19 06:00] VITALS: BP 155/67; PULSE 96; RESP 18; TEMP 36.7; O2SAT 96
--- NOTE | 2025-03-19 08:34 | P.PNIM_ITS ---
Progress Note: A&P Assessment and Plan (1) Chronic vertigo: Code(s): R42 - Dizziness and giddiness Status: Acute Assessment and Plan: * ENT consultation noted * Wean off meclizine * Will need outpatient vascular consultation for right vertebral stenosis * ASA 81 mg daily * PT/OT * She and her family would like her to go to rehab, awaiting insurance authorization * 03/19 Check orthostatic pressures daily as she has supine systolic hypertension with a wide pulse pressure (2) Stenosis of right vertebral artery: Code(s): I65.01 - Occlusion and stenosis of right vertebral artery Status: Acute Assessment and Plan: * Family will discuss with PCP, Dr. Londono, at [facility] and pursue vascular consultation as an outpatient * ASA 81 mg daily (3) Hyponatremia: Code(s): E87.1 - Hypo-osmolality and hyponatremia Status: Acute Assessment and Plan: * Prior FENa c/w chronic SIADH * TSH and cortisol pending 03/20 * 03/18 131,03/19 128 (4) Hypomagnesemia: Code(s): E83.42 - Hypomagnesemia Status: Acute Assessment and Plan: * Likely due to recent alcohol intake, poor PO intake * 03/18 1.9, 03/19 2.0 (5) Fall: Code(s): W19.XXXA - Unspecified fall, initial encounter Status: Acute Assessment and Plan: * Alcohol (cerebellar dysfunction, neuropathy), drug side effects, leg weakness, vertigo are all likely contributing * Evaluate for orthostatic hypotension (6) Hypokalemia: Code(s): E87.6 - Hypokalemia Status: Acute Assessment and Plan: * 03/16 3.0, KCL 40 mEq PO x2 * 03/19 3.8 (7) Alcohol use disorder: Code(s): F10.90 - Alcohol use, unspecified, uncomplicated Status: Acute Assessment and Plan: * 03/17, 03/18, 03/19 Discussed abstaining (8) Cigarette smoker: Code(s): F17.210 - Nicotine dependence, cigarettes, uncomplicated Status: Acute Assessment and Plan: * 03/17 Discussed that smoking cessation is essential (9) Alcoholic fatty liver: Code(s): K70.0 - Alcoholic fatty liver Status: Acute Assessment and Plan: * By CT * 03/17 Discussed possible progression to cirrhosis and if she continues drinking Subjective Date/time seen: 03/19/25 08:34 Interval history: Feeling less dizzy. Eating little better. Food tasting better. Complains that he her memory is not as good as she would like. Her states that it is from ?diving into of that of vodka and not coming out for a while. Review of Systems Review of Systems: All systems reviewed & are unremarkable except as noted in HPI and below Exam Narrative: HEENT: PERRL, sclerae nonicteric, pharyngeal mucosa pink and intact NECK: No JVD CHEST: Clear to auscultation. Normal effort HEART: NL S1/S2, regular, no murmur ABDOMEN: BS+, soft, nontender, no mass, no bruits EXTREMITIES: No cyanosis, edema, or clubbing NEUROLOGIC: CN intact and symmetric to inspection, finger-nose intact krishna aterally with some difficulty on the left due to poor range of motion in left shoulder, generalized but symmetric weakness MUSCULOSKELETAL: Moderate decreased ROM right shoulder PSYCH: Alert, pleasant, cooperative Objective Data Vital Signs Vital Signs: Vital Signs - 24 hr 03/18/25 09:37 03/18/25 13:50 03/18/25 22:00 Temperature 97.6 F 98.2 F Pulse Rate 104 H 110 H Respiratory Rate 20 18 Blood Pressure 149/62 H 137/70 Pulse Oximetry 97 95 Oxygen Delivery Room Air 03/19/25 06:00 Temperature 98.0 F Pulse Rate 96 Respiratory Rate 18 Blood Pressure 155/67 H Pulse Oximetry 96 Oxygen Delivery Intake/Output Intake/Output: Intake & Output 03/16/25 03/17/25 03/18/25 03/19/25 23:59 23:59 23:59 23:59 Intake Total 2800 1266 838 Output Total 475 1295 250 600 Balance 2325 -29 588 -600 Meds/Results Medications: Active Medications Generic Name Dose Route Start Last Admin Trade Name Freq PRN Reason Stop Dose Admin Acetaminophen 650 mg 03/16/25 08:21 03/19/25 00:20 Acetaminophen 325 Mg Tablet PO 650 mg Q4H PRN Administration Mild Pain (1-3) or Fever Atorvastatin Calcium 10 mg 03/17/25 09:00 03/17/25 08:25 Atorvastatin 10 Mg Tablet PO 10 mg [email or web address] THEE Administration Clonazepam 0.5 mg 03/17/25 21:00 03/18/25 20:23 Clonazepam (*Crx) 0.5 Mg Tablet PO 0.5 mg HS THEE Administration Magnesium Oxide 400 mg 03/17/25 09:00 03/18/25 09:32 Magnesium Oxide 400 Mg Tablet PO 04/16/25 08:59 400 mg DAILY THEE Administration Meclizine HCl 12.5 mg 03/19/25 09:00 Meclizine Hcl 12.5 Mg Tablet PO BID THEE Memantine 10 mg 03/17/25 09:00 03/18/25 20:23 Memantine 10 Mg Tablet PO 10 mg Q12HR THEE Administration Ondansetron HCl 4 mg 03/16/25 08:21 Ondansetron Inj 4 Mg/2 Ml Vial IV PUSH Q4H PRN Nausea Trazodone HCl 100 mg 03/17/25 21:00 03/18/25 20:23 Trazodone Hcl 50 Mg Tablet PO 100 mg HS THEE Administration Vitamin D 125 mcg 03/17/25 09:00 03/18/25 09:32 Cholecalciferol (Vitamin D3) 125 Mcg (5,000 Units) Tablet PO 125 mcg DAILY THEE Administration Radiology Results: ITS Impressions Chest X-Ray 03/16/25 05:34 Impression: Small right pleural effusion with probable minimal right basilar atelectatic change. Shoulder X-Ray 03/16/25 05:34 Impression: Unremarkable left shoulder radiographs. Head/Neck CTA 03/16/25 05:35 Impression: Focal moderate stenosis of the distal right vertebral artery related to calcified plaque. No other significant findings. Chest/Abdomen/Pelvis CTA 03/16/25 07:44 Impression: Right basilar atelectatic change. Diffuse hepatic steatosis. Labs Labs: Laboratory Results - last 24 hr 03/19/25 04:53 WBC 8.9 RBC 3.70 L Hgb 11.8 L Hct 36.4 L MCV 98.4 MCH 31.9 MCHC 32.4 RDW 12.8 Plt Count 258 MPV 9.1 Immature Gran % (Auto) 0.8 H Neut % (Auto) 65.2 Lymph % (Auto) 24.3 [place] % (Auto) 7.5 Eos % (Auto) 1.6 Baso % (Auto) 0.6 Lymph # (Auto) 2.16 [place] # (Auto) 0.7 H Eos # (Auto) 0.1 Baso # (Auto) 0.1 Abs Immat Gran (auto) 0.07 H Absolute Neuts (auto) 5.8 Absolute Nucleated RBC 0.000 Nucleated RBC % 0.0 Sodium 128 L Potassium 3.8 Chloride 99 Carbon Dioxide 23 Anion Gap 6 BUN 7 Creatinine 0.41 L Estim Creat Clear Calc 94 Estimated GFR > 60 Glucose 103 Calcium 8.9 Magnesium 2.0
[2025-03-19] MEDS: MAGNESIUM OXIDE 400 MG TABLET PO (08:42)
[2025-03-19] MEDS: CHOLECALCIFEROL (VITAMIN D3) 125 MCG (5,000 UNITS) TABLET PO (08:43)
[2025-03-19] MEDS: MEMANTINE 10 MG TABLET PO ×2 (08:43→20:28)
[2025-03-19] MEDS: MECLIZINE HCL 12.5 MG TABLET PO ×2 (08:44→17:00)
[2025-03-19 14:00] VITALS: BP 135/56; PULSE 98; RESP 18; TEMP 36.8; O2SAT 97
--- NOTE | 2025-03-19 17:08 | PC.NURSE ---
RN was administering afternoon medications when noticed patient's left hand was swollen, pale, and cool to touch. RN performed neuro check which was okay and vitals were taken. RN notified provider Lorraine and was told nothing additional at the time was necessary other than propping the extremity up on pillow. If propping and placement does not improve, notify provider and order ultrasound.
[2025-03-19 20:20] VITALS: O2SAT 97
[2025-03-19] MEDS: clonazePAM (*CRX) 0.5 MG TABLET PO (20:28)
[2025-03-19 22:00] VITALS: BP 123/57; PULSE 102; RESP 18; TEMP 36.6; O2SAT 97
[2025-03-20 04:57] LABS: Hematocrit 34.6 % (37.0-47.0); Hemoglobin 11.3 g/dL (12.0-15.0); Immature Granulocyte Percent A 0.5 % (0-0.5); Lymphocytes Absolute Auto 1.85 K/mm3 (0.9-3.2); Mean Corpuscular HGB Conc 32.7 g/dl (32-36); Mean Corpuscular Hemoglobin 31.6 pg (26-34); Mean Corpuscular Volume 96.6 fl (80-100); Nucleated Red Blood Cells Absolute Auto 0.000 K/mm3 (0.0-0.012); Nucleated Red Blood Cells Perc 0.0 % (0.0-0.2); Platelet Count Result 280 k/mm3 (150-375); Red Blood Count 3.58 M/mm3 (4.2-5.4); White Blood Count 8.5 K/mm3 (4.5-10.0)
[2025-03-20 05:15] LABS: Anion Gap 5 mmol/L (4-12); Blood Urea Nitrogen 8 mg/dL (7-17); Calcium 8.9 mg/dL (8.4-10.2); Carbon Dioxide 25 mmol/L (22-30); Chloride 100 mmol/L (98-107); Estimated CRCL calculation 89 ml/min; Estimated Glomerular Filt Rate > 60; Glucose 112 mg/dL (65-110); Magnesium 2.1 mg/dL (1.6-2.3); Potassium 4.0 mmol/L (3.4-5.0); Sodium 130 mmol/L (137-145)
[2025-03-20 05:42] LABS: Thyroid Stimulating Hormone Reflex 5.320 uIU/mL (0.465-4.68)
[2025-03-20 06:00] VITALS: BP 143/57; PULSE 96; RESP 18; TEMP 36.9; O2SAT 94
[2025-03-20 06:22] LABS: Free T4 Free Thyroxine Reflex 1.37 ng/dL (0.78-2.19)
[2025-03-20] MEDS: ACETAMINOPHEN 325 MG TABLET 650 MG PO ×2 (06:31→14:27)
--- NOTE | 2025-03-20 07:32 | P.PNIM_ITS ---
Progress Note: A&P Assessment and Plan (1) Chronic vertigo: Code(s): R42 - Dizziness and giddiness Status: Acute Assessment and Plan: * ENT consultation noted * Wean off meclizine * Will need outpatient vascular consultation for right vertebral stenosis * Start ASA 81 mg daily * PT/OT * She and her family would like her to go to rehab, awaiting insurance authorization * 03/19 Check orthostatic pressures daily as she has supine systolic hypertension with a wide pulse pressure (2) Stenosis of right vertebral artery: Code(s): I65.01 - Occlusion and stenosis of right vertebral artery Status: Acute Assessment and Plan: * Family will discuss with PCP, Dr. Londono, at [facility] and pursue vascular consultation as an outpatient * ASA 81 mg daily (3) Hyponatremia: Code(s): E87.1 - Hypo-osmolality and hyponatremia Status: Acute Assessment and Plan: * Prior FENa c/w chronic SIADH * TSH and cortisol pending 03/20 * 03/18 131,03/19 128 (4) Hypomagnesemia: Code(s): E83.42 - Hypomagnesemia Status: Acute Assessment and Plan: * Likely due to recent alcohol intake, poor PO intake * 03/18 1.9, 03/19 2.0 (5) Fall: Code(s): W19.XXXA - Unspecified fall, initial encounter Status: Acute Assessment and Plan: * Alcohol (cerebellar dysfunction, neuropathy), drug side effects, leg weakness, vertigo are all likely contributing * Evaluate for orthostatic hypotension (6) Hypokalemia: Code(s): E87.6 - Hypokalemia Status: Acute Assessment and Plan: 03/16 3.0, KCL 40 mEq PO x2, now up to 4 * Follow BMP (7) Alcohol use disorder: Code(s): F10.90 - Alcohol use, unspecified, uncomplicated Status: Acute Assessment and Plan: 03/17, 03/18, 03/19 Discussed abstaining MVI (8) Cigarette smoker: Code(s): F17.210 - Nicotine dependence, cigarettes, uncomplicated Status: Acute Assessment and Plan: * 03/17 Discussed that smoking cessation is essential (9) Alcoholic fatty liver: Code(s): K70.0 - Alcoholic fatty liver Status: Acute Assessment and Plan: * By CT * 03/17 Discussed possible progression to cirrhosis and if she continues drinking Time Spent With Patient Time: 35 minutes Subjective Date/time seen: 03/20/25 07:32 Interval history: Admitted with a fall. Dizziness. Reports 1 shot of ETOH but otherwise no significant intake TSH 5.3, sodium 130 Not ambulating much. [place], BIBI, other. deciding about facility. Talked about increasing ambulation Review of Systems Review of Systems: 12 systems were reviewed and are negativ e except for as per HPI. All systems reviewed & are unremarkable except as noted in HPI and below Exam Narrative: General - Awake and alert. No acute distress Eyes - PERRLA, EOM intact ENT - No thrush, No erythema Neck - No noticeable or palpable swelling Lymph Nodes - No lymphadenopathy Cardiovascular - RRR no m/r/g, no JVD Lungs: Clear to auscultation, No wheezing, use of accessory muscles, no crackles Skin - Skin warm and dry, no wounds or rashes Abdomen - Normal bowel sounds, abdomen soft and nontender Extremities - No edema, cyanosis or clubbing Musculoskeletal - 3/5 strength, decreased range of motion but nonfocal upper extremities. Neurological ? Alert and oriented x 3, CN 2-12 grossly intact. Psych: Normal mood and affect Objective Data Vital Signs Vital Signs: Vital Signs - 24 hr 03/19/25 08:00 03/19/25 14:00 03/19/25 20:20 Temperature 98.3 F Pulse Rate 98 Respiratory Rate 18 Blood Pressure 135/56 L Pulse Oximetry 97 97 Oxygen Delivery Room Air Room Air Fraction of Inspired Oxygen 21 03/19/25 22:00 03/20/25 06:00 Temperature 97.9 F 98.4 F Pulse Rate 102 H 96 Respiratory Rate 18 18 Blood Pressure 123/57 L 143/57 H Pulse Oximetry 97 94 Oxygen Delivery Fraction of Inspired Oxygen Intake/Output Intake/Output: Intake & Output 03/17/25 03/18/25 03/19/25 03/20/25 23:59 23:59 23:59 23:59 Intake Total 1266 838 520 Output Total 5067 266 3585 850 Balance -29 486 -212 -517 Meds/Results Medications: Active Medications Generic Name Dose Route Start Last Admin Trade Name Freq PRN Reason Stop Dose Admin Acetaminophen 650 mg 03/16/25 08:21 03/20/25 06:31 Acetaminophen 325 Mg Tablet PO 650 mg Q4H PRN Administration Mild Pain (1-3) or Fever Atorvastatin Calcium 10 mg 03/17/25 09:00 03/17/25 08:25 Atorvastatin 10 Mg Tablet PO 10 mg [email or web address] THEE Administration Clonazepam 0.5 mg 03/17/25 21:00 03/19/25 20:28 Clonazepam (*Crx) 0.5 Mg Tablet PO 0.5 mg HS THEE Administration Magnesium Oxide 400 mg 03/17/25 09:00 03/19/25 08:42 Magnesium Oxide 400 Mg Tablet PO 04/16/25 08:59 400 mg DAILY THEE Administration Meclizine HCl 12.5 mg 03/19/25 09:00 03/19/25 17:00 Meclizine Hcl 12.5 Mg Tablet PO 12.5 mg BID THEE Administration Memantine 10 mg 03/17/25 09:00 03/19/25 20:28 Memantine 10 Mg Tablet PO 10 mg Q12HR THEE Administration Ondansetron HCl 4 mg 03/16/25 08:21 Ondansetron Inj 4 Mg/2 Ml Vial IV PUSH Q4H PRN Nausea Trazodone HCl 100 mg 03/17/25 21:00 03/19/25 20:28 Trazodone Hcl 50 Mg Tablet PO 100 mg HS THEE Administration Vitamin D 125 mcg 03/17/25 09:00 03/19/25 08:43 Cholecalciferol (Vitamin D3) 125 Mcg (5,000 Units) Tablet PO 125 mcg DAILY THEE Administration Radiology Results: ITS Impressions Chest X-Ray 03/16/25 05:34 Impression: Small right pleural effusion with probable minimal right basilar atelectatic change. Shoulder X-Ray 03/16/25 05:34 Impression: Unremarkable left shoulder radiographs. Head/Neck CTA 03/16/25 05:35 Impression: Focal moderate stenosis of the distal right vertebral artery related to calcified plaque. No other significant findings. Chest/Abdomen/Pelvis CTA 03/16/25 07:44 Impression: Right basilar atelectatic change. Diffuse hepatic steatosis. Labs Labs: Laboratory Results - last 24 hr 03/19/25 03/20/25 21:26 04:24 WBC 8.5 RBC 3.58 L Hgb 11.3 L Hct 34.6 L MCV 96.6 MCH 31.6 MCHC 32.7 RDW 12.6 Plt Count 280 MPV 9.3 Immature Gran % (Auto) 0.5 Neut % (Auto) 68.4 Lymph % (Auto) 21.9 [place] % (Auto) 6.9 Eos % (Auto) 1.8 Baso % (Auto) 0.5 Lymph # (Auto) 1.85 [place] # (Auto) 0.6 Eos # (Auto) 0.2 Baso # (Auto) 0.0 Abs Immat Gran (auto) 0.04 H Absolute Neuts (auto) 5.8 Absolute Nucleated RBC 0.000 Nucleated RBC % 0.0 Sodium 130 L Potassium 4.0 Chloride 100 Carbon Dioxide 25 Anion Gap 5 BUN 8 Creatinine 0.44 L Estim Creat Clear Calc 89 Estimated GFR > 60 Glucose 112 H POC Capillary Glucose 161 H Calcium 8.9 Magnesium 2.1 TSH (Reflex) 5.320 H Free T4 1.37 Random Cortisol 8.03 Hospitalist MIPS Advance Care Plan I have confirmed that the patient's Advanced Care Plan is present, code status is documented, or surrogate decision maker is listed in patient medical record.: Yes Medication Reconciliation I have utilized all available resources to obtain, update and review the patients current medications (includes all prescriptions, OTC, herbals, cannabis, and nutritional supplements).: Yes
[2025-03-20 08:00] VITALS: BP 150/69
[2025-03-20] MEDS: ATORVASTATIN 10 MG TABLET PO (08:43)
[2025-03-20] MEDS: MEMANTINE 10 MG TABLET PO ×2 (08:43→21:43)
[2025-03-20] MEDS: MAGNESIUM OXIDE 400 MG TABLET PO (08:44)
[2025-03-20] MEDS: CHOLECALCIFEROL (VITAMIN D3) 125 MCG (5,000 UNITS) TABLET PO (08:44)
[2025-03-20] MEDS: MECLIZINE HCL 12.5 MG TABLET PO ×2 (08:44→16:16)
[2025-03-20 09:20] LABS: Total Triiodothyronine (T3) 1.07 NG/ML (0.82-1.58)
[2025-03-20 14:00] VITALS: BP 153/67; PULSE 97; RESP 18; TEMP 36.7; O2SAT 99
[2025-03-20] MEDS: ASPIRIN 81 MG ENTERIC TABLET PO (14:26)
--- NOTE | 2025-03-20 14:37 | PCOTNOTE ---
Patient refused treatment this session. [place] was initially agreeable to therapy and scooted up in the chair in preparation to stand up. Upon doing a 3 count to stand patient then stated, No, I can't do it. I can't do it. You can not make me. I give up. Patient was returned to a reclined position and patient was provided with all her care needs. Alarm on and call light in reach. RN notified.
[2025-03-20 18:11] VITALS: BP 146/62
[2025-03-20 20:27] VITALS: BP 148/72; PULSE 93; RESP 16; TEMP 36.3; O2SAT 97
[2025-03-20] MEDS: clonazePAM (*CRX) 0.5 MG TABLET PO (21:43)
[2025-03-20 23:04] VITALS: O2SAT 97
[2025-03-21 05:26] LABS: Hematocrit 36.4 % (37.0-47.0); Hemoglobin 12.1 g/dL (12.0-15.0); Immature Granulocyte Percent A 0.7 % (0-0.5); Lymphocytes Absolute Auto 1.77 K/mm3 (0.9-3.2); Mean Corpuscular HGB Conc 33.2 g/dl (32-36); Mean Corpuscular Hemoglobin 31.8 pg (26-34); Mean Corpuscular Volume 95.8 fl (80-100); Nucleated Red Blood Cells Absolute Auto 0.000 K/mm3 (0.0-0.012); Nucleated Red Blood Cells Perc 0.0 % (0.0-0.2); Platelet Count Result 303 k/mm3 (150-375); Red Blood Count 3.80 M/mm3 (4.2-5.4); White Blood Count 10.7 K/mm3 (4.5-10.0)
[2025-03-21 05:43] LABS: Anion Gap 7 mmol/L (4-12); Blood Urea Nitrogen 10 mg/dL (7-17); Calcium 9.3 mg/dL (8.4-10.2); Carbon Dioxide 24 mmol/L (22-30); Chloride 97 mmol/L (98-107); Cholesterol 134 mg/dL (0-200); Estimated CRCL calculation 82 ml/min; Estimated Glomerular Filt Rate > 60; Glucose 125 mg/dL (65-110); HDL Direct 43 mg/dL; Magnesium 2.2 mg/dL (1.6-2.3); Potassium 4.3 mmol/L (3.4-5.0); Sodium 128 mmol/L (137-145); Triglycerides 97 mg/dL (<150)
[2025-03-21 06:00] VITALS: BP 152/73; PULSE 100; RESP 16; TEMP 36.5; O2SAT 94
[2025-03-21] MEDS: ACETAMINOPHEN 325 MG TABLET 650 MG PO (06:17)
--- NOTE | 2025-03-21 07:22 | P.PNIM_ITS ---
Progress Note: A&P Assessment and Plan (1) Chronic vertigo: Code(s): R42 - Dizziness and giddiness Status: Acute Assessment and Plan: * ENT consultation noted * Wean off meclizine * Will need outpatient vascular consultation for right vertebral stenosis * Start ASA 81 mg daily * PT/OT * She and her family would like her to go to rehab, awaiting insurance authorization * 03/19 Check orthostatic pressures daily as she has supine systolic hypertension with a wide pulse pressure (2) Stenosis of right vertebral artery: Code(s): I65.01 - Occlusion and stenosis of right vertebral artery Status: Acute Assessment and Plan: * Family will discuss with PCP, Dr. Lonodno, at [facility] and pursue vascular consultation as an outpatient * ASA 81 mg daily (3) Hyponatremia: Code(s): E87.1 - Hypo-osmolality and hyponatremia Status: Acute Assessment and Plan: * Prior FENa c/w chronic SIADH * TSH and cortisol pending 03/20 * 03/18 131,03/19 128 (4) Hypomagnesemia: Code(s): E83.42 - Hypomagnesemia Status: Acute Assessment and Plan: * Likely due to recent alcohol intake, poor PO intake * 03/18 1.9, 03/19 2.0 (5) Fall: Code(s): W19.XXXA - Unspecified fall, initial encounter Status: Acute Assessment and Plan: * Alcohol (cerebellar dysfunction, neuropathy), drug side effects, leg weakness, vertigo are all likely contributing * Evaluate for orthostatic hypotension (6) Hypokalemia: Code(s): E87.6 - Hypokalemia Status: Acute Assessment and Plan: 03/16 3.0, KCL 40 mEq PO x2, normalized * Follow BMP (7) Alcohol use disorder: Code(s): F10.90 - Alcohol use, unspecified, uncomplicated Status: Acute Assessment and Plan: 03/17, 03/18, 03/19 Discussed abstaining MVI (8) Cigarette smoker: Code(s): F17.210 - Nicotine dependence, cigarettes, uncomplicated Status: Acute Assessment and Plan: * 03/17 Discussed that smoking cessation is essential (9) Alcoholic fatty liver: Code(s): K70.0 - Alcoholic fatty liver Status: Acute Assessment and Plan: * By CT * 03/17 Discussed possible progression to cirrhosis and if she continues drinking Time Spent With Patient Time: 36 minutes Subjective Date/time seen: 03/21/25 07:22 Interval history: Admitted with a fall. Dizziness. Reports 1 shot of ETOH but otherwise no significant intake TSH 5.3, sodium 130 Not ambulating much. [place], BIBI, other. deciding about facility. Talked about increasing ambulation (1) Chronic vertigo: Code(s): R42 - Dizziness and giddiness Status: Acute Assessment and Plan: * ENT consultation noted * Wean off meclizine * Will need outpatient vascular consultation for right vertebral stenosis * Start ASA 81 mg daily * PT/OT * She and her family would like her to go to rehab, awaiting insurance authorization * 03/19 Check orthostatic pressures daily as she has supine systolic hypertension with a wide pulse pressure(2) Stenosis of right vertebral artery: Code(s): I65.01 - Occlusion and stenosis of right vertebral artery Status: Acute Assessment and Plan: * Family will discuss with PCP, Dr. Londono, at [facility] and pursue vascular consultation as an outpatient * ASA 81 mg daily(3) Hyponatremia: Code(s): E87.1 - Hypo-osmolality and hyponatremia Status: Acute Assessment and Plan: * Prior FENa c/w chronic SIADH * TSH and cortisol pending 03/20 * 03/18 131,03/19 128(4) Hypomagnesemia: Code(s): E83.42 - Hypomagnesemia Status: Acute Assessment and Plan: * Likely due to recent alcohol intake, poor PO intake * 03/18 1.9, 03/19 2.0(5) Fall: Code(s): W19.XXXA - Unspecified fall, initial encounter Status: Acute Assessment and Plan: * Alcohol (cerebellar dysfunction, neuropathy), drug side effects, leg weakness, vertigo are all likely contributing * Evaluate for orthostatic hypotension(6) Hypokalemia: Code(s): E87.6 - Hypokalemia Status: Acute Assessment and Plan: 03/16 3.0, KCL 40 mEq PO x2, normalized * Follow BMP(7) Alcohol use disorder: Code(s): F10.90 - Alcohol use, unspecified, uncomplicated Status: Acute Assessment and Plan: 03/17, 03/18, 7/6 Discussed abstaining MVI (8) Cigarette smoker: Code(s): F17.210 - Nicotine dependence, cigarettes, uncomplicated Status: Acute Assessment and Plan: * 03/17 Discussed that smoking cessation is essential(9) Alcoholic fatty liver: Code(s): K70.0 - Alcoholic fatty liver Status: Acute Assessment and Plan: * By CT * 03/17 Discussed possible progression to cirrhosis and if she continues drinkingTime Spent With Patient Time: 36 minutes Subjective Date/time seen: 03/21/25 07:22 Interval history: Admitted with a fall. Dizziness. Reports 1 shot of ETOH but otherwise no significant intake TSH 5.3, sodium 130 Not ambulating much. [place], BIBI, other. deciding about facility. Talked about increasing ambulation Review of Systems Review of Systems: 12 systems were reviewed and are negativ e except for as per HPI. All systems reviewed & are unremarkable except as noted in HPI and below Exam Narrative: General - Awake and alert. No acute distress Eyes - PERRLA, EOM intact ENT - No thrush, No erythema Neck - No noticeable or palpable swelling Lymph Nodes - No lymphadenopathy Cardiovascular - RRR no m/r/g, no JVD Lungs: Clear to auscultation, No wheezing, use of accessory muscles, no crackles Skin - Skin warm and dry, no wounds or rashes Abdomen - Normal bowel sounds, abdomen soft and nontender Extremities - No edema, cyanosis or clubbing Musculoskeletal - 3/5 strength, decreased range of motion but nonfocal upper extremities. Neurological ? Alert and oriented x 3, CN 2-12 grossly intact. Psych: Normal mood and affect Objective Data Vital Signs Vital Signs: Vital Signs - 24 hr 03/20/25 08:00 03/20/25 08:44 03/20/25 14:00 Temperature 98.0 F Pulse Rate 97 Respiratory Rate 18 Blood Pressure 150/69 H 153/67 H Pulse Oximetry 99 Oxygen Delivery Room Air Fraction of Inspired Oxygen 03/20/25 18:11 03/20/25 20:00 03/20/25 20:27 Temperature 97.4 F L Pulse Rate 93 Respiratory Rate 16 Blood Pressure 146/62 H 148/72 H Pulse Oximetry 97 Oxygen Delivery Room Air Fraction of Inspired Oxygen 21 03/20/25 23:04 03/21/25 06:00 Temperature 97.7 F Pulse Rate 100 Respiratory Rate 16 Blood Pressure 152/73 H Pulse Oximetry 97 94 Oxygen Delivery Room Air Fraction of Inspired Oxygen 21 Intake/Output Intake/Output: Intake & Output 03/18/25 03/19/25 03/20/25 03/21/25 23:59 23:59 23:59 23:59 Intake Total 838 520 720 300 Output Total 250 1200 850 700 Balance 588 -680 -130 -400 Meds/Results Medications: Active Medications Generic Name Dose Route Start Last Admin Trade Name Freq PRN Reason Stop Dose Admin Acetaminophen 650 mg 03/16/25 08:21 03/21/25 06:17 Acetaminophen 325 Mg Tablet PO 650 mg Q4H PRN Administration Mild Pain (1-3) or Fever Aspirin 81 mg 03/20/25 09:00 03/20/25 14:26 Aspirin 81 Mg Enteric Tablet PO 81 mg QAM THEE Administration Atorvastatin Calcium 10 mg 03/17/25 09:00 03/20/25 08:43 Atorvastatin 10 Mg Tablet PO 10 mg [email or web address]@0900 THEE Administration Clonazepam 0.5 mg 03/17/25 21:00 03/20/25 21:43 Clonazepam (*Crx) 0.5 Mg Tablet PO 0.5 mg HS THEE Administration Magnesium Oxide 400 mg 03/17/25 09:00 03/20/25 08:44 Magnesium Oxide 400 Mg Tablet PO 04/16/25 08:59 400 mg DAILY THEE Administration Meclizine HCl 12.5 mg 03/19/25 09:00 03/20/25 16:16 Meclizine Hcl 12.5 Mg Tablet PO 12.5 mg BID THEE Administration Memantine 10 mg 03/17/25 09:00 03/20/25 21:43 Memantine 10 Mg Tablet PO 10 mg Q12HR THEE Administration Ondansetron HCl 4 mg 03/16/25 08:21 Ondansetron Inj 4 Mg/2 Ml Vial IV PUSH Q4H PRN Nausea Trazodone HCl 100 mg 03/17/25 21:00 03/20/25 21:43 Trazodone Hcl 50 Mg Tablet PO 100 mg HS THEE Administration Vitamin D 125 mcg 03/17/25 09:00 03/20/25 08:44 Cholecalciferol (Vitamin D3) 125 Mcg (5,000 Units) Tablet PO 125 mcg DAILY THEE Administration Radiology Results: ITS Impressions Chest X-Ray 03/16/25 05:34 Impression: Small right pleural effusion with probable minimal right basilar atelectatic change. Shoulder X-Ray 03/16/25 05:34 Impression: Unremarkable left shoulder radiographs. Head/Neck CTA 03/16/25 05:35 Impression: Focal moderate stenosis of the distal right vertebral artery related to calcified plaque. No other significant findings. Chest/Abdomen/Pelvis CTA 03/16/25 07:44 Impression: Right basilar atelectatic change. Diffuse hepatic steatosis. Labs Labs: Laboratory Results - last 24 hr 03/20/25 03/21/25 04:24 04:44 WBC 10.7 H RBC 3.80 L Hgb 12.1 Hct 36.4 L MCV 95.8 MCH 31.8 MCHC 33.2 RDW 12.8 Plt Count 303 MPV 9.1 Immature Gran % (Auto) 0.7 H Neut % (Auto) 73.8 H Lymph % (Auto) 16.5 L [place] % (Auto) 7.0 Eos % (Auto) 1.5 Baso % (Auto) 0.5 Lymph # (Auto) 1.77 [place] # (Auto) 0.8 H Eos # (Auto) 0.2 Baso # (Auto) 0.1 Abs Immat Gran (auto) 0.07 H Absolute Neuts (auto) 7.9 H Absolute Nucleated RBC 0.000 Nucleated RBC % 0.0 Sodium 128 L Potassium 4.3 Chloride 97 L Carbon Dioxide 24 Anion Gap 7 BUN 10 Creatinine 0.48 L Estim Creat Clear Calc 82 Estimated GFR > 60 Glucose 125 H Calcium 9.3 Magnesium 2.2 Triglycerides 97 Cholesterol 134 LDL Cholesterol Direct 57 HDL Direct 43 Total T3 1.07
[2025-03-21] MEDS: MEMANTINE 10 MG TABLET PO (08:31)
[2025-03-21] MEDS: MECLIZINE HCL 12.5 MG TABLET PO (08:31)
[2025-03-21] MEDS: ASPIRIN 81 MG ENTERIC TABLET PO (08:31)
[2025-03-21] MEDS: CHOLECALCIFEROL (VITAMIN D3) 125 MCG (5,000 UNITS) TABLET PO (08:31)
[2025-03-21] MEDS: MAGNESIUM OXIDE 400 MG TABLET PO (08:31)
[2025-03-21 08:59] VITALS: BP 156/65; PULSE 94
[2025-03-21 09:04] VITALS: BP 148/75; PULSE 100
[2025-03-21 09:08] VITALS: BP 143/88; PULSE 116
--- NOTE | 2025-03-21 12:07 | PCNFU ---
Nutrition Follow-Up Complete: Inadequate oral intake related to loss of appetite as evidenced by reports of poor appetite at least 2 weeks goal: Adequate PO intake at least 75% meals Patient is meeting goal. No new goal. Pt current nutrition is Regular with diet supplements. Last recorded weight is 69.6 kg, stable Bowel Motility: Last reported BM 03/21 Labs Reviewed:Glu 125, Na 128, Cr 0.48, Hct 36.4 Meds Noted: Mg ox, Lipitor. Skin: WNL Additional Notes: Patient is tolerating regular diet with oral intake 50-100% of meals. Diet supplements of Ensure Plus High Protein providing an additional 350 kcal and 20 gm protein. Agree with diet orders. Monitoring intakes, weights, labs, supplement tolerance, plan of c are Follow up in 7 days
[2025-03-21 14:00] VITALS: BP 169/84; PULSE 99; RESP 18; TEMP 36.6; O2SAT 100
--- NOTE | 2025-04-10 20:55 | P.DS_ITS ---
DS: Admitting Diagnosis Discharge Date 03/21/25 Admitting Diagnosis Fall Dizziness DS: Discharge Diagnosis Discharge Diagnosis (1) Anxiety: Code(s): F41.9 - Anxiety disorder, unspecified Status: Acute (2) Hyponatremia: Code(s): E87.1 - Hypo-osmolality and hyponatremia Status: Acute (3) Hypomagnesemia: Code(s): E83.42 - Hypomagnesemia Status: Acute (4) Frequent falls: Code(s): R29.6 - Repeated falls Status: Acute DS: Summary Hospital Course Reason for hospitalization: The patient was admitted following a fall, accompanied by dizziness. Hospital Course: Chronic Vertigo: ENT was consulted * Weaning meclizine, recommend weaning off * An outpatient vascular consultation is recommended for right vertebral artery stenosis. * Initiated on aspirin 81 mg daily. * She reported consuming one shot of alcohol but denied any significant intake otherwise. * Physical and occupational therapy were involved to assist with mobility. * The patient and her family expressed interest in rehabilitation and she was discharged to [facility] * Orthostatic pressures were monitored daily due to supine systolic hypertension with a wide pulse pressure. Stenosis of Right Vertebral Artery: * The family will discuss further management with the patient's primary care physician, Dr. Londono, at [facility], and pursue a vascular consultation as an outpatient. * Continued on aspirin 81 mg daily. Hyponatremia: * Previous findings were consistent with chronic SIADH. * Random cortisol was 8. TSH slightly elevated, 5.3, normal free T4. Follow up with PCP * Sodium levels were monitored, showing 131 on 03/18 and 128 on 03/19. Hypomagnesemia: * Magnesium levels were 1.9 on 03/18 and 2.0 on 03/19.Fall: * Contributing factors included alcohol (cerebellar dysfunction, neuropathy), drug side effects, leg weakness, and vertigo. Hypokalemia: * Potassium level was 3.0 on 03/16, treated with KCL 40 mEq PO x2, and subsequently normalized. * Follow [facility] Alcohol Use Disorder: * Discussed the importance of abstaining from alcohol * Multivitamin initiated. Cigarette Smoker: Smoking cessation was discussed Alcoholic Fatty Liver: * Diagnosed via CT scan. * Discussed the potential progression to cirrhosis and the risk of if alcohol consumption continues. Discharge Plan: * The patient is to follow up with her primary care physician and specialists as recommended * Pursue outpatient rehabilitation and vascular consultation. * Monitor sodium and potassium levels as outpatient. * Abstain from alcohol and pursue smoking cessation. * Consider dietary modifications and lifestyle changes to support liver health. Follow-Up Appointments: * Primary Care Physician: Dr. Londono at [facility] * ENT and Vascular Consultations as outpatient Status at Discharge Cognitive/behavioral status at discharge: A&O x4 Time Spent with Patient Time attestation: Total time spent providing and/or coordinating discharge services: 48 minutes Exam Narrative: General - Awake and alert. No acute distress Eyes - PERRLA, EOM intact ENT - No thrush, No erythema Neck - No noticeable or palpable swelling Lymph Nodes - No lymphadenopathy Cardiovascular - RRR no m/r/g, no JVD Lungs: Clear to auscultation, No wheezing, use of accessory muscles, no crackles Skin - Skin warm and dry, no wounds or rashes Abdomen - Normal bowel sounds, abdomen soft and nontender Extremities - No edema, cyanosis or clubbing Musculoskeletal - 3/5 strength, decreased range of motion but nonfocal upper extremities. Neurological ? Alert and oriented x 3, CN 2-12 grossly intact. Psych: Normal mood and affect Discharge Plan Discharge Attending physician on discharge: Shawna Cruz Consulting providers: Rod Chen; Davidson Mathew; Ariella Peters; Xander Walter; Anup Mar Discharging Clinician: Shawna Cruz Anticipated Discharge Date/Time: 03/21/25 13:42 Patient Disposition: SNF Activity: no shower and may shower Diet: regular Discharge Instructions: Follow up with your PCP in 1-2 weeks Follow up with vascular surgery for narrowing in vessels, discuss referral with PCP Patient Instructions: Antibiotic Form Patient Language: American Stand Alone Forms: General Discharge Information Follow-up/Referrals: ,Jud [Other] - 2 Weeks Discharge Medications: New aspirin 81 mg Tablet,Delayed Release (Dr/Ec) 81 mg PO QAM Qty: 30 0RF lidocaine 5 % adhesive patch,medicated 1 patch topical DAILY Qty: 30 0RF Rx Instructions: leave on most painful area for up to 12 hrs Continued cholecalciferol (vitamin D3) [Vitamin D3] 125 mcg (5,000 unit) tablet 5,000 unit PO DAILY magnesium 500 mg tablet 500 mg PO DAILY memantine [Namenda] 10 mg tablet 10 mg PO Q12H clonazepam 0.5 mg tablet 0.5 mg PO HS Qty: 3 0RF trazodone 100 mg tablet 100 mg PO HS meclizine 25 mg tablet 25 mg PO BID Rx Instructions: patient takes at noon and evening time citalopram 40 mg tablet 10 mg PO DAILY Changed atorvastatin 10 mg tablet 20 mg PO HS Qty: 30 0RF Patient Comments: MON, WED, FRI Discontinued meclizine [Antivert] 50 mg tablet 50 mg PO DAILY Date of admission: 03/16/25 12:17 Primary Care Provider: ClareJud Admitting Provider: Amari Gilbert Attending physician on admission: Shawna Cruz Condition: Stable Quality VTE Prophylaxis VTE prophylaxis: pharmacologic ordered Hospitalist MIPS Heart Failure (Exclusion) Patient has history of Heart Transplant or Left Ventricular Assistive Device?: No IF YES, STOP HERE Heart Failure (Qualifier) Patient has current or prior documentation of LVEF less than or equal to 40%, or mod/servere depressed LVSF?: No IF NO, STOP HERE
== END 2025-03-21 16:10 | DRG 149 ==
LOC: ANHED 08:32 → ANH2MED 09:26
PROVIDERS: Family Medicine; Internal Medicine; Admitting Provider Internal Medicine; Emergency Provider Student in an Organized Health Care Education/Training Program; Visit Provider Nurse Practitioner Acute Care
DX: R42 Dizziness and giddiness (principal); E87.1 Hypo-osmolality and hyponatremia; I65.01 Occlusion and stenosis of right vertebral artery; W19.XXXA Unspecified fall, initial encounter; M25.512 Pain in left shoulder; Z79.82 Long term (current) use of aspirin; Z20.822 Contact with and (suspected) exposure to COVID-19; F03.90 Unspecified dementia, unspecified severity, without behavioral disturbance, psychotic disturbance, mood disturbance, and anxiety; Z85.828 Personal history of other malignant neoplasm of skin; E66.9 Obesity, unspecified; I10 Essential (primary) hypertension; E78.00 Pure hypercholesterolemia, unspecified; F17.210 Nicotine dependence, cigarettes, uncomplicated; E83.42 Hypomagnesemia; H93.19 Tinnitus, unspecified ear; K70.0 Alcoholic fatty liver; F10.90 Alcohol use, unspecified, uncomplicated; E87.6 Hypokalemia
CPT/HCPCS: 36415; 70496; 70498; 71046; 71275; 73030; 74174; 80048; 80053; 80061; 81001; 82533; 82948; 83605; 83735; 83880; 84439; 84443; 84480; 85025; 85027; 86140; 87040; 87637; 87641; 93005; 96361; 96365; 96367; 96375; 97110; 97161; 97165; 97530; 97535; 99285; A9270; G0378; J0692; J3373; J7030; J7040; Q9967